=== PATIENT | female | born 1950 | race Hispanic/Latino ===

== ENCOUNTER 2017-12-13 08:07 | Outpatient (CLI) | payer MEDICARE ==
[2017-12-13] MEDS ORDERED: XYLOCAINE TOPICAL 4% TP ONE (08:19)
[2017-12-13] MEDS ORDERED: NACL 0.9% IR PRN (08:19)
== END 2017-12-13 08:08 | disposition home or self-care (01) ==
LOC: WOUND 08:07
PROVIDERS: ATTEND Nurse Practitioner
DX: T81.31XA Disruption of external operation (surgical) wound, not elsewhere classified, initial encounter (principal); I70.292 Other atherosclerosis of native arteries of extremities, left leg; I10 Essential (primary) hypertension; I25.10 Atherosclerotic heart disease of native coronary artery without angina pectoris; Z90.710 Acquired absence of both cervix and uterus; Z87.891 Personal history of nicotine dependence; Y83.8 Other surgical procedures as the cause of abnormal reaction of the patient, or of later complication, without mention of misadventure at the time of the procedure
CPT/HCPCS: 11042; 97605; G0463

== ENCOUNTER 2017-12-20 08:07 | Outpatient (CLI) | payer MEDICARE ==
[2017-12-20] MEDS ORDERED: XYLOCAINE TOPICAL 4% TP ONE ×2 (08:39→08:53)
== END 2017-12-20 08:08 | disposition home or self-care (01) ==
LOC: WOUND 08:07
PROVIDERS: ATTEND Nurse Practitioner
DX: T81.31XD Disruption of external operation (surgical) wound, not elsewhere classified, subsequent encounter (principal); I70.292 Other atherosclerosis of native arteries of extremities, left leg; I10 Essential (primary) hypertension; I25.10 Atherosclerotic heart disease of native coronary artery without angina pectoris; Z90.710 Acquired absence of both cervix and uterus; Z87.891 Personal history of nicotine dependence; Y83.8 Other surgical procedures as the cause of abnormal reaction of the patient, or of later complication, without mention of misadventure at the time of the procedure
CPT/HCPCS: 11055; 97605

== ENCOUNTER 2018-01-03 13:35 | Outpatient (CLI) | payer MEDICARE | END 2018-01-03 13:36 | disposition home or self-care (01) | LOC: WOUND 13:35 | PROVIDERS: ATTEND Nurse Practitioner | DX: T81.31XD Disruption of external operation (surgical) wound, not elsewhere classified, subsequent encounter (principal); I70.292 Other atherosclerosis of native arteries of extremities, left leg; I25.10 Atherosclerotic heart disease of native coronary artery without angina pectoris; I10 Essential (primary) hypertension; Z90.710 Acquired absence of both cervix and uterus; Z87.891 Personal history of nicotine dependence; Y83.8 Other surgical procedures as the cause of abnormal reaction of the patient, or of later complication, without mention of misadventure at the time of the procedure | CPT/HCPCS: 97597 ==

== ENCOUNTER 2018-01-10 13:24 | Outpatient (CLI) | payer MEDICARE ==
[2018-01-10] MEDS ORDERED: XYLOCAINE TOPICAL 2% 5ML TP ONE (14:02)
[2018-01-10] MEDS ORDERED: SILVER NITRATE TP ONE (14:03)
== END 2018-01-10 13:25 | disposition home or self-care (01) ==
LOC: WOUND 13:24
PROVIDERS: ATTEND Nurse Practitioner
DX: T81.31XD Disruption of external operation (surgical) wound, not elsewhere classified, subsequent encounter (principal); I70.292 Other atherosclerosis of native arteries of extremities, left leg; I25.10 Atherosclerotic heart disease of native coronary artery without angina pectoris; F41.8 Other specified anxiety disorders; Z90.710 Acquired absence of both cervix and uterus; Z87.891 Personal history of nicotine dependence; Y83.8 Other surgical procedures as the cause of abnormal reaction of the patient, or of later complication, without mention of misadventure at the time of the procedure
CPT/HCPCS: 17250

== ENCOUNTER 2018-02-11 07:44 | Day surgery (SDC) | payer MEDICARE, OTHER ==
[2018-02-11] MEDS ORDERED: NACL 0.9% 1000 ML 1,000 ML IV SCH (09:00)
[2018-02-11 12:08] VITALS: BP 142/70
--- NOTE | 2018-02-13 18:25 | Cat Scan Report ---
FINAL REPORT PROCEDURE: CT ANGIO ABD/FEMORAL ABD AORTA TECHNIQUE: Computerized axial tomographic angiography of the abdomen and pelvis and aortoiliac system with bilateral lower extremity runoff was performed after the IV injection of nonionic iodinated contrast including image processing. The image data was postprocessed using 2-dimensional multiplanar reformatted (MPR) and 3-dimensional (MIP and/or volume rendered) techniques. DLP 1602.77. HISTORY: Atherosclerosis of eagle arteries of extremities. COMPARISON: No prior studies are available for comparison. FINDINGS: Visualized lower thorax: Emphysema. Moderate airspace disease in the peripheral right lower lobe. Mild bibasilar ground-glass opacities. Cardiomegaly. Coronary artery disease. Liver: Normal size and attenuation. Spleen: Normal size and attenuation. Gallbladder and biliary system: Cholecystectomy. Common bile duct 8.7 cm. Pancreas: Normal. Adrenals: Normal. Kidneys: Small atrophic kidneys bilaterally, particularly the left kidney. Prominence of the right collecting system. Low-attenuation left renal lesion measuring 1.6 cm. Low lying right kidney. GI tract: Normal appendix not confidently seen. Cecum is moderately distended and in the mid abdomen. Moderate stool throughout the colon, with areas of narrowing and air-filled distended redundant sigmoid colon. Lymph nodes and mesentery: Normal. Bladder: Normal. Reproductive organs: Hysterectomy. Peritoneum: No free fluid. Musculoskeletal structures: Osteopenia. Mild multilevel disc space narrowing and osteophytes with Schmorl's nodes of the thoracic spine. Moderate facet arthropathy in the lower lumbar spine. Mild narrowing of the hip, knee, and ankle joints. 9.5 mm sclerotic density in the left symphysis. Other: None. Abdominal aorta: Moderate atherosclerosis. Irregular thrombus in the mid abdominal aorta. 3.4 cm distal abdominal aortic aneurysm with [id number] thrombus just proximal to the bifurcation. Celiac artery: Normal. Superior mesenteric artery: Normal. LEFT renal artery: Atherosclerosis at the origin of the left renal artery without significant stenosis. RIGHT renal artery: Renal artery is low lying, possibly off just proximal to the bifurcation, although could be just at the level of the proximal right common iliac artery takeoff. This is in close proximity to area of linear low attenuation in the abdominal aorta just proximal to the bifurcation. It would be difficult to exclude renal artery comes off just at the area of linear area of low-attenuation. Inferior mesenteric artery: Normal. Common iliac arteries: Moderate irregular thrombus at the origin of the bilateral common iliac arteries. There also extension of the linear area of low attenuation in the distal abdominal aorta into the bilateral proximal common iliac arteries, which possibly ends on the right just proximal to the bifurcation into internal and external iliac arteries. If the area of linear attenuation extends to the bifurcation, right internal and external iliac arteries probably come off of the true lumen, although not certain. Right iliac artery measures 1.1 cm, left iliac artery measures 1.4 cm. External iliac arteries: Urgt-[id number] stenosis in the mid left external iliac artery, with a linear area of low attenuation in the more mid/distal external iliac artery. 1.3 cm aneurysmal dilation of the proximal/mid left internal iliac artery. Although could be irregular thrombus, consider there may be extension of linear area of low attenuation in to the proximal right internal iliac artery. RIGHT lower extremity: Femoral arteries: Normal. Popliteal arteries: Normal. Trifurcation vessels: Attenuation of the peroneal artery. LEFT lower extremity: Femoral arteries: Normal. Popliteal arteries: Normal. Trifurcation vessels: Attenuation of the peroneal artery. IMPRESSION: Moderate atherosclerosis and irregular thrombus in the abdominal aorta with 3.4 cm distal abdominal aortic aneurysm. Areas of linear attenuation in the distal abdominal aorta just proximal to the bifurcation with extension into the proximal bilateral proximal iliac arteries, concerning fordissection flap. 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 The right renal artery takeoff is low lying, may, off just proximal to the bifurcation, cannot exclude comes off just at/distal to this area of linear low attenuation, raising the possibility comes off false lumen (although not certain). Similar focal area of linear low attenuation in the mid/distal left external iliac artery, also suggesting small dissection flap. Focal mild to moderate stenosis just proximal to this in the left external iliac artery. 1.3 centimeter aneurysmal dilation of the proximal/mid left internal iliac artery. There may be involvement of the bifurcation of the right common iliac artery in to the internal and external iliac arteries, although not certain if this is the case they probably come off the true lumen. Attenuation of the peroneal arteries bilaterally. Emphysema. Bibasilar opacities/airspace disease. Cardiomegaly with coronary artery disease. Dilation of the common bile duct, likely normal after cholecystectomy. Atrophic kidneys, particularly the left kidney. Prominence of the right collecting system, likely extrarenal pelvis but consider correlation clinically if there is concern for UPJ obstruction. Low-attenuation left renal lesion likely cysts, consider confirmation with renal ultrasound if there is continued clinical concern. Moderate stool, consider constipation. Cecum is distended in the mid abdomen. Areas of narrowing and air-filled distended sigmoid colon likely peristalsis. Normal appendix not confidently seen. Consider correlation with surgical history and further evaluation and followup if appendiceal pathology is of continued clinical concern. Sclerotic lesion in the left symphysis, likely bone island. Consider bone scan if there is concern for blastic lesion.
== END 2018-02-11 15:00 | disposition home or self-care (01) ==
LOC: CATHLABREC 07:44
PROVIDERS: ATTEND Surgery Vascular Surgery
DX: I70.213 Atherosclerosis of native arteries of extremities with intermittent claudication, bilateral legs (principal); I71.4 Abdominal aortic aneurysm, without rupture; N26.1 Atrophy of kidney (terminal); J43.9 Emphysema, unspecified; Z90.710 Acquired absence of both cervix and uterus
CPT/HCPCS: 36415; 75635; 82565; 84520; 96360; 96361; J7030; Q9967

== ENCOUNTER 2018-04-29 21:14 | Inpatient (IN) | payer MEDICARE, OTHER ==
[2018-04-29 22:10] LABS: Basophils # (Auto) 0.1 K/mm3 (0.0-0.1); Basophils % (Auto) 0.7 % (0.0-1.8); Eosinophils # (Auto) 0.4 K/mm3 (0.0-0.4); Eosinophils % (Auto) 3.7 % (0.0-4.3); Hematocrit 33.5 % (30.3-42.9); Hemoglobin 11.2 gm/dl (10.1-14.3); Lymphocytes # (Auto) 1.8 K/mm3 (1.2-5.4); Mean Corpuscular HGB Conc 33 % (30-34); Mean Corpuscular Hemoglobin 30 pg (28-32); Mean Corpuscular Volume 89 fl (79-97); Monocytes % (Auto) 10.7 % (0.0-7.3); Platelet Count 169 K/mm3 (140-440); Red Blood Count 3.76 M/mm3 (3.65-5.03); Red Cell Distribution Width 14.8 % (13.2-15.2)
[2018-04-29 22:22] LABS: BUN/Creatinine Ratio 17; Blood Urea Nitrogen 32 mg/dL (7-17); Calcium 9.1 mg/dL (8.4-10.2); Hemolysis Index 39
[2018-04-29] MEDS ORDERED: CATAPRES PO ONE (22:32)
[2018-04-29] MEDS ORDERED: NITRO-BID 2% TP ONE (22:34)
[2018-04-29] MEDS ORDERED: MORPHINE IV ONE (22:34)
[2018-04-29] MEDS ORDERED: ZOFRAN IV ONE (22:34)
--- NOTE | 2018-04-29 22:39 | Emergency Department Report ---
HPI - General Chief Complaint: Chest Pain Time Seen by Provider: 04/29/18 22:19 - HPI HPI: Room 23 The patient is a 67-year-old female presenting with a chief complaint of chest pain. The patient states this evening approximately 20:00 the patient complained of diffuse anterior chest pain described as sharp in nature. The patient states the pain has been waxing and waning and she currently gives it a score of 7/10. The patient admits to shortness of breath and nausea but denies vomiting or diaphoresis. The patient reportedly had a history of "heart attack " last year in [place] the family is uncertain if a stent was placed. Location: Chest Duration: Constant since approximately 20:00 Quality: Sharp Severity: 7/10 Modifying factors: [see above] Context: [see above] Mode of transportation: [not driving] ED Past Medical Hx - Past Medical History Previous Medical History?: Yes Hx Hypertension: Yes Hx Heart Attack/AMI: Yes (2016) Hx Renal Disease: Yes Hx Arthritis: Yes Hx COPD: Yes Additional medical history: Distal AAA 3.4 cm 02/11/2018 - Surgical History Past Surgical History?: Yes Hx Cholecystectomy: Yes Hx Appendectomy: Yes Additional Surgical History: Hysterectomy, l't leg , - Family History Family history: no significant - Social History Smoking Status: Former Smoker Substance Use Type: None - Medications Home Medications: Home Medications Medication Instructions Recorded Confirmed Last Taken Type ALPRAZolam [Xanax TAB] 0.5 mg PO DAILY PRN 02/11/18 02/11/18 02/10/18 History 0.5mg Aspirin [Aspir-Low] 81 mg PO DAILY 02/11/18 02/11/18 02/10/18 History 81mg Clopidogrel Bisulfate [Plavix] 75 mg PO DAILY 02/11/18 02/11/18 02/10/18 History 75mg Gabapentin 300 mg PO BID 02/11/18 02/11/18 02/10/18 History 300mg Metoprolol [Lopressor TAB] 25 mg PO DAILY 02/11/18 02/11/18 02/10/18 History 25mg Pantoprazole [Protonix TAB] 40 mg PO DAILY 02/11/18 02/11/18 02/10/18 History 40mg Pravastatin Sodium [Pravastatin] 20 mg PO QHS 02/11/18 02/11/18 02/10/18 History 20mg ED Review of Systems ROS: Stated complaint: CHEST PAIN Other details as noted in HPI Physical Exam - Physical Exam Vital Signs: Vital Signs 04/29/18 04/29/18 21:38 22:10 Temperature 98.6 F Pulse Rate 85 Respiratory 20 20 Rate Blood Pressure 171/77 Blood Pressure 171/77 [Right] O2 Sat by Pulse 100 100 Oximetry ED Course Vital Signs 04/29/18 04/29/18 21:38 22:10 Temperature 98.6 F Pulse Rate 85 Respiratory 20 20 Rate Blood Pressure 171/77 Blood Pressure 171/77 [Right] O2 Sat by Pulse 100 100 Oximetry ED Medical Decision Making - Lab Data Result diagrams: 04/29/18 21:51 04/29/18 21:51 Laboratory Tests 04/29/18 04/29/18 21:51 21:51 WBC 9.6 RBC 3.76 Hgb 11.2 Hct 33.5 MCV 89 MCH 30 MCHC 33 RDW 14.8 Plt Count 169 Lymph % (Auto) 19.0 [place] % (Auto) 10.7 H Eos % (Auto) 3.7 Baso % (Auto) 0.7 Lymph # 1.8 [place] # 1.0 H Eos # 0.4 Baso # 0.1 Seg Neutrophils % 65.9 Seg Neutrophils # 6.4 Sodium 139 Potassium 4.2 Chloride 106.8 Carbon Dioxide 20 L Anion Gap 16 BUN 32 H Creatinine 1.9 H Estimated GFR 26 BUN/Creatinine Ratio 17 Glucose 90 Calcium 9.1 Troponin T < 0.010 - EKG Data -: EKG Interpreted by Me EKG shows normal: sinus rhythm Rate: normal - EKG Data When compared to previous EKG there are: previous EKG unavailable Interpretation: nonspecific ST-T wave comfort (T-wave inversion in lead 3) - Radiology Data Radiology results: image reviewed (chest x-ray) interpreted by me: Chest x-ray-no focal of leuk trase, no pneumothorax. Right costophrenic angle slightly obscured - Differential Diagnosis ACS, pericarditis, GERD, pneumonia Critical care attestation.: If time is entered above; I have spent that time in minutes in the direct care of this critically ill patient, excluding procedure time. ED Disposition Clinical Impression: Chest pain Disposition: OP ADMIT IP TO THIS HOSP Is pt being admited?: Yes Does the pt Need Aspirin: No (renal insufficiency) Condition: Fair Instructions: Chest Pain (ED) Referrals: PRIMARY CARE, [Referring] - 3-5 Days Time of Disposition: 22:47 (hospitalist paged (Dr. Lacy Day))
[2018-04-29] MEDS ORDERED: PLAVIX PO ONE (22:46)
--- NOTE | 2018-04-29 22:59 | XRay Report ---
FINAL REPORT EXAM: XR CHEST 1V AP HISTORY: chest pain TECHNIQUE: Single, portable chest x-ray. PRIORS: None. FINDINGS: Cardiac and mediastinal silhouette within normal limits. Lungs are hyperinflated, without significant vascular congestion. No focal consolidation or apparent pneumothorax. Bony thorax grossly unremarkable. IMPRESSION: 1. No acute findings.
[2018-04-29] MEDS ORDERED: PERCOCET 5/325 ONE (23:16)
[2018-04-29] MEDS: PERCOCET 5/325 PO PRN (23:24)
--- NOTE | 2018-04-29 23:34 | History and Physical Report ---
History of Present Illness Date of examination: 04/29/18 History of present illness: 67-year-old and a history of hypertension, COPD, chronic kidney disease, aortic abdominal aneurysm, probably coronary artery disease comes emergency room with complaints of chest pain in the anterior chest. Daughter at bedside state that she had a valve replacement, and she thinks she had a heart attack, she is unclear if the patient has any stents or other intervention done. She describes the pain as sharp, constant, intensity 5/10, no radiation, she cannot identify exacerbating or relieving factors. Also admits to nausea, no shortness of breath, diaphoresis or palpitation. The patient also complains of abdominal pain, she will not elaborate on that, she sleepy Review of systems Constitutional: no weight loss, chills Ears, eyes, nose, mouth and throat: no nasal congestion, no nasal discharge, no sinus pressure, no vision change, no red eye. Neck: No neck pain or rigidity. Cardiovascular: no palpitations Respiratory: No shortness of breath, cough Gastrointestinal: no hematochezia Genitourinary : no frequency , no hematuria Musculoskeletal: no joint swelling or muscle ache Integumentary: no rash, no pruritis Neurological: no parathesias, no numbness, no focal weakness Endocrine: no cold or heat intolerance, no polyuria or polydipsia Hematologic/Lymphatic: no easy bruising, no easy bleeding, no gland swelling Allergic/Immunologic: no urticaria, no angioedema. PAST MEDICAL HISTORY: hypertension, COPD, chronic kidney disease, aortic abdominal aneurysm PAST SURGICAL HISTORY: Valve replacement SOCIAL HISTORY: Smoke, no alcohol, drugs FAMILY HISTORY: Hypertension Medications and Allergies Allergies Allergy/AdvReac Type Severity Reaction Status Date / Time vancomycin Allergy Hives Verified 12/13/17 08:19 Home Medications Medication Instructions Recorded Confirmed Last Taken Type ALPRAZolam [Xanax TAB] 0.5 mg PO DAILY PRN 02/11/18 02/11/18 02/10/18 History 0.5mg Aspirin [Aspir-Low] 81 mg PO DAILY 02/11/18 02/11/18 02/10/18 History 81mg Clopidogrel Bisulfate [Plavix] 75 mg PO DAILY 02/11/18 02/11/18 02/10/18 History 75mg Gabapentin 300 mg PO BID 02/11/18 02/11/18 02/10/18 History 300mg Metoprolol [Lopressor TAB] 25 mg PO DAILY 02/11/18 02/11/18 02/10/18 History 25mg Pantoprazole [Protonix TAB] 40 mg PO DAILY 02/11/18 02/11/18 02/10/18 History 40mg Pravastatin Sodium [Pravastatin] 20 mg PO QHS 02/11/18 02/11/18 02/10/18 History 20mg Exam - Physical Exam Narrative exam: Gen. appearance: Patient lying in bed, no apparent distress HEENT: Normocephalic, atraumatic, pupils equally round and reactive to light, extraocular movement intact, and no sclericterus,. No JVD or thyromegaly or nodule,neck supple, no carotid bruit ,mucous membranes moist, no exudate or erythema Heart: S1, S2, regular rate and rhythm Lungs: Clear to auscultation bilaterally, breathing comfortable Abdomen: Positive bowel sounds, tender in the mid abdomen, nondistended, no organomegaly Extremity: Trace edema, no cyanosis, clubbing Skin: No rash, nodules, warm, dry Neuro: + tremors, Oriented 3, cranial nerves II-12 intact, speech is fluent, motor and sensory intact - Constitutional Vitals: Temp Pulse Resp BP Pulse Ox 98.6 F 81 16 145/73 98 04/29/18 21:38 04/29/18 23:22 04/29/18 23:23 04/29/18 23:22 04/29/18 22:30 Results - Labs CBC & Chem 7: 04/29/18 21:51 04/29/18 21:51 Labs: Abnormal lab results 04/29/18 04/29/18 Range/Units 21:51 21:51 [place] % (Auto) 10.7 H (0.0-7.3) % [place] # 1.0 H (0.0-0.8) K/mm3 Carbon Dioxide 20 L (22-30) mmol/L BUN 32 H (7-17) mg/dL Creatinine 1.9 H (0.7-1.2) mg/dL - Imaging and Cardiology EKG: image reviewed Chest x-ray: image reviewed Assessment and Plan Assessment Abdominal pain Chest pain hypertension COPD chronic kidney disease aortic abdominal aneurysm Plan Admit to medicine Obtain CAT scan of the abdomen and pelvis check cardiac enzymes, consult cardiology Continue medications, Percocet for pain DVT prophylaxis
[2018-04-29] MEDS ORDERED: TYLENOL PO PRN (23:35)
[2018-04-29] MEDS ORDERED: SODIUM CHLORIDE FLUSH SYRINGE 10 ML IV PRN (23:35)
[2018-04-29] MEDS ORDERED: ZOFRAN IV PRN (23:35)
[2018-04-30 01:04] LABS: Creatine Kinase MB 3.3 ng/mL (0.0-4.0)
--- NOTE | 2018-04-30 01:40 | Cat Scan Report ---
FINAL REPORT EXAM: CT ABDOMEN PELVIS WO CON HISTORY: abd pain TECHNIQUE: Routine axial imaging was obtained of the abdomen and pelvis without oral or IV contrast. Sagittal and coronal reconstructions were reviewed. Comparison is made to the study of 02/11/2018. FINDINGS: The lung bases reveal mild chronic changes. There are no localized infiltrates or effusions. There is a small hiatal hernia. The liver and biliary tree appear normal. The gallbladder is not seen. The pancreas, spleen, and adrenal glands appear normal. The left kidney is very atrophic revealing benign cystic changes. The right kidney is normal size. There is no evidence of hydronephrosis. There is a stable fusiform abdominal aortic aneurysm measuring 3.8 cm in diameter. There is a stent in the left common iliac artery. The bowel loops are normal in caliber and course. There is no evidence of free fluid or adenopathy. There are scattered uncomplicated colonic diverticula. In the pelvis the bladder appears normal. The uterus has been removed. The appendix is not seen. There is a stable small left inguinal hernia containing fat. There is scarring in the left inguinal area. The skeletal structures reveal postsurgical changes in the lower lumbar spine. IMPRESSION: No acute process in the abdomen and pelvis. Atrophic left kidney with cystic changes. No evidence of hydronephrosis. Cholecystectomy. Stable 3.8 cm in diameter fusiform abdominal aortic aneurysm. Scattered uncomplicated colonic diverticula. Hysterectomy. Stable small left inguinal hernia. Remote postsurgical changes in the lower lumbar spine
[2018-04-30 08:38] LABS: Hematocrit 33.8 % (30.3-42.9); Hemoglobin 11.3 gm/dl (10.1-14.3); Mean Corpuscular HGB Conc 33 % (30-34); Mean Corpuscular Hemoglobin 30 pg (28-32); Mean Corpuscular Volume 90 fl (79-97); Platelet Count 166 K/mm3 (140-440); Red Blood Count 3.78 M/mm3 (3.65-5.03); Red Cell Distribution Width 15.1 % (13.2-15.2)
[2018-04-30 08:57] LABS: Calcium 9.2 mg/dL (8.4-10.2); Creatine Kinase MB 2.7 ng/mL (0.0-4.0)
[2018-04-30 10:38] LABS: Anisocytosis 1+; Band Neutrophils # (Manual) 0.1 K/mm3; Basophils % (Manual) 0 % (0.0-1.8); Platelet Estimate Cons; Total Cells Counted 100
--- NOTE | 2018-04-30 10:39 | Consultation ---
History of Present Illness Consult date: 04/30/18 Requesting physician: GERRY LACEY Consult reason: chest pain History of present illness: The pt is a 67 YO female with a past medical history significant for HTN, COPD, abdominal aortic aneurysm (being followed by Dr.Paul Raymundo), severe s/p TAVR in [place] reportedly in 08/2017 with left groin surgical site infection, s/p left groin exploration, left femoral and external iliac vessel exploration and left femoral artery and external iliac artery endarterectomy, thrombectomy, hemashield patch angioplasty of left femoral and iliac arteries and inguinal ligament reconstruction on 10/26/17 and subsequent wound revision on 11/22/17 and again wound vac placement on 11/26/17. She is followed in our office by Dr. Hamilton. She presented with complaints of chest pain since yesterday morning. She describes her chest pain as a nonexertional, nonradiating, midsternal, intermittent, sharp pain which is associated with SOB. She denies any palpitations, n/v, diaphoresis, dizziness or syncope. ECG shows no acute ischemic changes, troponin is negative for AMI x 2, CXR with NAF. Past History Past Medical History: COPD, hypertension, other (CKD; severe s/p TAVR) Past Surgical History: Other (severe s/p TAVR) Medications and Allergies Allergies Allergy/AdvReac Type Severity Reaction Status Date / Time vancomycin Allergy Hives Verified 12/13/17 08:19 Home Medications Medication Instructions Recorded Confirmed Last Taken Type ALPRAZolam [Xanax TAB] 0.5 mg PO DAILY PRN 02/11/18 04/30/18 02/10/18 History 0.5mg Aspirin [Aspir-Low] 81 mg PO DAILY 02/11/18 04/30/18 02/10/18 History 81mg Clopidogrel Bisulfate [Plavix] 75 mg PO DAILY 02/11/18 04/30/18 04/29/18 History Gabapentin [Neurontin] 300 mg PO Q8HR 02/11/18 04/30/18 04/29/18 History Metoprolol [Lopressor TAB] 25 mg PO DAILY 02/11/18 04/30/18 04/29/18 History Pantoprazole [Protonix TAB] 40 mg PO DAILY 02/11/18 04/30/18 04/29/18 History Pravastatin Sodium [Pravastatin] 20 mg PO QHS 02/11/18 04/30/18 04/28/18 History Active Meds: Active Medications Acetaminophen (Tylenol) 650 mg PO Q4H PRN PRN Reason: Pain MILD(1-3)/Fever >100.5/ZHANG Enoxaparin Sodium (Lovenox) 30 mg SUB-Q QDAY [facility] Ondansetron HCl (Zofran) 4 mg IV Q4H PRN PRN Reason: Nausea And Vomiting Oxycodone/Acetaminophen (Percocet 5/325) 1 tab PO Q6H PRN PRN Reason: Pain, Moderate (4-6) Last Admin: 04/29/18 23:24 Dose: 1 tab Sodium Chloride (Sodium Chloride Flush Syringe 10 Ml) 10 ml IV BID NITESH Sodium Chloride (Sodium Chloride Flush Syringe 10 Ml) 10 ml IV PRN PRN PRN Reason: LINE FLUSH Review of Systems Constitutional: no weight loss, no weight gain, no fever, no chills, no sweats Ears, nose, mouth and throat: no ear pain, no nose pain, no sinus pressure, no sinus pain Cardiovascular: chest pain, shortness of breath, high blood pressure, no orthopnea, no palpitations, no rapid/irregular heart beat, no edema, no syncope , no lightheadedness, no leg edema Respiratory: shortness of breath, no cough, no congestion, no wheezing, no pain on inspiration Gastrointestinal: no abdominal pain, no nausea, no vomiting, no diarrhea, no constipation, no change in bowel habits Genitourinary Female: no pelvic pain, no flank pain, no dysuria, no urinary frequency, no urgency Musculoskeletal: no neck stiffness, no neck pain, no shooting arm pain, no arm numbness/tingling, no low back pain, no shooting leg pain, no leg numbness/ tingling, no redness of joints Integumentary: other (old left groin surgical site c/d/i), no rash, no pruritis , no redness, no sores Neurological: no head injury, no paralysis, no weakness, no parathesias, no numbness, no tingling, no seizures, no syncope Psychiatric: no anxiety Endocrine: no cold intolerance, no heat intolerance Hematologic/Lymphatic: no easy bruising, no easy bleeding, no lymphadenopathy Allergic/Immunologic: no urticaria, no wheezing, no persistent infections Physical Examination Vital Signs Pulse Resp 87 17 04/29/18 21:28 04/29/18 21:28 General appearance: no acute distress HEENT: Positive: PERRL, Normocephaly, Mucus Membranes Moist Neck: Positive: neck supple, trachea midline Cardiac: Positive: Reg Rate and Rhythm, S1/S2 Lungs: Positive: clear to auscultation Neuro: Positive: Grossly Intact Abdomen: Positive: Soft. Negative: Tender Skin: Positive: Clear. Negative: Rash, Wound Musculoskeletal: No Fluid Collection, No Pain, Normal Range of Motion Extremities: Absent: edema Results 04/30/18 07:48 04/30/18 07:48 Cardiac Enzymes 04/29/18 04/30/18 Range/Units 23:59 07:48 CK-MB (CK-2) 3.3 2.7 (0.0-4.0) ng/mL CBC 04/29/18 04/30/18 Range/Units 21:51 07:48 WBC 9.6 6.1 (4.5-11.0) K/mm3 RBC 3.76 3.78 (3.65-5.03) M/mm3 Hgb 11.2 11.3 (10.1-14.3) gm/dl Hct 33.5 33.8 (30.3-42.9) % Plt Count 169 166 (140-440) K/mm3 Lymph # 1.8 (1.2-5.4) K/mm3 [place] # 1.0 H (0.0-0.8) K/mm3 Eos # 0.4 (0.0-0.4) K/mm3 Baso # 0.1 (0.0-0.1) K/mm3 Comprehensive Metabolic Panel 04/29/18 04/30/18 Range/Units 21:51 07:48 Sodium 139 142 (137-145) mmol/L Potassium 4.2 4.8 (3.6-5.0) mmol/L Chloride 106.8 108.8 H (98-107) mmol/L Carbon Dioxide 20 L 20 L (22-30) mmol/L BUN 32 H 30 H (7-17) mg/dL Creatinine 1.9 H 2.0 H (0.7-1.2) mg/dL Glucose 90 81 (65-100) mg/dL Calcium 9.1 9.2 (8.4-10.2) mg/dL - Imaging and Cardiology Echo: pending EKG: report reviewed, image reviewed EKG interpretations - Telemetry EKG Rhythm: Sinus Rhythm - EKG Sinus rhythms and dysrhythmias: sinus rhythm AV and intraventricular conduction: intraventricular conducti Assessment and Plan Assessment: Chest pain, atypical - recurrent; ECG with NAF, Abelardo negative for AMI H/o severe s/p TAVR in [place] reportedly in 08/2017 with left groin surgical site infection, s/p left groin exploration, left femoral and external iliac vessel exploration and left femoral artery and external iliac artery endarterectomy , thrombectomy, hemashield patch angioplasty of left femoral and iliac arteries and inguinal ligament reconstruction on 10/26/17 and subsequent wound revision on 11/22/17 and again wound vac placement on 11/26/17. HTN COPD H/o abdominal aortic aneurysm - abdomen CT this admission shows stable 3.8cm AAA Plan: Resume home cardiac regimen. Obtain echo. Plan for lexiscan MPI stress test in AM. NPO after MN. Assessment and plan reviewed with pt and pt's family at bedside. The patient has been seen in conjunction with Dr. Blackwell who agrees with the assessment and plan of care.
[2018-04-30] MEDS: LOVENOX SUB-Q SCH (10:46)
[2018-04-30] MEDS: SODIUM CHLORIDE FLUSH SYRINGE 10 ML IV SCH ×2 (10:46→21:25)
--- NOTE | 2018-04-30 17:29 | Progress Note ---
Assessment and Plan Assessment and Plan 1)Chest pain, atypical - recurrent; ECG with NAF, Abelardo negative for AMI H/o severe s/p TAVR in [place] reportedly in 08/2017 with left groin surgical site infection, s/p left groin exploration, left femoral and external iliac vessel exploration and left femoral artery and external iliac artery endarterectomy , thrombectomy, hemashield patch angioplasty of left femoral and iliac arteries and inguinal ligament reconstruction on 10/26/17 and subsequent wound revision on 11/22/17 and again wound vac placement on 11/26/17. Obtain echo. Plan for lexiscan MPI stress test in AM. NPO after MN. 2)HTN---Cont antihypertensives 3)COPD H/o abdominal aortic aneurysm - abdomen CT this admission shows stable 3.8cm AAA Plan: Resume home cardiac regimen. Assessment and plan reviewed with pt and pt's family at bedside. Subjective Date of service: 04/30/18 Principal diagnosis: Chest pain Interval history: Sx better Objective - Constitutional Vitals: Vital Signs - 12hr 04/30/18 04/30/18 04/30/18 07:22 11:40 11:50 Temperature 97.5 F L 97.8 F Pulse Rate 71 73 60 Respiratory 16 16 Rate Blood Pressure 125/55 147/76 O2 Sat by Pulse 100 99 Oximetry 04/30/18 04/30/18 11:53 15:37 Temperature 97.8 F Pulse Rate 60 90 Respiratory 16 Rate Blood Pressure 153/75 O2 Sat by Pulse 100 Oximetry General appearance: Present: no acute distress, well-nourished - EENT Eyes: PERRL, EOM intact ENT: hearing intact, clear oral mucosa Ears: bilateral: normal - Neck Neck: supple, normal ROM - Respiratory Respiratory effort: normal Respiratory: bilateral: CTA - Breasts Breasts: deferred, normal - Cardiovascular Heart rate: 78 Rhythm: regular Heart Sounds: Present: S1 & S2. Absent: gallop, rub Extremities: no ischemia, pulses intact, No edema, normal color, Full ROM - Gastrointestinal General gastrointestinal: Present: soft, non-tender, non-distended, normal bowel sounds - Genitourinary Female genitourinary: normal - Integumentary Integumentary: clear, warm, dry - Musculoskeletal Musculoskeletal: 1, strength equal bilaterally - Neurologic Neurologic: moves all extremities - Psychiatric Psychiatric: memory intact, appropriate mood/affect, intact judgment & insight - Labs CBC & Chem 7: 04/30/18 07:48 04/30/18 07:48 Labs: Abnormal lab results 04/29/18 04/29/18 04/30/18 Range/Units 21:51 21:51 07:48 Clinch % (Auto) 10.7 H (0.0-7.3) % Clinch # 1.0 H (0.0-0.8) K/mm3 Monocytes % (Manual) 12.0 H (0.0-7.3) % Eosinophils % (Manual) 5.0 H (0.0-4.3) % Lymphocytes # (Manual) 0.9 L (1.2-5.4) K/mm3 Chloride (98-107) mmol/L Carbon Dioxide 20 L (22-30) mmol/L BUN 32 H (7-17) mg/dL Creatinine 1.9 H (0.7-1.2) mg/dL 04/30/18 Range/Units 07:48 Clinch % (Auto) (0.0-7.3) % Clinch # (0.0-0.8) K/mm3 Monocytes % (Manual) (0.0-7.3) % Eosinophils % (Manual) (0.0-4.3) % Lymphocytes # (Manual) (1.2-5.4) K/mm3 Chloride 108.8 H (98-107) mmol/L Carbon Dioxide 20 L (22-30) mmol/L BUN 30 H (7-17) mg/dL Creatinine 2.0 H (0.7-1.2) mg/dL
[2018-04-30] MEDS ORDERED: NACL 0.9% 1000 ML 1,000 ML IV SCH (18:00)
[2018-04-30] MEDS: PERCOCET 5/325 PO PRN (21:17)
[2018-04-30] MEDS: LOPRESSOR PO SCH (21:24)
[2018-04-30] MEDS ORDERED: PRAVACHOL PO SCH (22:00)
[2018-05-01] MEDS ORDERED: LEXISCAN IV ONE ×2 (08:16→08:24)
[2018-05-01] MEDS ORDERED: PLAVIX PO SCH (10:00)
[2018-05-01] MEDS ORDERED: HALFPRIN EC PO SCH (10:00)
--- NOTE | 2018-05-01 10:12 | Progress Note ---
Assessment and Plan chest pain possible gi sob htn AAA chol s/p TAVR s/p iliac repair rec: pt has normal myocardial perfusion and normal lv function, on echo and functioning aortic valve and cont home meds and add ppi and followed up with dr melgar Subjective Date of service: 05/01/18 Principal diagnosis: Chest pain Interval history: pt has no chest pain today Objective Vital Signs Temp Pulse Resp Resp BP BP Pulse Ox 05/01/18 07:27 97.9 F 71 147/64 100 05/01/18 04:17 98.9 F 69 18 139/56 99 05/01/18 03:33 71 139/56 100 05/01/18 00:09 98.9 F 72 20 149/78 99 04/30/18 23:53 98 H 04/30/18 23:33 79 149/78 99 04/30/18 22:00 20 20 04/30/18 21:24 82 139/55 04/30/18 21:17 20 04/30/18 21:16 98.2 F 83 20 139/55 99 04/30/18 20:00 98.4 F 76 18 121/36 100 04/30/18 19:21 82 121/33 100 04/30/18 19:20 79 121/26 100 04/30/18 15:37 97.8 F 90 16 153/75 100 04/30/18 11:53 60 04/30/18 11:50 60 04/30/18 11:40 97.8 F 73 16 147/76 99 - Physical Examination HEENT: Positive: PERRL, Normocephaly, Mucus Membranes Moist Neck: Positive: neck supple, trachea midline Cardiac: Positive: Reg Rate and Rhythm, Audible Murmur Lungs: Positive: clear to auscultation Neuro: Positive: Grossly Intact Abdomen: Positive: Soft. Negative: Tender Skin: Positive: Clear. Negative: Rash, Wound Musculoskeletal: No Fluid Collection, No Pain, Normal Range of Motion Extremities: Absent: edema - Imaging and Cardiology EKG: report reviewed, image reviewed Pharmacologic stress test: report reviewed (normal myocardial perfusion normal lv function) Echo: report reviewed (normal lv function normal aortic bioprostetic valve functioning no ai or as and mild mr ) - Telemetry EKG Rhythm: Sinus Rhythm - EKG Sinus rhythms and dysrhythmias: sinus rhythm AV and intraventricular conduction: intraventricular conducti
[2018-05-01] MEDS: SODIUM CHLORIDE FLUSH SYRINGE 10 ML IV SCH (11:00)
[2018-05-01] MEDS: LOVENOX SUB-Q SCH (11:00)
[2018-05-01] MEDS: LOPRESSOR PO SCH (11:00)
--- NOTE | 2018-05-01 15:51 | Discharge Summary ---
Providers - Providers Date of Admission: 04/29/18 23:35 Date of discharge: 05/01/18 Attending physician: CITLALLI RIDDLE 04/29/18 23:35 Consult to Physician [CONS] Routine Comment: Consulting Provider: BRENT NUNO Physician Instructions: Reason For Exam: cp 04/30/18 11:28 Physical Therapy Evaluation and Treat [CONS] Stat Comment: Reason For Exam: General Weakness Primary care physician: ANDERS GARCIA Hospitalization Condition: Fair Procedures: ECHO and Lexiscan normal Hospital course: Assessment and Plan chest pain possible Gerd COPD htn AAA chol s/p TAVR s/p iliac repair rec: pt has normal myocardial perfusion and normal lv function, on echo and functioning aortic valve and cont home meds and ppi added Follow up with dr melgar Disposition: DC-01 TO HOME OR SELFCARE Core Measure Documentation - Palliative Care Palliative Care/ Comfort Measures: Not Applicable - Core Measures Any of the following diagnoses?: none Exam - Constitutional Vitals: Temp Pulse Resp BP Pulse Ox 97.5 F L 76 16 155/65 100 05/01/18 11:59 05/01/18 11:59 05/01/18 11:59 05/01/18 11:59 05/01/18 11:59 General appearance: Present: no acute distress, well-nourished - EENT Eyes: Present: PERRL ENT: hearing intact, clear oral mucosa - Neck Neck: Present: supple, normal ROM - Respiratory Respiratory effort: normal Respiratory: bilateral: CTA - Cardiovascular Heart rate: 70 Rhythm: regular Heart Sounds: Present: S1 & S2. Absent: rub, click - Extremities Extremities: no ischemia, pulses intact, pulses symmetrical, No edema Peripheral Pulses: within normal limits - Abdominal General gastrointestinal: Present: soft, non-tender, non-distended, normal bowel sounds Female genitourinary: Present: normal - Rectal Rectal Exam: deferred - Integumentary Integumentary: Present: clear, warm, dry - Musculoskeletal Musculoskeletal: gait normal, strength equal bilaterally - Psychiatric Psychiatric: appropriate mood/affect, intact judgment & insight - Neurologic Neurologic: CNII-XII intact, moves all extremities - Allied Health Allied health notes reviewed: nursing, case management Plan Activity: no restrictions Diet: low cholesterol, low salt Follow up with: PRIMARY CARE, [Referring] - 3-5 Days
[2018-05-01 16:54] VITALS: BP 151/80
--- NOTE | 2018-05-01 21:17 | Treadmill Report ---
NUCLEAR PERFUSION STUDY READING PHYSICIAN: Dr. Rangel. REASON FOR STUDY: Chest pain. IMAGING PROTOCOL: Single isotope. The patient received 10 mCi of Technetium 99m Tetrofosmin for resting image and 28 mCi of Technetium 99m Tetrofosmin for stress imaging. The imaging for the whole procedure was completed 30-90 minutes following the initial injection of Technetium 99m tetrofosmin. The SPECT imaging in the 180 degree arc was performed in the right anterior oblique projection. Computerized reconstruction of the images was performed for analysis. IMAGING RESULTS: Normal cavity size from stress to rest. Normal distribution of radionuclide in the anterior, inferior, septal, and apical regions. Gated SPECT, EF 53%. No wall motion abnormality. The patient infused Lexiscan with no EKG changes. SUMMARY: 1. Negative Lexiscan EKG. 2. Normal rest and stress myocardial perfusion scan. No significant stress ischemia. No wall motion abnormality. Gated SPECT, 52%. JOB# [id number] PARI/DEBBI
== END 2018-05-01 18:45 | disposition home health service (06) | DRG 392 ==
LOC: ED 21:14 → 4A 23:35
PROVIDERS: ADMIT Internal Medicine; ATTEND Internal Medicine
DX: K21.9 Gastro-esophageal reflux disease without esophagitis (principal); N17.9 Acute kidney failure, unspecified; J44.9 Chronic obstructive pulmonary disease, unspecified; I12.9 Hypertensive chronic kidney disease with stage 1 through stage 4 chronic kidney disease, or unspecified chronic kidney disease; N18.9 Chronic kidney disease, unspecified; I71.4 Abdominal aortic aneurysm, without rupture; M19.90 Unspecified osteoarthritis, unspecified site; Z90.49 Acquired absence of other specified parts of digestive tract; Z90.710 Acquired absence of both cervix and uterus; I25.2 Old myocardial infarction; Z87.891 Personal history of nicotine dependence; Z82.49 Family history of ischemic heart disease and other diseases of the circulatory system; Z88.1 Allergy status to other antibiotic agents
CPT/HCPCS: 36415; 71045; 74176; 78452; 80048; 82550; 82553; 84484; 85007; 85025; 86403; 87116; 93005; 93010; 93017; 93306; 96374; 99285; A9270-GY; A9502; G8978-GP; G8979-GP; J1650; J2270; J2405; J2785; J7030

== ENCOUNTER 2019-04-21 20:40 | Inpatient (IN) | payer MEDICARE, OTHER ==
[2019-04-21 21:54] LABS: Hematocrit 34.3 % (30.3-42.9); Hemoglobin 11.8 gm/dl (10.1-14.3); Mean Corpuscular HGB Conc 34 % (30-34); Mean Corpuscular Volume 93 fl (79-97); Platelet Count 187 K/mm3 (140-440); Red Cell Distribution Width 13.9 % (13.2-15.2)
[2019-04-21] MEDS ORDERED: MORPHINE IV ONE (21:57)
[2019-04-21] MEDS ORDERED: ZOFRAN IV ONE (21:57)
[2019-04-21 22:07] LABS: INR 0.87 (0.87-1.13)
[2019-04-21 22:08] LABS: Partial Thromboplastin Time 25.2 Sec. (24.2-36.6)
[2019-04-21 22:09] LABS: BUN/Creatinine Ratio 13; Blood Urea Nitrogen 28 mg/dL (7-17); Calcium 8.8 mg/dL (8.4-10.2); Hemolysis Index 48
--- NOTE | 2019-04-21 22:18 | Emergency Department Report ---
ED Chest Pain HPI - General Chief Complaint: Chest Pain Stated Complaint: CHEST PAIN Time Seen by Provider: 04/21/19 20:57 Source: patient, EMS, old records reviewed (April 2018 stress test negative. Echo EF of 50-55%) Mode of arrival: Wheelchair Limitations: No Limitations - History of Present Illness Initial Comments: 68-year-old female with past medical history of arthritis, COPD, CAD, hypertension, renal insufficiency, CAD with stent placement, and bovine aortic heart valve presents to the hospital complains of sternal chest pain 2 days. Pain is intermittent and worse with palpation, breathing, and movement. She also describes it as a tightness. Pain is rated 8/10 and intensity. She complains of just mild shortness of breath without nausea, vomiting, diaphoresis, calf tenderness, or leg edema. Managed Care Provider: Dr. Hamilton Severity scale (0 -10): 3 - Related Data Home Medications Medication Instructions Recorded Confirmed Last Taken ALPRAZolam [Xanax TAB] 0.5 mg PO DAILY PRN 02/11/18 04/21/19 02/10/18 0.5mg Clopidogrel Bisulfate [Plavix] 75 mg PO DAILY 02/11/18 04/21/19 04/29/18 Gabapentin [Neurontin] 300 mg PO TID 02/11/18 04/21/19 04/29/18 Metoprolol [Lopressor TAB] 25 mg PO BID 02/11/18 04/21/19 04/29/18 Pantoprazole [Protonix TAB] 40 mg PO DAILY 02/11/18 04/21/19 04/29/18 Pravastatin Sodium [Pravastatin] 20 mg PO QHS 02/11/18 04/21/19 04/28/18 Cholecalciferol (Vitamin D3) 1 tab PO DAILY 04/21/19 04/21/19 Unknown [Vitamin D3 2,000 UNIT CAP] Ferrous Gluconate [Ferrous 1 tab PO BID 04/21/19 04/21/19 Unknown Gluconate 324 MG] amLODIPine [Norvasc] 5 mg PO DAILY 04/21/19 04/21/19 Unknown Allergies Allergy/AdvReac Type Severity Reaction Status Date / Time vancomycin Allergy Hives Verified 04/21/19 21:21 Heart Score - HEART Score History: Slightly suspicious EKG: Non-specific Age: > 65 Risk factors: > 3 risk factors or hx of atherosclerotic disease Troponin: < normal limit HEART Score: 5 ED Review of Systems ROS: Stated complaint: CHEST PAIN Other details as noted in HPI ED Past Medical Hx - Past Medical History Previous Medical History?: Yes Hx Hypertension: Yes Hx Heart Attack/AMI: Yes (2016) Hx Renal Disease: Yes Hx Arthritis: Yes Hx COPD: Yes Additional medical history: Distal AAA 3.4 cm 02/11/2018 - Surgical History Hx Coronary Stent: Yes Hx Cholecystectomy: Yes Hx Appendectomy: Yes Additional Surgical History: Hysterectomy, l't leg , back surgery, bovine transcatheter aortic heart valve replacement, ovarian cyst removal - Social History Smoking Status: Former Smoker Substance Use Type: None - Medications Home Medications: Home Medications Medication Instructions Recorded Confirmed Last Taken Type ALPRAZolam [Xanax TAB] 0.5 mg PO DAILY PRN 02/11/18 04/21/19 02/10/18 History 0.5mg Clopidogrel Bisulfate [Plavix] 75 mg PO DAILY 02/11/18 04/21/19 04/29/18 History Gabapentin [Neurontin] 300 mg PO TID 02/11/18 04/21/19 04/29/18 History Metoprolol [Lopressor TAB] 25 mg PO BID 02/11/18 04/21/19 04/29/18 History Pantoprazole [Protonix TAB] 40 mg PO DAILY 02/11/18 04/21/19 04/29/18 History Pravastatin Sodium [Pravastatin] 20 mg PO QHS 02/11/18 04/21/19 04/28/18 History Cholecalciferol (Vitamin D3) 1 tab PO DAILY 04/21/19 04/21/19 Unknown History [Vitamin D3 2,000 UNIT CAP] Ferrous Gluconate [Ferrous 1 tab PO BID 04/21/19 04/21/19 Unknown History Gluconate 324 MG] amLODIPine [Norvasc] 5 mg PO DAILY 04/21/19 04/21/19 Unknown History ED Physical Exam - General Limitations: No Limitations ED Course Vital Signs 04/21/19 04/21/19 04/21/19 20:50 21:30 22:25 Temperature 98.1 F 98.0 F Pulse Rate 83 77 Respiratory 20 16 16 Rate Blood Pressure Blood Pressure 147/66 147/70 [Right] O2 Sat by Pulse 98 99 Oximetry 06/03/19 06/03/19 22:55 23:00 Temperature Pulse Rate 69 Respiratory 18 16 Rate Blood Pressure 134/56 Blood Pressure [Right] O2 Sat by Pulse 97 Oximetry YULIANA score - Yuliana Score Age > 65: (1) Yes Aspirin use within the Past 7 Days: (1) Yes 3 or more CAD Risk Factors: (1) Yes 2 or more Angina events in past 24 hrs: (0) No Known CAD with more than 50% Stenosis: (1) Yes Elevated Cardiac Markers: (0) No ST Deviation Greater than 0.5mm: (0) No YULIANA Score: 4 ED Medical Decision Making - Lab Data Result diagrams: 04/21/19 21:33 04/21/19 21:33 Lab Results 04/21/19 04/21/19 04/21/19 Range/Units 21:33 21:33 21:33 WBC 7.9 (4.5-11.0) K/mm3 RBC 3.70 (3.65-5.03) M/mm3 Hgb 11.8 (10.1-14.3) gm/dl Hct 34.3 (30.3-42.9) % MCV 93 (79-97) fl MCH 32 (28-32) pg MCHC 34 (30-34) % RDW 13.9 (13.2-15.2) % Plt Count 187 (140-440) K/mm3 Add Manual Diff Complete Total Counted 100 Seg Neuts % (Manual) 71.0 H (40.0-70.0) % Band Neutrophils % 4.0 % Lymphocytes % (Manual) 16.0 (13.4-35.0) % Reactive Lymphs % (Man) 0 % Monocytes % (Manual) 6.0 (0.0-7.3) % Eosinophils % (Manual) 3.0 (0.0-4.3) % Basophils % (Manual) 0 (0.0-1.8) % Metamyelocytes % 0 % Myelocytes % 0 % Promyelocytes % 0 % Blast Cells % 0 % Nucleated RBC % Not Reportable Seg Neutrophils # Man 5.6 (1.8-7.7) K/mm3 Band Neutrophils # 0.3 K/mm3 Lymphocytes # (Manual) 1.3 (1.2-5.4) K/mm3 Abs React Lymphs (Man) 0.0 K/mm3 Monocytes # (Manual) 0.5 (0.0-0.8) K/mm3 Eosinophils # (Manual) 0.2 (0.0-0.4) K/mm3 Basophils # (Manual) 0.0 (0.0-0.1) K/mm3 Metamyelocytes # 0.0 K/mm3 Myelocytes # 0.0 K/mm3 Promyelocytes # 0.0 K/mm3 Blast Cells # 0.0 K/mm3 WBC Morphology Not Reportable Hypersegmented Neuts Not Reportable Hyposegmented Neuts Not Reportable Hypogranular Neuts Not Reportable Smudge Cells Not Reportable Toxic Granulation Not Reportable Toxic Vacuolation Not Reportable Dohle Bodies Not Reportable Pelger-Huet Anomaly Not Reportable Padmaja Rods Not Reportable Platelet Estimate Consistent w auto Clumped Platelets Not Reportable Plt Clumps, EDTA Not Reportable Large Platelets Not Reportable Giant Platelets Not Reportable Platelet Satelliting Not Reportable Plt Morphology Comment Not Reportable RBC Morphology Not Reportable Dimorphic RBCs Not Reportable Polychromasia Not Reportable Hypochromasia Not Reportable Poikilocytosis Few Anisocytosis 1+ Microcytosis Not Reportable Macrocytosis Not Reportable Spherocytes Not Reportable Pappenheimer Bodies Not Reportable Sickle Cells Not Reportable Target Cells Not Reportable Tear Drop Cells Not Reportable Ovalocytes Few Helmet Cells Not Reportable Castro-Westervelt Bodies Not Reportable W[place] Rings Not Reportable Gary Cells Not Reportable Bite Cells Not Reportable Crenated Cell Not Reportable Elliptocytes Not Reportable Acanthocytes (Spur) Not Reportable Rouleaux Not Reportable Hemoglobin C Crystals Not Reportable Schistocytes Not Reportable Malaria parasites Not Reportable Luis Bodies Not Reportable Hem Pathologist Commnt No PT 12.3 (12.2-14.9) Sec. INR 0.87 (0.87-1.13) APTT 25.2 (24.2-36.6) Sec. D-Dimer 639.10 H (0-234) ng/mlDDU Sodium 139 (137-145) mmol/L Potassium 4.5 (3.6-5.0) mmol/L Chloride 107.1 H (98-107) mmol/L Carbon Dioxide 19 L (22-30) mmol/L Anion Gap 17 mmol/L BUN 28 H (7-17) mg/dL Creatinine 2.2 H (0.7-1.2) mg/dL Estimated GFR 22 ml/min BUN/Creatinine Ratio 13 % Glucose 154 H (65-100) mg/dL Calcium 8.8 (8.4-10.2) mg/dL Troponin T < 0.010 (0.00-0.029) ng/mL - EKG Data -: EKG Interpreted by Me EKG shows normal: sinus rhythm, ST-T waves (no stemi) Rate: normal (76) - EKG Data When compared to previous EKG there are: no significant change - Radiology Data Radiology results: report reviewed PROCEDURE: XR CHEST ROUTINE 2V TECHNIQUE: PA and lateral chest radiographs were obtained. HISTORY: Chest Pain COMPARISONS: Chest x-ray dated April 29, 2018. FINDINGS: There is prominence of the interstitial markings in both lungs similar in appearance to the previous study. There is no evidence of focal infiltrate, pneumothorax or pleural fluid collecti on. The cardiac silhouette is enlarged with evidence of prosthetic aortic valve. The thoracic aorta and bony structures are unremarkable. IMPRESSION: 1. Enlarged cardiac silhouette with prosthetic aortic valve. 2. Prominence of the interstitial markings in both lungs not significantly changed in the interval. PROCEDURE: NM LUNG SCAN PERF/VENT TECHNIQUE: 5.2 mCi Tc-99m MAA was injected IV for pulmonary perfusion imaging in multiple projections. 22 mCi xenon-133 gas was inhaled for pulmonary ventilation imaging in multiple projections. Injection site: RIGHT antecubital fossa. HISTORY: cp, elevated ddimer COMPARISONS: None . FINDINGS: Perfusion: No defects . Ventilation: No defects . IMPRESSION: Normal Examination . - Medical Decision Making Clinically patient has reproducible left-sided chest wall tenderness however, given cardiac history she'll be admitted to hospital for further treatment and observation. EKG unchanged from previous and ED troponins are negative. V/Q negative for pulmonary embolism . Morphine and Zofran provided in the ED - Differential Diagnosis chest wall strain, MO, PE, unstable angina Critical Care Time: No Critical care attestation.: If time is entered above; I have spent that time in minutes in the direct care of this critically ill patient, excluding procedure time. ED Disposition Clinical Impression: Chest pain, Hx of aortic valve replacement, COPD (chronic obstructive pulmonary disease), CRI (chronic renal insufficiency) Disposition: OP ADMIT IP TO THIS HOSP Is pt being admited?: Yes Does the pt Need Aspirin: Yes Condition: Stable Time of Disposition: 01:05 (Dr Day/hosp)
[2019-04-21 22:42] LABS: Band Neutrophils # (Manual) 0.3 K/mm3; Basophils % (Manual) 0 % (0.0-1.8); Total Cells Counted 100
[2019-04-21 22:43] LABS: Anisocytosis 1+; Ovalocytes Few; Platelet Estimate Consistent w Auto; Poikilocytosis Few
--- NOTE | 2019-04-21 23:12 | XRay Report ---
PROCEDURE: XR CHEST ROUTINE 2V TECHNIQUE: PA and lateral chest radiographs were obtained. HISTORY: Chest Pain COMPARISONS: Chest x-ray dated April 29, 2018. FINDINGS: There is prominence of the interstitial markings in both lungs similar in appearance to the previous study. There is no evidence of focal infiltrate, pneumothorax or pleural fluid collection. The cardiac silhouette is enlarged with evidence of prosthetic aortic valve. The thoracic aorta and bony structures are unremarkable. IMPRESSION: 1. Enlarged cardiac silhouette with prosthetic aortic valve. 2. Prominence of the interstitial markings in both lungs not significantly changed in the interval. This document is electronically signed by Candi Alaniz MD., April 22 2019 12:09:45 AM ET
--- NOTE | 2019-04-22 00:18 | Nuclear Medicine Report ---
PROCEDURE: NM LUNG SCAN PERF/VENT TECHNIQUE: 5.2 mCi Tc-99m MAA was injected IV for pulmonary perfusion imaging in multiple projection s. 22 mCi xenon-133 gas was inhaled for pulmonary ventilation imaging in multiple projections. Inject ion site: RIGHT antecubital fossa. HISTORY: cp, elevated ddimer COMPARISONS: None . FINDINGS: Perfusion: No defects . Ventilation: No defects . IMPRESSION: Normal Examination . This document is electronically signed by Jing Green DO., April 22 2019 01:16:04 AM ET
[2019-04-22] MEDS ORDERED: ASPIRIN PO ONE (01:08)
[2019-04-22] MEDS ORDERED: BABY ASPIRIN PO ONE (01:19)
[2019-04-22] MEDS ORDERED: BABY ASPIRIN ONE (01:19)
[2019-04-22] MEDS ORDERED: SODIUM CHLORIDE FLUSH SYRINGE 10 ML IV PRN (02:04)
[2019-04-22] MEDS ORDERED: ZOFRAN IV PRN (02:04)
[2019-04-22] MEDS ORDERED: TYLENOL PO PRN (02:04)
--- NOTE | 2019-04-22 02:06 | History and Physical Report ---
History of Present Illness Date of examination: 04/22/19 History of present illness: 68-year-old woman with history of hypertension, COPD, chronic kidney disease, aortic abdominal aneurysm, comes to the emergency room with complaints of chest pain in the left chest that started 2 days ago. She describes the pain as s harp, constant, intensity 5/10, no radiation, she cannot identify exacerbating or relieving factors. Also admits to nausea, no shortness of breath, diaphoresis or palpitation. She had a stress test 1 year that was negative Review of systems Constitutional: no weight loss, chills Ears, eyes, nose, mouth and throat: no nasal congestion, no nasal discharge, no sinus pressure, no vision change, no red eye. Neck: No neck pain or rigidity. Cardiovascular: no palpitations Respiratory: No shortness of breath, cough Gastrointestinal: no hematochezia Genitourinary : no frequency , no hematuria Musculoskeletal: no joint swelling or muscle ache Integumentary: no rash, no pruritis Neurological: no parathesias, no numbness, no focal weakness Endocrine: no cold or heat intolerance, no polyuria or polydipsia Hematologic/Lymphatic: no easy bruising, no easy bleeding, no gland swelling Allergic/Immunologic: no urticaria, no angioedema. PAST MEDICAL HISTORY: hypertension, COPD, chronic kidney disease, aortic abdominal aneurysm PAST SURGICAL HISTORY: Valve replacement, hysterectomy, cholecystectomy, back surgery SOCIAL HISTORY: Smoke, no alcohol, drugs FAMILY HISTORY: Hypertension Medications and Allergies Allergies Allergy/AdvReac Type Severity Reaction Status Date / Time vancomycin Allergy Hives Verified 04/21/19 21:21 Home Medications Medication Instructions Recorded Confirmed Last Taken Type ALPRAZolam [Xanax TAB] 0.5 mg PO DAILY PRN 02/11/18 04/21/19 02/10/18 History 0.5mg Clopidogrel Bisulfate [Plavix] 75 mg PO DAILY 02/11/18 04/21/19 04/29/18 History Gabapentin [Neurontin] 300 mg PO TID 02/11/18 04/21/19 04/29/18 History Metoprolol [Lopressor TAB] 25 mg PO BID 02/11/18 04/21/19 04/29/18 History Pantoprazole [Protonix TAB] 40 mg PO DAILY 02/11/18 04/21/19 04/29/18 History Pravastatin Sodium [Pravastatin] 20 mg PO QHS 02/11/18 04/21/19 04/28/18 History Cholecalciferol (Vitamin D3) 1 tab PO DAILY 04/21/19 04/21/19 Unknown History [Vitamin D3 2,000 UNIT CAP] Ferrous Gluconate [Ferrous 1 tab PO BID 04/21/19 04/21/19 Unknown History Gluconate 324 MG] amLODIPine [Norvasc] 5 mg PO DAILY 04/21/19 04/21/19 Unknown History ISOSORBIDE MONOnitrate [Imdur ER] 30 mg PO QDAY #30 tablet 04/24/19 Unknown Rx Exam - Physical Exam Narrative exam: Gen. appearance: Patient lying in bed, no apparent distress HEENT: Normocephalic, atraumatic, pupils equally round and reactive to light, extraocular movement intact, and no sclericterus,. No JVD or thyromegaly or nodule,neck supple, no carotid bruit ,mucous membranes moist, no exudate or erythema Heart: S1, S2, regular rate and rhythm Lungs: Clear to auscultation bilaterally, breathing comfortable Abdomen: Positive bowel sounds, tender in the mid abdomen, nondistended, no organomegaly Extremity: Trace edema, no cyanosis, clubbing Skin: No rash, nodules, warm, dry Neuro: + tremors, Oriented 3, cranial nerves II-12 intact, speech is fluent, motor and sensory intact - Constitutional Vitals: Temp Pulse Resp BP Pulse Ox 98.0 F 69 16 134/56 97 04/21/19 21:30 04/21/19 23:00 04/21/19 23:00 04/21/19 23:00 04/21/19 23:00 Results - Labs CBC & Chem 7: 04/24/19 05:20 04/24/19 05:20 Labs: Abnormal lab results 04/21/19 04/21/19 04/21/19 Range/Units 21:33 21:33 21:33 Seg Neuts % (Manual) 71.0 H (40.0-70.0) % D-Dimer 639.10 H (0-234) ng/mlDDU Chloride 107.1 H (98-107) mmol/L Carbon Dioxide 19 L (22-30) mmol/L BUN 28 H (7-17) mg/dL Creatinine 2.2 H (0.7-1.2) mg/dL Glucose 154 H (65-100) mg/dL - Imaging and Cardiology EKG: image reviewed Chest x-ray: report reviewed Assessment and Plan V/q normal Assessment Chest pain hypertension COPD Hyperlididemia chronic kidney disease aortic abdominal aneurysm Plan Admit to medicine check cardiac enzymes, consult cardiology Continue medications, Percocet for pain DVT prophylaxis
[2019-04-22] MEDS ORDERED: XANAX PO PRN (02:41)
[2019-04-22 04:17] LABS: Hematocrit 35.3 % (30.3-42.9); Hemoglobin 11.8 gm/dl (10.1-14.3); Mean Corpuscular HGB Conc 34 % (30-34); Mean Corpuscular Volume 94 fl (79-97); Platelet Count 176 K/mm3 (140-440); Red Blood Count 3.74 M/mm3 (3.65-5.03)
[2019-04-22 04:25] LABS: Creatine Kinase MB 6.1 ng/mL (0.0-4.0)
[2019-04-22 07:17] LABS: Anisocytosis 1+; Band Neutrophils # (Manual) 0.2 K/mm3; Basophils % (Manual) 0 % (0.0-1.8); Ovalocytes Few; Total Cells Counted 100
[2019-04-22 07:18] LABS: Platelet Estimate Appe
[2019-04-22] MEDS: PERCOCET 5/325 PO PRN ×2 (10:06→19:55)
[2019-04-22] MEDS: PROTONIX PO SCH (10:06)
[2019-04-22] MEDS: LOVENOX SUB-Q SCH (10:06)
[2019-04-22] MEDS: PLAVIX PO SCH (10:07)
[2019-04-22] MEDS: NEURONTIN PO SCH ×3 (10:07→21:06)
[2019-04-22] MEDS: LOPRESSOR PO SCH ×2 (10:07→21:09)
[2019-04-22] MEDS: NORVASC PO SCH (10:08)
[2019-04-22] MEDS: SODIUM CHLORIDE FLUSH SYRINGE 10 ML IV SCH ×2 (10:08→21:10)
[2019-04-22 10:37] LABS: Creatine Kinase MB 5.3 ng/mL (0.0-4.0)
--- NOTE | 2019-04-22 10:56 | Consultation ---
History of Present Illness Consult date: 04/22/19 Requesting physician: GERRY LACEY Consult reason: chest pain History of present illness: The patient is followed by Dr. Hamilton in our office. She presented with a 2-day history of substernal chest tightness associated with shortness of breath. Past History Past Medical History: COPD, hypertension, hyperlipidemia, other (AAA) Past Surgical History: cholecystectomy, Other (back surgery, TAVR for severe in 2017) Social history: smoking. denies: alcohol abuse Family history: CAD Medications and Allergies Allergies Allergy/AdvReac Type Severity Reaction Status Date / Time vancomycin Allergy Hives Verified 04/21/19 21:21 Home Medications Medication Instructions Recorded Confirmed Last Taken Type ALPRAZolam [Xanax TAB] 0.5 mg PO DAILY PRN 02/11/18 04/21/19 02/10/18 History 0.5mg Clopidogrel Bisulfate [Plavix] 75 mg PO DAILY 02/11/18 04/21/19 04/29/18 History Gabapentin [Neurontin] 300 mg PO TID 02/11/18 04/21/19 04/29/18 History Metoprolol [Lopressor TAB] 25 mg PO BID 02/11/18 04/21/19 04/29/18 History Pantoprazole [Protonix TAB] 40 mg PO DAILY 02/11/18 04/21/19 04/29/18 History Pravastatin Sodium [Pravastatin] 20 mg PO QHS 02/11/18 04/21/19 04/28/18 History Cholecalciferol (Vitamin D3) 1 tab PO DAILY 04/21/19 04/21/19 Unknown History [Vitamin D3 2,000 UNIT CAP] Ferrous Gluconate [Ferrous 1 tab PO BID 04/21/19 04/21/19 Unknown History Gluconate 324 MG] amLODIPine [Norvasc] 5 mg PO DAILY 04/21/19 04/21/19 Unknown History Active Meds: Active Medications Acetaminophen (Tylenol) 650 mg PO Q4H PRN PRN Reason: Pain MILD(1-3)/Fever >100.5/ZHANG Alprazolam (Xanax) 0.5 mg PO DAILY PRN PRN Reason: Anxiety Amlodipine Besylate (Norvasc) 5 mg PO DAILY NITESH Last Admin: 04/22/19 10:08 Dose: Not Given Documented by: Cholecalciferol (Vitamin D3) 2,000 unit PO DAILY [facility] Clopidogrel Bisulfate (Plavix) 75 mg PO DAILY [facility] Last Admin: 04/22/19 10:07 Dose: 75 mg Documented by: Enoxaparin Sodium (Lovenox) 30 mg SUB-Q QDAY [facility] Last Admin: 04/22/19 10:06 Dose: 30 mg Documented by: Ferrous Gluconate (Fergon) 324 mg PO BID [facility] Gabapentin (Neurontin) 300 mg PO TID [facility] Last Admin: 04/22/19 10:07 Dose: 300 mg Documented by: Metoprolol Tartrate (Lopressor) 25 mg PO BID [facility] Last Admin: 04/22/19 10:07 Dose: Not Given Documented by: Ondansetron HCl (Zofran) 4 mg IV Q8H PRN PRN Reason: Nausea And Vomiting Oxycodone/Acetaminophen (Percocet 5/325) 1 tab PO Q6H PRN PRN Reason: Pain, Moderate (4-6) Last Admin: 04/22/19 10:06 Dose: 1 tab Documented by: Pantoprazole Sodium (Protonix) 40 mg PO DAILY [facility] Last Admin: 04/22/19 10:06 Dose: 40 mg Documented by: Pravastatin Sodium (Pravachol) 20 mg PO QHS [facility] Sodium Chloride (Sodium Chloride Flush Syringe 10 Ml) 10 ml IV BID [facility] Last Admin: 04/22/19 10:08 Dose: 10 ml Documented by: Sodium Chloride (Sodium Chloride Flush Syringe 10 Ml) 10 ml IV PRN PRN PRN Reason: LINE FLUSH Review of Systems Constitutional: no fever, no chills Ears, nose, mouth and throat: no ear pain, no ear discharge, no sore throat Cardiovascular: chest pain, no palpitations, no lightheadedness, no shortness of breath Respiratory: no cough, no hemoptysis Gastrointestinal: no abdominal pain, no nausea, no vomiting, no diarrhea, no con stipation Genitourinary Female: no dysuria, no urinary frequency Rectal: no pain, no bleeding Integumentary: no rash, no pruritis Neurological: no weakness, no parathesias, no numbness, no tingling, no headaches Endocrine: no cold intolerance, no heat intolerance Hematologic/Lymphatic: no easy bruising, no easy bleeding Allergic/Immunologic: no urticaria, no wheezing Physical Examination Vital Signs Last Vital Signs Temp 97.5 F L 04/22/19 07:49 Pulse 62 04/22/19 10:08 Resp 16 04/22/19 07:49 BP 94/51 04/22/19 10:08 Pulse Ox 95 04/22/19 09:09 General appearance: no acute distress HEENT: Positive: EOMI, Normocephaly Neck: Positive: neck supple, trachea midline Cardiac: Positive: Reg Rate and Rhythm, S1/S2 Lungs: Positive: clear to auscultation Neuro: Positive: Grossly Intact Abdomen: Positive: Soft, Active Bowel Sounds. Negative: Tender Skin: Positive: Clear. Negative: Rash Musculoskeletal: Normal Range of Motion Extremities: Present: normal. Absent: edema Results 04/22/19 03:38 04/22/19 03:38 Cardiac Enzymes 04/22/19 04/22/19 Range/Units 03:38 09:39 CK-MB (CK-2) 6.1 H 5.3 H (0.0-4.0) ng/mL Coagulation 04/21/19 Range/Units 21:33 PT 12.3 (12.2-14.9) Sec. INR 0.87 (0.87-1.13) APTT 25.2 (24.2-36.6) Sec. CBC 04/21/19 04/22/19 Range/Units 21:33 03:38 WBC 7.9 6.2 (4.5-11.0) K/mm3 RBC 3.70 3.74 (3.65-5.03) M/mm3 Hgb 11.8 11.8 (10.1-14.3) gm/dl Hct 34.3 35.3 (30.3-42.9) % Plt Count 187 176 (140-440) K/mm3 Comprehensive Metabolic Panel 04/21/19 04/22/19 Range/Units 21:33 03:38 Sodium 139 139 (137-145) mmol/L Potassium 4.5 4.9 (3.6-5.0) mmol/L Chloride 107.1 H 106.7 (98-107) mmol/L Carbon Dioxide 19 L 20 L (22-30) mmol/L BUN 28 H 29 H (7-17) mg/dL Creatinine 2.2 H 2.3 H (0.7-1.2) mg/dL Glucose 154 H 137 H (65-100) mg/dL Calcium 8.8 9.0 (8.4-10.2) mg/dL - Imaging and Cardiology EKG: image reviewed EKG interpretations - Telemetry EKG Rhythm: Sinus Rhythm Chamber hypertrophy or enlargement: left ventricular hypertro Repolarization changes or abnormalities: ST or T wave suggestive of ischemia Assessment and Plan Schedule Lexiscan stress MPI in am. Obtain echo. - Patient Problems (1) Chest pain Current Visit: Yes Status: Acute (2) S/P TAVR (transcatheter aortic valve replacement) Current Visit: Yes Status: Chronic (3) AAA (abdominal aortic aneurysm) Current Visit: Yes Status: Chronic (4) Hypertension Current Visit: Yes Status: Chronic Qualifiers: Hypertension type: essential hypertension Qualified Code(s): I10 - Essential (primary) hypertension (5) CKD (chronic kidney disease) Current Visit: Yes Status: Chronic Qualifiers: Chronic kidney disease stage: stage 4 (severe) Qualified Code(s): N18.4 - Chronic kidney disease, stage 4 (severe) (6) COPD (chronic obstructive pulmonary disease) Current Visit: Yes Status: Chronic
[2019-04-22] MEDS: FERGON PO SCH ×2 (12:07→21:06)
[2019-04-22] MEDS: VITAMIN D3 PO SCH (12:08)
--- NOTE | 2019-04-22 14:43 | Progress Note ---
Assessment and Plan Assessment and plan: 68-year-old and a history of hypertension, COPD, chronic kidney disease, aortic abdominal aneurysm, comes to the emergency room with complaints of chest pain in the left chest that started 2 days ago. She describes the pain as sharp, constant, intensity 5/10, no radiation, she cannot identify exacerbating or relieving factors. Also admits to nausea, no shortness of breath, diaphoresis or palpitation. She had a stress test 1 year that was negative. Chest pain - Cardiac enzymes were negative - Stress test was done this morning, shows minimal ischemia - Cardiology said if the patient is asymptomatic she may be discharged home, if not she may have cardiac cath in the morning - Patient is on aspirin, Plavix, statin and nitrates Acute on chronic renal failure - Creatinine increased to 3 this morning, was 2 yesterday - Nephrology consulted COPD - Continue duo nebs as needed AAA - Stable, was checked 3 months ago and was 3.5 cm - We'll follow with vascular surgery as an outpatient DVT prophylaxis - On Lovenox Disposition - Continue inpatient care History Interval history: Patient was seen and evaluated at the bedside, patient denied chest pain or s hortness of breath. Hospitalist Physical - Physical exam Narrative exam: Not in cardiopulmonary distress. The patient is obese. Vital signs as documented. Head exam is unremarkable. No scleral icterus . Neck is without jugular venous distension, thyromegaly, or carotid bruits. Lungs are clear to auscultation. Cardiac exam reveals regular rate and Rhythm. Abdominal exam reveals normal bowel sounds. Extremities are nonedematous and both femoral and pedal pulses are normal. 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 No focal weakness. - Constitutional Vitals: Temp Pulse Resp BP Pulse Ox 97.5 F L 62 16 94/51 95 04/22/19 07:49 04/22/19 10:08 04/22/19 07:49 04/22/19 10:08 04/22/19 09:09 General appearance: Present: no acute distress Results - Labs CBC & Chem 7: 04/22/19 03:38 04/23/19 05:23 Labs: Laboratory Last Values WBC 6.2 K/mm3 (4.5-11.0) 04/22/19 03:38 RBC 3.74 M/mm3 (3.65-5.03) 04/22/19 03:38 Hgb 11.8 gm/dl (10.1-14.3) 04/22/19 03:38 Hct 35.3 % (30.3-42.9) 04/22/19 03:38 MCV 94 fl (79-97) 04/22/19 03:38 MCH 32 pg (28-32) 04/22/19 03:38 MCHC 34 % (30-34) 04/22/19 03:38 RDW 14.0 % (13.2-15.2) 04/22/19 03:38 Plt Count 176 K/mm3 (140-440) 04/22/19 03:38 Add Manual Diff Complete 04/22/19 03:38 Total Counted 100 04/22/19 03:38 Seg Neuts % (Manual) 73.0 % (40.0-70.0) H 04/22/19 03:38 4.0 % 04/22/19 03:38 19.0 % (13.4-35.0) 04/22/19 03:38 Reactive Lymphs % (Man) 0 % 04/22/19 03:38 1.0 % (0.0-7.3) 04/22/19 03:38 3.0 % (0.0-4.3) 04/22/19 03:38 0 % (0.0-1.8) 04/22/19 03:38 0 % 04/22/19 03:38 0 % 04/22/19 03:38 0 % 04/22/19 03:38 0 % 04/22/19 03:38 Nucleated RBC % Not Reportable 04/22/19 03:38 Seg Neutrophils # Man 4.5 K/mm3 (1.8-7.7) 04/22/19 03:38 Band Neutrophils # 0.2 K/mm3 04/22/19 03:38 1.2 K/mm3 (1.2-5.4) 04/22/19 03:38 Abs React Lymphs (Man) 0.0 K/mm3 04/22/19 03:38 0.1 K/mm3 (0.0-0.8) 04/22/19 03:38 0.2 K/mm3 (0.0-0.4) 04/22/19 03:38 0.0 K/mm3 (0.0-0.1) 04/22/19 03:38 0.0 K/mm3 04/22/19 03:38 0.0 K/mm3 04/22/19 03:38 0.0 K/mm3 04/22/19 03:38 Blast Cells # 0.0 K/mm3 04/22/19 03:38 WBC Morphology Not Reportable 04/22/19 03:38 Hypersegmented Neuts Not Reportable 04/22/19 03:38 Hyposegmented Neuts Not Reportable 04/22/19 03:38 Hypogranular Neuts Not Reportable 04/22/19 03:38 Not Reportable 04/22/19 03:38 Not Reportable 04/22/19 03:38 Not Reportable 04/22/19 03:38 Not Reportable 04/22/19 03:38 Not Reportable 04/22/19 03:38 Not Reportable 04/22/19 03:38 Appe 04/22/19 03:38 Not Reportable 04/22/19 03:38 Plt Clumps, EDTA Not Reportable 04/22/19 03:38 Not Reportable 04/22/19 03:38 Not Reportable 04/22/19 03:38 Not Reportable 04/22/19 03:38 Plt Morphology Comment Not Reportable 04/22/19 03:38 RBC Morphology Not Reportable 04/22/19 03:38 Dimorphic RBCs Not Reportable 04/22/19 03:38 Not Reportable 04/22/19 03:38 Not Reportable 04/22/19 03:38 Not Reportable 04/22/19 03:38 1+ 04/22/19 03:38 Not Reportable 04/22/19 03:38 Not Reportable 04/22/19 03:38 Not Reportable 04/22/19 03:38 Not Reportable 04/22/19 03:38 Not Reportable 04/22/19 03:38 Not Reportable 04/22/19 03:38 Not Reportable 04/22/19 03:38 Few 04/22/19 03:38 Not Reportable 04/22/19 03:38 Not Reportable 04/22/19 03:38 Not Reportable 04/22/19 03:38 Not Reportable 04/22/19 03:38 Not Reportable 04/22/19 03:38 Not Reportable 04/22/19 03:38 Not Reportable 04/22/19 03:38 Acanthocytes (Spur) Not Reportable 04/22/19 03:38 Rouleaux Not Reportable 04/22/19 03:38 Not Reportable 04/22/19 03:38 Not Reportable 04/22/19 03:38 Not Reportable 04/22/19 03:38 Not Reportable 04/22/19 03:38 Hem Pathologist Commnt No 04/22/19 03:38 PT 12.3 Sec. (12.2-14.9) 04/21/19 21:33 INR 0.87 (0.87-1.13) 04/21/19 21:33 APTT 25.2 Sec. (24.2-36.6) 04/21/19 21:33 639.10 ng/mlDDU (0-234) H 04/21/19 21:33 Sodium 139 mmol/L (137-145) 04/22/19 03:38 Potassium 4.9 mmol/L (3.6-5.0) 04/22/19 03:38 Chloride 106.7 mmol/L (98-107) 04/22/19 03:38 Carbon Dioxide 20 mmol/L (22-30) L 04/22/19 03:38 17 mmol/L 04/22/19 03:38 BUN 29 mg/dL (7-17) H 04/22/19 03:38 2.3 mg/dL (0.7-1.2) H 04/22/19 03:38 Estimated GFR 21 ml/min 04/22/19 03:38 13 % 04/22/19 03:38 Glucose 137 mg/dL (65-100) H 04/22/19 03:38 Calcium 9.0 mg/dL (8.4-10.2) 04/22/19 03:38 338 units/L (30-135) H 04/22/19 09:39 CK-MB (CK-2) 5.3 ng/mL (0.0-4.0) H 04/22/19 09:39 CK-MB (CK-2) Rel Index 1.5 (0-4) 04/22/19 09:39 < 0.010 ng/mL (0.00-0.029) 04/22/19 09:39 Active Medications - Current Medications Current Medications: Generic Name Dose Route Start Last Admin Trade Name Jeanna PRN Reason Stop Dose Admin Acetaminophen 650 mg 04/22/19 02:04 Tylenol PO Q4H PRN Pain MILD(1-3)/Fever >100.5/ZHANG Alprazolam 0.5 mg 04/22/19 02:41 Xanax PO DAILY PRN Anxiety Amlodipine Besylate 5 mg 04/22/19 10:00 04/22/19 10:08 Norvasc PO Not Given DAILY [facility] Cholecalciferol 2,000 unit 04/22/19 10:00 04/22/19 12:08 Vitamin D3 PO 2,000 unit DAILY NITESH Administration Clopidogrel Bisulfate 75 mg 04/22/19 10:00 04/22/19 10:07 Plavix PO 75 mg DAILY NITESH Administration Enoxaparin Sodium 30 mg 04/22/19 10:00 04/22/19 10:06 Lovenox SUB-Q 30 mg QDAY NITESH Administration Ferrous Gluconate 324 mg 04/22/19 10:00 04/22/19 12:07 Fergon PO 324 mg BID [facility] Administration Gabapentin 300 mg 04/22/19 08:00 04/22/19 13:48 Neurontin PO 300 mg TID NITESH Administration Metoprolol Tartrate 25 mg 04/22/19 10:00 04/22/19 10:07 Lopressor PO Not Given BID [facility] Ondansetron HCl 4 mg 04/22/19 02:04 Zofran IV Q8H PRN Nausea And Vomiting Oxycodone/Acetaminophen 1 tab 04/22/19 02:04 04/22/19 10:06 Percocet 5/325 PO 1 tab Q6H PRN Administration Pain, Moderate (4-6) Pantoprazole Sodium 40 mg 04/22/19 10:00 04/22/19 10:06 Protonix PO 40 mg DAILY NITESH Administration Pravastatin Sodium 20 mg 04/22/19 22:00 Pravachol PO QHS [facility] Sodium Chloride 10 ml 04/22/19 10:00 04/22/19 10:08 Sodium Chloride Flush Syringe 10 Ml IV 10 ml BID NITESH Administration Sodium Chloride 10 ml 04/22/19 02:04 Sodium Chloride Flush Syringe 10 Ml IV PRN PRN LINE FLUSH
[2019-04-22] MEDS: PRAVACHOL PO SCH (21:06)
[2019-04-23 07:42] LABS: Calcium 8.7 mg/dL (8.4-10.2)
[2019-04-23] MEDS ORDERED: KIONEX PO NR (08:25)
[2019-04-23] MEDS ORDERED: LEXISCAN IV ONE (08:43)
--- NOTE | 2019-04-23 10:10 | Progress Note ---
Assessment and Plan Proceed with Lexiscan stress MPI today. Await echo. The patient has been seen in conjunction with Dr. Koo who agrees with the assessment and plan of care. - Patient Problems (1) Chest pain Current Visit: Yes Status: Acute (2) S/P TAVR (transcatheter aortic valve replacement) Current Visit: Yes Status: Chronic (3) AAA (abdominal aortic aneurysm) Current Visit: Yes Status: Chronic (4) Hypertension Current Visit: Yes Status: Chronic Qualifiers: Hypertension type: essential hypertension Qualified Code(s): I10 - Essential (primary) hypertension (5) CKD (chronic kidney disease) Current Visit: Yes Status: Chronic Qualifiers: Chronic kidney disease stage: stage 4 (severe) Qualified Code(s): N18.4 - Chronic kidney disease, stage 4 (severe) (6) COPD (chronic obstructive pulmonary disease) Current Visit: Yes Status: Chronic Subjective Date of service: 04/23/19 Principal diagnosis: cp Interval history: pt for stress test. no current cardiac complaints. Objective Last Vital Signs Temp 98.3 F 04/23/19 07:38 Pulse 109 H 04/23/19 07:38 Resp 18 04/23/19 07:38 BP 132/66 04/23/19 09:05 Pulse Ox 99 04/23/19 07:38 - Physical Examination General: No Apparent Distress HEENT: Positive: EOMI, Normocephaly Neck: Positive: neck supple, trachea midline Cardiac: Positive: Reg Rate and Rhythm, S1/S2 Lungs: Positive: Decreased Breath Sounds Neuro: Positive: Grossly Intact Abdomen: Positive: Soft, Active Bowel Sounds. Negative: Tender Skin: Positive: Clear. Negative: Rash Musculoskeletal: Normal Range of Motion Extremities: Present: normal. Absent: edema - Labs and Meds Cardiac Enzymes 04/22/19 Range/Units 09:39 CK-MB (CK-2) 5.3 H (0.0-4.0) ng/mL Comprehensive Metabolic Panel 04/23/19 Range/Units 05:23 Sodium 137 (137-145) mmol/L Potassium 5.5 H (3.6-5.0) mmol/L Chloride 104.6 (98-107) mmol/L Carbon Dioxide 18 L (22-30) mmol/L BUN 32 H (7-17) mg/dL Creatinine 3.0 H (0.7-1.2) mg/dL Glucose 116 H (65-100) mg/dL Calcium 8.7 (8.4-10.2) mg/dL - Imaging and Cardiology EKG: image reviewed Chamber hypertrophy or enlargement: left ventricular hypertro Repolarization changes or abnormalities: ST or T wave suggestive of ischemia
[2019-04-23] MEDS: NORVASC PO SCH (11:04)
[2019-04-23] MEDS: FERGON PO SCH ×2 (11:04→22:31)
[2019-04-23] MEDS: VITAMIN D3 PO SCH (11:04)
[2019-04-23] MEDS: LOPRESSOR PO SCH ×2 (11:04→22:31)
[2019-04-23] MEDS: PROTONIX PO SCH (11:04)
[2019-04-23] MEDS: PLAVIX PO SCH (11:04)
[2019-04-23] MEDS: SODIUM CHLORIDE FLUSH SYRINGE 10 ML IV SCH ×2 (11:05→22:32)
[2019-04-23] MEDS: LOVENOX SUB-Q SCH (11:05)
[2019-04-23] MEDS: NEURONTIN PO SCH ×2 (12:04→16:30)
--- NOTE | 2019-04-23 12:11 | Treadmill Report ---
LEXISCAN STRESS TEST REPORT REASON FOR STUDY: Chest pain. STRESS TEST PROTOCOL: The patient received 0.4 mg of Lexiscan intravenously over 10 seconds. Tc-99m Tetrofosmin was subsequently injected. Baseline EKG, normal sinus rhythm with left ventricular hypertrophy. Lexiscan EKG, no ischemic changes. No chest pain. No arrhythmias. IMPRESSION: Electrocardiographically negative stress test. Nuclear imaging report to follow. [facility]# [id number] TAZ/NTS
--- NOTE | 2019-04-23 13:04 | Event Note ---
Date: 04/23/19 S/p stress test this AM which showed mild ischemia. Pt is currently chest pain free. She is noted to have renal insufficiency. Will initiate oral nitrates and ambulate pt around unit. If she remains asymptomatic overnight, no plans for additional evaluation/intervention in setting of renal insufficiency. However, if her symptoms persist despite optimal medical therapy, we may need to proceed with coronary angiography for definitive diagnosis. Will tentatively schedule C for tomorrow and make final decision regarding plan of care after evaluation in the morning. NPO after MN. D/w primary RN. Syd HUSSEIN, RANJITH / DR. RATLIFF
[2019-04-23] MEDS: IMDUR PO SCH (13:20)
[2019-04-23] MEDS ORDERED: NACL 0.9% 500 ML 500 ML IV SCH (14:00)
--- NOTE | 2019-04-23 18:06 | Progress Note ---
Assessment and Plan Assessment and plan: 68-year-old and a history of hypertension, COPD, chronic kidney disease, aortic abdominal aneurysm, comes to the emergency room with complaints of chest pain in the left chest that started 2 days ago. She describes the pain as sharp, constant, intensity 5/10, no radiation, she cannot identify exacerbating or relieving factors. Also admits to nausea, no shortness of breath, diaphoresis or palpitation. She had a stress test 1 year that was negative. Chest pain - Cardiac enzymes were negative - Stress test will be done this morning - Cardiology consult appreciated Acute on chronic renal failure -We'll monitor renal function - Nephrology consulted COPD - Continue duo nebs as needed AAA - Stable, was checked 3 months ago and was 3.5 cm - We'll follow with vascular surgery as an outpatient DVT prophylaxis - On Lovenox Disposition - Continue inpatient care History Interval history: Patient was seen and evaluated at the bedside, patient denied chest pain or shortness of breath. Hospitalist Physical - Physical exam Narrative exam: Not in cardiopulmonary distress. The patient is obese. Vital signs as documented. Head exam is unremarkable. No scleral icterus . Neck is without jugular venous distension, thyromegaly, or carotid bruits. Lungs are clear to auscultation. Cardiac exam reveals regular rate and Rhythm. Abdominal exam reveals normal bowel sounds. Extremities are nonedematous and both femoral and pedal pulses are normal. 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 No focal weakness. - Constitutional Vitals: Temp Pulse Resp BP Pulse Ox 98.3 F 84 18 98/57 96 04/23/19 16:09 04/23/19 16:09 04/23/19 16:09 04/23/19 16:09 04/23/19 16:09 General appearance: Present: no acute distress Results - Labs CBC & Chem 7: 04/22/19 03:38 04/23/19 05:23 Labs: Laboratory Last Values WBC 6.2 K/mm3 (4.5-11.0) 04/22/19 03:38 RBC 3.74 M/mm3 (3.65-5.03) 04/22/19 03:38 Hgb 11.8 gm/dl (10.1-14.3) 04/22/19 03:38 Hct 35.3 % (30.3-42.9) 04/22/19 03:38 MCV 94 fl (79-97) 04/22/19 03:38 MCH 32 pg (28-32) 04/22/19 03:38 MCHC 34 % (30-34) 04/22/19 03:38 RDW 14.0 % (13.2-15.2) 04/22/19 03:38 Plt Count 176 K/mm3 (140-440) 04/22/19 03:38 Add Manual Diff Complete 04/22/19 03:38 Total Counted 100 04/22/19 03:38 Seg Neuts % (Manual) 73.0 % (40.0-70.0) H 04/22/19 03:38 4.0 % 04/22/19 03:38 19.0 % (13.4-35.0) 04/22/19 03:38 Reactive Lymphs % (Man) 0 % 04/22/19 03:38 1.0 % (0.0-7.3) 04/22/19 03:38 3.0 % (0.0-4.3) 04/22/19 03:38 0 % (0.0-1.8) 04/22/19 03:38 0 % 04/22/19 03:38 0 % 04/22/19 03:38 0 % 04/22/19 03:38 0 % 04/22/19 03:38 Nucleated RBC % Not Reportable 04/22/19 03:38 Seg Neutrophils # Man 4.5 K/mm3 (1.8-7.7) 04/22/19 03:38 Band Neutrophils # 0.2 K/mm3 04/22/19 03:38 1.2 K/mm3 (1.2-5.4) 04/22/19 03:38 Abs React Lymphs (Man) 0.0 K/mm3 04/22/19 03:38 0.1 K/mm3 (0.0-0.8) 04/22/19 03:38 0.2 K/mm3 (0.0-0.4) 04/22/19 03:38 0.0 K/mm3 (0.0-0.1) 04/22/19 03:38 0.0 K/mm3 04/22/19 03:38 0.0 K/mm3 04/22/19 03:38 0.0 K/mm3 04/22/19 03:38 Blast Cells # 0.0 K/mm3 04/22/19 03:38 WBC Morphology Not Reportable 04/22/19 03:38 Hypersegmented Neuts Not Reportable 04/22/19 03:38 Hyposegmented Neuts Not Reportable 04/22/19 03:38 Hypogranular Neuts Not Reportable 04/22/19 03:38 Not Reportable 04/22/19 03:38 Not Reportable 04/22/19 03:38 Not Reportable 04/22/19 03:38 Not Reportable 04/22/19 03:38 Not Reportable 04/22/19 03:38 Not Reportable 04/22/19 03:38 Appe 04/22/19 03:38 Not Reportable 04/22/19 03:38 Plt Clumps, EDTA Not Reportable 04/22/19 03:38 Not Reportable 04/22/19 03:38 Not Reportable 04/22/19 03:38 Not Reportable 04/22/19 03:38 Plt Morphology Comment Not Reportable 04/22/19 03:38 RBC Morphology Not Reportable 04/22/19 03:38 Dimorphic RBCs Not Reportable 04/22/19 03:38 Not Reportable 04/22/19 03:38 Not Reportable 04/22/19 03:38 Not Reportable 04/22/19 03:38 1+ 04/22/19 03:38 Not Reportable 04/22/19 03:38 Not Reportable 04/22/19 03:38 Not Reportable 04/22/19 03:38 Not Reportable 04/22/19 03:38 Not Reportable 04/22/19 03:38 Not Reportable 04/22/19 03:38 Not Reportable 04/22/19 03:38 Few 04/22/19 03:38 Not Reportable 04/22/19 03:38 Not Reportable 04/22/19 03:38 Not Reportable 04/22/19 03:38 Not Reportable 04/22/19 03:38 Not Reportable 04/22/19 03:38 Not Reportable 04/22/19 03:38 Not Reportable 04/22/19 03:38 Acanthocytes (Spur) Not Reportable 04/22/19 03:38 Rouleaux Not Reportable 04/22/19 03:38 Not Reportable 04/22/19 03:38 Not Reportable 04/22/19 03:38 Not Reportable 04/22/19 03:38 Not Reportable 04/22/19 03:38 Hem Pathologist Commnt No 04/22/19 03:38 PT 12.3 Sec. (12.2-14.9) 04/21/19 21:33 INR 0.87 (0.87-1.13) 04/21/19 21:33 APTT 25.2 Sec. (24.2-36.6) 04/21/19 21:33 639.10 ng/mlDDU (0-234) H 04/21/19 21:33 Sodium 137 mmol/L (137-145) 04/23/19 05:23 Potassium 5.5 mmol/L (3.6-5.0) H 04/23/19 05:23 Chloride 104.6 mmol/L (98-107) 04/23/19 05:23 Carbon Dioxide 18 mmol/L (22-30) L 04/23/19 05:23 20 mmol/L 04/23/19 05:23 BUN 32 mg/dL (7-17) H 04/23/19 05:23 3.0 mg/dL (0.7-1.2) H 04/23/19 05:23 Estimated GFR 16 ml/min 04/23/19 05:23 11 % 04/23/19 05:23 Glucose 116 mg/dL (65-100) H 04/23/19 05:23 Calcium 8.7 mg/dL (8.4-10.2) 04/23/19 05:23 338 units/L (30-135) H 04/22/19 09:39 CK-MB (CK-2) 5.3 ng/mL (0.0-4.0) H 04/22/19 09:39 CK-MB (CK-2) Rel Index 1.5 (0-4) 04/22/19 09:39 < 0.010 ng/mL (0.00-0.029) 04/22/19 09:39 Active Medications - Current Medications Current Medications: Generic Name Dose Route Start Last Admin Trade Name Freq PRN Reason Stop Dose Admin Acetaminophen 650 mg 04/22/19 02:04 Tylenol PO Q4H PRN Pain MILD(1-3)/Fever >100.5/ZHANG Alprazolam 0.5 mg 04/22/19 02:41 Xanax PO DAILY PRN Anxiety Amlodipine Besylate 5 mg 04/22/19 10:00 04/23/19 11:04 Norvasc PO 5 mg DAILY NITESH Administration Aspirin 81 mg 04/24/19 10:00 Baby Aspirin PO QDAY [facility] Cholecalciferol 2,000 unit 04/22/19 10:00 04/23/19 11:04 Vitamin D3 PO 2,000 unit DAILY NITESH Administration Clopidogrel Bisulfate 75 mg 04/22/19 10:00 04/23/19 11:04 Plavix PO 75 mg DAILY [facility] Administration Enoxaparin Sodium 30 mg 04/22/19 10:00 04/23/19 11:05 Lovenox SUB-Q 30 mg QDAY [facility] Administration Ferrous Gluconate 324 mg 04/22/19 10:00 04/23/19 11:04 Fergon PO 324 mg BID NITESH Administration Gabapentin 300 mg 04/22/19 08:00 04/23/19 16:30 Neurontin PO 300 mg TID [facility] Administration Sodium Chloride 500 mls @ 50 mls/hr 04/23/19 14:00 Nacl 0.9% 500 Ml IV 04/23/19 23:59 DIRECT NITESH Isosorbide Mononitrate 30 mg 04/23/19 13:00 04/23/19 13:20 Imdur PO 30 mg QDAY [facility] Administration Metoprolol Tartrate 25 mg 04/22/19 10:00 04/23/19 11:04 Lopressor PO 25 mg BID [facility] Administration Ondansetron HCl 4 mg 04/22/19 02:04 Zofran IV Q8H PRN Nausea And Vomiting Oxycodone/Acetaminophen 1 tab 04/22/19 02:04 04/22/19 19:55 Percocet 5/325 PO 1 tab Q6H PRN Administration Pain, Moderate (4-6) Pantoprazole Sodium 40 mg 04/22/19 10:00 04/23/19 11:04 Protonix PO 40 mg DAILY NITESH Administration Pravastatin Sodium 20 mg 04/22/19 22:00 04/22/19 21:06 Pravachol PO 20 mg QHS NITESH Administration Sodium Chloride 10 ml 04/22/19 10:00 04/23/19 11:05 Sodium Chloride Flush Syringe 10 Ml IV 10 ml BID NITESH Administration Sodium Chloride 10 ml 04/22/19 02:04 Sodium Chloride Flush Syringe 10 Ml IV PRN PRN LINE FLUSH
[2019-04-23] MEDS: PRAVACHOL PO SCH (22:31)
[2019-04-23] MEDS ORDERED: KIONEX PO ONE (22:40)
--- NOTE | 2019-04-23 22:41 | Consultation ---
History of Present Illness - Reason for Consult Consult date: 04/23/19 acute renal failure, chronic renal failure, hyperkalemia - History of Present Illness Patient is a 68 YO female with history significant for Hypertension, COPD, Chronic kidney disease and AAA who presented to [facility] ED with complaints of L sided chest pain for the past 2 days. She described the pain as sharp, constant, intensity 5/10, no radiation and associated with nausea and shortness of breath. Patient denies, vomiting, diarrhea, abd pain, diaphoresis, palpitation, dizziness, syncope, weakness, dysuria, hematuria or jaundice. Creatinine is 3 with K 5.5. Nephrology was consulted for further evaluation. Past History Past Medical History: COPD, hypertension, hyperlipidemia, other (AAA) Past Surgical History: cholecystectomy, Other (back surgery, TAVR for severe in 2017) Social history: smoking. denies: alcohol abuse Family history: CAD Medications and Allergies Allergies Allergy/AdvReac Type Severity Reaction Status Date / Time vancomycin Allergy Hives Verified 04/21/19 21:21 Home Medications Medication Instructions Recorded Confirmed Last Taken Type ALPRAZolam [Xanax TAB] 0.5 mg PO DAILY PRN 02/11/18 04/21/19 02/10/18 History 0.5mg Clopidogrel Bisulfate [Plavix] 75 mg PO DAILY 02/11/18 04/21/19 04/29/18 History Gabapentin [Neurontin] 300 mg PO TID 02/11/18 04/21/19 04/29/18 History Metoprolol [Lopressor TAB] 25 mg PO BID 02/11/18 04/21/19 04/29/18 History Pantoprazole [Protonix TAB] 40 mg PO DAILY 02/11/18 04/21/19 04/29/18 History Pravastatin Sodium [Pravastatin] 20 mg PO QHS 02/11/18 04/21/19 04/28/18 History Cholecalciferol (Vitamin D3) 1 tab PO DAILY 04/21/19 04/21/19 Unknown History [Vitamin D3 2,000 UNIT CAP] Ferrous Gluconate [Ferrous 1 tab PO BID 04/21/19 04/21/19 Unknown History Gluconate 324 MG] amLODIPine [Norvasc] 5 mg PO DAILY 04/21/19 04/21/19 Unknown History ISOSORBIDE MONOnitrate [Imdur ER] 30 mg PO QDAY #30 tablet 04/24/19 Unknown Rx Active Meds: Active Medications Acetaminophen (Tylenol) 650 mg PO Q4H PRN PRN Reason: Pain MILD(1-3)/Fever >100.5/ZHANG Alprazolam (Xanax) 0.5 mg PO DAILY PRN PRN Reason: Anxiety Amlodipine Besylate (Norvasc) 5 mg PO DAILY [facility] Last Admin: 04/23/19 11:04 Dose: 5 mg Documented by: Aspirin (Baby Aspirin) 81 mg PO QDAY [facility] Cholecalciferol (Vitamin D3) 2,000 unit PO DAILY [facility] Last Admin: 04/23/19 11:04 Dose: 2,000 unit Documented by: Clopidogrel Bisulfate (Plavix) 75 mg PO DAILY [facility] Last Admin: 04/23/19 11:04 Dose: 75 mg Documented by: Enoxaparin Sodium (Lovenox) 30 mg SUB-Q QDAY [facility] Last Admin: 04/23/19 11:05 Dose: 30 mg Documented by: Ferrous Gluconate (Fergon) 324 mg PO BID [facility] Last Admin: 04/23/19 22:31 Dose: 324 mg Documented by: Sodium Chloride (Nacl 0.9% 500 Ml) 500 mls @ 50 mls/hr IV DIRECT [facility] Stop: 04/23/19 23:59 Isosorbide Mononitrate (Imdur) 30 mg PO QDAY [facility] Last Admin: 04/23/19 13:20 Dose: 30 mg Documented by: Metoprolol Tartrate (Lopressor) 25 mg PO BID [facility] Last Admin: 04/23/19 22:31 Dose: 25 mg Documented by: Ondansetron HCl (Zofran) 4 mg IV Q8H PRN PRN Reason: Nausea And Vomiting Oxycodone/Acetaminophen (Percocet 5/325) 1 tab PO Q6H PRN PRN Reason: Pain, Moderate (4-6) Last Admin: 04/22/19 19:55 Dose: 1 tab Documented by: Pantoprazole Sodium (Protonix) 40 mg PO DAILY [facility] Last Admin: 04/23/19 11:04 Dose: 40 mg Documented by: Pravastatin Sodium (Pravachol) 20 mg PO QHS [facility] Last Admin: 04/23/19 22:31 Dose: 20 mg Documented by: Sodium Chloride (Sodium Chloride Flush Syringe 10 Ml) 10 ml IV BID [facility] Last Admin: 04/23/19 22:32 Dose: 10 ml Documented by: Sodium Chloride (Sodium Chloride Flush Syringe 10 Ml) 10 ml IV PRN PRN PRN Reason: LINE FLUSH Review of Systems Constitutional: no weight loss, no weight gain, no fever, no chills, no anorexia, no fatigue, no weakness, no poor appetite Breasts: deferred Cardiovascular: chest pain, shortness of breath, dyspnea on exertion, high blood pressure, no orthopnea, no palpitations, no edema, no syncope, no lightheadedness, no leg edema Respiratory: shortness of breath, dyspnea on exertion, no cough, no hemoptysis, no home oxygen Gastrointestinal: nausea, no abdominal pain, no vomiting, no diarrhea, no melena Rectal: no bleeding Musculoskeletal: no muscle weakness Integumentary: no rash, no redness, no sores, no wounds, no jaundice Neurological: no paralysis, no weakness, no convulsions, no aphasia, no change in speech, no change in mentation, no confusion Exam - Vital Signs Vital signs: Vital Signs Temp Pulse Resp BP Pulse Ox 98.1 F 83 20 147/66 98 04/21/19 20:50 04/21/19 20:50 04/21/19 20:50 04/21/19 20:50 04/21/19 20:50 - General Appearance General appearance: well-developed, well-nourished, appears stated age, other (not in distress) EENT: ATNC, PERRL, mucous membranes moist, hearing intact, vision intact Neck: Present: neck supple, trachea midline Respiratory: Clear to Ascultation Heart: regular, S1S2, no murmurs Gastrointestinal: Present: normoactive bowel sounds. Absent: tenderness, distended Integumentary: no rash, warm and dry Neurologic: no focal deficit, no asterixis, alert and oriented x3 Musculoskeletal: Present: other (no edema) Psychiatric: cooperative Results - Lab Results 04/24/19 05:20 04/24/19 05:20 Most recent lab results Calcium 8.7 mg/dL (8.4-10.2) 04/23/19 05:23 - Image Kidney/bladder ultrasound: pending Assessment and Plan 1. Acute kidney injury: Vasomotor RAMU superimposed on CKD stage 4. Urine studies and Renal US ordered. Monitor renal function. Renal prognosis is guarded. Avoid nephrotoxic agents. Meds dosage based on GFR. 2. FEN: Hyperkalemia, kayexalate ordered. Metabolic acidosis, monitor. Monitor lytes. 3. Chest pain: Followed by Cards. 4. Shortness of breath: Negative V/Q scan.
[2019-04-23] MEDS ORDERED: D5NS 1,000 ML IV SCH (23:00)
--- NOTE | 2019-04-24 06:02 | Treadmill Report ---
THALLIUM REPORT REASON FOR STUDY: Chest pain. IMAGING PROTOCOL: The patient received 10 mCi of Tc-99m tetrofosmin for rest imaging, and 28 mCi of Tc-99m tetrofosmin for stress imaging. Imaging for all procedures was completed 30-90 minutes following the initial injection of Technetium 99m Tetrofosmin. SPECT imaging in the 180 degree arc was performed in the right anterior oblique projection. Computerized reconstruction of the images was performed for analysis. NUCLEAR IMAGING RESULTS: Technically limited study due to soft tissue attenuation artifact. Normal left ventricular cavity size with no change from stress to rest. Distribution of radionuclide within the left ventricle revealed a small to medium size area of photo-induction involving the inferior wall. The degree of photo-induction is mild. Rest imaging showed almost complete improvement in this defect. In addition, there is a small area of photo-induction involving the lateral wall. The degree of photo-induction is moderate. Rest imaging showed complete improvement in this defect. Gated SPECT imaging revealed normal global LV systolic function with no significant wall motion abnormalities. The calculated left ventricular ejection fraction is 52%. IMPRESSION: Technically limited study. Small to medium size reversible inferior defect. Small reversible lateral defect. Normal global LV systolic function with no significant wall motion abnormalities. EF 52%. These findings suggest mild reversible ischemia in the right coronary and left circumflex coronary artery territories. No evidence of prior infarction. [facility]# [id number] TAZ/NTS
[2019-04-24 06:05] LABS: Basophils % (Auto) 0.6 % (0.0-1.8); Eosinophils # (Auto) 0.2 K/mm3 (0.0-0.4); Eosinophils % (Auto) 3.3 % (0.0-4.3); Hematocrit 34.7 % (30.3-42.9); Hemoglobin 11.6 gm/dl (10.1-14.3); Lymphocytes % (Auto) 15.1 % (13.4-35.0); Mean Corpuscular HGB Conc 33 % (30-34); Mean Corpuscular Volume 93 fl (79-97); Monocytes # (Auto) 0.6 K/mm3 (0.0-0.8); Monocytes % (Auto) 9.2 % (0.0-7.3); Platelet Count 171 K/mm3 (140-440); Red Blood Count 3.71 M/mm3 (3.65-5.03); Red Cell Distribution Width 13.7 % (13.2-15.2)
[2019-04-24 06:15] LABS: INR 0.94 (0.87-1.13)
[2019-04-24 06:27] LABS: Albumin 3.7 g/dL (3.9-5); Calcium 9.2 mg/dL (8.4-10.2)
[2019-04-24 09:05] VITALS: BP 150/83
[2019-04-24] MEDS: PLAVIX PO SCH (09:44)
[2019-04-24] MEDS: NORVASC PO SCH (09:44)
[2019-04-24] MEDS: SODIUM CHLORIDE FLUSH SYRINGE 10 ML IV SCH (09:44)
[2019-04-24] MEDS: VITAMIN D3 PO SCH (09:44)
[2019-04-24] MEDS: LOVENOX SUB-Q SCH (09:44)
[2019-04-24] MEDS: LOPRESSOR PO SCH (09:44)
[2019-04-24] MEDS: IMDUR PO SCH (09:44)
[2019-04-24] MEDS: PROTONIX PO SCH (09:44)
[2019-04-24] MEDS: FERGON PO SCH (09:46)
--- NOTE | 2019-04-24 09:47 | Progress Note ---
Assessment and Plan 1. Acute kidney injury: Vasomotor RAMU superimposed on CKD stage 4. Urine studies pending. Renal US showed atrophic R kidney. Creatinine level is better today. Monitor renal function. Renal prognosis is guarded. Avoid nephrotoxic agents. Meds dosage based on GFR. 2. FEN: Hyperkalemia, improved. Metabolic acidosis, improved. Monitor lytes. 3. Chest pain: Followed by Cards. 4. Shortness of breath: Negative V/Q scan. F/u with me in 1-2 weeks. Subjective Date of service: 04/24/19 Principal diagnosis: cp Interval history: Patient is doing better. Objective - Vital Signs Vital signs: Vital Signs - 12hr 04/23/19 04/23/19 04/24/19 22:31 23:44 04:00 Temperature 97.6 F Pulse Rate 91 H 77 83 Respiratory 18 Rate Blood Pressure 125/72 115/66 O2 Sat by Pulse 89 Oximetry 04/24/19 04/24/19 04:20 09:03 Temperature 98.8 F 97.7 F Pulse Rate 94 H 90 Respiratory 20 18 Rate Blood Pressure 149/71 150/83 O2 Sat by Pulse 85 98 Oximetry - General Appearance General appearance: well-developed, well-nourished, appears stated age, other (not in distress) EENT: ATNC, PERRL, mucous membranes moist, hearing intact, vision intact Neck: supple Respiratory: Present: Clear to Ascultation Cardiology: regular, S1S2, no murmurs Gastrointestinal: normoactive bowel sounds, no tenderness, no distended Integumentary: no rash, warm and dry Neurologic: no focal deficit, no asterixis, alert and oriented x3 Musculoskeletal: other (no edema) Psychiatric: cooperative - Lab 04/24/19 05:20 04/24/19 05:20 Most recent lab results Calcium 9.2 mg/dL (8.4-10.2) 04/24/19 05:20 Phosphorus 2.80 mg/dL (2.5-4.5) 04/24/19 05:20 Magnesium 1.90 mg/dL (1.7-2.3) 04/24/19 05:20 Medications & Allergies - Medications Allergies/Adverse Reactions: Allergies vancomycin Allergy (Verified 04/21/19 21:21) Hives Home Medications: Home Medications Medication Instructions Recorded Confirmed Last Taken Type ALPRAZolam [Xanax TAB] 0.5 mg PO DAILY PRN 02/11/18 04/21/19 02/10/18 History 0.5mg Clopidogrel Bisulfate [Plavix] 75 mg PO DAILY 02/11/18 04/21/19 04/29/18 History Gabapentin [Neurontin] 300 mg PO TID 02/11/18 04/21/19 04/29/18 History Metoprolol [Lopressor TAB] 25 mg PO BID 02/11/18 04/21/19 04/29/18 History Pantoprazole [Protonix TAB] 40 mg PO DAILY 02/11/18 04/21/19 04/29/18 History Pravastatin Sodium [Pravastatin] 20 mg PO QHS 02/11/18 04/21/19 04/28/18 History Cholecalciferol (Vitamin D3) 1 tab PO DAILY 04/21/19 04/21/19 Unknown History [Vitamin D3 2,000 UNIT CAP] Ferrous Gluconate [Ferrous 1 tab PO BID 04/21/19 04/21/19 Unknown History Gluconate 324 MG] amLODIPine [Norvasc] 5 mg PO DAILY 04/21/19 04/21/19 Unknown History ISOSORBIDE MONOnitrate [Imdur ER] 30 mg PO QDAY #30 tablet 04/24/19 Unknown Rx Active Medications: Generic Name Dose Route Start Last Admin Trade Name Freq PRN Reason Stop Dose Admin Acetaminophen 650 mg 04/22/19 02:04 Tylenol PO Q4H PRN Pain MILD(1-3)/Fever >100.5/ZHANG Alprazolam 0.5 mg 04/22/19 02:41 Xanax PO DAILY PRN Anxiety Amlodipine Besylate 5 mg 04/22/19 10:00 04/24/19 09:44 Norvasc PO 5 mg DAILY NITESH Administration Aspirin 81 mg 04/24/19 10:00 04/24/19 09:44 Baby Aspirin PO 81 mg QDAY NITESH Administration Cholecalciferol 2,000 unit 04/22/19 10:00 04/24/19 09:44 Vitamin D3 PO 2,000 unit DAILY NITESH Administration Clopidogrel Bisulfate 75 mg 04/22/19 10:00 04/24/19 09:44 Plavix PO 75 mg DAILY NITESH Administration Enoxaparin Sodium 30 mg 04/22/19 10:00 04/24/19 09:44 Lovenox SUB-Q 30 mg QDAY NITESH Administration Ferrous Gluconate 324 mg 04/22/19 10:00 04/23/19 22:31 Fergon PO 324 mg BID NITESH Administration Dextrose/Sodium Chloride 1,000 mls @ 75 mls/hr 04/23/19 23:00 04/23/19 23:58 D5ns IV 75 mls/hr DIRECT NITESH Administration Isosorbide Mononitrate 30 mg 04/23/19 13:00 04/24/19 09:44 Imdur PO 30 mg QDAY NITESH Administration Metoprolol Tartrate 25 mg 04/22/19 10:00 04/24/19 09:44 Lopressor PO 25 mg BID NITESH Administration Ondansetron HCl 4 mg 04/22/19 02:04 Zofran IV Q8H PRN Nausea And Vomiting Oxycodone/Acetaminophen 1 tab 04/22/19 02:04 04/22/19 19:55 Percocet 5/325 PO 1 tab Q6H PRN Administration Pain, Moderate (4-6) Pantoprazole Sodium 40 mg 04/22/19 10:00 04/24/19 09:44 Protonix PO 40 mg DAILY NITESH Administration Pravastatin Sodium 20 mg 04/22/19 22:00 04/23/19 22:31 Pravachol PO 20 mg QHS NITESH Administration Sodium Chloride 10 ml 04/22/19 10:00 04/24/19 09:44 Sodium Chloride Flush Syringe 10 Ml IV 10 ml BID NITESH Administration Sodium Chloride 10 ml 04/22/19 02:04 Sodium Chloride Flush Syringe 10 Ml IV PRN PRN LINE FLUSH
[2019-04-24] MEDS ORDERED: BABY ASPIRIN PO SCH (10:00)
--- NOTE | 2019-04-24 10:42 | Progress Note ---
Assessment and Plan Pt reports resolution of chest pain. Currently stable cardiac status. No plans for additional cardiac w/u at this time. Pt may discharge home from cardiology standpoint. Recommend follow up in our office with Dr. Hamilton within 1-2 weeks of hospital discharge ([phone] The patient has been seen in conjunction with Dr. Koo who agrees with the assessment and plan of care. - Patient Problems (1) Chest pain Current Visit: Yes Status: Resolved (2) S/P TAVR (transcatheter aortic valve replacement) Current Visit: Yes Status: Chronic (3) AAA (abdominal aortic aneurysm) Current Visit: Yes Status: Chronic (4) Hypertension Current Visit: Yes Status: Chronic Qualifiers: Hypertension type: essential hypertension Qualified Code(s): I10 - Essential (primary) hypertension (5) CKD (chronic kidney disease) Current Visit: Yes Status: Chronic Qualifiers: Chronic kidney disease stage: stage 4 (severe) Qualified Code(s): N18.4 - Chronic kidney disease, stage 4 (severe) (6) COPD (chronic obstructive pulmonary disease) Current Visit: Yes Status: Chronic (7) Abnormal stress test Current Visit: Yes Status: Chronic Subjective Date of service: 04/24/19 Principal diagnosis: cp Interval history: pt resting comfortably in bed, no current cardiac complaints. no chest pain overnight. states she feels ready to discharge home. Objective Last Vital Signs Temp 97.7 F 04/24/19 09:03 Pulse 90 04/24/19 09:03 Resp 18 04/24/19 09:03 BP 150/83 04/24/19 09:03 Pulse Ox 98 04/24/19 09:03 - Physical Examination General: No Apparent Distress HEENT: Positive: EOMI, Normocephaly Neck: Positive: neck supple, trachea midline Cardiac: Positive: Reg Rate and Rhythm, S1/S2 Lungs: Positive: Decreased Breath Sounds Neuro: Positive: Grossly Intact Abdomen: Positive: Soft, Active Bowel Sounds. Negative: Tender Skin: Positive: Clear. Negative: Rash Musculoskeletal: Normal Range of Motion Extremities: Present: normal. Absent: edema - Labs and Meds Cardiac Enzymes 04/24/19 Range/Units 05:20 AST 14 (5-40) units/L Coagulation 04/24/19 Range/Units 05:20 PT 13.1 (12.2-14.9) Sec. INR 0.94 (0.87-1.13) CBC 04/24/19 Range/Units 05:20 WBC 6.7 (4.5-11.0) K/mm3 RBC 3.71 (3.65-5.03) M/mm3 Hgb 11.6 (10.1-14.3) gm/dl Hct 34.7 (30.3-42.9) % Plt Count 171 (140-440) K/mm3 Lymph # 1.0 L (1.2-5.4) K/mm3 [place] # 0.6 (0.0-0.8) K/mm3 Eos # 0.2 (0.0-0.4) K/mm3 Baso # 0.0 (0.0-0.1) K/mm3 Comprehensive Metabolic Panel 04/24/19 Range/Units 05:20 Sodium 143 (137-145) mmol/L Potassium 4.5 (3.6-5.0) mmol/L Chloride 109.2 H (98-107) mmol/L Carbon Dioxide 22 (22-30) mmol/L BUN 31 H (7-17) mg/dL Creatinine 2.5 H (0.7-1.2) mg/dL Glucose 143 H (65-100) mg/dL Calcium 9.2 (8.4-10.2) mg/dL AST 14 (5-40) units/L ALT 29 (7-56) units/L Alkaline Phosphatase 100 (35-129) units/L Total Protein 6.2 L (6.3-8.2) g/dL Albumin 3.7 L (3.9-5) g/dL - Imaging and Cardiology EKG: image reviewed Chamber hypertrophy or enlargement: left ventricular hypertro Repolarization changes or abnormalities: ST or T wave suggestive of ischemia
--- NOTE | 2019-04-24 11:50 | Discharge Summary ---
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 She describes the pain as sharp, constant, intensity 5/10, no radiation, she cannot identify exacerbating or relieving factors. Also admits to nausea, no shortness of breath, diaphoresis or palpitation. She had a stress test 1 year that was negative. Chest pain - Cardiac enzymes were negative - Stress test was done this morning, shows minimal reversible ischemia - Cardiology said patient can be discharged with medical management and will follow with cardiology in the office. - Patient discharged on aspirin, Plavix, statin and nitrates Acute on chronic renal failure - Nephrology consulted and recommend O/P F/U. 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 COPD; stable Continue duo-nebs as needed AAA-Stable, was checked 3 months ago and was 3.5 cm We'll follow with vascular surgery as an outpatient Patient's chest pain subsided, hemodynamically stable and discharged home. Management plan was discussed with the patient and her caregiver. Disposition: [id number] TO HOME OR SELFCARE Time spent for discharge: 32 minutes - Discharge Diagnoses (1) Chest pain Status: Acute (2) Hx of aortic valve replacement Status: Acute (3) AAA (abdominal aortic aneurysm) Status: Chronic (4) CKD (chronic kidney disease) Status: Chronic Qualifiers: Chronic kidney disease stage: stage 4 (severe) Qualified Code(s): N18.4 - Chronic kidney disease, stage 4 (severe) (5) COPD (chronic obstructive pulmonary disease) Status: Chronic (6) Hypertension Status: Chronic Qualifiers: Hypertension type: essential hypertension Qualified Code(s): I10 - Essential (primary) hypertension Core Measure Documentation - Palliative Care Palliative Care/ Comfort Measures: Not Applicable - Core Measures Any of the following diagnoses?: none Exam - Physical Exam Narrative exam: Not in cardiopulmonary distress. The patient is obese. Vital signs as documented. Head exam is unremarkable. No scleral icterus . Neck is without jugular venous distension, thyromegaly, or carotid bruits. Lungs are clear to auscultation. Cardiac exam reveals regular rate and Rhythm. Abdominal exam reveals normal bowel sounds. Extremities are nonedematous and both femoral and pedal pulses are normal. 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 No focal weakness. 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
--- NOTE | 2019-04-24 20:28 | Ultrasound Report ---
PROCEDURE: US RENAL BILAT TECHNIQUE: Real-time sonography in multiple planes of the kidneys, ureters and urinary bladder was p erformed with image documentation. HISTORY: Acute renal failure. COMPARISONS: None . FINDINGS: RIGHT kidney: Parenchymal echotexture is increased. There are no calculi or hydronephrosis.. Length: 7.8 x 5.7 x 4.4) cm. LEFT kidney: Parenchymal echotexture is increased and the kidney is atrophic.. There are no calculi o r hydronephrosis. A simple cyst measuring 1.1 cm is noted. Length: 7.0 x 4.1 x 2.5 cm. Bladder: Minimally filled with normal outlines. IMPRESSION: Findings are consistent with chronic medical renal disease with atrophic left kidney. This document is electronically signed by Lincoln Tovar MD., April 24 2019 08:26:30 PM ET
== END 2019-04-24 13:38 | disposition home or self-care (01) | DRG 313 ==
LOC: ED 20:40 → 4A 04-22 02:04 → OBSVTOIN 04-23 10:32
PROVIDERS: ADMIT Internal Medicine; ATTEND Internal Medicine
DX: R07.9 Chest pain, unspecified (principal); N18.4 Chronic kidney disease, stage 4 (severe); N17.9 Acute kidney failure, unspecified; E87.2 Acidosis; M19.90 Unspecified osteoarthritis, unspecified site; I25.10 Atherosclerotic heart disease of native coronary artery without angina pectoris; I71.4 Abdominal aortic aneurysm, without rupture; E87.5 Hyperkalemia; I12.9 Hypertensive chronic kidney disease with stage 1 through stage 4 chronic kidney disease, or unspecified chronic kidney disease; J44.9 Chronic obstructive pulmonary disease, unspecified; F17.210 Nicotine dependence, cigarettes, uncomplicated; Z71.6 Tobacco abuse counseling; Z95.5 Presence of coronary angioplasty implant and graft; Z95.3 Presence of xenogenic heart valve; Z88.1 Allergy status to other antibiotic agents; Z79.899 Other long term (current) drug therapy; I25.2 Old myocardial infarction; Z79.01 Long term (current) use of anticoagulants; Z82.49 Family history of ischemic heart disease and other diseases of the circulatory system
CPT/HCPCS: 36415; 71046; 76770; 78452; 78582; 80048; 80053; 82550; 82553; 82962; 83735; 83970; 84100; 84484; 85007; 85025; 85379; 85610; 85730; 93005; 93010; 93017; 93306; 94760; 96374; 96375; 99285; 99406; G0378; A9270-GY; A9502; A9540; A9558; J1650; J2270; J2405; J2785; J7042

== ENCOUNTER 2019-09-13 12:25 | Observation (INO) | payer MEDICARE, OTHER ==
[2019-09-13] MEDS ORDERED: NITROGLYCERIN 2% OINT 1 GM TP ONE (13:20)
[2019-09-13] MEDS ORDERED: HEPARIN 10,000 UNITS/10 ML VIAL IV ONE (13:21)
[2019-09-13 13:28] LABS: Hematocrit 36.2 % (30.3-42.9); Mean Corpuscular HGB Conc 33 % (30-34); Mean Corpuscular Volume 94 fl (79-97); Platelet Count 219 K/mm3 (140-440); Red Blood Count 3.84 M/mm3 (3.65-5.03); Red Cell Distribution Width 14.5 % (13.2-15.2)
[2019-09-13 13:38] LABS: INR 0.98 (0.87-1.13)
[2019-09-13 13:39] LABS: Partial Thromboplastin Time 24.4 Sec. (24.2-36.6)
[2019-09-13 13:40] LABS: BUN/Creatinine Ratio 11; Blood Urea Nitrogen 30 mg/dL (7-17); Calcium 9.3 mg/dL (8.4-10.2); Hemolysis Index 17
--- NOTE | 2019-09-13 13:46 | XRay Report ---
CHEST 1 VIEW INDICATION: Chest Pain. COMPARISON: 04/21/2019 FINDINGS: Support devices: None. Heart: Mild cardiomegaly with TAVR change. Lungs/Pleura: No acute air space or interstitial disease. Additional findings: None. IMPRESSION: 1. No acute findings. Signer Name: Edgar Doherty MD Signed: 09/13/2019 1:41 PM Workstation Name: [id number]
[2019-09-13 14:01] LABS: Creatine Kinase MB 2.6 ng/mL (0.0-4.0)
[2019-09-13 14:02] LABS: Alanine Aminotransferase 12 units/L (7-56); Albumin 4.5 g/dL (3.9-5)
--- NOTE | 2019-09-13 14:09 | Emergency Department Report ---
ED Chest Pain HPI - General Chief Complaint: Chest Pain Stated Complaint: CHEST PAIN Time Seen by Provider: 09/13/19 12:50 Source: EMS Mode of arrival: Stretcher Limitations: No Limitations - History of Present Illness Initial Comments: 69-year-old female patient with history of COPD, CAD, AAA, hypertension, and NV presents with complaints of substernal chest pain 2 hours. Patient admitted to hospitalist 04/2019 for chest pain. She had a stress test that showed mild reversible ischemia in the right and left CCAs. She currently follows with Dr. Peña, cardiology. Patient states her pain is a 5 out of 10 in severity and is sharp in nature. She states the pain did not improve with aspirin or the 3 nitroglycerin she was given by EMS in route to the ED. Patient denies any shortness of breath, leg swelling/pain, or history of DVT/PE. MD Complaint: chest pain Onset: during rest Pain Location: substernal Pain Radiation: none Severity scale (0 -10): 7 Quality: sharp Consistency: constant Improves With: nothing re: denies: nausea, vomting, diaphoresis, dyspnea Other Symptoms: denies: cough, fever, syncope - Related Data On Oral Contraceptives: No Home Medications Medication Instructions Recorded Confirmed Last Taken ALPRAZolam [Xanax TAB] 0.5 mg PO DAILY PRN 02/11/18 09/13/19 09/12/19 Clopidogrel Bisulfate [Plavix] 75 mg PO DAILY 02/11/18 09/13/19 09/12/19 Gabapentin 300 mg PO TID 02/11/18 09/13/19 09/12/19 Metoprolol [Lopressor TAB] 25 mg PO BID 02/11/18 09/13/19 09/12/19 Pantoprazole [Protonix TAB] 40 mg PO DAILY 02/11/18 09/13/19 09/12/19 Pravastatin Sodium [Pravastatin] 20 mg PO QHS 02/11/18 09/13/19 09/12/19 Cholecalciferol (Vitamin D3) 1 tab PO DAILY 04/21/19 09/13/19 09/12/19 [Vitamin D3 2,000 UNIT CAP] Ferrous Gluconate [Ferrous 1 tab PO BID 04/21/19 09/13/19 09/12/19 Gluconate 324 MG] amLODIPine 5 mg PO DAILY 04/21/19 09/13/19 09/12/19 Previous Rx's Medication Instructions Recorded Last Taken Type ISOSORBIDE MONOnitrate [Imdur ER] 30 mg PO QDAY #30 tablet 04/24/19 09/12/19 Rx Allergies Allergy/AdvReac Type Severity Reaction Status Date / Time vancomycin Allergy Hives Verified 04/21/19 21:21 Heart Score - HEART Score History: Moderately suspicious EKG: Non-specific Age: > 65 Risk factors: > 3 risk factors or hx of atherosclerotic disease Troponin: < normal limit HEART Score: 6 - Critical Actions Critical Actions: 4-6 pts:12-16.6% risk of adverse cardiac event. Should be admitted ED Review of Systems ROS: Stated complaint: CHEST PAIN Other details as noted in HPI Constitutional: denies: chills, fever Respiratory: denies: cough, shortness of breath, wheezing Cardiovascular: as per HPI Gastrointestinal: denies: abdominal pain, nausea, vomiting Genitourinary: denies: dysuria Skin: denies: rash, lesions Neurological: denies: weakness Psychiatric: denies: auditory hallucinations, visual hallucinations Hematological/Lymphatic: denies: easy bleeding, easy bruising ED Past Medical Hx - Past Medical History Previous Medical History?: Yes Hx Hypertension: Yes Hx Heart Attack/AMI: Yes (2016) Hx Renal Disease: Yes (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/19) Hx Arthritis: Yes Hx COPD: Yes Additional medical history: Distal AAA 3.4 cm 02/11/2018 - Surgical History Past Surgical History?: Yes Hx Coronary Stent: Yes Hx Cholecystectomy: Yes Hx Appendectomy: Yes Additional Surgical History: Hysterectomy, l't leg , back surgery, bovine transcatheter aortic heart valve replacement, ovarian cyst removal - Social History Smoking Status: Unknown if ever smoked Substance Use Type: None - Medications Home Medications: Home Medications Medication Instructions Recorded Confirmed Last Taken Type ALPRAZolam [Xanax TAB] 0.5 mg PO DAILY PRN 02/11/18 09/13/19 09/12/19 History Clopidogrel Bisulfate [Plavix] 75 mg PO DAILY 02/11/18 09/13/19 09/12/19 History Gabapentin 300 mg PO TID 02/11/18 09/13/19 09/12/19 History Metoprolol [Lopressor TAB] 25 mg PO BID 02/11/18 09/13/19 09/12/19 History Pantoprazole [Protonix TAB] 40 mg PO DAILY 02/11/18 09/13/19 09/12/19 History Pravastatin Sodium [Pravastatin] 20 mg PO QHS 02/11/18 09/13/19 09/12/19 History Cholecalciferol (Vitamin D3) 1 tab PO DAILY 04/21/19 09/13/19 09/12/19 History [Vitamin D3 2,000 UNIT CAP] Ferrous Gluconate [Ferrous 1 tab PO BID 04/21/19 09/13/19 09/12/19 History Gluconate 324 MG] amLODIPine 5 mg PO DAILY 04/21/19 09/13/19 09/12/19 History ISOSORBIDE MONOnitrate [Imdur ER] 30 mg PO QDAY #30 tablet 04/24/19 09/13/19 09/12/19 Rx ED Physical Exam - General Limitations: No Limitations General appearance: alert, in no apparent distress - Head Head exam: Present: atraumatic, normocephalic - Eye Eye exam: Present: normal appearance - Neck Neck exam: Present: normal inspection, full ROM - Respiratory Respiratory exam: Present: normal lung sounds bilaterally. Absent: respiratory distress - Cardiovascular Cardiovascular Exam: Present: regular rate, tachycardia - GI/Abdominal GI/Abdominal exam: Present: soft, normal bowel sounds. Absent: distended, tenderness, guarding, rebound, rigid - Extremities Exam Extremities exam: Absent: pedal edema, joint swelling, calf tenderness - Neurological Exam Neurological exam: Present: alert, oriented X3 - Psychiatric Psychiatric exam: Present: normal affect, normal mood - Skin Skin exam: Present: warm, dry, intact, normal color. Absent: rash ED Course Vital Signs 09/13/19 09/13/19 09/13/19 13:11 14:00 14:19 Temperature Pulse Rate 102 H 85 100 H Respiratory 20 Rate Blood Pressure 158/82 167/82 Blood Pressure 153/82 157/80 [Right] O2 Sat by Pulse 100 Oximetry 09/13/19 09/13/19 14:26 15:00 Temperature 98.9 F Pulse Rate 84 Respiratory 14 20 Rate Blood Pressure Blood Pressure 159/70 [Right] O2 Sat by Pulse 100 99 Oximetry YULIANA score - Yuliana Score Age > 65: (1) Yes Aspirin use within the Past 7 Days: (1) Yes 3 or more CAD Risk Factors: (1) Yes 2 or more Angina events in past 24 hrs: (0) No Known CAD with more than 50% Stenosis: (1) Yes Elevated Cardiac Markers: (0) No ST Deviation Greater than 0.5mm: (0) No YULIANA Score: 4 ED Medical Decision Making - Lab Data Result diagrams: 09/13/19 12:58 09/13/19 12:58 Lab Results 09/13/19 09/13/19 09/13/19 Range/Units 12:58 12:58 12:58 WBC 8.5 (4.5-11.0) K/mm3 RBC 3.84 (3.65-5.03) M/mm3 Hgb 12.0 (10.1-14.3) gm/dl Hct 36.2 (30.3-42.9) % MCV 94 (79-97) fl MCH 31 (28-32) pg MCHC 33 (30-34) % RDW 14.5 (13.2-15.2) % Plt Count 219 (140-440) K/mm3 PT (12.2-14.9) Sec. INR (0.87-1.13) APTT (24.2-36.6) Sec. Sodium 147 H (137-145) mmol/L Potassium 4.6 (3.6-5.0) mmol/L Chloride 112.4 H (98-107) mmol/L Carbon Dioxide 18 L (22-30) mmol/L Anion Gap 21 mmol/L BUN 30 H (7-17) mg/dL Creatinine 2.7 H (0.7-1.2) mg/dL Estimated GFR 18 ml/min BUN/Creatinine Ratio 11 % Glucose 137 H (65-100) mg/dL Calcium 9.3 (8.4-10.2) mg/dL Total Bilirubin 0.40 (0.1-1.2) mg/dL Direct Bilirubin < 0.2 (0-0.2) mg/dL Indirect Bilirubin 0.2 mg/dL AST 17 (5-40) units/L ALT 12 (7-56) units/L Alkaline Phosphatase 94 (35-129) units/L Total Creatine Kinase (30-135) units/L CK-MB (CK-2) (0.0-4.0) ng/mL CK-MB (CK-2) Rel Index (0-4) Troponin T < 0.010 (0.00-0.029) ng/mL NT-Pro-B Natriuret Pep (0-900) pg/mL Total Protein 7.0 (6.3-8.2) g/dL Albumin 4.5 (3.9-5) g/dL Albumin/Globulin Ratio 1.8 % 09/13/19 09/13/19 Range/Units 12:58 13:20 WBC (4.5-11.0) K/mm3 RBC (3.65-5.03) M/mm3 Hgb (10.1-14.3) gm/dl Hct (30.3-42.9) % MCV (79-97) fl MCH (28-32) pg MCHC (30-34) % RDW (13.2-15.2) % Plt Count (140-440) K/mm3 PT 12.9 (12.2-14.9) Sec. INR 0.98 (0.87-1.13) APTT 24.4 (24.2-36.6) Sec. Sodium (137-145) mmol/L Potassium (3.6-5.0) mmol/L Chloride (98-107) mmol/L Carbon Dioxide (22-30) mmol/L Anion Gap mmol/L BUN (7-17) mg/dL Creatinine (0.7-1.2) mg/dL Estimated GFR ml/min BUN/Creatinine Ratio % Glucose (65-100) mg/dL Calcium (8.4-10.2) mg/dL Total Bilirubin (0.1-1.2) mg/dL Direct Bilirubin (0-0.2) mg/dL Indirect Bilirubin mg/dL AST (5-40) units/L ALT (7-56) units/L Alkaline Phosphatase (35-129) units/L Total Creatine Kinase 152 H (30-135) units/L CK-MB (CK-2) 2.6 (0.0-4.0) ng/mL CK-MB (CK-2) Rel Index 1.7 (0-4) Troponin T (0.00-0.029) ng/mL NT-Pro-B Natriuret Pep 3720 H (0-900) pg/mL Total Protein (6.3-8.2) g/dL Albumin (3.9-5) g/dL Albumin/Globulin Ratio % - Radiology Data Radiology results: report reviewed CHEST 1 VIEW INDICATION: Chest Pain. COMPARISON: 04/21/2019 FINDINGS: Support devices: None. Heart: Mild cardiomegaly with TAVR change. Lungs/Pleura: No acute air space or interstitial disease. Additional findings: None. IMPRESSION: 1. No acute findings. - Medical Decision Making 69-year-old male patient with history of NV here for chest pain. Follows with Dr. Peña, cardiology. Had a stress test when admitted here in ED April of this year that showed mild reversible ischemia in the right and left CCAs. No improvement in patient's chest pain with 3 nitroglycerin and aspirin given via EMS. Patient's chest pain did improve after Nitropaste. Vitals stable. CK D noted on chemistry. Chest x-ray results are pending. Discussed patient with Dr. Cisneros who agrees with admission to [facility] medicine. Critical care attestation.: If time is entered above; I have spent that time in minutes in the direct care of this critically ill patient, excluding procedure time. ED Disposition Clinical Impression: Unstable angina Disposition: OP ADMIT IP TO THIS HOSP Is pt being admited?: Yes Condition: Stable
[2019-09-13] MEDS: HEPARIN/ 0.45% NACL DRIP 25,000 UNIT/500 ML BAG IV SCH (14:19)
[2019-09-13 14:32] LABS: Bilirubin,Direct < 0.2 mg/dL (0-0.2)
[2019-09-13 15:45] LABS: Eosinophils % (Manual) 0 % (0.0-4.3); Large Platelets Rare; Platelet Estimate Consistent w Auto; RBC Morphology Normal; Total Cells Counted 100
[2019-09-13] MEDS ORDERED: ALPRAZolam 0.5 MG TAB PO PRN (20:27)
[2019-09-13] MEDS ORDERED: CHOLECALCIFEROL PO SCH (20:30)
--- NOTE | 2019-09-13 20:36 | History and Physical Report ---
History of Present Illness Date of examination: 09/13/19 Date of admission: 09/13/19 14:41 Chief complaint: Chest pain since 2 hours History of present illness: 69-year-old female patient with history of COPD, CAD, AAA, hypertension, CA and CKD presents with complaints of substernal chest pain 2 hours. Chest pain is retrosternal and nonradiating. No diaphoresis or shortness of breath. No palpitations. Patient had workup in April 2019. Stress test revealed mild reversible ischemia. Cardiac cath was not done. It was decided to treat medically and to follow with [facility]--Dr. Hamilton. Patient has chronic kidney disease and AV fistula was placed recently on the left upper extremity. Patient was started on IV heparin by the ER physician for unstable angina. Discharge summary from 04/24/2019 68-year-old and a history of hypertension, COPD, chronic kidney disease, aortic abdominal aneurysm, comes to the emergency room with complaints of chest pain in the left chest that started 2 days ago. She describes the pain as sharp, constant, intensity 5/10, no radiation, she cannot identify exacerbating or relieving factors. Also admits to nausea, no shortness of breath, diaphoresis or palpitation. She had a stress test 1 year that was negative. Chest pain - Cardiac enzymes were negative - Stress test was done this morning, shows minimal reversible ischemia - Cardiology said patient can be discharged with medical management and will follow with cardiology in the office. - Patient discharged on aspirin, Plavix, statin and nitrates Acute on chronic renal failure - Nephrology consulted and recommend O/P F/U. 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 COPD; stable Continue duo-nebs as needed AAA-Stable, was checked 3 months ago and was 3.5 cm We'll follow with vascular surgery as an outpatient Patient's chest pain subsided, hemodynamically stable and discharged home. Management plan was discussed with the patient and her caregiver. Disposition: TO HOME OR SELFCARE Time spent for discharge: 32 minutes Past Medical History Previous Medical History?: Yes Hypertension: Yes Heart Attack/AMI: Yes (2016) Renal Disease: Yes (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/19) Arthritis: Yes Additional medical history: Distal AAA 3.4 cm 02/11/2018 Surgical History Past Surgical History?: Yes Coronary Stent: Yes Cholecystectomy: Yes Appendectomy: Yes Additional Surgical History: Hysterectomy, l't leg , back surgery, bovine transcatheter aortic heart valve replacement, ovarian cyst removal Social History Smoking Status: Unknown if ever smoked Substance Use Type: None Family history Htn Medications Home Medications: Home Medications Medication Instructions Recorded Confirmed Last Taken Type ALPRAZolam [Xanax TAB] 0.5 mg PO DAILY PRN 02/11/18 09/13/19 09/12/19 History Clopidogrel Bisulfate [Plavix] 75 mg PO DAILY 02/11/18 09/13/19 09/12/19 History Gabapentin 300 mg PO TID 02/11/18 09/13/19 09/12/19 History Metoprolol [Lopressor TAB] 25 mg PO BID 02/11/18 09/13/19 09/12/19 History Pantoprazole [Protonix TAB] 40 mg PO DAILY 02/11/18 09/13/19 09/12/19 History Pravastatin Sodium [Pravastatin] 20 mg PO QHS 02/11/18 09/13/19 09/12/19 History Cholecalciferol (Vitamin D3) 1 tab PO DAILY 04/21/19 09/13/19 09/12/19 History [Vitamin D3 2,000 UNIT CAP] Ferrous Gluconate [Ferrous 1 tab PO BID 04/21/19 09/13/19 09/12/19 History Gluconate 324 MG] amLODIPine 5 mg PO DAILY 04/21/19 09/13/19 09/12/19 History ISOSORBIDE MONOnitrate [Imdur ER] 30 mg PO QDAY #30 tablet 04/24/19 09/13/19 09/12/19 Rx Review of Systems ROS: Stated complaint: CHEST PAIN Other details as noted in HPI Constitutional: denies: chills, fever Respiratory: denies: cough, shortness of breath, wheezing Cardiovascular: as per HPI Gastrointestinal: denies: abdominal pain, nausea, vomiting Genitourinary: denies: dysuria Skin: denies: rash, lesions Neurological: denies: weakness Psychiatric: denies: auditory hallucinations, visual hallucinations Hematological/Lymphatic: denies: easy bleeding, easy bruising Medications and Allergies Allergies Allergy/AdvReac Type Severity Reaction Status Date / Time vancomycin Allergy Hives Verified 04/21/19 21:21 Home Medications Medication Instructions Recorded Confirmed Last Taken Type RX: ALPRAZolam [Xanax TAB] 0.5 mg PO DAILY PRN 02/11/18 09/13/19 09/12/19 History RX: Clopidogrel Bisulfate [Plavix] 75 mg PO DAILY 02/11/18 09/13/19 09/12/19 History RX: Gabapentin 300 mg PO TID 02/11/18 09/13/19 09/12/19 History RX: Metoprolol [Lopressor TAB] 25 mg PO BID 02/11/18 09/13/19 09/12/19 History RX: Pantoprazole [Protonix TAB] 40 mg PO DAILY 02/11/18 09/13/19 09/12/19 History RX: Pravastatin Sodium 20 mg PO QHS 02/11/18 09/13/19 09/12/19 History [Pravastatin] RX: Cholecalciferol (Vitamin D3) 1 tab PO DAILY 04/21/19 09/13/19 09/12/19 History [Vitamin D3 2,000 UNIT CAP] RX: Ferrous Gluconate [Ferrous 1 tab PO BID 04/21/19 09/13/19 09/12/19 History Gluconate 324 MG] RX: amLODIPine 5 mg PO DAILY 04/21/19 09/13/19 09/12/19 History RX: ISOSORBIDE MONOnitrate [Imdur 30 mg PO QDAY #30 tablet 04/24/19 09/13/19 09/12/19 Rx ER] Active Meds: Active Medications Alprazolam (Xanax) 0.5 mg PO DAILY PRN PRN Reason: Anxiety Amlodipine Besylate (Amlodipine) 5 mg PO DAILY NITESH Clopidogrel Bisulfate (Plavix) 75 mg PO DAILY NITESH Ferrous Gluconate (Fergon) mg PO BID NITESH Gabapentin (Gabapentin) 300 mg PO TID PENDING SALE TO [facility] Heparin Sodium/Sodium Chloride (Heparin/ 0.45% Nacl-25,000 Unit/500 Ml) 25,000 unit in 500 mls @ 20 mls/hr IV TITRATE NITEHS; Protocol Last Admin: 09/13/19 14:19 Dose: 1,000 units/hr, 20 mls/hr Documented by: Isosorbide Mononitrate (Imdur) 30 mg PO QDAY PENDING SALE TO [facility] Metoprolol Tartrate (Metoprolol) 25 mg PO BID PENDING SALE TO [facility] Miscellaneous Medication (Cholecalciferol (Vitamin D3) [Vitamin D3 2,000 Unit Cap]) 1 tab PO DAILY PENDING SALE TO [facility] Miscellaneous Medication (Pravastatin Sodium [Pravastatin]) 20 mg PO QHS NITESH Pantoprazole Sodium (Protonix) 40 mg PO DAILY PENDING SALE TO [facility] Exam - Constitutional Vitals: Temp Pulse Resp BP Pulse Ox 98.8 F 83 22 152/71 97 09/13/19 19:56 09/13/19 19:56 09/13/19 19:56 09/13/19 19:56 09/13/19 19:56 General appearance: Present: no acute distress, well-nourished - EENT Eyes: Present: PERRL ENT: hearing intact, clear oral mucosa - Neck Neck: Present: supple, normal ROM - Respiratory Respiratory effort: normal Respiratory: bilateral: CTA - Cardiovascular Heart rate: 100 Rhythm: regular Heart Sounds: Present: S1 & S2. Absent: rub, click - Extremities Extremities: no ischemia, pulses intact, pulses symmetrical, No edema Peripheral Pulses: within normal limits - Abdominal General gastrointestinal: Present: soft, non-tender, non-distended, normal bowel sounds Female genitourinary: Present: normal - Rectal Rectal Exam: deferred - Integumentary Integumentary: Present: clear, warm, dry - Musculoskeletal Musculoskeletal: gait normal, strength equal bilaterally - Psychiatric Psychiatric: appropriate mood/affect, intact judgment & insight - Neurologic Neurologic: CNII-XII intact, moves all extremities - Allied Health Allied health notes reviewed: nursing, case management Results - Labs CBC & Chem 7: 09/13/19 12:58 09/13/19 12:58 Labs: Laboratory Last Values WBC 8.5 K/mm3 (4.5-11.0) 09/13/19 12:58 RBC 3.84 M/mm3 (3.65-5.03) 09/13/19 12:58 Hgb 12.0 gm/dl (10.1-14.3) 09/13/19 12:58 Hct 36.2 % (30.3-42.9) 09/13/19 12:58 MCV 94 fl (79-97) 09/13/19 12:58 MCH 31 pg (28-32) 09/13/19 12:58 MCHC 33 % (30-34) 09/13/19 12:58 RDW 14.5 % (13.2-15.2) 09/13/19 12:58 Plt Count 219 K/mm3 (140-440) 09/13/19 12:58 Add Manual Diff Complete 09/13/19 12:58 Total Counted 100 09/13/19 12:58 Seg Neuts % (Manual) 78.0 % (40.0-70.0) H 09/13/19 12:58 Band Neutrophils % 0 % 09/13/19 12:58 Lymphocytes % (Manual) 16.0 % (13.4-35.0) 09/13/19 12:58 Reactive Lymphs % (Man) 0 % 09/13/19 12:58 Monocytes % (Manual) 4.0 % (0.0-7.3) 09/13/19 12:58 Eosinophils % (Manual) 0 % (0.0-4.3) 09/13/19 12:58 Basophils % (Manual) 1.0 % (0.0-1.8) 09/13/19 12:58 Metamyelocytes % 1.0 % 09/13/19 12:58 Myelocytes % 0 % 09/13/19 12:58 Promyelocytes % 0 % 09/13/19 12:58 Blast Cells % 0 % 09/13/19 12:58 Nucleated RBC % Not Reportable 09/13/19 12:58 Seg Neutrophils # Man 6.6 K/mm3 (1.8-7.7) 09/13/19 12:58 Band Neutrophils # 0.0 K/mm3 09/13/19 12:58 Lymphocytes # (Manual) 1.4 K/mm3 (1.2-5.4) 09/13/19 12:58 Abs React Lymphs (Man) 0.0 K/mm3 09/13/19 12:58 Monocytes # (Manual) 0.3 K/mm3 (0.0-0.8) 09/13/19 12:58 Eosinophils # (Manual) 0.0 K/mm3 (0.0-0.4) 09/13/19 12:58 Basophils # (Manual) 0.1 K/mm3 (0.0-0.1) 09/13/19 12:58 Metamyelocytes # 0.1 K/mm3 09/13/19 12:58 Myelocytes # 0.0 K/mm3 09/13/19 12:58 Promyelocytes # 0.0 K/mm3 09/13/19 12:58 Blast Cells # 0.0 K/mm3 09/13/19 12:58 WBC Morphology Not Reportable 09/13/19 12:58 Hypersegmented Neuts Not Reportable 09/13/19 12:58 Hyposegmented Neuts Not Reportable 09/13/19 12:58 Hypogranular Neuts Not Reportable 09/13/19 12:58 Smudge Cells Not Reportable 09/13/19 12:58 Toxic Granulation Not Reportable 09/13/19 12:58 Toxic Vacuolation Not Reportable 09/13/19 12:58 Dohle Bodies Not Reportable 09/13/19 12:58 Pelger-Huet Anomaly Not Reportable 09/13/19 12:58 Padmaja Rods Not Reportable 09/13/19 12:58 Platelet Estimate Consistent w auto 09/13/19 12:58 Clumped Platelets Not Reportable 09/13/19 12:58 Plt Clumps, EDTA Not Reportable 09/13/19 12:58 Large Platelets Rare 09/13/19 12:58 Giant Platelets Not Reportable 09/13/19 12:58 Platelet Satelliting Not Reportable 09/13/19 12:58 Plt Morphology Comment Not Reportable 09/13/19 12:58 RBC Morphology Normal 09/13/19 12:58 Dimorphic RBCs Not Reportable 09/13/19 12:58 Polychromasia Not Reportable 09/13/19 12:58 Hypochromasia Not Reportable 09/13/19 12:58 Poikilocytosis Not Reportable 09/13/19 12:58 Anisocytosis Not Reportable 09/13/19 12:58 Microcytosis Not Reportable 09/13/19 12:58 Macrocytosis Not Reportable 09/13/19 12:58 Spherocytes Not Reportable 09/13/19 12:58 Pappenheimer Bodies Not Reportable 09/13/19 12:58 Sickle Cells Not Reportable 09/13/19 12:58 Target Cells Not Reportable 09/13/19 12:58 Tear Drop Cells Not Reportable 09/13/19 12:58 Ovalocytes Not Reportable 09/13/19 12:58 Helmet Cells Not Reportable 09/13/19 12:58 [place] Bodies Not Reportable 09/13/19 12:58 [place] Rings Not Reportable 09/13/19 12:58 [place] Cells Not Reportable 09/13/19 12:58 Bite Cells Not Reportable 09/13/19 12:58 Crenated Cell Not Reportable 09/13/19 12:58 Elliptocytes Not Reportable 09/13/19 12:58 Acanthocytes (Spur) Not Reportable 09/13/19 12:58 Rouleaux Not Reportable 09/13/19 12:58 Hemoglobin C Crystals Not Reportable 09/13/19 12:58 Schistocytes Not Reportable 09/13/19 12:58 Malaria parasites Not Reportable 09/13/19 12:58 Luis Bodies Not Reportable 09/13/19 12:58 Hem Pathologist Commnt No 09/13/19 12:58 PT 12.9 Sec. (12.2-14.9) 09/13/19 13:20 INR 0.98 (0.87-1.13) 09/13/19 13:20 APTT 24.4 Sec. (24.2-36.6) 09/13/19 13:20 Sodium 147 mmol/L (137-145) H 09/13/19 12:58 Potassium 4.6 mmol/L (3.6-5.0) 09/13/19 12:58 Chloride 112.4 mmol/L (98-107) H 09/13/19 12:58 Carbon Dioxide 18 mmol/L (22-30) L 09/13/19 12:58 Anion Gap 21 mmol/L 09/13/19 12:58 BUN 30 mg/dL (7-17) H 09/13/19 12:58 Creatinine 2.7 mg/dL (0.7-1.2) H 09/13/19 12:58 Estimated GFR 18 ml/min 09/13/19 12:58 BUN/Creatinine Ratio 11 % 09/13/19 12:58 Glucose 137 mg/dL (65-100) H 09/13/19 12:58 Calcium 9.3 mg/dL (8.4-10.2) 09/13/19 12:58 Total Bilirubin 0.40 mg/dL (0.1-1.2) 09/13/19 12:58 Direct Bilirubin < 0.2 mg/dL (0-0.2) 09/13/19 12:58 Indirect Bilirubin 0.2 mg/dL 09/13/19 12:58 AST 17 units/L (5-40) 09/13/19 12:58 ALT 12 units/L (7-56) 09/13/19 12:58 Alkaline Phosphatase 94 units/L (35-129) 09/13/19 12:58 Total Creatine Kinase 152 units/L (30-135) H 09/13/19 12:58 CK-MB (CK-2) 2.6 ng/mL (0.0-4.0) 09/13/19 12:58 CK-MB (CK-2) Rel Index 1.7 (0-4) 09/13/19 12:58 Troponin T < 0.010 ng/mL (0.00-0.029) 09/13/19 12:58 NT-Pro-B Natriuret Pep 3720 pg/mL (0-900) H 09/13/19 12:58 Total Protein 7.0 g/dL (6.3-8.2) 09/13/19 12:58 Albumin 4.5 g/dL (3.9-5) 09/13/19 12:58 Albumin/Globulin Ratio 1.8 % 09/13/19 12:58 Short CBC 09/13/19 Range/Units 12:58 WBC 8.5 (4.5-11.0) K/mm3 Hgb 12.0 (10.1-14.3) gm/dl Hct 36.2 (30.3-42.9) % Plt Count 219 (140-440) K/mm3 BMP 09/13/19 12:58 Sodium 147 H Potassium 4.6 Chloride 112.4 H Carbon Dioxide 18 L BUN 30 H Creatinine 2.7 H Glucose 137 H Calcium 9.3 Cardiac Enzymes 09/13/19 09/13/19 Range/Units 12:58 12:58 Total Creatine Kinase 152 H (30-135) units/L CK-MB (CK-2) 2.6 (0.0-4.0) ng/mL Troponin T < 0.010 (0.00-0.029) ng/mL Liver Function 09/13/19 Range/Units 12:58 Total Bilirubin 0.40 (0.1-1.2) mg/dL Direct Bilirubin < 0.2 (0-0.2) mg/dL AST 17 (5-40) units/L ALT 12 (7-56) units/L Alkaline Phosphatase 94 (35-129) units/L Albumin 4.5 (3.9-5) g/dL - Imaging and Cardiology EKG: report reviewed (sinus tachycardia, left anterior fascicular block, heart rate of 100, left ventricular hypertrophy) Chest x-ray: report reviewed (no acute findings) Assessment and Plan Advance Directives: Yes (full code) VTE prophylaxis?: Chemical Plan of care discussed with patient/family: Yes - Patient Problems (1) Unstable angina Current Visit: Yes Status: Acute Plan to address problem: On IV heparin Cardiology consult (2) CKD (chronic kidney disease) Current Visit: No Status: Chronic Qualifiers: Chronic kidney disease stage: stage 4 (severe) Qualified Code(s): N18.4 - Chronic kidney disease, stage 4 (severe) Plan to address problem: Nephrology consult requested Patient has AV fistula Creatinine is around 2.6 (3) COPD (chronic obstructive pulmonary disease) Current Visit: No Status: Chronic Plan to address problem: Nebulizer treatments (4) Hypertension Current Visit: No Status: Chronic Qualifiers: Hypertension type: essential hypertension Qualified Code(s): I10 - Essential (primary) hypertension Plan to address problem: Continue antihypertensives especially metoprolol and amlodipine (5) Coronary artery disease Current Visit: Yes Status: Chronic Qualifiers: Coronary Disease-Associated Artery/Lesion type: [place] artery [place] vs. transplanted heart: [place] heart Plan to address problem: Continue Plavix and isosorbide mononitrate (6) Vitamin D deficiency Current Visit: Yes Status: Chronic Plan to address problem: On vitamin D (7) Peripheral neuropathy Current Visit: Yes Status: Chronic Qualifiers: Peripheral neuropathy type: polyneuropathy, unspecified Qualified Code(s): G62.9 - Polyneuropathy, unspecified Plan to address problem: Continue Gabapentin (8) DVT prophylaxis Current Visit: Yes Status: Acute Plan to address problem: Patient on IV heparin and GI prophylaxis
[2019-09-13] MEDS: PRAVASTATIN 20 MG TAB PO SCH (21:20)
[2019-09-13] MEDS: METOPROLOL TARTRATE 25 MG TAB PO SCH (21:21)
[2019-09-13] MEDS: amLODIPine 5 MG TAB PO SCH (21:32)
[2019-09-13] MEDS: PANTOPRAZOLE 40 MG TAB PO SCH (21:32)
[2019-09-13] MEDS ORDERED: HYDROmorphone 1 MG/1 ML INJ IV PRN (21:32)
[2019-09-13] MEDS ORDERED: ACETAMINOPHEN 325 MG TAB PO PRN (21:32)
[2019-09-13] MEDS ORDERED: MORPHINE 2 MG/1 ML INJ IV PRN (21:32)
[2019-09-13] MEDS ORDERED: ONDANSETRON 4 MG/2 ML INJ IV PRN (21:32)
[2019-09-13] MEDS ORDERED: METOCLOPRAMIDE 10 MG/2 ML INJ IV PRN ×2 (21:32→21:47)
[2019-09-13] MEDS: CHOLECALCIFEROL (VIT D3) 1000 UNIT TAB PO SCH (21:33)
[2019-09-13] MEDS: CLOPIDOGREL 75 MG TAB PO SCH (21:34)
[2019-09-13] MEDS ORDERED: FAMOTIDINE 20 MG TAB PO SCH (22:00)
[2019-09-13] MEDS ORDERED: NON-FORMULARY EACH (Pravastatin Sodium [Pravastatin] 20 MG) PO SCH (22:00)
[2019-09-13] MEDS: FERROUS GLUCONATE 324 MG TAB PO SCH (22:10)
[2019-09-14 05:05] LABS: Hematocrit 32.9 % (30.3-42.9); Hemoglobin 10.9 gm/dl (10.1-14.3); Mean Corpuscular HGB Conc 33 % (30-34); Mean Corpuscular Volume 95 fl (79-97); Platelet Count 208 K/mm3 (140-440); Red Blood Count 3.46 M/mm3 (3.65-5.03); Red Cell Distribution Width 14.2 % (13.2-15.2)
[2019-09-14 05:22] LABS: Calcium 9.2 mg/dL (8.4-10.2)
[2019-09-14 07:42] LABS: Basophils % (Manual) 0 % (0.0-1.8); Total Cells Counted 100
[2019-09-14 07:43] LABS: Ovalocytes Few
[2019-09-14 07:44] LABS: Large Platelets Few; Platelet Estimate Consistent w Auto
--- NOTE | 2019-09-14 07:55 | Progress Note ---
Assessment and Plan Assessment and plan: Patient is a 69-year-old woman with a history of procine AVR, COPD not on home o2, CAD, AAA, hypertension, MT and CKD who presents to [facility] ED with chest pains. Patient had workup in April 2019. Stress test revealed mild reversible ischemia. Cardiac cath was not done. It was decided to treat m edically and to follow with [facility]--Dr. Hamilton. Patient has chronic kidney disease and AV fistula was placed recently on the left upper extremity. Patient was started on IV heparin by the ER physician for unstable angina. Chest pains, atypical and reproducible with touch: await Cardiology (1) Unstable angina Current Visit: Yes Status: Acute Plan to address problem: On IV heparin Cardiology consult (2) CKD (chronic kidney disease) Current Visit: No Status: Chronic Qualifiers: Chronic kidney disease stage: stage 4 (severe) Qualified Code(s): N18.4 - Chronic kidney disease, stage 4 (severe) Plan to address problem: Nephrology consult requested Patient has AV fistula Creatinine is around 2.6 (3) COPD (chronic obstructive pulmonary disease) Current Visit: No Status: Chronic Plan to address problem: Nebulizer treatments (4) Hypertension Current Visit: No Status: Chronic Qualifiers: Hypertension type: essential hypertension Qualified Code(s): I10 - Essential (primary) hypertension Plan to address problem: Continue antihypertensives especially metoprolol and amlodipine (5) Coronary artery disease Current Visit: Yes Status: Chronic Qualifiers: Coronary Disease-Associated Artery/Lesion type: [place] artery [place] vs. transplanted heart: [place] heart Plan to address problem: Continue Plavix and isosorbide mononitrate (6) Vitamin D deficiency Current Visit: Yes Status: Chronic Plan to address problem: On vitamin D (7) Peripheral neuropathy Current Visit: Yes Status: Chronic Qualifiers: Peripheral neuropathy type: polyneuropathy, unspecified Qualified Code(s): G62.9 - Polyneuropathy, unspecified Plan to address problem: Continue Gabapentin (8) DVT prophylaxis Current Visit: Yes Status: Acute Plan to address problem: Patient on IV heparin and GI prophylaxis History Interval history: Patient was seen and examined. Follow-up on current diagnosis. Overnight uneventful. Patient denies any chest pain, shortness breath, nausea/vomiting or severe headaches. Imaging, nursing note, chart, labs and old chart reviewed. Discussed with patient. Hospitalist Physical - Physical exam Narrative exam: Gen: WDWN, NAD, Awake, Alert, Orientated HEENT: NCAT, EOMI, PERRL, OP Clear Neck: supple, no adenopathy, no thyromegaly, no JVD CVS/Heart: RRR, normal S1S2, pulses present bilaterally Chest/Lungs: CTA B, Symmetrical chest expansion, good air entry bilaterally, reproducible chest wall tenderness where pain is located GI/Abdomen: soft, NTND, good bowel sounds, no guarding or rebound /Bladder: no suprapubic tenderness, no CVA or paraspinal tenderness Extermity/Skin: no c/c/e, no obvious rash MSK: FROM x 4 Neuro: CN 2-12 grossly intact, no new focal deficits Psych: calm - Constitutional Vitals: Temp Pulse Resp BP Pulse Ox 98.6 F 83 18 145/79 97 09/14/19 06:17 09/14/19 06:17 09/14/19 06:17 09/14/19 06:17 09/14/19 06:17 General appearance: Present: no acute distress, well-nourished Results - Labs CBC & Chem 7: 09/14/19 04:14 09/14/19 04:14 Labs: Laboratory Last Values WBC 7.7 K/mm3 (4.5-11.0) 09/14/19 04:14 RBC 3.46 M/mm3 (3.65-5.03) L 09/14/19 04:14 Hgb 10.9 gm/dl (10.1-14.3) 09/14/19 04:14 Hct 32.9 % (30.3-42.9) 09/14/19 04:14 MCV 95 fl (79-97) 09/14/19 04:14 MCH 32 pg (28-32) 09/14/19 04:14 MCHC 33 % (30-34) 09/14/19 04:14 RDW 14.2 % (13.2-15.2) 09/14/19 04:14 Plt Count 208 K/mm3 (140-440) 09/14/19 04:14 Add Manual Diff Complete 09/14/19 04:14 Total Counted 100 09/14/19 04:14 Seg Neuts % (Manual) 59.0 % (40.0-70.0) 09/14/19 04:14 Band Neutrophils % 0 % 09/14/19 04:14 Lymphocytes % (Manual) 32.0 % (13.4-35.0) 09/14/19 04:14 Reactive Lymphs % (Man) 0 % 09/14/19 04:14 Monocytes % (Manual) 6.0 % (0.0-7.3) 09/14/19 04:14 Eosinophils % (Manual) 2.0 % (0.0-4.3) 09/14/19 04:14 Basophils % (Manual) 0 % (0.0-1.8) 09/14/19 04:14 Metamyelocytes % 1.0 % 09/14/19 04:14 Myelocytes % 0 % 09/14/19 04:14 Promyelocytes % 0 % 09/14/19 04:14 Blast Cells % 0 % 09/14/19 04:14 Nucleated RBC % Not Reportable 09/14/19 04:14 Seg Neutrophils # Man 4.5 K/mm3 (1.8-7.7) 09/14/19 04:14 Band Neutrophils # 0.0 K/mm3 09/14/19 04:14 Lymphocytes # (Manual) 2.5 K/mm3 (1.2-5.4) 09/14/19 04:14 Abs React Lymphs (Man) 0.0 K/mm3 09/14/19 04:14 Monocytes # (Manual) 0.5 K/mm3 (0.0-0.8) 09/14/19 04:14 Eosinophils # (Manual) 0.2 K/mm3 (0.0-0.4) 09/14/19 04:14 Basophils # (Manual) 0.0 K/mm3 (0.0-0.1) 09/14/19 04:14 Metamyelocytes # 0.1 K/mm3 09/14/19 04:14 Myelocytes # 0.0 K/mm3 09/14/19 04:14 Promyelocytes # 0.0 K/mm3 09/14/19 04:14 Blast Cells # 0.0 K/mm3 09/14/19 04:14 WBC Morphology Not Reportable 09/14/19 04:14 Hypersegmented Neuts Not Reportable 09/14/19 04:14 Hyposegmented Neuts Not Reportable 09/14/19 04:14 Hypogranular Neuts Not Reportable 09/14/19 04:14 Smudge Cells Not Reportable 09/14/19 04:14 Toxic Granulation Not Reportable 09/14/19 04:14 Toxic Vacuolation Not Reportable 09/14/19 04:14 Dohle Bodies Not Reportable 09/14/19 04:14 Pelger-Huet Anomaly Not Reportable 09/14/19 04:14 Padmaja Rods Not Reportable 09/14/19 04:14 Platelet Estimate Consistent w auto 09/14/19 04:14 Clumped Platelets Not Reportable 09/14/19 04:14 Plt Clumps, EDTA Not Reportable 09/14/19 04:14 Large Platelets Few 09/14/19 04:14 Giant Platelets Not Reportable 09/14/19 04:14 Platelet Satelliting Not Reportable 09/14/19 04:14 Plt Morphology Comment Not Reportable 09/14/19 04:14 RBC Morphology Not Reportable 09/14/19 04:14 Dimorphic RBCs Not Reportable 09/14/19 04:14 Polychromasia Not Reportable 09/14/19 04:14 Hypochromasia Not Reportable 09/14/19 04:14 Poikilocytosis Not Reportable 09/14/19 04:14 Anisocytosis Not Reportable 09/14/19 04:14 Microcytosis Few 09/14/19 04:14 Macrocytosis Not Reportable 09/14/19 04:14 Spherocytes Not Reportable 09/14/19 04:14 Pappenheimer Bodies Not Reportable 09/14/19 04:14 Sickle Cells Not Reportable 09/14/19 04:14 Target Cells Not Reportable 09/14/19 04:14 Tear Drop Cells Not Reportable 09/14/19 04:14 Ovalocytes Few 09/14/19 04:14 Helmet Cells Not Reportable 09/14/19 04:14 [place] Bodies Not Reportable 09/14/19 04:14 [place] Rings Not Reportable 09/14/19 04:14 Ceasar Cells Not Reportable 09/14/19 04:14 Bite Cells Not Reportable 09/14/19 04:14 Crenated Cell Not Reportable 09/14/19 04:14 Elliptocytes Not Reportable 09/14/19 04:14 Acanthocytes (Spur) Not Reportable 09/14/19 04:14 Rouleaux Not Reportable 09/14/19 04:14 Hemoglobin C Crystals Not Reportable 09/14/19 04:14 Schistocytes Not Reportable 09/14/19 04:14 Malaria parasites Not Reportable 09/14/19 04:14 Luis Bodies Not Reportable 09/14/19 04:14 Hem Pathologist Commnt No 09/14/19 04:14 PT 12.9 Sec. (12.2-14.9) 09/13/19 13:20 INR 0.98 (0.87-1.13) 09/13/19 13:20 APTT 24.4 Sec. (24.2-36.6) 09/13/19 13:20 Heparin Anti-Xa Level 0.18 U.I./ml (0.3-0.7) L 09/14/19 04:14 Sodium 143 mmol/L (137-145) 09/14/19 04:14 Potassium 4.9 mmol/L (3.6-5.0) 09/14/19 04:14 Chloride 113.4 mmol/L (98-107) H 09/14/19 04:14 Carbon Dioxide 20 mmol/L (22-30) L 09/14/19 04:14 Anion Gap 15 mmol/L 09/14/19 04:14 BUN 27 mg/dL (7-17) H 09/14/19 04:14 Creatinine 2.4 mg/dL (0.7-1.2) H 09/14/19 04:14 Estimated GFR 20 ml/min 09/14/19 04:14 BUN/Creatinine Ratio 11 % 09/14/19 04:14 Glucose 124 mg/dL (65-100) H 09/14/19 04:14 POC Glucose 107 (70-105) H 09/14/19 07:24 Hemoglobin A1c 6.5 % (4-6) H 09/14/19 00:02 Calcium 9.2 mg/dL (8.4-10.2) 09/14/19 04:14 Total Bilirubin 0.50 mg/dL (0.1-1.2) 09/14/19 04:14 Direct Bilirubin < 0.2 mg/dL (0-0.2) 09/13/19 12:58 Indirect Bilirubin 0.2 mg/dL 09/13/19 12:58 AST 17 units/L (5-40) 09/14/19 04:14 ALT 13 units/L (7-56) 09/14/19 04:14 Alkaline Phosphatase 81 units/L (35-129) 09/14/19 04:14 Total Creatine Kinase 152 units/L (30-135) H 09/13/19 12:58 CK-MB (CK-2) 2.6 ng/mL (0.0-4.0) 09/13/19 12:58 CK-MB (CK-2) Rel Index 1.7 (0-4) 09/13/19 12:58 Troponin T < 0.010 ng/mL (0.00-0.029) 09/13/19 20:40 NT-Pro-B Natriuret Pep 3720 pg/mL (0-900) H 09/13/19 12:58 Total Protein 6.8 g/dL (6.3-8.2) 09/14/19 04:14 Albumin 4.0 g/dL (3.9-5) 09/14/19 04:14 Albumin/Globulin Ratio 1.4 % 09/14/19 04:14 Active Medications - Current Medications Current Medications: Generic Name Dose Route Start Last Admin Trade Name Freq PRN Reason Stop Dose Admin Acetaminophen 650 mg 09/13/19 21:32 Tylenol PO Q4H PRN Pain MILD(1-3)/Fever >100.5/ZHANG Alprazolam 0.5 mg 09/13/19 20:27 Xanax PO DAILY PRN Anxiety Amlodipine Besylate 5 mg 09/13/19 21:00 09/13/19 21:32 Amlodipine PO 5 mg DAILY NITESH Administration Cholecalciferol 2,000 unit 09/13/19 21:00 09/13/19 21:33 Vitamin D3 PO 2,000 unit DAILY NITESH Administration Clopidogrel Bisulfate 75 mg 09/13/19 21:00 09/13/19 21:34 Plavix PO 75 mg DAILY NITESH Administration Ferrous Gluconate 324 mg 09/13/19 22:00 09/13/19 22:10 Fergon PO 324 mg BID NITESH Administration Gabapentin 300 mg 09/14/19 08:00 Gabapentin PO TID NITESH Hydromorphone HCl 0.5 mg 09/13/19 21:32 Dilaudid IV Q3H PRN Pain , Severe (7-10) Heparin Sodium/Sodium Chloride 25,000 unit in 500 mls @ 20 mls/hr 09/13/19 14:00 09/14/19 04:15 Heparin/ 0.45% Nacl-25,000 Unit/500 Ml IV 900 units/hr TITRATE NITESH 18 mls/hr Titration Protocol 1,000 UNITS/HR Isosorbide Mononitrate 30 mg 09/13/19 21:00 09/13/19 21:17 Imdur PO 30 mg QDAY NITESH Administration Metoclopramide HCl 5 mg 09/13/19 21:47 Reglan IV Q6H PRN Nausea And Vomiting Metoprolol Tartrate 25 mg 09/13/19 22:00 09/13/19 21:21 Metoprolol PO 25 mg BID NITESH Administration Morphine Sulfate 2 mg 09/13/19 21:32 Morphine IV Q4H PRN Pain, Moderate (4-6) Ondansetron HCl 4 mg 09/13/19 21:32 Zofran IV Q8H PRN Nausea And Vomiting Pantoprazole Sodium 40 mg 09/13/19 21:00 09/13/19 21:32 Protonix PO 40 mg DAILY NITESH Administration Pravastatin Sodium 20 mg 09/13/19 22:00 09/13/19 21:20 Pravachol PO 20 mg QHS NITESH Administration Sodium Chloride 10 ml 09/13/19 22:00 09/13/19 22:00 Sodium Chloride Flush Syringe 10 Ml IV 10 ml BID NITESH Administration Sodium Chloride 10 ml 09/13/19 21:32 Sodium Chloride Flush Syringe 10 Ml IV PRN PRN LINE FLUSH
[2019-09-14] MEDS ORDERED: GABAPENTIN 300 MG CAP PO SCH (08:00)
[2019-09-14] MEDS: FERROUS GLUCONATE 324 MG TAB PO SCH ×2 (09:35→21:51)
[2019-09-14] MEDS: METOPROLOL TARTRATE 25 MG TAB PO SCH ×2 (09:35→21:52)
[2019-09-14] MEDS: PANTOPRAZOLE 40 MG TAB PO SCH (09:36)
[2019-09-14] MEDS: CLOPIDOGREL 75 MG TAB PO SCH (09:36)
[2019-09-14] MEDS: CHOLECALCIFEROL (VIT D3) 1000 UNIT TAB PO SCH (09:36)
[2019-09-14] MEDS: amLODIPine 5 MG TAB PO SCH (09:36)
--- NOTE | 2019-09-14 10:11 | Consultation ---
History of Present Illness - Reason for Consult Consult date: 09/14/19 acute renal failure, chronic renal failure - History of Present Illness The patient is a 69 YO female with history significant for Hypertension, DM type 2, COPD, CKD stage 4, CAD, AAA and peripheral neuropathy who presented to [facility] ED yesterday with complaints of L sided chest pain of 2 hours duration. Patient is a poor historian. She describes the pain has heavy feeling over the chest, constant and not radiating. Patient had chest pain workup in April 2019 at this facility. Stress test revealed mild reversible ischemia. Cardiac cath was not done and was decided to treat medically. Patient has AV fistula placed recently on the left upper extremity. Patient was admitted for unstable angina. Creatinine is 2.7 with bicarb 18. Patient follows with . Nephrology was consulted for further evaluation. Past History Past Medical History: CAD, COPD, hypertension, renal failure, other (AAA) Medications and Allergies Allergies Allergy/AdvReac Type Severity Reaction Status Date / Time vancomycin Allergy Hives Verified 04/21/19 21:21 Home Medications Medication Instructions Recorded Confirmed Last Taken Type ALPRAZolam [Xanax TAB] 0.5 mg PO DAILY PRN 02/11/18 09/13/19 09/12/19 History Clopidogrel Bisulfate [Plavix] 75 mg PO DAILY 02/11/18 09/13/19 09/12/19 History Gabapentin 300 mg PO TID 02/11/18 09/13/19 09/12/19 History Metoprolol [Lopressor TAB] 25 mg PO BID 02/11/18 09/13/19 09/12/19 History Pantoprazole [Protonix TAB] 40 mg PO DAILY 02/11/18 09/13/19 09/12/19 History Pravastatin Sodium [Pravastatin] 20 mg PO QHS 02/11/18 09/13/19 09/12/19 History Cholecalciferol (Vitamin D3) 1 tab PO DAILY 04/21/19 09/13/19 09/12/19 History [Vitamin D3 2,000 UNIT CAP] Ferrous Gluconate [Ferrous 1 tab PO BID 04/21/19 09/13/19 09/12/19 History Gluconate 324 MG] amLODIPine 5 mg PO DAILY 04/21/19 09/13/19 09/12/19 History ISOSORBIDE MONOnitrate [Imdur ER] 30 mg PO QDAY #30 tablet 04/24/19 09/13/19 09/12/19 Rx Active Meds: Active Medications Acetaminophen (Tylenol) 650 mg PO Q4H PRN PRN Reason: Pain MILD(1-3)/Fever >100.5/ZHANG Alprazolam (Xanax) 0.5 mg PO DAILY PRN PRN Reason: Anxiety Amlodipine Besylate (Amlodipine) 5 mg PO DAILY [facility] Last Admin: 09/14/19 09:36 Dose: 5 mg Documented by: Cholecalciferol (Vitamin D3) 2,000 unit PO DAILY [facility] Last Admin: 09/14/19 09:36 Dose: 2,000 unit Documented by: Clopidogrel Bisulfate (Plavix) 75 mg PO DAILY [facility] Last Admin: 09/14/19 09:36 Dose: 75 mg Documented by: Ferrous Gluconate (Fergon) 324 mg PO BID [facility] Last Admin: 09/14/19 09:35 Dose: 324 mg Documented by: Gabapentin (Gabapentin) 300 mg PO TID [facility] Last Admin: 09/14/19 09:35 Dose: 300 mg Documented by: Hydromorphone HCl (Dilaudid) 0.5 mg IV Q3H PRN PRN Reason: Pain , Severe (7-10) Heparin Sodium/Sodium Chloride (Heparin/ 0.45% Nacl-25,000 Unit/500 Ml) 25,000 unit in 500 mls @ 20 mls/hr IV TITRATE [facility]; Protocol Last Titration: 09/14/19 04:15 Dose: 900 units/hr, 18 mls/hr Documented by: Isosorbide Mononitrate (Imdur) 30 mg PO QDAY [facility] Last Admin: 09/14/19 09:36 Dose: 30 mg Documented by: Metoclopramide HCl (Reglan) 5 mg IV Q6H PRN PRN Reason: Nausea And Vomiting Metoprolol Tartrate (Metoprolol) 25 mg PO BID [facility] Last Admin: 09/14/19 09:35 Dose: 25 mg Documented by: Morphine Sulfate (Morphine) 2 mg IV Q4H PRN PRN Reason: Pain, Moderate (4-6) Ondansetron HCl (Zofran) 4 mg IV Q8H PRN PRN Reason: Nausea And Vomiting Pantoprazole Sodium (Protonix) 40 mg PO DAILY [facility] Last Admin: 09/14/19 09:36 Dose: 40 mg Documented by: Pravastatin Sodium (Pravachol) 20 mg PO QHS [facility] Last Admin: 09/13/19 21:20 Dose: 20 mg Documented by: Sodium Chloride (Sodium Chloride Flush Syringe 10 Ml) 10 ml IV BID [facility] Last Admin: 09/14/19 09:36 Dose: 10 ml Documented by: Sodium Chloride (Sodium Chloride Flush Syringe 10 Ml) 10 ml IV PRN PRN PRN Reason: LINE FLUSH Review of Systems Constitutional: no weight loss, no weight gain, no fever, no chills, no anorexia, no weakness, no poor appetite Breasts: deferred Cardiovascular: chest pain, dyspnea on exertion, high blood pressure, no orthopnea, no edema, no syncope, no lightheadedness, no shortness of breath, no leg edema Respiratory: no cough, no hemoptysis, no shortness of breath, no dyspnea on exertion Gastrointestinal: no abdominal pain, no nausea, no vomiting, no diarrhea, no melena Genitourinary Female: no dysuria, no hematuria Rectal: no bleeding Musculoskeletal: no morning stiffness, no muscle weakness Integumentary: no wounds Neurological: no convulsions, no change in speech, no change in mentation Exam - Vital Signs Vital signs: Vital Signs Pulse Resp BP Pulse Ox 102 H 20 153/82 100 09/13/19 13:11 09/13/19 13:11 09/13/19 13:11 09/13/19 13:11 - General Appearance General appearance: well-developed, well-nourished, appears stated age, other (not in distress) EENT: ATNC, PERRL, mucous membranes moist, hearing intact, vision intact Neck: Present: neck supple, trachea midline Respiratory: Clear to Ascultation Heart: regular, S1S2, no murmurs Gastrointestinal: Present: normoactive bowel sounds. Absent: tenderness, distended Integumentary: no rash, warm and dry Neurologic: no focal deficit, no asterixis, alert and oriented x3 Musculoskeletal: Present: other (no edema) Psychiatric: cooperative Results - Lab Results 09/14/19 04:14 09/14/19 04:14 Most recent lab results Calcium 9.2 mg/dL (8.4-10.2) 09/14/19 04:14 Assessment and Plan 1. CKD stage 4: Patient with h/o CKD stage 4. L atrophic kidney. Renal function is around her baseline. Monitor renal function. Renal prognosis is guarded. Avoid nephrotoxic agents. Meds dosage based on GFR. 2. FEN: Hypernatremia, improving. Metabolic acidosis, monitor. Monitor lytes. 3. Chest pain: H/o CAD. Followed by Cards. 4. Hypertension. 5. DM type 2.
--- NOTE | 2019-09-14 10:26 | Consultation ---
History of Present Illness Consult date: 09/14/19 Consult reason: chest pain History of present illness: Patient is followed by Dr. Hamilton. This is a 69-year-old female with a past medical history of CAD/CT, AAA, hypertension, COPD, and stage IV chronic kidney disease who presents to [facility] [place] emergency department complaining of chest pain that she describes as a sharp pain this associated with discomfort in the left side of her face. In emergency department the patient has had negative cardiac enzymes 2. 12-lead EKG revealed sinus tachycardia with no acute ST segment changes. An echocardiogram from April revealed mild left ventricular hypertrophy, EF 45-50%. The patient also had a pharmacological stress test in April 2019 which revealed a small to medium size reversible inferior defect with a small reversible lateral defect. The sinuses were consistent with inferior lateral ischemia, EF of 52%. Past History Past Medical History: CAD, COPD, hypertension, renal failure, other (AAA, left upper extremity fistula) Social history: denies: smoking, alcohol abuse, IV drug use Family history: diabetes Medications and Allergies Allergies Allergy/AdvReac Type Severity Reaction Status Date / Time vancomycin Allergy Hives Verified 04/21/19 21:21 Home Medications Medication Instructions Recorded Confirmed Last Taken Type ALPRAZolam [Xanax TAB] 0.5 mg PO DAILY PRN 02/11/18 09/13/19 09/12/19 History Clopidogrel Bisulfate [Plavix] 75 mg PO DAILY 02/11/18 09/13/19 09/12/19 History Gabapentin 300 mg PO TID 02/11/18 09/13/19 09/12/19 History Metoprolol [Lopressor TAB] 25 mg PO BID 02/11/18 09/13/19 09/12/19 History Pantoprazole [Protonix TAB] 40 mg PO DAILY 02/11/18 09/13/19 09/12/19 History Pravastatin Sodium [Pravastatin] 20 mg PO QHS 02/11/18 09/13/19 09/12/19 History Cholecalciferol (Vitamin D3) 1 tab PO DAILY 04/21/19 09/13/19 09/12/19 History [Vitamin D3 2,000 UNIT CAP] Ferrous Gluconate [Ferrous 1 tab PO BID 04/21/19 09/13/19 09/12/19 History Gluconate 324 MG] amLODIPine 5 mg PO DAILY 04/21/19 09/13/19 09/12/19 History ISOSORBIDE MONOnitrate [Imdur ER] 30 mg PO QDAY #30 tablet 04/24/19 09/13/19 09/12/19 Rx Active Meds: Active Medications Acetaminophen (Tylenol) 650 mg PO Q4H PRN PRN Reason: Pain MILD(1-3)/Fever >100.5/ZHANG Alprazolam (Xanax) 0.5 mg PO DAILY PRN PRN Reason: Anxiety Amlodipine Besylate (Amlodipine) 5 mg PO DAILY REPLACED BY [facility] Last Admin: 09/14/19 09:36 Dose: 5 mg Documented by: Cholecalciferol (Vitamin D3) 2,000 unit PO DAILY REPLACED BY [facility] Last Admin: 09/14/19 09:36 Dose: 2,000 unit Documented by: Clopidogrel Bisulfate (Plavix) 75 mg PO DAILY REPLACED BY [facility] Last Admin: 09/14/19 09:36 Dose: 75 mg Documented by: Ferrous Gluconate (Fergon) 324 mg PO BID REPLACED BY [facility] Last Admin: 09/14/19 09:35 Dose: 324 mg Documented by: Gabapentin (Gabapentin) 300 mg PO TID REPLACED BY [facility] Last Admin: 09/14/19 09:35 Dose: 300 mg Documented by: Hydromorphone HCl (Dilaudid) 0.5 mg IV Q3H PRN PRN Reason: Pain , Severe (7-10) Heparin Sodium/Sodium Chloride (Heparin/ 0.45% Nacl-25,000 Unit/500 Ml) 25,000 unit in 500 mls @ 20 mls/hr IV TITRATE REPLACED BY [facility]; Protocol Last Titration: 09/14/19 04:15 Dose: 900 units/hr, 18 mls/hr Documented by: Isosorbide Mononitrate (Imdur) 30 mg PO QDAY REPLACED BY [facility] Last Admin: 09/14/19 09:36 Dose: 30 mg Documented by: Metoclopramide HCl (Reglan) 5 mg IV Q6H PRN PRN Reason: Nausea And Vomiting Metoprolol Tartrate (Metoprolol) 25 mg PO BID REPLACED BY [facility] Last Admin: 09/14/19 09:35 Dose: 25 mg Documented by: Morphine Sulfate (Morphine) 2 mg IV Q4H PRN PRN Reason: Pain, Moderate (4-6) Ondansetron HCl (Zofran) 4 mg IV Q8H PRN PRN Reason: Nausea And Vomiting Pantoprazole Sodium (Protonix) 40 mg PO DAILY REPLACED BY [facility] Last Admin: 09/14/19 09:36 Dose: 40 mg Documented by: Pravastatin Sodium (Pravachol) 20 mg PO QHS REPLACED BY [facility] Last Admin: 09/13/19 21:20 Dose: 20 mg Documented by: Sodium Chloride (Sodium Chloride Flush Syringe 10 Ml) 10 ml IV BID REPLACED BY [facility] Last Admin: 09/14/19 09:36 Dose: 10 ml Documented by: Sodium Chloride (Sodium Chloride Flush Syringe 10 Ml) 10 ml IV PRN PRN PRN Reason: LINE FLUSH Review of Systems Constitutional: no weight loss, no weight gain, no fever Breasts: deferred Cardiovascular: chest pain, shortness of breath, no edema, no syncope, no lightheadedness Respiratory: no cough, no hemoptysis Gastrointestinal: no abdominal pain, no nausea, no vomiting Genitourinary Female: no pelvic pain, no flank pain Rectal: no incontinence, no bleeding Musculoskeletal: shooting arm pain, no neck stiffness Integumentary: no rash, no pruritis Neurological: no head injury, no transient paralysis Physical Examination Vital Signs Pulse Resp BP Pulse Ox 102 H 20 153/82 100 09/13/19 13:11 09/13/19 13:11 09/13/19 13:11 09/13/19 13:11 General appearance: no acute distress HEENT: Positive: PERRL Neck: Positive: neck supple, trachea midline Cardiac: Positive: Reg Rate and Rhythm Lungs: Positive: clear to auscultation, Decreased Breath Sounds Neuro: Positive: Grossly Intact Abdomen: Positive: Soft, Active Bowel Sounds Extremities: Present: warm. Absent: edema Results 09/14/19 04:14 09/14/19 04:14 Cardiac Enzymes 09/13/19 09/13/19 09/13/19 Range/Units 12:58 12:58 12:58 WBC 8.5 (4.5-11.0) K/mm3 RBC 3.84 (3.65-5.03) M/mm3 Hgb 12.0 (10.1-14.3) gm/dl Hct 36.2 (30.3-42.9) % MCV 94 (79-97) fl MCH 31 (28-32) pg MCHC 33 (30-34) % RDW 14.5 (13.2-15.2) % Plt Count 219 (140-440) K/mm3 Add Manual Diff Complete Total Counted 100 Seg Neuts % (Manual) 78.0 H (40.0-70.0) % Band Neutrophils % 0 % Lymphocytes % (Manual) 16.0 (13.4-35.0) % Reactive Lymphs % (Man) 0 % Monocytes % (Manual) 4.0 (0.0-7.3) % Eosinophils % (Manual) 0 (0.0-4.3) % Basophils % (Manual) 1.0 (0.0-1.8) % Metamyelocytes % 1.0 % Myelocytes % 0 % Promyelocytes % 0 % Blast Cells % 0 % Nucleated RBC % Not Reportable Seg Neutrophils # Man 6.6 (1.8-7.7) K/mm3 Band Neutrophils # 0.0 K/mm3 Lymphocytes # (Manual) 1.4 (1.2-5.4) K/mm3 Abs React Lymphs (Man) 0.0 K/mm3 Monocytes # (Manual) 0.3 (0.0-0.8) K/mm3 Eosinophils # (Manual) 0.0 (0.0-0.4) K/mm3 Basophils # (Manual) 0.1 (0.0-0.1) K/mm3 Metamyelocytes # 0.1 K/mm3 Myelocytes # 0.0 K/mm3 Promyelocytes # 0.0 K/mm3 Blast Cells # 0.0 K/mm3 WBC Morphology Not Reportable Hypersegmented Neuts Not Reportable Hyposegmented Neuts Not Reportable Hypogranular Neuts Not Reportable Smudge Cells Not Reportable Toxic Granulation Not Reportable Toxic Vacuolation Not Reportable Dohle Bodies Not Reportable Pelger-Huet Anomaly Not Reportable Padmaja Rods Not Reportable Platelet Estimate Consistent w auto Clumped Platelets Not Reportable Plt Clumps, EDTA Not Reportable Large Platelets Rare Giant Platelets Not Reportable Platelet Satelliting Not Reportable Plt Morphology Comment Not Reportable RBC Morphology Normal Dimorphic RBCs Not Reportable Polychromasia Not Reportable Hypochromasia Not Reportable Poikilocytosis Not Reportable Anisocytosis Not Reportable Microcytosis Not Reportable Macrocytosis Not Reportable Spherocytes Not Reportable Pappenheimer Bodies Not Reportable Sickle Cells Not Reportable Target Cells Not Reportable Tear Drop Cells Not Reportable Ovalocytes Not Reportable Helmet Cells Not Reportable [place] Bodies Not Reportable [place] Rings Not Reportable [place] Cells Not Reportable Bite Cells Not Reportable Crenated Cell Not Reportable Elliptocytes Not Reportable Acanthocytes (Spur) Not Reportable Rouleaux Not Reportable Hemoglobin C Crystals Not Reportable Schistocytes Not Reportable Malaria parasites Not Reportable Luis Bodies Not Reportable Hem Pathologist Commnt No PT (12.2-14.9) Sec. INR (0.87-1.13) APTT (24.2-36.6) Sec. Heparin Anti-Xa Level (0.3-0.7) U.I./ml Sodium 147 H (137-145) mmol/L Potassium 4.6 (3.6-5.0) mmol/L Chloride 112.4 H (98-107) mmol/L Carbon Dioxide 18 L (22-30) mmol/L Anion Gap 21 mmol/L BUN 30 H (7-17) mg/dL Creatinine 2.7 H (0.7-1.2) mg/dL Estimated GFR 18 ml/min BUN/Creatinine Ratio 11 % Glucose 137 H (65-100) mg/dL POC Glucose (70-105) Hemoglobin A1c (4-6) % Calcium 9.3 (8.4-10.2) mg/dL Total Bilirubin 0.40 (0.1-1.2) mg/dL Direct Bilirubin < 0.2 (0-0.2) mg/dL Indirect Bilirubin 0.2 mg/dL AST 17 (5-40) units/L ALT 12 (7-56) units/L Alkaline Phosphatase 94 (35-129) units/L Total Creatine Kinase (30-135) units/L CK-MB (CK-2) (0.0-4.0) ng/mL CK-MB (CK-2) Rel Index (0-4) Troponin T < 0.010 (0.00-0.029) ng/mL NT-Pro-B Natriuret Pep (0-900) pg/mL Total Protein 7.0 (6.3-8.2) g/dL Albumin 4.5 (3.9-5) g/dL Albumin/Globulin Ratio 1.8 % 09/13/19 09/13/19 09/13/19 Range/Units 12:58 13:20 20:40 WBC (4.5-11.0) K/mm3 RBC (3.65-5.03) M/mm3 Hgb (10.1-14.3) gm/dl Hct (30.3-42.9) % MCV (79-97) fl MCH (28-32) pg MCHC (30-34) % RDW (13.2-15.2) % Plt Count (140-440) K/mm3 Add Manual Diff Total Counted Seg Neuts % (Manual) (40.0-70.0) % Band Neutrophils % % Lymphocytes % (Manual) (13.4-35.0) % Reactive Lymphs % (Man) % Monocytes % (Manual) (0.0-7.3) % Eosinophils % (Manual) (0.0-4.3) % Basophils % (Manual) (0.0-1.8) % Metamyelocytes % % Myelocytes % % Promyelocytes % % Blast Cells % % Nucleated RBC % Seg Neutrophils # Man (1.8-7.7) K/mm3 Band Neutrophils # K/mm3 Lymphocytes # (Manual) (1.2-5.4) K/mm3 Abs React Lymphs (Man) K/mm3 Monocytes # (Manual) (0.0-0.8) K/mm3 Eosinophils # (Manual) (0.0-0.4) K/mm3 Basophils # (Manual) (0.0-0.1) K/mm3 Metamyelocytes # K/mm3 Myelocytes # K/mm3 Promyelocytes # K/mm3 Blast Cells # K/mm3 WBC Morphology Hypersegmented Neuts Hyposegmented Neuts Hypogranular Neuts Smudge Cells Toxic Granulation Toxic Vacuolation Dohle Bodies Pelger-Huet Anomaly Padmaja Rods Platelet Estimate Clumped Platelets Plt Clumps, EDTA Large Platelets Giant Platelets Platelet Satelliting Plt Morphology Comment RBC Morphology Dimorphic RBCs Polychromasia Hypochromasia Poikilocytosis Anisocytosis Microcytosis Macrocytosis Spherocytes Pappenheimer Bodies Sickle Cells Target Cells Tear Drop Cells Ovalocytes Helmet Cells [place] Bodies [place] Rings Piercy Cells Bite Cells Crenated Cell Elliptocytes Acanthocytes (Spur) Rouleaux Hemoglobin C Crystals Schistocytes Malaria parasites Luis Bodies Hem Pathologist Commnt PT 12.9 (12.2-14.9) Sec. INR 0.98 (0.87-1.13) APTT 24.4 (24.2-36.6) Sec. Heparin Anti-Xa Level (0.3-0.7) U.I./ml Sodium (137-145) mmol/L Potassium (3.6-5.0) mmol/L Chloride (98-107) mmol/L Carbon Dioxide (22-30) mmol/L Anion Gap mmol/L BUN (7-17) mg/dL Creatinine (0.7-1.2) mg/dL Estimated GFR ml/min BUN/Creatinine Ratio % Glucose (65-100) mg/dL POC Glucose (70-105) Hemoglobin A1c (4-6) % Calcium (8.4-10.2) mg/dL Total Bilirubin (0.1-1.2) mg/dL Direct Bilirubin (0-0.2) mg/dL Indirect Bilirubin mg/dL AST (5-40) units/L ALT (7-56) units/L Alkaline Phosphatase (35-129) units/L Total Creatine Kinase 152 H (30-135) units/L CK-MB (CK-2) 2.6 (0.0-4.0) ng/mL CK-MB (CK-2) Rel Index 1.7 (0-4) Troponin T < 0.010 (0.00-0.029) ng/mL NT-Pro-B Natriuret Pep 3720 H (0-900) pg/mL Total Protein (6.3-8.2) g/dL Albumin (3.9-5) g/dL Albumin/Globulin Ratio % 09/13/19 09/14/19 09/14/19 Range/Units 20:40 00:02 04:14 WBC 7.7 (4.5-11.0) K/mm3 RBC 3.46 L (3.65-5.03) M/mm3 Hgb 10.9 (10.1-14.3) gm/dl Hct 32.9 (30.3-42.9) % MCV 95 (79-97) fl MCH 32 (28-32) pg MCHC 33 (30-34) % RDW 14.2 (13.2-15.2) % Plt Count 208 (140-440) K/mm3 Add Manual Diff Complete Total Counted 100 Seg Neuts % (Manual) 59.0 (40.0-70.0) % Band Neutrophils % 0 % Lymphocytes % (Manual) 32.0 (13.4-35.0) % Reactive Lymphs % (Man) 0 % Monocytes % (Manual) 6.0 (0.0-7.3) % Eosinophils % (Manual) 2.0 (0.0-4.3) % Basophils % (Manual) 0 (0.0-1.8) % Metamyelocytes % 1.0 % Myelocytes % 0 % Promyelocytes % 0 % Blast Cells % 0 % Nucleated RBC % Not Reportable Seg Neutrophils # Man 4.5 (1.8-7.7) K/mm3 Band Neutrophils # 0.0 K/mm3 Lymphocytes # (Manual) 2.5 (1.2-5.4) K/mm3 Abs React Lymphs (Man) 0.0 K/mm3 Monocytes # (Manual) 0.5 (0.0-0.8) K/mm3 Eosinophils # (Manual) 0.2 (0.0-0.4) K/mm3 Basophils # (Manual) 0.0 (0.0-0.1) K/mm3 Metamyelocytes # 0.1 K/mm3 Myelocytes # 0.0 K/mm3 Promyelocytes # 0.0 K/mm3 Blast Cells # 0.0 K/mm3 WBC Morphology Not Reportable Hypersegmented Neuts Not Reportable Hyposegmented Neuts Not Reportable Hypogranular Neuts Not Reportable Smudge Cells Not Reportable Toxic Granulation Not Reportable Toxic Vacuolation Not Reportable Dohle Bodies Not Reportable Pelger-Huet Anomaly Not Reportable Padmaja Rods Not Reportable Platelet Estimate Consistent w auto Clumped Platelets Not Reportable Plt Clumps, EDTA Not Reportable Large Platelets Few Giant Platelets Not Reportable Platelet Satelliting Not Reportable Plt Morphology Comment Not Reportable RBC Morphology Not Reportable Dimorphic RBCs Not Reportable Polychromasia Not Reportable Hypochromasia Not Reportable Poikilocytosis Not Reportable Anisocytosis Not Reportable Microcytosis Few Macrocytosis Not Reportable Spherocytes Not Reportable Pappenheimer Bodies Not Reportable Sickle Cells Not Reportable Target Cells Not Reportable Tear Drop Cells Not Reportable Ovalocytes Few Helmet Cells Not Reportable [place] Bodies Not Reportable [place] Rings Not Reportable [place] Cells Not Reportable Bite Cells Not Reportable Crenated Cell Not Reportable Elliptocytes Not Reportable Acanthocytes (Spur) Not Reportable Rouleaux Not Reportable Hemoglobin C Crystals Not Reportable Schistocytes Not Reportable Malaria parasites Not Reportable Luis Bodies Not Reportable Hem Pathologist Commnt No PT (12.2-14.9) Sec. INR (0.87-1.13) APTT (24.2-36.6) Sec. Heparin Anti-Xa Level 0.47 (0.3-0.7) U.I./ml Sodium (137-145) mmol/L Potassium (3.6-5.0) mmol/L Chloride (98-107) mmol/L Carbon Dioxide (22-30) mmol/L Anion Gap mmol/L BUN (7-17) mg/dL Creatinine (0.7-1.2) mg/dL Estimated GFR ml/min BUN/Creatinine Ratio % Glucose (65-100) mg/dL POC Glucose (70-105) Hemoglobin A1c 6.5 H (4-6) % Calcium (8.4-10.2) mg/dL Total Bilirubin (0.1-1.2) mg/dL Direct Bilirubin (0-0.2) mg/dL Indirect Bilirubin mg/dL AST (5-40) units/L ALT (7-56) units/L Alkaline Phosphatase (35-129) units/L Total Creatine Kinase (30-135) units/L CK-MB (CK-2) (0.0-4.0) ng/mL CK-MB (CK-2) Rel Index (0-4) Troponin T (0.00-0.029) ng/mL NT-Pro-B Natriuret Pep (0-900) pg/mL Total Protein (6.3-8.2) g/dL Albumin (3.9-5) g/dL Albumin/Globulin Ratio % 09/14/19 09/14/19 09/14/19 Range/Units 04:14 04:14 07:24 WBC (4.5-11.0) K/mm3 RBC (3.65-5.03) M/mm3 Hgb (10.1-14.3) gm/dl Hct (30.3-42.9) % MCV (79-97) fl MCH (28-32) pg MCHC (30-34) % RDW (13.2-15.2) % Plt Count (140-440) K/mm3 Add Manual Diff Total Counted Seg Neuts % (Manual) (40.0-70.0) % Band Neutrophils % % Lymphocytes % (Manual) (13.4-35.0) % Reactive Lymphs % (Man) % Monocytes % (Manual) (0.0-7.3) % Eosinophils % (Manual) (0.0-4.3) % Basophils % (Manual) (0.0-1.8) % Metamyelocytes % % Myelocytes % % Promyelocytes % % Blast Cells % % Nucleated RBC % Seg Neutrophils # Man (1.8-7.7) K/mm3 Band Neutrophils # K/mm3 Lymphocytes # (Manual) (1.2-5.4) K/mm3 Abs React Lymphs (Man) K/mm3 Monocytes # (Manual) (0.0-0.8) K/mm3 Eosinophils # (Manual) (0.0-0.4) K/mm3 Basophils # (Manual) (0.0-0.1) K/mm3 Metamyelocytes # K/mm3 Myelocytes # K/mm3 Promyelocytes # K/mm3 Blast Cells # K/mm3 WBC Morphology Hypersegmented Neuts Hyposegmented Neuts Hypogranular Neuts Smudge Cells Toxic Granulation Toxic Vacuolation Dohle Bodies Pelger-Huet Anomaly Padmaja Rods Platelet Estimate Clumped Platelets Plt Clumps, EDTA Large Platelets Giant Platelets Platelet Satelliting Plt Morphology Comment RBC Morphology Dimorphic RBCs Polychromasia Hypochromasia Poikilocytosis Anisocytosis Microcytosis Macrocytosis Spherocytes Pappenheimer Bodies Sickle Cells Target Cells Tear Drop Cells Ovalocytes Helmet Cells [place] Bodies [place] Rings Ceasar Cells Bite Cells Crenated Cell Elliptocytes Acanthocytes (Spur) Rouleaux Hemoglobin C Crystals Schistocytes Malaria parasites Luis Bodies Hem Pathologist Commnt PT (12.2-14.9) Sec. INR (0.87-1.13) APTT (24.2-36.6) Sec. Heparin Anti-Xa Level 0.18 L (0.3-0.7) U.I./ml Sodium 143 (137-145) mmol/L Potassium 4.9 (3.6-5.0) mmol/L Chloride 113.4 H (98-107) mmol/L Carbon Dioxide 20 L (22-30) mmol/L Anion Gap 15 mmol/L BUN 27 H (7-17) mg/dL Creatinine 2.4 H (0.7-1.2) mg/dL Estimated GFR 20 ml/min BUN/Creatinine Ratio 11 % Glucose 124 H (65-100) mg/dL POC Glucose 107 H (70-105) Hemoglobin A1c (4-6) % Calcium 9.2 (8.4-10.2) mg/dL Total Bilirubin 0.50 (0.1-1.2) mg/dL Direct Bilirubin (0-0.2) mg/dL Indirect Bilirubin mg/dL AST 17 (5-40) units/L ALT 13 (7-56) units/L Alkaline Phosphatase 81 (35-129) units/L Total Creatine Kinase (30-135) units/L CK-MB (CK-2) (0.0-4.0) ng/mL CK-MB (CK-2) Rel Index (0-4) Troponin T (0.00-0.029) ng/mL NT-Pro-B Natriuret Pep (0-900) pg/mL Total Protein 6.8 (6.3-8.2) g/dL Albumin 4.0 (3.9-5) g/dL Albumin/Globulin Ratio 1.4 % Coagulation 09/13/19 Range/Units 13:20 PT 12.9 (12.2-14.9) Sec. INR 0.98 (0.87-1.13) APTT 24.4 (24.2-36.6) Sec. CBC 09/13/19 09/14/19 Range/Units 12:58 04:14 WBC 8.5 7.7 (4.5-11.0) K/mm3 RBC 3.84 3.46 L (3.65-5.03) M/mm3 Hgb 12.0 10.9 (10.1-14.3) gm/dl Hct 36.2 32.9 (30.3-42.9) % Plt Count 219 208 (140-440) K/mm3 Comprehensive Metabolic Panel 09/13/19 09/13/19 09/14/19 Range/Units 12:58 12:58 04:14 Sodium 147 H 143 (137-145) mmol/L Potassium 4.6 4.9 (3.6-5.0) mmol/L Chloride 112.4 H 113.4 H (98-107) mmol/L Carbon Dioxide 18 L 20 L (22-30) mmol/L BUN 30 H 27 H (7-17) mg/dL Creatinine 2.7 H 2.4 H (0.7-1.2) mg/dL Glucose 137 H 124 H (65-100) mg/dL Calcium 9.3 9.2 (8.4-10.2) mg/dL Direct Bilirubin < 0.2 (0-0.2) mg/dL Indirect Bilirubin 0.2 mg/dL AST 17 17 (5-40) units/L ALT 12 13 (7-56) units/L Alkaline Phosphatase 94 81 (35-129) units/L Total Protein 7.0 6.8 (6.3-8.2) g/dL Albumin 4.5 4.0 (3.9-5) g/dL - Imaging and Cardiology Echo: report reviewed (ECHO05/07: EF 45-50%, MILD LVH) EKG interpretations - Telemetry EKG Rhythm: Sinus Rhythm Assessment and Plan Chest pain CAD/CT AAA Hypertension Chronic kidney disease COPD Current chest pain Discussed with nephrology Dr. Enriquez the possibility of diagnostic only left heart catheterization given stage IV CKD We'll need to discuss further with patient's family Recommend maximizing medical management Continue Plavix/Imdur/metoprolol/pravastatin Aggressive BP control Monitor closely
[2019-09-14] MEDS: HEPARIN/ 0.45% NACL DRIP 25,000 UNIT/500 ML BAG IV SCH (15:09)
[2019-09-14] MEDS: GABAPENTIN 300 MG CAP PO SCH (21:51)
[2019-09-14] MEDS: PRAVASTATIN 20 MG TAB PO SCH (21:51)
[2019-09-15 04:50] LABS: Hematocrit 34.5 % (30.3-42.9); Hemoglobin 11.7 gm/dl (10.1-14.3)
[2019-09-15 05:03] LABS: Calcium 9.2 mg/dL (8.4-10.2)
--- NOTE | 2019-09-15 08:02 | Progress Note ---
Assessment and Plan Assessment and plan: Patient is a 69-year-old woman with a history of procine AVR, COPD not on home o2, CAD, AAA, hypertension, [place] and CKD who presents to [facility] ED with chest pains. Patient had workup in April 2019. Stress test revealed mild reversible ischemia. Cardiac cath was not done. It was decided to treat m edically and to follow with [facility]--Dr. Hamilton. Patient has chronic kidney disease and AV fistula was placed recently on the left upper extremity. Patient was started on IV heparin by the ER physician for unstable angina. Chest pains, atypical and reproducible with touch: await Cardiology decision for [facility] vs stress test, still on IV heparin, will stop CKD 4, appears steady: Renal is following COPD (chronic obstructive pulmonary disease): treat with nebs Hypertension: Continue antihypertensives especially metoprolol and amlodipine Coronary artery disease: Continue Plavix and isosorbide mononitrate Vitamin D deficiency: On vitamin D Peripheral neuropathy: Continue Gabapentin DVT prophylaxis: add sq heparin tomorrow and GI prophylaxis full code Disposition: continue inpatient care, await Communication Specialist decision History Interval history: Patient was seen and examined. Follow-up on current diagnosis. Overnight uneventful. Patient denies any chest pain, shortness breath, nausea/vomiting or severe headaches. Imaging, nursing note, chart, labs and old chart reviewed. Discussed with patient. Hospitalist Physical - Physical exam Narrative exam: Gen: WDWN, NAD, Awake, Alert, Orientated HEENT: NCAT, EOMI, PERRL, OP Clear Neck: supple, no adenopathy, no thyromegaly, no JVD CVS/Heart: RRR, normal S1S2, pulses present bilaterally Chest/Lungs: CTA B, Symmetrical chest expansion, good air entry bilaterally, reproducible chest wall tenderness where pain is located GI/Abdomen: soft, NTND, good bowel sounds, no guarding or rebound /Bladder: no suprapubic tenderness, no CVA or paraspinal tenderness Extermity/Skin: no c/c/e, no obvious rash MSK: FROM x 4 Neuro: CN 2-12 grossly intact, no new focal deficits Psych: calm - Constitutional Vitals: Temp Pulse Resp BP Pulse Ox 98.9 F 82 18 146/80 98 09/15/19 07:44 09/15/19 07:44 09/15/19 07:44 09/15/19 07:44 09/15/19 07:44 General appearance: Present: no acute distress Results - Labs CBC & Chem 7: 09/15/19 04:34 09/15/19 04:34 Labs: Laboratory Last Values WBC 7.7 K/mm3 (4.5-11.0) 09/14/19 04:14 RBC 3.46 M/mm3 (3.65-5.03) L 09/14/19 04:14 Hgb 11.7 gm/dl (10.1-14.3) 09/15/19 04:34 Hct 34.5 % (30.3-42.9) 09/15/19 04:34 MCV 95 fl (79-97) 09/14/19 04:14 MCH 32 pg (28-32) 09/14/19 04:14 MCHC 33 % (30-34) 09/14/19 04:14 RDW 14.2 % (13.2-15.2) 09/14/19 04:14 Plt Count 206 K/mm3 (140-440) 09/15/19 04:34 Add Manual Diff Complete 09/14/19 04:14 Total Counted 100 09/14/19 04:14 Seg Neuts % (Manual) 59.0 % (40.0-70.0) 09/14/19 04:14 Band Neutrophils % 0 % 09/14/19 04:14 Lymphocytes % (Manual) 32.0 % (13.4-35.0) 09/14/19 04:14 Reactive Lymphs % (Man) 0 % 09/14/19 04:14 Monocytes % (Manual) 6.0 % (0.0-7.3) 09/14/19 04:14 Eosinophils % (Manual) 2.0 % (0.0-4.3) 09/14/19 04:14 Basophils % (Manual) 0 % (0.0-1.8) 09/14/19 04:14 Metamyelocytes % 1.0 % 09/14/19 04:14 Myelocytes % 0 % 09/14/19 04:14 Promyelocytes % 0 % 09/14/19 04:14 Blast Cells % 0 % 09/14/19 04:14 Nucleated RBC % Not Reportable 09/14/19 04:14 Seg Neutrophils # Man 4.5 K/mm3 (1.8-7.7) 09/14/19 04:14 Band Neutrophils # 0.0 K/mm3 09/14/19 04:14 Lymphocytes # (Manual) 2.5 K/mm3 (1.2-5.4) 09/14/19 04:14 Abs React Lymphs (Man) 0.0 K/mm3 09/14/19 04:14 Monocytes # (Manual) 0.5 K/mm3 (0.0-0.8) 09/14/19 04:14 Eosinophils # (Manual) 0.2 K/mm3 (0.0-0.4) 09/14/19 04:14 Basophils # (Manual) 0.0 K/mm3 (0.0-0.1) 09/14/19 04:14 Metamyelocytes # 0.1 K/mm3 09/14/19 04:14 Myelocytes # 0.0 K/mm3 09/14/19 04:14 Promyelocytes # 0.0 K/mm3 09/14/19 04:14 Blast Cells # 0.0 K/mm3 09/14/19 04:14 WBC Morphology Not Reportable 09/14/19 04:14 Hypersegmented Neuts Not Reportable 09/14/19 04:14 Hyposegmented Neuts Not Reportable 09/14/19 04:14 Hypogranular Neuts Not Reportable 09/14/19 04:14 Smudge Cells Not Reportable 09/14/19 04:14 Toxic Granulation Not Reportable 09/14/19 04:14 Toxic Vacuolation Not Reportable 09/14/19 04:14 Dohle Bodies Not Reportable 09/14/19 04:14 Pelger-Huet Anomaly Not Reportable 09/14/19 04:14 Padmaja Rods Not Reportable 09/14/19 04:14 Platelet Estimate Consistent w auto 09/14/19 04:14 Clumped Platelets Not Reportable 09/14/19 04:14 Plt Clumps, EDTA Not Reportable 09/14/19 04:14 Large Platelets Few 09/14/19 04:14 Giant Platelets Not Reportable 09/14/19 04:14 Platelet Satelliting Not Reportable 09/14/19 04:14 Plt Morphology Comment Not Reportable 09/14/19 04:14 RBC Morphology Not Reportable 09/14/19 04:14 Dimorphic RBCs Not Reportable 09/14/19 04:14 Polychromasia Not Reportable 09/14/19 04:14 Hypochromasia Not Reportable 09/14/19 04:14 Poikilocytosis Not Reportable 09/14/19 04:14 Anisocytosis Not Reportable 09/14/19 04:14 Microcytosis Few 09/14/19 04:14 Macrocytosis Not Reportable 09/14/19 04:14 Spherocytes Not Reportable 09/14/19 04:14 Pappenheimer Bodies Not Reportable 09/14/19 04:14 Sickle Cells Not Reportable 09/14/19 04:14 Target Cells Not Reportable 09/14/19 04:14 Tear Drop Cells Not Reportable 09/14/19 04:14 Ovalocytes Few 09/14/19 04:14 Helmet Cells Not Reportable 09/14/19 04:14 [place] Bodies Not Reportable 09/14/19 04:14 [place] Rings Not Reportable 09/14/19 04:14 Ceasar Cells Not Reportable 09/14/19 04:14 Bite Cells Not Reportable 09/14/19 04:14 Crenated Cell Not Reportable 09/14/19 04:14 Elliptocytes Not Reportable 09/14/19 04:14 Acanthocytes (Spur) Not Reportable 09/14/19 04:14 Rouleaux Not Reportable 09/14/19 04:14 Hemoglobin C Crystals Not Reportable 09/14/19 04:14 Schistocytes Not Reportable 09/14/19 04:14 Malaria parasites Not Reportable 09/14/19 04:14 Luis Bodies Not Reportable 09/14/19 04:14 Hem Pathologist Commnt No 09/14/19 04:14 PT 12.9 Sec. (12.2-14.9) 09/13/19 13:20 INR 0.98 (0.87-1.13) 09/13/19 13:20 APTT 24.4 Sec. (24.2-36.6) 09/13/19 13:20 Heparin Anti-Xa Level 0.60 U.I./ml (0.3-0.7) 09/15/19 04:34 Sodium 143 mmol/L (137-145) 09/15/19 04:34 Potassium 4.9 mmol/L (3.6-5.0) 09/15/19 04:34 Chloride 111.4 mmol/L (98-107) H 09/15/19 04:34 Carbon Dioxide 20 mmol/L (22-30) L 09/15/19 04:34 Anion Gap 17 mmol/L 09/15/19 04:34 BUN 27 mg/dL (7-17) H 09/15/19 04:34 Creatinine 2.5 mg/dL (0.7-1.2) H 09/15/19 04:34 Estimated GFR 19 ml/min 09/15/19 04:34 BUN/Creatinine Ratio 11 % 09/15/19 04:34 Glucose 115 mg/dL (65-100) H 09/15/19 04:34 POC Glucose 107 (70-105) H 09/14/19 07:24 Hemoglobin A1c 6.5 % (4-6) H 09/14/19 00:02 Calcium 9.2 mg/dL (8.4-10.2) 09/15/19 04:34 Phosphorus 2.80 mg/dL (2.5-4.5) 09/15/19 04:34 Magnesium 2.20 mg/dL (1.7-2.3) 09/15/19 04:34 Total Bilirubin 0.50 mg/dL (0.1-1.2) 09/14/19 04:14 Direct Bilirubin < 0.2 mg/dL (0-0.2) 09/13/19 12:58 Indirect Bilirubin 0.2 mg/dL 09/13/19 12:58 AST 17 units/L (5-40) 09/14/19 04:14 ALT 13 units/L (7-56) 09/14/19 04:14 Alkaline Phosphatase 81 units/L (35-129) 09/14/19 04:14 Total Creatine Kinase 152 units/L (30-135) H 09/13/19 12:58 CK-MB (CK-2) 2.6 ng/mL (0.0-4.0) 09/13/19 12:58 CK-MB (CK-2) Rel Index 1.7 (0-4) 09/13/19 12:58 Troponin T < 0.010 ng/mL (0.00-0.029) 09/13/19 20:40 NT-Pro-B Natriuret Pep 3720 pg/mL (0-900) H 09/13/19 12:58 Total Protein 6.8 g/dL (6.3-8.2) 09/14/19 04:14 Albumin 4.0 g/dL (3.9-5) 09/14/19 04:14 Albumin/Globulin Ratio 1.4 % 09/14/19 04:14 Active Medications - Current Medications Current Medications: Generic Name Dose Route Start Last Admin Trade Name Freq PRN Reason Stop Dose Admin Acetaminophen 650 mg 09/13/19 21:32 Tylenol PO Q4H PRN Pain MILD(1-3)/Fever >100.5/ZHANG Alprazolam 0.5 mg 09/13/19 20:27 Xanax PO DAILY PRN Anxiety Amlodipine Besylate 5 mg 09/13/19 21:00 09/14/19 09:36 Amlodipine PO 5 mg DAILY NITESH Administration Cholecalciferol 2,000 unit 09/13/19 21:00 09/14/19 09:36 Vitamin D3 PO 2,000 unit DAILY NITESH Administration Clopidogrel Bisulfate 75 mg 09/13/19 21:00 09/14/19 09:36 Plavix PO 75 mg DAILY NITESH Administration Ferrous Gluconate 324 mg 09/13/19 22:00 09/14/19 21:51 Fergon PO 324 mg BID NITESH Administration Gabapentin 300 mg 09/14/19 22:00 09/14/19 21:51 Gabapentin PO 300 mg BID NITESH Administration Hydromorphone HCl 0.5 mg 09/13/19 21:32 Dilaudid IV Q3H PRN Pain , Severe (7-10) Heparin Sodium/Sodium Chloride 25,000 unit in 500 mls @ 20 mls/hr 09/13/19 14:00 09/15/19 05:32 Heparin/ 0.45% Nacl-25,000 Unit/500 Ml IV 800 units/hr TITRATE NITESH 16 mls/hr Titration Protocol 1,000 UNITS/HR Isosorbide Mononitrate 30 mg 09/13/19 21:00 09/14/19 09:36 Imdur PO 30 mg QDAY NITESH Administration Metoclopramide HCl 5 mg 09/13/19 21:47 Reglan IV Q6H PRN Nausea And Vomiting Metoprolol Tartrate 25 mg 09/13/19 22:00 09/14/19 21:52 Metoprolol PO 25 mg BID NITESH Administration Morphine Sulfate 2 mg 09/13/19 21:32 Morphine IV Q4H PRN Pain, Moderate (4-6) Ondansetron HCl 4 mg 09/13/19 21:32 Zofran IV Q8H PRN Nausea And Vomiting Pantoprazole Sodium 40 mg 09/13/19 21:00 09/14/19 09:36 Protonix PO 40 mg DAILY NITESH Administration Pravastatin Sodium 20 mg 09/13/19 22:00 09/14/19 21:51 Pravachol PO 20 mg QHS NITESH Administration Sodium Chloride 10 ml 09/13/19 22:00 09/14/19 21:52 Sodium Chloride Flush Syringe 10 Ml IV 10 ml BID NITESH Administration Sodium Chloride 10 ml 09/13/19 21:32 Sodium Chloride Flush Syringe 10 Ml IV PRN PRN LINE FLUSH
--- NOTE | 2019-09-15 09:21 | Progress Note ---
Assessment and Plan 1. CKD stage 4: Patient with h/o CKD stage 4. L atrophic kidney. Renal function is around her baseline. Monitor renal function. Renal prognosis is guarded. Avoid nephrotoxic agents. Meds dosage based on GFR. 2. FEN: Hypernatremia, improved. Metabolic acidosis, monitor. Monitor lytes. 3. Chest pain: H/o CAD. Medical management per Cards. 4. Hypertension. 5. DM type 2. Examination: General appearance: well-developed, well-nourished, appears stated age, not in distress HEENT: ATNC, MARK, mucous membranes moist, hearing intact, vision intact Neck: neck supple, trachea midline Respiratory: Clear to Ascultation Heart: regular, S1S2, no murmurs Gastrointestinal: normoactive bowel sounds, not tender Integumentary: no rash, warm and dry Neurologic: no focal deficit, no asterixis Ext: no edema Hemodialysis access: L arm AVF Psychiatric: cooperative Subjective Date of service: 09/15/19 Interval history: Patient was seen and examined at the bedside. Doing better. Objective - Vital Signs Vital signs: Vital Signs - 12hr 09/14/19 09/14/19 09/15/19 21:52 22:05 00:02 Temperature 98.0 F Pulse Rate 84 67 Pulse Rate [ 84 Apical] Respiratory 18 18 Rate Blood Pressure 131/64 155/75 O2 Sat by Pulse 97 97 Oximetry 09/15/19 09/15/19 09/15/19 04:10 07:44 08:36 Temperature 98.0 F 98.9 F Pulse Rate 69 82 Pulse Rate [ Apical] Respiratory 18 18 Rate Blood Pressure 148/69 146/80 O2 Sat by Pulse 98 98 98 Oximetry - Lab 09/15/19 04:34 09/15/19 04:34 Most recent lab results Calcium 9.2 mg/dL (8.4-10.2) 09/15/19 04:34 Phosphorus 2.80 mg/dL (2.5-4.5) 09/15/19 04:34 Magnesium 2.20 mg/dL (1.7-2.3) 09/15/19 04:34 Medications & Allergies - Medications Allergies/Adverse Reactions: Allergies vancomycin Allergy (Verified 04/21/19 21:21) Hives Home Medications: Home Medications Medication Instructions Recorded Confirmed Last Taken Type ALPRAZolam [Xanax TAB] 0.5 mg PO DAILY PRN 02/11/18 09/13/19 09/12/19 History Clopidogrel Bisulfate [Plavix] 75 mg PO DAILY 02/11/18 09/13/19 09/12/19 History Gabapentin 300 mg PO TID 02/11/18 09/13/19 09/12/19 History Metoprolol [Lopressor TAB] 25 mg PO BID 02/11/18 09/13/19 09/12/19 History Pantoprazole [Protonix TAB] 40 mg PO DAILY 02/11/18 09/13/19 09/12/19 History Pravastatin Sodium [Pravastatin] 20 mg PO QHS 02/11/18 09/13/19 09/12/19 History Cholecalciferol (Vitamin D3) 1 tab PO DAILY 04/21/19 09/13/19 09/12/19 History [Vitamin D3 2,000 UNIT CAP] Ferrous Gluconate [Ferrous 1 tab PO BID 04/21/19 09/13/19 09/12/19 History Gluconate 324 MG] amLODIPine 5 mg PO DAILY 04/21/19 09/13/19 09/12/19 History ISOSORBIDE MONOnitrate [Imdur ER] 30 mg PO QDAY #30 tablet 04/24/19 09/13/19 09/12/19 Rx Active Medications: Generic Name Dose Route Start Last Admin Trade Name Freq PRN Reason Stop Dose Admin Acetaminophen 650 mg 09/13/19 21:32 Tylenol PO Q4H PRN Pain MILD(1-3)/Fever >100.5/ZHANG Alprazolam 0.5 mg 09/13/19 20:27 Xanax PO DAILY PRN Anxiety Amlodipine Besylate 5 mg 09/13/19 21:00 09/14/19 09:36 Amlodipine PO 5 mg DAILY NITESH Administration Cholecalciferol 2,000 unit 09/13/19 21:00 09/14/19 09:36 Vitamin D3 PO 2,000 unit DAILY NITESH Administration Clopidogrel Bisulfate 75 mg 09/13/19 21:00 09/14/19 09:36 Plavix PO 75 mg DAILY NITESH Administration Ferrous Gluconate 324 mg 09/13/19 22:00 09/14/19 21:51 Fergon PO 324 mg BID NITESH Administration Gabapentin 300 mg 09/14/19 22:00 09/14/19 21:51 Gabapentin PO 300 mg BID NITESH Administration Hydromorphone HCl 0.5 mg 09/13/19 21:32 Dilaudid IV Q3H PRN Pain , Severe (7-10) Isosorbide Mononitrate 30 mg 09/13/19 21:00 09/14/19 09:36 Imdur PO 30 mg QDAY NITESH Administration Metoclopramide HCl 5 mg 09/13/19 21:47 Reglan IV Q6H PRN Nausea And Vomiting Metoprolol Tartrate 25 mg 09/13/19 22:00 09/14/19 21:52 Metoprolol PO 25 mg BID NITESH Administration Morphine Sulfate 2 mg 09/13/19 21:32 Morphine IV Q4H PRN Pain, Moderate (4-6) Ondansetron HCl 4 mg 09/13/19 21:32 Zofran IV Q8H PRN Nausea And Vomiting Pantoprazole Sodium 40 mg 09/13/19 21:00 09/14/19 09:36 Protonix PO 40 mg DAILY NITESH Administration Pravastatin Sodium 20 mg 09/13/19 22:00 09/14/19 21:51 Pravachol PO 20 mg QHS NITESH Administration Sodium Chloride 10 ml 09/13/19 22:00 09/14/19 21:52 Sodium Chloride Flush Syringe 10 Ml IV 10 ml BID NITESH Administration Sodium Chloride 10 ml 09/13/19 21:32 Sodium Chloride Flush Syringe 10 Ml IV PRN PRN LINE FLUSH
[2019-09-15] MEDS: GABAPENTIN 300 MG CAP PO SCH (11:25)
[2019-09-15] MEDS: FERROUS GLUCONATE 324 MG TAB PO SCH (11:25)
[2019-09-15] MEDS: CHOLECALCIFEROL (VIT D3) 1000 UNIT TAB PO SCH (11:25)
[2019-09-15] MEDS: CLOPIDOGREL 75 MG TAB PO SCH (11:25)
[2019-09-15] MEDS: PANTOPRAZOLE 40 MG TAB PO SCH (11:26)
[2019-09-15] MEDS: amLODIPine 5 MG TAB PO SCH (11:26)
[2019-09-15] MEDS: METOPROLOL TARTRATE 25 MG TAB PO SCH (11:26)
[2019-09-15] MEDS ORDERED: amLODIPine 5 MG TAB PO SCH (12:22)
--- NOTE | 2019-09-15 12:23 | Progress Note ---
Assessment and Plan Chest pain CAD/SD - reportedly, no prior intervention AAA - followed by Dr. Bosch S/p TAVR using bioprosthesis in [place] in 10/2017 Hypertension Chronic kidney disease - s/p fistula creation last week by Dr. Perez COPD Pt reports resolution of chest pain. AMI ruled out. No plans for LHC at this time in setting of renal insufficiency and per pt preference. If chest pain recurs despite optimal medical therapy, can arrange LHC as OP. D/c heparin gtt. Optimize BPs - increase norvasc. Currently stable cardiac status. Pt may discharge from cardiology standpoint. Recommend pt follow up in our office with Dr. Hamilton within 1-2 weeks of discharge ([phone]). The patient has been seen in conjunction with Dr. Torres who agrees with the assessment and plan of care. Subjective Date of service: 09/15/19 Principal diagnosis: cp Interval history: pt resting in bed, no current complaints, she reports resolution of chest pain. in SR on tele. Objective Last Vital Signs Temp 98.9 F 09/15/19 07:44 Pulse 86 09/15/19 11:26 Resp 18 09/15/19 07:44 BP 166/79 09/15/19 11:26 Pulse Ox 100 09/15/19 11:23 - Physical Examination General: No Apparent Distress HEENT: Positive: PERRL Neck: Positive: neck supple, trachea midline Cardiac: Positive: Reg Rate and Rhythm, S1/S2 Lungs: Positive: Decreased Breath Sounds Neuro: Positive: Grossly Intact Abdomen: Positive: Soft, Active Bowel Sounds Extremities: Present: warm. Absent: edema - Labs and Meds CBC 09/15/19 Range/Units 04:34 Hgb 11.7 (10.1-14.3) gm/dl Hct 34.5 (30.3-42.9) % Plt Count 206 (140-440) K/mm3 Comprehensive Metabolic Panel 09/15/19 Range/Units 04:34 Sodium 143 (137-145) mmol/L Potassium 4.9 (3.6-5.0) mmol/L Chloride 111.4 H (98-107) mmol/L Carbon Dioxide 20 L (22-30) mmol/L BUN 27 H (7-17) mg/dL Creatinine 2.5 H (0.7-1.2) mg/dL Glucose 115 H (65-100) mg/dL Calcium 9.2 (8.4-10.2) mg/dL - Imaging and Cardiology EKG: report reviewed (sinus tachycardia, left anterior fascicular block, heart rate of 100, left ventricular hypertrophy) Echo: report reviewed (ECHO05/07: EF 45-50%, MILD LVH)
--- NOTE | 2019-09-15 13:36 | Discharge Summary ---
Providers - Providers Date of Admission: 09/13/19 14:41 Date of discharge: 09/15/19 Attending physician: PATRICK GROSSMAN 09/13/19 21:29 Consult to Physician [CONS] Routine Comment: Consulting Provider: BRENT NUNO Physician Instructions: Reason For Exam: unstable angina 09/13/19 21:32 Consult to Physician [CONS] Routine Comment: Consulting Provider: BUBBA AREVALO Physician Instructions: Reason For Exam: CKD Primary care physician: GARY KWAN Hospitalization Condition: Stable Hospital course: Patient is a 69-year-old woman with a history of procine AVR, COPD not on home o2, CAD, AAA, hypertension, [place] and CKD who presents to [facility] ED with chest pains. Patient had workup in April 2019. Stress test revealed mild reversible ischemia. Cardiac cath was not done. It was decided to treat medically and to follow with [facility]--Dr. Hamilton. Patient has chronic kidney disease and AV fistula was placed recently on the left upper extremity. Patient was started on IV heparin by the ER physician for unstable angina. Discharge Diagnoses: Chest pains, atypical, costochrondritis most likely, cleared for discharge by Cardiology CKD 4, appears steady, s/p fistula creation last week by Dr. Kwan: Renal is following COPD (chronic obstructive pulmonary disease): treat with nebs Hypertension: Continue antihypertensives especially metoprolol and amlodipine Coronary artery disease: Continue Plavix and isosorbide mononitrate Vitamin D deficiency: On vitamin D Peripheral neuropathy: Continue Gabapentin CAD/AL - reportedly, no prior intervention AAA - followed by Dr. Bosch S/p TAVR using bioprosthesis in [place] in 10/2017 COPD Disposition: DC-01 TO HOME OR SELFCARE Time spent for discharge: 35 minutes Core Measure Documentation - Palliative Care Palliative Care/ Comfort Measures: Not Applicable - Core Measures Any of the following diagnoses?: none - VTE Discharge Requirements Deep Vein Thrombosis/Pulmonary Embolism Present on Admission: No Has pt received <5 days of overlap therapy or INR<2.0: No Anticoagulant overlap therapy prescribed at discharge: No Contraindication No Overlap Therapy order at DC: Not Indicated Exam - Physical Exam Narrative exam: Gen: WDWN, NAD, Awake, Alert, Orientated HEENT: NCAT, EOMI, PERRL, OP Clear Neck: supple, no adenopathy, no thyromegaly, no JVD CVS/Heart: RRR, normal S1S2, pulses present bilaterally Chest/Lungs: CTA B, Symmetrical chest expansion, good air entry bilaterally, reproducible chest wall tenderness where pain is located GI/Abdomen: soft, NTND, good bowel sounds, no guarding or rebound /Bladder: no suprapubic tenderness, no CVA or paraspinal tenderness Extermity/Skin: no c/c/e, no obvious rash MSK: FROM x 4 Neuro: CN 2-12 grossly intact, no new focal deficits Psych: calm - Constitutional Vitals: Temp Pulse Resp BP Pulse Ox 98.9 F 86 18 166/79 100 09/15/19 07:44 09/15/19 11:26 09/15/19 07:44 09/15/19 11:26 09/15/19 11:23 Plan Activity: other (no strenous activity without clearance from Cardiology) Diet: low salt Special Instructions: smoking cessation Follow up with: PRIMARY CARE, [Referring] - 3-5 Days
[2019-09-15 17:21] VITALS: BP 151/94
[2019-09-16] MEDS ORDERED: ASPIRIN 81 MG TAB CHEW PO SCH (10:00)
== END 2019-09-15 19:15 | disposition home or self-care (01) ==
LOC: ED 12:25 → 2B-ACE 14:41 → 4A 23:40
PROVIDERS: ADMIT Internal Medicine; ATTEND Internal Medicine
DX: I20.0 Unstable angina (principal); I12.9 Hypertensive chronic kidney disease with stage 1 through stage 4 chronic kidney disease, or unspecified chronic kidney disease; N18.4 Chronic kidney disease, stage 4 (severe); J44.9 Chronic obstructive pulmonary disease, unspecified; E55.9 Vitamin D deficiency, unspecified; G62.9 Polyneuropathy, unspecified; M19.90 Unspecified osteoarthritis, unspecified site; Z95.1 Presence of aortocoronary bypass graft; Z90.49 Acquired absence of other specified parts of digestive tract; Z90.710 Acquired absence of both cervix and uterus; Z87.891 Personal history of nicotine dependence; Z79.899 Other long term (current) drug therapy
CPT/HCPCS: 36415; 71045; 80048; 80053; 80076; 82550; 82553; 82962; 83036; 83735; 83880; 84100; 84484; 85007; 85014; 85018; 85025; 85049; 85520; 85610; 85730; 93005; 93010; 94760; 96374; 99284; 99406; A9270; G0378; J1644; 96365; 96366; 96376

== ENCOUNTER 2021-05-03 09:42 | Inpatient (IN) | payer MEDICARE, OTHER ==
--- NOTE | 2021-05-03 10:06 | Emergency Department Report ---
ED General Adult HPI - General Chief complaint: Multiple Trauma Stated complaint: FALL/AMS PUI?: No Time Seen by Provider: 05/03/21 10:02 Source: patient, family, EMS (Verbal report received from emergency medical services. EMS documentation not available at time of chart dictation ), RN notes reviewed, old records reviewed Mode of arrival: Stretcher Limitations: Altered Mental Status, Physical Limitation - History of Present Illness Initial comments: The patient was evaluated in the emergency department for symptoms described in the history of present illness. He/she was evaluated in the context of the global COVID-19 pandemic, which necessitated consideration that the patient might be at risk for infection with the virus that causes COVID-19. Institutional protocols and algorithms that pertain to the evaluation of patients at risk for COVID-19 are in a state of rapid change based on information released by regulatory bodies including the CDC and federal and state organizations. These policies and algorithms were followed during the patient's care in the emergency department. Please note that these policies, procedures and recommendations changed on a rapid basis. The patient is a 70-year-old female. She is not known to myself previously. She is brought to the hospital by emergency medical services for complaint of altered mental status. EMS reports normal vital signs and Accu-Chek in the field. The patient is accompanied by her caregiver, who gives the history of present illness. Caregiver reports that patient was last known explicitly well last night. The patient had an unwitnessed fall this morning, at approximately 8:30 AM, caregiver felt that patient was not acting normally, and thus contacted emergency medical services. On primary survey: Airway is patent and intact. C-collar placed using C-spine immobilization. Breath sounds: Faint crackles bilaterally. Circulation: 2+ pulses in the upper and lower extremities. Disability: Breathing spontaneously, moving 4 extremities spontaneously, GCS:8 points S[place] Coma Score E(2) V(2) M(4) Monika Coma Scale Exposure: No blunt or penetrating injuries. Secondary survey: Unremarkable, good rectal tone. No spinal step-offs. Code trauma called overhead. Supplemental oxygen administered. Appropriate laboratory studies ordered. Her caregiver indicates that she is up-to-date with her COVID-19 vaccinations. Her past medical history includes CAD, VA, AAA, status post TAVR, COPD, chronic kidney disease, not currently on hemodialysis. Nephrology: Dr. Joseph Cardiology: Dr. Hamilton Patient herself is altered, withdraws to painful stimuli, makes incomprehensible sounds, is protecting her airway, and cannot describe the qualitative nature of her symptoms, exacerbating factors, relieving factors, or aggravating factors. -: This morning Quality: other Consistency: other Improves with: other Worsens with: other Associated Symptoms: other - Related Data Home Medications Medication Instructions Recorded Confirmed Last Taken ALPRAZolam [Xanax TAB] 0.5 mg PO DAILY PRN 02/11/18 09/13/19 09/12/19 Clopidogrel Bisulfate [Plavix] 75 mg PO DAILY 02/11/18 09/13/19 09/12/19 Gabapentin 300 mg PO TID 02/11/18 09/13/19 09/12/19 Metoprolol [Lopressor TAB] 25 mg PO BID 02/11/18 09/13/19 09/12/19 Pantoprazole [Protonix TAB] 40 mg PO DAILY 02/11/18 09/13/19 09/12/19 Pravastatin Sodium [Pravastatin] 20 mg PO QHS 02/11/18 09/13/19 09/12/19 Cholecalciferol (Vitamin D3) 1 tab PO DAILY 04/21/19 09/13/19 09/12/19 [Vitamin D3 2,000 UNIT CAP] Ferrous Gluconate [Ferrous 1 tab PO BID 04/21/19 09/13/19 09/12/19 Gluconate 324 MG] amLODIPine 5 mg PO DAILY 04/21/19 09/13/19 09/12/19 Previous Rx's Medication Instructions Recorded Last Taken Type ISOSORBIDE MONOnitrate [Imdur ER] 30 mg PO QDAY #30 tablet 04/24/19 09/12/19 Rx Allergies Allergy/AdvReac Type Severity Reaction Status Date / Time vancomycin Allergy Hives Verified 04/21/19 21:21 ED Review of Systems ROS: Stated complaint: FALL/AMS Other details as noted in HPI Comment: Unobtainable due to pts medical conditions (Patient altered) ED Past Medical Hx - Past Medical History Hx Hypertension: Yes Hx Heart Attack/AMI: Yes (2016) Hx Renal Disease: Yes (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/19) Hx Arthritis: Yes Hx COPD: Yes Additional medical history: Distal AAA 3.4 cm 02/11/2018 - Surgical History Hx Coronary Stent: Yes Hx Cholecystectomy: Yes Hx Appendectomy: Yes Additional Surgical History: Hysterectomy, l't leg , back surgery, bovine transcatheter aortic heart valve replacement, ovarian cyst removal - Social History Smoking Status: Former Smoker - Medications Home Medications: Home Medications Medication Instructions Recorded Confirmed Last Taken Type ALPRAZolam [Xanax TAB] 0.5 mg PO DAILY PRN 02/11/18 09/13/19 09/12/19 History Clopidogrel Bisulfate [Plavix] 75 mg PO DAILY 02/11/18 09/13/19 09/12/19 History Gabapentin 300 mg PO TID 02/11/18 09/13/19 09/12/19 History Metoprolol [Lopressor TAB] 25 mg PO BID 02/11/18 09/13/19 09/12/19 History Pantoprazole [Protonix TAB] 40 mg PO DAILY 02/11/18 09/13/19 09/12/19 History Pravastatin Sodium [Pravastatin] 20 mg PO QHS 02/11/18 09/13/19 09/12/19 History Cholecalciferol (Vitamin D3) 1 tab PO DAILY 04/21/19 09/13/19 09/12/19 History [Vitamin D3 2,000 UNIT CAP] Ferrous Gluconate [Ferrous 1 tab PO BID 04/21/19 09/13/19 09/12/19 History Gluconate 324 MG] amLODIPine 5 mg PO DAILY 04/21/19 09/13/19 09/12/19 History ISOSORBIDE MONOnitrate [Imdur ER] 30 mg PO QDAY #30 tablet 04/24/19 09/13/19 09/12/19 Rx ED Physical Exam - General Limitations: Altered Mental Status General appearance: lethargic - Head Head exam: Present: atraumatic, normocephalic - Eye Eye exam: Present: normal appearance, PERRL - ENT ENT exam: Present: normal exam, normal orophraynx, mucous membranes moist, normal external ear exam - Neck Neck exam: Present: normal inspection. Absent: tenderness, meningismus - Respiratory Respiratory exam: Present: rales. Absent: respiratory distress - Cardiovascular Cardiovascular Exam: Present: regular rate, normal rhythm, normal heart sounds. Absent: bradycardia, tachycardia, irregular rhythm, systolic murmur, diastolic murmur, rubs, gallop - GI/Abdominal GI/Abdominal exam: Present: soft. Absent: distended, tenderness, guarding, rebound, rigid, pulsatile mass - Rectal Rectal exam: Present: normal inspection, normal rectal tone. Absent: heme (-) stool - Extremities Exam Extremities exam: Present: normal inspection (Left upper extremity fistula without redness, pus, streaking, and appropriate thrill), full ROM, other (2+ pulses noted in the bilateral upper and lower extremities. There is no palpable cord. negative Homans sign. Muscular compartments are soft. The pelvis is stable.) - Back Exam Back exam: Present: normal inspection. Absent: tenderness, CVA tenderness (R), CVA tenderness (L), paraspinal tenderness, vertebral tenderness - Neurological Exam Neurological exam: Present: altered, other (Patient is awake. The patient will move 4 extremities spontaneously. Withdraws to painful stimuli) - Skin Skin exam: Present: warm, dry, intact, normal color. Absent: rash ED Course Vital Signs 05/03/21 05/03/21 05/03/21 10:22 10:27 11:52 Temperature 98.6 F Pulse Rate 88 79 Respiratory 18 18 Rate Blood Pressure 144/80 O2 Sat by Pulse 94 94 100 Oximetry 05/03/21 05/03/21 12:00 12:16 Temperature Pulse Rate 79 77 Respiratory 22 24 Rate Blood Pressure 157/78 157/78 O2 Sat by Pulse 99 99 Oximetry - Reevaluation(s) Reevaluation #1: 05/03/21 10:47 Differential diagnosis, including but not limited to: Closed head injury, spinal injury, toxic encephalopathy, metabolic encephalopathy, end-stage renal disease, concussion, pulmonary contusion Assessment and plan: 70-year-old female, with multiple medical comorbidities, presenting with altered mental status after reported fall. The patient is protecting her airway moving 4 extremities. Maintain cervical spine precautions, administer supplemental oxygen, obtain appropriate laboratory studies, urinalysis, EKG. Obtain noncontrast CT scan of the brain, CT and L-spine, chest and abdomen pelvis. Reassess after initial data points. Have discussed this plan of care with the patient's caregiver. She is amenable to this plan of care 05/03/21 10:49 05/03/21 11:52 CT scan brain, chest abdomen pelvis negative for acute traumatic findings. Patient breathing spontaneously. Chronic findings noted. Subacute strokes noted. Family endorses decline in cognitive status. Family updated on plan of care, and results of diagnostic imaging, and laboratory evaluation. 05/03/21 12:31 Patient is found to have a C6 compression fracture. No other significant traumatic injuries noted. Contacted our neurosurgeon on-call, Dr. Chappell. Advises admission to the ICU with continued placement of cervical collar. Advises acquisition of MRI. Advis es that steroids not necessary. We will defer to inpatient team to acquire MRI. Hospital physician, Dr. Yudith Cisneros to admit to [facility] Arterial blood gases requested. Awaiting callback from critical care to arrange admission to the intensive care unit. Family updated. Urinalysis pending, will defer to inpatient team to follow this up. 05/03/21 12:32 - Consultations Consultation #1: 05/03/21 12:[address] Mccartney who will follow ED Medical Decision Making - Lab Data Result diagrams: 05/03/21 10:20 05/03/21 10:20 Vital Signs 05/03/21 05/03/21 10:22 10:27 Temperature 98.6 F Pulse Rate 88 Respiratory 18 Rate Blood Pressure 144/80 O2 Sat by Pulse 94 94 Oximetry Lab Results 05/03/21 05/03/21 05/03/21 Range/Units 10:20 10:20 10:20 WBC 8.2 (4.5-11.0) K/mm3 RBC 4.16 (3.65-5.03) M/mm3 Hgb 12.2 (10.1-14.3) gm/dl Hct 37.8 (30.3-42.9) % MCV 91 (79-97) fl MCH 29 (28-32) pg MCHC 32 (30-34) % RDW 16.5 H (13.2-15.2) % Plt Count 256 (140-440) K/mm3 Add Manual Diff Complete Total Counted 100 Seg Neuts % (Manual) 78.0 H (40.0-70.0) % Lymphocytes % (Manual) 17.0 (13.4-35.0) % Monocytes % (Manual) 2.0 (0.0-7.3) % Basophils % (Manual) 1.0 (0.0-1.8) % Metamyelocytes % 2.0 % Nucleated RBC % Not Reportable Seg Neutrophils # Man 6.4 (1.8-7.7) K/mm3 Band Neutrophils # 0.0 K/mm3 Lymphocytes # (Manual) 1.4 (1.2-5.4) K/mm3 Abs React Lymphs (Man) 0.0 K/mm3 Monocytes # (Manual) 0.2 (0.0-0.8) K/mm3 Eosinophils # (Manual) 0.0 (0.0-0.4) K/mm3 Basophils # (Manual) 0.1 (0.0-0.1) K/mm3 Metamyelocytes # 0.2 K/mm3 Myelocytes # 0.0 K/mm3 Promyelocytes # 0.0 K/mm3 Blast Cells # 0.0 K/mm3 WBC Morphology Not Reportable Hypersegmented Neuts Not Reportable Hyposegmented Neuts Not Reportable Hypogranular Neuts Not Reportable Smudge Cells Not Reportable Toxic Granulation Not Reportable Toxic Vacuolation Not Reportable Dohle Bodies Not Reportable Pelger-Huet Anomaly Not Reportable Padmaja Rods Not Reportable Platelet Estimate Consistent w auto Clumped Platelets Not Reportable Plt Clumps, EDTA Not Reportable Large Platelets Not Reportable Giant Platelets Not Reportable Platelet Satelliting Not Reportable Plt Morphology Comment Not Reportable RBC Morphology Normal Dimorphic RBCs Not Reportable Polychromasia Not Reportable Hypochromasia Not Reportable Poikilocytosis Not Reportable Anisocytosis Not Reportable Microcytosis Not Reportable Macrocytosis Not Reportable Spherocytes Not Reportable Pappenheimer Bodies Not Reportable Sickle Cells Not Reportable Target Cells Not Reportable Tear Drop Cells Not Reportable Ovalocytes Not Reportable Helmet Cells Not Reportable [place] Bodies Not Reportable [place] Rings Not Reportable [place] Cells Not Reportable Bite Cells Not Reportable Crenated Cell Not Reportable Elliptocytes Not Reportable Acanthocytes (Spur) Not Reportable Rouleaux Not Reportable Hemoglobin C Crystals Not Reportable Schistocytes Not Reportable Malaria parasites Not Reportable Luis Bodies Not Reportable Hem Pathologist Commnt No PT 12.0 L (12.2-14.9) Sec. INR 0.83 L (0.87-1.13) APTT 24.2 (24.2-36.6) Sec. Sodium 140 (137-145) mmol/L Potassium 5.0 (3.6-5.0) mmol/L Chloride 103.7 (98-107) mmol/L Carbon Dioxide 25 (22-30) mmol/L Anion Gap 16 mmol/L BUN 37 H (7-17) mg/dL Creatinine 2.9 H (0.6-1.2) mg/dL Estimated GFR 16 ml/min BUN/Creatinine Ratio 13 % Glucose 137 H (65-100) mg/dL Calcium 10.1 (8.4-10.2) mg/dL Magnesium (1.7-2.3) mg/dL Total Bilirubin 0.40 (0.1-1.2) mg/dL AST 15 (5-40) units/L ALT 14 (7-56) units/L Alkaline Phosphatase 94 (35-129) units/L Total Creatine Kinase 208 H (30-135) units/L Troponin T < 0.010 (0.00-0.029) ng/mL NT-Pro-B Natriuret Pep (0-900) pg/mL Total Protein 7.2 (6.3-8.2) g/dL Albumin 4.2 (3.9-5) g/dL Albumin/Globulin Ratio 1.4 % TSH (0.270-4.200) mlU/mL Salicylates (2.8-20.0) mg/dL Acetaminophen (10.0-30.0) ug/mL Blood Type Antibody Screen 05/03/21 05/03/21 05/03/21 Range/Units 10:20 10:20 10:20 WBC (4.5-11.0) K/mm3 RBC (3.65-5.03) M/mm3 Hgb (10.1-14.3) gm/dl Hct (30.3-42.9) % MCV (79-97) fl MCH (28-32) pg MCHC (30-34) % RDW (13.2-15.2) % Plt Count (140-440) K/mm3 Add Manual Diff Total Counted Seg Neuts % (Manual) (40.0-70.0) % Lymphocytes % (Manual) (13.4-35.0) % Monocytes % (Manual) (0.0-7.3) % Basophils % (Manual) (0.0-1.8) % Metamyelocytes % % Nucleated RBC % Seg Neutrophils # Man (1.8-7.7) K/mm3 Band Neutrophils # K/mm3 Lymphocytes # (Manual) (1.2-5.4) K/mm3 Abs React Lymphs (Man) K/mm3 Monocytes # (Manual) (0.0-0.8) K/mm3 Eosinophils # (Manual) (0.0-0.4) K/mm3 Basophils # (Manual) (0.0-0.1) K/mm3 Metamyelocytes # K/mm3 Myelocytes # K/mm3 Promyelocytes # K/mm3 Blast Cells # K/mm3 WBC Morphology Hypersegmented Neuts Hyposegmented Neuts Hypogranular Neuts Smudge Cells Toxic Granulation Toxic Vacuolation Dohle Bodies Pelger-Huet Anomaly Padmaja Rods Platelet Estimate Clumped Platelets Plt Clumps, EDTA Large Platelets Giant Platelets Platelet Satelliting Plt Morphology Comment RBC Morphology Dimorphic RBCs Polychromasia Hypochromasia Poikilocytosis Anisocytosis Microcytosis Macrocytosis Spherocytes Pappenheimer Bodies Sickle Cells Target Cells Tear Drop Cells Ovalocytes Helmet Cells [place] Bodies [place] Rings Ceasar Cells Bite Cells Crenated Cell Elliptocytes Acanthocytes (Spur) Rouleaux Hemoglobin C Crystals Schistocytes Malaria parasites Luis Bodies Hem Pathologist Commnt PT (12.2-14.9) Sec. INR (0.87-1.13) APTT (24.2-36.6) Sec. Sodium (137-145) mmol/L Potassium (3.6-5.0) mmol/L Chloride (98-107) mmol/L Carbon Dioxide (22-30) mmol/L Anion Gap mmol/L BUN (7-17) mg/dL Creatinine (0.6-1.2) mg/dL Estimated GFR ml/min BUN/Creatinine Ratio % Glucose (65-100) mg/dL Calcium (8.4-10.2) mg/dL Magnesium 2.30 (1.7-2.3) mg/dL Total Bilirubin (0.1-1.2) mg/dL AST (5-40) units/L ALT (7-56) units/L Alkaline Phosphatase (35-129) units/L Total Creatine Kinase (30-135) units/L Troponin T (0.00-0.029) ng/mL NT-Pro-B Natriuret Pep (0-900) pg/mL Total Protein (6.3-8.2) g/dL Albumin (3.9-5) g/dL Albumin/Globulin Ratio % TSH 3.220 (0.270-4.200) mlU/mL Salicylates (2.8-20.0) mg/dL Acetaminophen (10.0-30.0) ug/mL Blood Type A POSITIVE Antibody Screen Negative 05/03/21 05/03/21 05/03/21 Range/Units 10:20 10:20 10:33 WBC (4.5-11.0) K/mm3 RBC (3.65-5.03) M/mm3 Hgb (10.1-14.3) gm/dl Hct (30.3-42.9) % MCV (79-97) fl MCH (28-32) pg MCHC (30-34) % RDW (13.2-15.2) % Plt Count (140-440) K/mm3 Add Manual Diff Total Counted Seg Neuts % (Manual) (40.0-70.0) % Lymphocytes % (Manual) (13.4-35.0) % Monocytes % (Manual) (0.0-7.3) % Basophils % (Manual) (0.0-1.8) % Metamyelocytes % % Nucleated RBC % Seg Neutrophils # Man (1.8-7.7) K/mm3 Band Neutrophils # K/mm3 Lymphocytes # (Manual) (1.2-5.4) K/mm3 Abs React Lymphs (Man) K/mm3 Monocytes # (Manual) (0.0-0.8) K/mm3 Eosinophils # (Manual) (0.0-0.4) K/mm3 Basophils # (Manual) (0.0-0.1) K/mm3 Metamyelocytes # K/mm3 Myelocytes # K/mm3 Promyelocytes # K/mm3 Blast Cells # K/mm3 WBC Morphology Hypersegmented Neuts Hyposegmented Neuts Hypogranular Neuts Smudge Cells Toxic Granulation Toxic Vacuolation Dohle Bodies Pelger-Huet Anomaly Padmaja Rods Platelet Estimate Clumped Platelets Plt Clumps, EDTA Large Platelets Giant Platelets Platelet Satelliting Plt Morphology Comment RBC Morphology Dimorphic RBCs Polychromasia Hypochromasia Poikilocytosis Anisocytosis Microcytosis Macrocytosis Spherocytes Pappenheimer Bodies Sickle Cells Target Cells Tear Drop Cells Ovalocytes Helmet Cells Castro-[place] Bodies [place] Rings Ceasar Cells Bite Cells Crenated Cell Elliptocytes Acanthocytes (Spur) Rouleaux Hemoglobin C Crystals Schistocytes Malaria parasites Luis Bodies Hem Pathologist Commnt PT (12.2-14.9) Sec. INR (0.87-1.13) APTT (24.2-36.6) Sec. Sodium (137-145) mmol/L Potassium (3.6-5.0) mmol/L Chloride (98-107) mmol/L Carbon Dioxide (22-30) mmol/L Anion Gap mmol/L BUN (7-17) mg/dL Creatinine (0.6-1.2) mg/dL Estimated GFR ml/min BUN/Creatinine Ratio % Glucose (65-100) mg/dL Calcium (8.4-10.2) mg/dL Magnesium (1.7-2.3) mg/dL Total Bilirubin (0.1-1.2) mg/dL AST (5-40) units/L ALT (7-56) units/L Alkaline Phosphatase (35-129) units/L Total Creatine Kinase (30-135) units/L Troponin T (0.00-0.029) ng/mL NT-Pro-B Natriuret Pep 1472 H (0-900) pg/mL Total Protein (6.3-8.2) g/dL Albumin (3.9-5) g/dL Albumin/Globulin Ratio % TSH (0.270-4.200) mlU/mL Salicylates < 0.3 L (2.8-20.0) mg/dL Acetaminophen 5.0 L (10.0-30.0) ug/mL Blood Type Antibody Screen - EKG Data -: EKG Interpreted by Ut EKG shows normal: sinus rhythm Rate: normal - EKG Data Interpretation: unchanged when compared t 05/03/21 11:51 EKG interpreted at 11: 49 This is a sinus rhythm, with a left axis, and a left anterior fascicular block. There is normal P wave axis. There is poor R wave progression. The QTC is prolonged. There is left ventricular hypertrophy. This is an abnormal EKG. This is unchanged from prior EKG from August 2019. - Radiology Data Radiology results: report reviewed, image reviewed PELVIS 1 VIEW(S) INDICATION / CLINICAL INFORMATION: Trauma COMPARISON: None available. FINDINGS: BONES / JOINT(S): No acute fracture or subluxation. SOFT TISSUES: No significant abnormality. ADDITIONAL FINDINGS: None. IMPRESSION: No acute osseous findings of the pelvis. Signer Name: Leonardo Batista MD Signed: 05/03/2021 9:24 AM Workstation Name: [id number] chest 1V ap INDICATION / CLINICAL INFORMATION: Trauma / pain. COMPARISON: 09/13/2019 FINDINGS: SUPPORT DEVICES: None. HEART /PULMONARY VASCULATURE: Postoperative changes of TAVR. Heart size is upper normal. No pulmonary vasculature congestion. LUNGS / PLEURA: Lungs are clear. No pneumothorax. ADDITIONAL FINDINGS: No significant additional findings. IMPRESSION: No acute process. Signer Name: Leonardo Batista MD Signed: 05/03/2021 9:25 AM Workstation Name: [id number] CT abdomen pelvis wo con, CT chest wo con INDICATION / CLINICAL INFORMATION: fall ams, blunt injury. TECHNIQUE: All CT scans at this location are performed using CT dose reduction for ALARA by means of automated exposure control. COMPARISON: None available. FINDINGS: Diffuse interstitial disease is present in the lungs. There is no evidence of a pneumothorax. No significant parenchymal abnormality is seen. No enlarged mediastinal or hilar lymph nodes are identified. No significant skeletal abnormality is identified. The great vessels are grossly normal in appearance other than atherosclerotic change and a prosthetic aortic valve present In the abdomen, no free fluid is seen. An infrarenal abdominal aortic aneurysm is seen measuring 4.5 cm in greatest diameter. The aneurysm extends to the aortic bifurcation. The liver, spleen, right kidney, pancreas and adrenal glands are normal. The left kidney is very small. No enlarged mesenteric or retroperitoneal lymph nodes are seen. In the pelvis, no free fluid is seen. No enlarged lymph nodes are identified. The bladder is normal. Other than degenerative change in the spine, no significant skeletal abnormality is seen. IMPRESSION: 1. Diffuse interstitial disease in the lungs 2. Diffuse atherosclerotic change with a 4.5 cm infrarenal abdominal aortic aneurysm extending to the aortic bifurcation 3. Very small left kidney 4. No acute abnormality in the chest, abdomen or pelvis Signer Name: Breezy Villarreal MD FACR Signed: 05/03/2021 10:26 AM Workstation Name: [id number] CT HEAD WITHOUT CONTRAST INDICATION / CLINICAL INFORMATION: Trauma. TECHNIQUE: All CT scans at this location are performed using CT dose reduction for ALARA by means of automated exposure control. COMPARISON: None available. FINDINGS: HEMORRHAGE: No evidence of intracranial hemorrhage or extra-axial fluid collection. EXTRA-AXIAL SPACES: Cortical sulci and sylvian fissures are enlarged reflecting a degree of parenchymal volume loss which is within normal limits for the patient's age of 70 years. Basilar cisterns have an unremarkable appearance. VENTRICULAR SYSTEM: The third and lateral ventricles are enlarged reflecting presence of mild, age related parenchymal volume loss. CEREBRAL PARENCHYMA: Periventricular and deep white matter lucency is observed. This is probably secondary to microvascular ischemic change. There is no indication of recent infarction. A large area of encephalomalacia is observed in the left parietal lobe secondary to remote posterior division MCA infarction. MIDLINE SHIFT OR HERNIATION: There is no mass effect. CEREBELLUM / BRAINSTEM: Brainstem has an unremarkable appearance. Age related cerebellar atrophy is noted. MIDLINE ST RUCTURES:Pituitary gland has an unremarkable appearance. No abnormalities are seen in the pineal region. INTRACRANIAL VESSELS:Calcified atherosclerotic plaque is present along the course of the cavernous segments of both internal carotid arteries. ORBITS: It is post bilateral cataract surgery. Visualized portions of the orbits have an otherwise unremarkable appearance. SOFT TISSUES of HEAD: No significant abnormality. CALVARIUM: Evaluation of bone windows reveals no abnormalities. PARANASAL SINUSES / MASTOID AIR CELLS: Paranasal sinuses are free from inflammatory mucosal disease. Mastoid air cells are normally pneumatized. IMPRESSION: 1. Moderate parenchymal volume loss and microvascular ischemic change. 2. Remote left parietal lobe infarction. 3. No acute intracranial abnormality. Signer Name: Spencer Ray MD Signed: 05/03/2021 10:25 AM Workstation Name: [id number] CT CERVICAL SPINE WITHOUT CONTRAST INDICATION / CLINICAL INFORMATION: Trauma. TECHNIQUE: Axial CT images were obtained through the cervical spine. Sagittal and coronal reformatted images were produced. All CT scans at this location are performed using CT dose reduction for ALARA by means of automated exposure con trol. COMPARISON: None available. FINDINGS: LIMITATIONS: Patient motion artifact degrades image quality. This is most problematic in the region of the C2 vertebral body. ALIGNMENT: Exaggerated thoracic kyphosis results in anterior to CT of the head and neck and resultant increase cervical lordosis. Mild grade 1 spondylolisthesis is noted at the C4-5 level. No additional abnormalities of alignment are identified. No indication of traumatic subluxation. VERTEBRAE: On CT thoracic spine there appears to be a compression fracture at the C6 level. This was not present on this CT cervical spine performed immediately prior to CT thoracic spine. If clinically warranted further evaluation with MRI thoracic spine could be considered to assess for the possibility of recent fracture at the C6 level.No additional indication of fracture or bone destruction. DISC SPACES: Advanced disc desiccation C5-6. DEGENERATIVE CHANGES: Advanced disc desiccation C5-6 where anterior and posterior osteophyte formation are observed. Widespread facet and uncovertebral arthropathy is observed. Moderate central canal stenosis is evident at the C5-6 level where the AP diameter of the spinal canal is reduced to about 7 mm secondary to posterior osteophyte formation. No additional indication of central canal stenosis is observed. Multifocal neuroforaminal narrowing is noted. CRANIOCERVICAL JUNCTION:No significant abnormality. SPINAL CANAL: Moderate central canal stenosis C5-6. Central spinal canal appears to be adequately maintained throughout the remainder of the cervical region. PARASPINAL SOFT TISSUES: No significant abnormality. LUNG APICES: No significant abnormality of visualized lungs. IMPRESSION: 1. On CT thoracic spine there appears to be a compression fracture at the C6 level. This was not present on CT cervical spine performed immediately prior to CT thoracic spine. If clinically warranted further evaluation with MRI thoracic spine could be considered to assess for the possibility of recent fracture at the C6 level. Please refer to CT thoracic spine report for description of this finding and discrepancy. No additional indication of fracture or traumatic subluxation. 2. Moderate central canal stenosis C5-6. 3. Multifocal neuroforaminal stenosis. Signer Name: Spencer Ray MD Signed: 05/03/2021 11:11 AM Workstation Name: [id number] CT THORACIC SPINE WITHOUT CONTRAST INDICATION / CLINICAL INFORMATION: Trauma. TECHNIQUE: Axial CT images were obtained through the thoracic spine. Sagittal and coronal reformatted images were produced. All CT scans at this location are performed using CT dose reduction for ALARA by means of automated exposure control. COMPARISON: CT cervical spine also dated 05/03/2021 FINDINGS: VERTEBRAE: On CT thoracic spine there appears to be a fracture at the C6 level. Vertebral body height is about 8 mm. There is about 60% loss of ve rtebral body height at C6 with respect to C7. This finding was not present on CT cervical spine done immediately prior to CT thoracic spine without vertebral body height at C6 was 12 mm which represents 90% of vertebral body height at T7. Consider MRI cervical spine to assess whether there is a recent fracture at the C6 level. Central S there is no indication of thoracic fracture. ALIGNMENT: Exa ggeration of the thoracic kyphosis is noted. Kyphotic angle is about 59 degrees which is increased for the patient's age and gender. No additional abnormalities of alignment are identified. DISC SPACES: Widespread loss of disc height is noted. FACET and COSTOVERTEBRAL JOINTS: No abnormalities in the thoracic region. CERVICOTHORACIC JUNCTION:No significant abnormality. SPINAL CANAL: Spinal canal is adequate in size throughout. PARASPINAL SOFT TISSUES: Status post aortic valve endovascular procedure. ADDITIONAL FINDINGS: None. LUNGS: Bilateral fibrotic changes versus interstitial edema is noted. IMPRESSION: 1. On CT thoracic spine there appears to be a compression fracture at the C6 level. This was not present on CT cervical spine performed immediately prior to CT thoracic spine. If clinically warranted further evaluation with MRI thoracic spine could be considered to assess for the possibility of recent fracture at the C6 level. 2. No fractures are identified in the thoracic region. 3. No indication of central canal stenosis or significant thoracic neuroforaminal narrowing. Signer Name: Spencer Ray MD Signed: 05/03/2021 11:04 AM Workstation Name: [id number] CT LUMBAR SPINE WITHOUT CONTRAST INDICATION / CLINICAL INFORMATION: Trauma. TECHNIQUE: Axial CT images were obtained through the lumbar spine. Sagittal and coronal reformatted images were produced. All CT scans at this location are performed using CT dose reduction for ALARA by means of automated exposure cont rol. COMPARISON: None available. FINDINGS: POSTOPERATIVE CHANGES: Patient appears to be status post posterior lateral fusion at L4-5 and L5-S1 levels where severe solid posterior lateral bone mass is demonstrated. There may be fusion across the L4-5 and L5-S1 intervertebral discs as well. TRAUMA:There is no indication of fracture or traumatic subluxation. ALIGNMENT: Mild grade 1 spondylolisthesis is present at the L3-4 level. No additional abnormality of alignment in the lumbar region. VERTEBRAE: No indication of fracture or bone destruction. DISC SPACES: Loss of disc height is noted at L4-5 and L5-S1 levels as noted above. DEGENERATIVE CHANGES: At L3-4 there is evidence of a left sided foraminal and far lateral disc protrusion with resultant foraminal stenosis. Advanced facet arthropathy is present at the L3-4 level. Moderate facet arthropathy is present at the L2-3 and L1-2 levels. Moderate central canal stenosis is evident at the L2-3 and L3-4 levels. SPINAL CANAL: Moderate central canal stenosis L2-3 and L3-4. SACRUM:No significant abnormality of the visualized sacrum.. SI joints are unremarkable for bilateral SI joint vacuum phenomena. PARASPINAL SOFT TISSUES: 3.5 cm diameter infrarenal abdominal aortic aneurysm is identified. IMPRESSION: 1. Postoperative changes status post posterior lateral fusion L4-5 and L5-S1 with evidence of solid bone union. 2. Widespread lumbar spondylosis with moderate central canal stenosis at L2-3 and L3-4 levels. 3. Left-sided foraminal and far lateral disc protrusion L3-4 with compromise of the left L3 nerve root neuroforamina. 4. 3.5 cm diameter infrarenal abdominal aortic aneurysm. Signer Name: Spencer Ray MD Signed: 05/03/2021 11:09 AM Workstation Name: [email or web address] Critical Care Time: Yes Critical care time in (mins) excluding proc time.: 45 Critical care attestation.: If time is entered above; I have spent that time in minutes in the direct care of this critically ill patient, excluding procedure time. ED Disposition Clinical Impression: COPD (chronic obstructive pulmonary disease), CRI (chronic renal insufficiency), S/P TAVR (transcatheter aortic valve replacement), AAA (abdominal aortic aneurysm), Fall, Acute encephalopathy, Cervical compression fracture Disposition: OP ADMIT IP TO THIS HOSP Is pt being admited?: Yes Does the pt Need Aspirin: No Condition: Serious Instructions: Chronic Obstructive Pulmonary Disease (ED) Referrals: [facility] [Other] - 3-5 Days
--- NOTE | 2021-05-03 10:29 | XRay Report ---
PELVIS 1 VIEW(S) INDICATION / CLINICAL INFORMATION: Trauma COMPARISON: None available. FINDINGS: BONES / JOINT(S): No acute fracture or subluxation. SOFT TISSUES: No significant abnormality. ADDITIONAL FINDINGS: None. IMPRESSION: No acute osseous findings of the pelvis. Signer Name: Leonardo Batista MD Signed: 05/03/2021 10:24 AM Workstation Name: [email or web address]
--- NOTE | 2021-05-03 10:30 | XRay Report ---
XR chest 1V ap INDICATION / CLINICAL INFORMATION: Trauma / pain. COMPARISON: 09/13/2019 FINDINGS: SUPPORT DEVICES: None. HEART /PULMONARY VASCULATURE: Postoperative changes of TAVR. Heart size is upper normal. No pulmonary vasculature congestion. LUNGS / PLEURA: Lungs are clear. No pneumothorax. ADDITIONAL FINDINGS: No significant additional findings. IMPRESSION: No acute process. Signer Name: Leonardo Batista MD Signed: 05/03/2021 10:25 AM Workstation Name: [email or web address]
[2021-05-03 10:44] LABS: Hematocrit 37.8 % (30.3-42.9); Hemoglobin 12.2 gm/dl (10.1-14.3); Mean Corpuscular HGB Conc 32 % (30-34); Mean Corpuscular Volume 91 fl (79-97); Platelet Count 256 K/mm3 (140-440); Red Blood Count 4.16 M/mm3 (3.65-5.03); Red Cell Distribution Width 16.5 % (13.2-15.2)
[2021-05-03 11:02] LABS: Alanine Aminotransferase 14 units/L (7-56); Albumin 4.2 g/dL (3.9-5); BUN/Creatinine Ratio 13; Blood Urea Nitrogen 37 mg/dL (7-17); Calcium 10.1 mg/dL (8.4-10.2); Hemolysis Index 4
[2021-05-03 11:04] LABS: INR 0.83 (0.87-1.13)
[2021-05-03 11:05] LABS: Partial Thromboplastin Time 24.2 Sec. (24.2-36.6)
--- NOTE | 2021-05-03 11:29 | Cat Scan Report ---
CT HEAD WITHOUT CONTRAST INDICATION / CLINICAL INFORMATION: Trauma. TECHNIQUE: All CT scans at this location are performed using CT dose reduction for ALARA by means of automated e xposure control. COMPARISON: None available. FINDINGS: HEMORRHAGE: No evidence of intracranial hemorrhage or extra-axial fluid collection. EXTRA-AXIAL SPACES: Cortical sulci and sylvian fissures are enlarged reflecting a degree of parenchym al volume loss which is within normal limits for the patient's age of 70 years. Basilar cisterns have an unremarkable appearance. VENTRICULAR SYSTEM: The third and lateral ventricles are enlarged reflecting presence of mild, age re lated parenchymal volume loss. CEREBRAL PARENCHYMA: Periventricular and deep white matter lucency is observed. This is probably seco ndary to microvascular ischemic change. There is no indication of recent infarction. A large area of encephalomalacia is observed in the left parietal lobe secondary to remote posterior division MCA inf arction. MIDLINE SHIFT OR HERNIATION: There is no mass effect. CEREBELLUM / BRAINSTEM: Brainstem has an unremarkable appearance. Age related cerebellar atrophy is n oted. MIDLINE STRUCTURES:Pituitary gland has an unremarkable appearance. No abnormalities are seen in the p ineal region. INTRACRANIAL VESSELS:Calcified atherosclerotic plaque is present along the course of the cavernous se gments of both internal carotid arteries. ORBITS: It is post bilateral cataract surgery. Visualized portions of the orbits have an otherwise un remarkable appearance. SOFT TISSUES of HEAD: No significant abnormality. CALVARIUM: Evaluation of bone windows reveals no abnormalities. PARANASAL SINUSES / MASTOID AIR CELLS: Paranasal sinuses are free from inflammatory mucosal disease. Mastoid air cells are normally pneumatized. IMPRESSION: 1. Moderate parenchymal volume loss and microvascular ischemic change. 2. Remote left parietal lobe infarction. 3. No acute intracranial abnormality. Signer Name: Spencer Ray MD Signed: 05/03/2021 11:25 AM Workstation Name: [email or web address]
--- NOTE | 2021-05-03 11:31 | Cat Scan Report ---
CT abdomen pelvis wo con, CT chest wo con INDICATION / CLINICAL INFORMATION: fall ams, blunt injury. TECHNIQUE: All CT scans at this location are performed using CT dose reduction for ALARA by means of automated e xposure control. COMPARISON: None available. FINDINGS: Diffuse interstitial disease is present in the lungs. There is no evidence of a pneumothorax. No sign ificant parenchymal abnormality is seen. No enlarged mediastinal or hilar lymph nodes are identified. No significant skeletal abnormality is identified. The great vessels are grossly normal in appearanc e other than atherosclerotic change and a prosthetic aortic valve present In the abdomen, no free fluid is seen. An infrarenal abdominal aortic aneurysm is seen measuring 4.5 cm in greatest diameter. The aneurysm extends to the aortic bifurcation. The liver, spleen, right kid valencia, pancreas and adrenal glands are normal. The left kidney is very small. No enlarged mesenteric or retroperitoneal lymph nodes are seen. In the pelvis, no free fluid is seen. No enlarged lymph nodes are identified. The bladder is normal. Other than degenerative change in the spine, no significant skeletal abnormality is seen. IMPRESSION: 1. Diffuse interstitial disease in the lungs 2. Diffuse atherosclerotic change with a 4.5 cm infrarenal abdominal aortic aneurysm extending to the aortic bifurcation 3. Very small left kidney 4. No acute abnormality in the chest, abdomen or pelvis Signer Name: Breezy Villarreal MD FACR Signed: 05/03/2021 11:26 AM Workstation Name: [employer]
[2021-05-03 11:44] LABS: RBC Morphology Normal; Total Cells Counted 100
[2021-05-03 11:45] LABS: Platelet Estimate Consistent w Auto
--- NOTE | 2021-05-03 12:08 | Cat Scan Report ---
CT THORACIC SPINE WITHOUT CONTRAST INDICATION / CLINICAL INFORMATION: Trauma. TECHNIQUE: Axial CT images were obtained through the thoracic spine. Sagittal and coronal reformatted images wer e produced. All CT scans at this location are performed using CT dose reduction for ALARA by means of automated exposure control. COMPARISON: CT cervical spine also dated 05/03/2021 FINDINGS: VERTEBRAE: On CT thoracic spine there appears to be a fracture at the C6 level. Vertebral body height is about 8 mm. There is about 60% loss of vertebral body height at C6 with respect to C7. This findi ng was not present on CT cervical spine done immediately prior to CT thoracic spine without vertebral body height at C6 was 12 mm which represents 90% of vertebral body height at T7. Consider MRI cervic al spine to assess whether there is a recent fracture at the C6 level. Central S there is no indicati on of thoracic fracture. ALIGNMENT: Exaggeration of the thoracic kyphosis is noted. Kyphotic angle is about 59 degrees which i s increased for the patient's age and gender. No additional abnormalities of alignment are identified . DISC SPACES: Widespread loss of disc height is noted. FACET and COSTOVERTEBRAL JOINTS: No abnormalities in the thoracic region. CERVICOTHORACIC JUNCTION:No significant abnormality. SPINAL CANAL: Spinal canal is adequate in size throughout. PARASPINAL SOFT TISSUES: Status post aortic valve endovascular procedure. ADDITIONAL FINDINGS: None. LUNGS: Bilateral fibrotic changes versus interstitial edema is noted. IMPRESSION: 1. On CT thoracic spine there appears to be a compression fracture at the C6 level. This was not pres ent on CT cervical spine performed immediately prior to CT thoracic spine. If clinically warranted fu rther evaluation with MRI thoracic spine could be considered to assess for the possibility of recent fracture at the C6 level. 2. No fractures are identified in the thoracic region. 3. No indication of central canal stenosis or significant thoracic neuroforaminal narrowing. Signer Name: Spencer Ray MD Signed: 05/03/2021 12:04 PM Workstation Name: [email or web address]
--- NOTE | 2021-05-03 12:14 | Cat Scan Report ---
CT LUMBAR SPINE WITHOUT CONTRAST INDICATION / CLINICAL INFORMATION: Trauma. TECHNIQUE: Axial CT images were obtained through the lumbar spine. Sagittal and coronal reformatted images were produced. All CT scans at this location are performed using CT dose reduction for ALARA by means of a utomated exposure control. COMPARISON: None available. FINDINGS: POSTOPERATIVE CHANGES: Patient appears to be status post posterior lateral fusion at L4-5 and L5-S1 l evels where severe solid posterior lateral bone mass is demonstrated. There may be fusion across the L4-5 and L5-S1 intervertebral discs as well. TRAUMA:There is no indication of fracture or traumatic subluxation. ALIGNMENT: Mild grade 1 spondylolisthesis is present at the L3-4 level. No additional abnormality of alignment in the lumbar region. VERTEBRAE: No indication of fracture or bone destruction. DISC SPACES: Loss of disc height is noted at L4-5 and L5-S1 levels as noted above. DEGENERATIVE CHANGES: At L3-4 there is evidence of a left sided foraminal and far lateral disc protru gale with resultant foraminal stenosis. Advanced facet arthropathy is present at the L3-4 level. Mode rate facet arthropathy is present at the L2-3 and L1-2 levels. Moderate central canal stenosis is aashish dent at the L2-3 and L3-4 levels. SPINAL CANAL: Moderate central canal stenosis L2-3 and L3-4. SACRUM:No significant abnormality of the visualized sacrum.. SI joints are unremarkable for bilateral SI joint vacuum phenomena. PARASPINAL SOFT TISSUES: 3.5 cm diameter infrarenal abdominal aortic aneurysm is identified. IMPRESSION: 1. Postoperative changes status post posterior lateral fusion L4-5 and L5-S1 with evidence of solid b one union. 2. Widespread lumbar spondylosis with moderate central canal stenosis at L2-3 and L3-4 levels. 3. Left-sided foraminal and far lateral disc protrusion L3-4 with compromise of the left L3 nerve reji t neuroforamina. 4. 3.5 cm diameter infrarenal abdominal aortic aneurysm. Signer Name: Spencer Ray MD Signed: 05/03/2021 12:09 PM Workstation Name: [id number]
--- NOTE | 2021-05-03 12:15 | Cat Scan Report ---
CT CERVICAL SPINE WITHOUT CONTRAST INDICATION / CLINICAL INFORMATION: Trauma. TECHNIQUE: Axial CT images were obtained through the cervical spine. Sagittal and coronal reformatted images wer e produced. All CT scans at this location are performed using CT dose reduction for ALARA by means of automated exposure control. COMPARISON: None available. FINDINGS: LIMITATIONS: Patient motion artifact degrades image quality. This is most problematic in the region o f the C2 vertebral body. ALIGNMENT: Exaggerated thoracic kyphosis results in anterior to CT of the head and neck and resultant increase cervical lordosis. Mild grade 1 spondylolisthesis is noted at the C4-5 level. No additional abnormalities of alignment are identified. No indication of traumatic subluxation. VERTEBRAE: On CT thoracic spine there appears to be a compression fracture at the C6 level. This was not present on this CT cervical spine performed immediately prior to CT thoracic spine. If clinically warranted further evaluation with MRI thoracic spine could be considered to assess for the possibili ty of recent fracture at the C6 level.No additional indication of fracture or bone destruction. DISC SPACES: Advanced disc desiccation C5-6. DEGENERATIVE CHANGES: Advanced disc desiccation C5-6 where anterior and posterior osteophyte formatio n are observed. Widespread facet and uncovertebral arthropathy is observed. Moderate central canal st enosis is evident at the C5-6 level where the AP diameter of the spinal canal is reduced to about 7 m m secondary to posterior osteophyte formation. No additional indication of central canal stenosis is observed. Multifocal neuroforaminal narrowing is noted. CRANIOCERVICAL JUNCTION:No significant abnormality. SPINAL CANAL: Moderate central canal stenosis C5-6. Central spinal canal appears to be adequately perla ntained throughout the remainder of the cervical region. PARASPINAL SOFT TISSUES: No significant abnormality. LUNG APICES: No significant abnormality of visualized lungs. IMPRESSION: 1. On CT thoracic spine there appears to be a compression fracture at the C6 level. This was not pres ent on CT cervical spine performed immediately prior to CT thoracic spine. If clinically warranted fu rther evaluation with MRI thoracic spine could be considered to assess for the possibility of recent fracture at the C6 level. Please refer to CT thoracic spine report for description of this finding an d discrepancy. No additional indication of fracture or traumatic subluxation. 2. Moderate central canal stenosis C5-6. 3. Multifocal neuroforaminal stenosis. Signer Name: Spencer Ray MD Signed: 05/03/2021 12:11 PM Workstation Name: [email or web address]
[2021-05-03 12:46] LABS: Bilirubin,Urine NEG (Negative); Blood,Urine NEG (Negative); Color,Urine Straw (Yellow); Urobilinogen,Urine < 2.0 mg/dL (<2.0); WBC,Urine < 1.0 /HPF (0.0-6.0)
[2021-05-03 13:43] LABS: ABG Base Excess -0.9 mmol/L (-2.0-3.0); ABG HCO3 23.8 mmol/L (20.0-26.0); ABG Methemoglobin 0.4 % (0.0-1.5); ABG Oxygen Saturation 97.5 % (95.0-99.0); ABG PCO2 39.7 mm Hg; ABG PH 7.396 pH Units (7.350-7.450); ABG PO2 98.4 mm Hg (80.0-90.0)
[2021-05-03] MEDS ORDERED: ACETAMINOPHEN 325 MG TAB PO ONE (13:47)
--- NOTE | 2021-05-03 22:06 | History and Physical Report ---
History of Present Illness Date of examination: 05/03/21 Date of admission: 05/03/21 12:30 Chief complaint: Neck pain 1 day History of present illness: 70-year-old female with history of coronary artery disease peripheral neuropathy generalized anxiety disorder and hypertension brought in by EMS for altered mental status. Last well-known time was with last night. Patient had a unwitnessed fall this morning at approximately 8:30 AM. C-collar was placed for C-spine immobilization. Patient is unresponsive. Code trauma was called. Patient had COVID-19 vaccinations. The patient is a 70-year-old female. She is not known to myself previously. She is brought to the hospital by emergency medical services for complaint of altered mental status. Patient had COVID-19 vaccine. In the later part of the ER admission patient was complaining of neck pain. C-spine imaging revealed C6 compression fracture. - Past Medical History --Hypertension: Yes --Heart Attack/AMI: Yes (2016) --Renal Disease: Yes (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/19) --Arthritis: Yes --COPD: Yes --Additional medical history: Distal AAA 3.4 cm 02/11/2018 - Surgical History --Coronary Stent: Yes --Cholecystectomy: Yes --Appendectomy: Yes --Additional Surgical History: Hysterectomy, l't leg , back surgery, bovine tra nscatheter aortic heart valve replacement, ovarian cyst removal - Social History --Smoking Status: Former Smoker - Medications Home Medications: Home Medications Medication Instructions Recorded Confirmed Last Taken Type ALPRAZolam [Xanax TAB] 0.5 mg PO DAILY PRN 02/11/18 09/13/19 09/12/19 History Clopidogrel Bisulfate [Plavix] 75 mg PO DAILY 02/11/18 09/13/19 09/12/19 History Gabapentin 300 mg PO TID 02/11/18 09/13/19 09/12/19 History Metoprolol [Lopressor TAB] 25 mg PO BID 02/11/18 09/13/19 09/12/19 History Pantoprazole [Protonix TAB] 40 mg PO DAILY 02/11/18 09/13/19 09/12/19 History Pravastatin Sodium [Pravastatin] 20 mg PO QHS 02/11/18 09/13/19 09/12/19 History Cholecalciferol (Vitamin D3) 1 tab PO DAILY 04/21/19 09/13/19 09/12/19 History [Vitamin D3 2,000 UNIT CAP] Ferrous Gluconate [Ferrous 1 tab PO BID 04/21/19 09/13/19 09/12/19 History Gluconate 324 MG] amLODIPine 5 mg PO DAILY 04/21/19 09/13/19 09/12/19 History ISOSORBIDE MONOnitrate [Imdur ER] 30 mg PO QDAY #30 tablet 04/24/19 09/13/19 09/12/19 Rx Review of Systems ROS: Stated complaint: FALL/AMS Other details as noted in HPI Comment: Unobtainable due to pts medical conditions (Patient altered) Medications and Allergies Allergies Allergy/AdvReac Type Severity Reaction Status Date / Time vancomycin Allergy Hives Verified 04/21/19 21:21 Home Medications Medication Instructions Recorded Confirmed Last Taken Type ALPRAZolam [Xanax TAB] 0.5 mg PO DAILY PRN 02/11/18 09/13/19 09/12/19 History Clopidogrel Bisulfate [Plavix] 75 mg PO DAILY 02/11/18 09/13/19 09/12/19 History Gabapentin 300 mg PO TID 02/11/18 09/13/19 09/12/19 History Metoprolol [Lopressor TAB] 25 mg PO BID 02/11/18 09/13/19 09/12/19 History Pantoprazole [Protonix TAB] 40 mg PO DAILY 02/11/18 09/13/19 09/12/19 History Pravastatin Sodium [Pravastatin] 20 mg PO QHS 02/11/18 09/13/19 09/12/19 History Cholecalciferol (Vitamin D3) 1 tab PO DAILY 04/21/19 09/13/19 09/12/19 History [Vitamin D3 2,000 UNIT CAP] Ferrous Gluconate [Ferrous 1 tab PO BID 04/21/19 09/13/19 09/12/19 History Gluconate 324 MG] amLODIPine 5 mg PO DAILY 04/21/19 09/13/19 09/12/19 History ISOSORBIDE MONOnitrate [Imdur ER] 30 mg PO QDAY #30 tablet 04/24/19 09/13/19 09/12/19 Rx Exam - Constitutional Vitals: Temp Pulse Resp BP Pulse Ox 98.8 F 79 21 134/56 96 05/03/21 20:00 05/03/21 15:58 05/03/21 15:58 05/03/21 15:58 05/03/21 20:20 General appearance: Present: mild distress, well-nourished - EENT Eyes: Present: PERRL ENT: hearing intact, clear oral mucosa, other - Neck Neck: Present: supple, normal ROM, other (Decreased range of motion of the C- spine.) - Respiratory Respiratory effort: normal Respiratory: bilateral: CTA - Cardiovascular Heart rate: 78 Rhythm: regular Heart Sounds: Present: S1 & S2. Absent: rub, click - Extremities Extremities: pulses symmetrical, No edema Peripheral Pulses: within normal limits - Abdominal General gastrointestinal: Present: soft, non-tender, non-distended, normal bowel sounds Female genitourinary: Present: normal - Integumentary Integumentary: Present: clear, warm, dry - Musculoskeletal Musculoskeletal: strength equal bilaterally, generalized weakness, other - Psychiatric Psychiatric: other (Lethargic., Protecting her airway. Moves all 4 extremities.) - Neurologic Neurologic: CNII-XII intact, moves all extremities HEART Score - HEART Score Troponin: Troponin T < 0.010 ng/mL (0.00-0.029) 05/03/21 10:20 Results - Labs CBC & Chem 7: 05/03/21 10:20 05/04/21 03:26 Labs: Laboratory Last Values WBC 8.2 K/mm3 (4.5-11.0) 05/03/21 10:20 RBC 4.16 M/mm3 (3.65-5.03) 05/03/21 10:20 Hgb 12.2 gm/dl (10.1-14.3) 05/03/21 10:20 Hct 37.8 % (30.3-42.9) 05/03/21 10:20 MCV 91 fl (79-97) 05/03/21 10:20 MCH 29 pg (28-32) 05/03/21 10:20 MCHC 32 % (30-34) 05/03/21 10:20 RDW 16.5 % (13.2-15.2) H 05/03/21 10:20 Plt Count 256 K/mm3 (140-440) 05/03/21 10:20 Add Manual Diff Complete 05/03/21 10:20 Total Counted 100 05/03/21 10:20 Seg Neuts % (Manual) 78.0 % (40.0-70.0) H 05/03/21 10:20 Lymphocytes % (Manual) 17.0 % (13.4-35.0) 05/03/21 10:20 Monocytes % (Manual) 2.0 % (0.0-7.3) 05/03/21 10:20 Basophils % (Manual) 1.0 % (0.0-1.8) 05/03/21 10:20 Metamyelocytes % 2.0 % 05/03/21 10:20 Nucleated RBC % Not Reportable 05/03/21 10:20 Seg Neutrophils # Man 6.4 K/mm3 (1.8-7.7) 05/03/21 10:20 Band Neutrophils # 0.0 K/mm3 05/03/21 10:20 Lymphocytes # (Manual) 1.4 K/mm3 (1.2-5.4) 05/03/21 10:20 Abs React Lymphs (Man) 0.0 K/mm3 05/03/21 10:20 Monocytes # (Manual) 0.2 K/mm3 (0.0-0.8) 05/03/21 10:20 Eosinophils # (Manual) 0.0 K/mm3 (0.0-0.4) 05/03/21 10:20 Basophils # (Manual) 0.1 K/mm3 (0.0-0.1) 05/03/21 10:20 Metamyelocytes # 0.2 K/mm3 05/03/21 10:20 Myelocytes # 0.0 K/mm3 05/03/21 10:20 Promyelocytes # 0.0 K/mm3 05/03/21 10:20 Blast Cells # 0.0 K/mm3 05/03/21 10:20 WBC Morphology Not Reportable 05/03/21 10:20 Hypersegmented Neuts Not Reportable 05/03/21 10:20 Hyposegmented Neuts Not Reportable 05/03/21 10:20 Hypogranular Neuts Not Reportable 05/03/21 10:20 Smudge Cells Not Reportable 05/03/21 10:20 Toxic Granulation Not Reportable 05/03/21 10:20 Toxic Vacuolation Not Reportable 05/03/21 10:20 Dohle Bodies Not Reportable 05/03/21 10:20 Pelger-Huet Anomaly Not Reportable 05/03/21 10:20 Padmaja Rods Not Reportable 05/03/21 10:20 Platelet Estimate Consistent w auto 05/03/21 10:20 Clumped Platelets Not Reportable 05/03/21 10:20 Plt Clumps, EDTA Not Reportable 05/03/21 10:20 Large Platelets Not Reportable 05/03/21 10:20 Giant Platelets Not Reportable 05/03/21 10:20 Platelet Satelliting Not Reportable 05/03/21 10:20 Plt Morphology Comment Not Reportable 05/03/21 10:20 RBC Morphology Normal 05/03/21 10:20 Dimorphic RBCs Not Reportable 05/03/21 10:20 Polychromasia Not Reportable 05/03/21 10:20 Hypochromasia Not Reportable 05/03/21 10:20 Poikilocytosis Not Reportable 05/03/21 10:20 Anisocytosis Not Reportable 05/03/21 10:20 Microcytosis Not Reportable 05/03/21 10:20 Macrocytosis Not Reportable 05/03/21 10:20 Spherocytes Not Reportable 05/03/21 10:20 Pappenheimer Bodies Not Reportable 05/03/21 10:20 Sickle Cells Not Reportable 05/03/21 10:20 Target Cells Not Reportable 05/03/21 10:20 Tear Drop Cells Not Reportable 05/03/21 10:20 Ovalocytes Not Reportable 05/03/21 10:20 Helmet Cells Not Reportable 05/03/21 10:20 [place] Bodies Not Reportable 05/03/21 10:20 [place] Rings Not Reportable 05/03/21 10:20 [place] Cells Not Reportable 05/03/21 10:20 Bite Cells Not Reportable 05/03/21 10:20 Crenated Cell Not Reportable 05/03/21 10:20 Elliptocytes Not Reportable 05/03/21 10:20 Acanthocytes (Spur) Not Reportable 05/03/21 10:20 Rouleaux Not Reportable 05/03/21 10:20 Hemoglobin C Crystals Not Reportable 05/03/21 10:20 Schistocytes Not Reportable 05/03/21 10:20 Malaria parasites Not Reportable 05/03/21 10:20 Luis Bodies Not Reportable 05/03/21 10:20 Hem Pathologist Commnt No 05/03/21 10:20 PT 12.0 Sec. (12.2-14.9) L 05/03/21 10:20 INR 0.83 (0.87-1.13) L 05/03/21 10:20 APTT 24.2 Sec. (24.2-36.6) 05/03/21 10:20 ABG pH 7.396 pH Units (7.350-7.450) 05/03/21 13:24 ABG pCO2 39.7 mm Hg 05/03/21 13:24 ABG pO2 98.4 mm Hg (80.0-90.0) H 05/03/21 13:24 ABG HCO3 23.8 mmol/L (20.0-26.0) 05/03/21 13:24 ABG O2 Saturation 97.5 % (95.0-99.0) 05/03/21 13:24 ABG O2 Content 16.3 (0.0-44) 05/03/21 13:24 ABG Base Excess -0.9 mmol/L (-2.0-3.0) 05/03/21 13:24 ABG Hemoglobin 12.0 gm/dl (12.0-16.0) 05/03/21 13:24 ABG Carboxyhemoglobin 1.3 % (0.0-5.0) 05/03/21 13:24 ABG Methemoglobin 0.4 % (0.0-1.5) 05/03/21 13:24 Oxyhemoglobin 95.8 % (95.0-99.0) 05/03/21 13:24 FiO2 32 % 05/03/21 13:24 Sodium 140 mmol/L (137-145) 05/03/21 10:20 Potassium 5.0 mmol/L (3.6-5.0) 05/03/21 10:20 Chloride 103.7 mmol/L (98-107) 05/03/21 10:20 Carbon Dioxide 25 mmol/L (22-30) 05/03/21 10:20 Anion Gap 16 mmol/L 05/03/21 10:20 BUN 37 mg/dL (7-17) H 05/03/21 10:20 Creatinine 2.9 mg/dL (0.6-1.2) H 05/03/21 10:20 Estimated GFR 16 ml/min 05/03/21 10:20 BUN/Creatinine Ratio 13 % 05/03/21 10:20 Glucose 137 mg/dL (65-100) H 05/03/21 10:20 Calcium 10.1 mg/dL (8.4-10.2) 05/03/21 10:20 Magnesium 2.30 mg/dL (1.7-2.3) 05/03/21 10:20 Total Bilirubin 0.40 mg/dL (0.1-1.2) 05/03/21 10:20 AST 15 units/L (5-40) 05/03/21 10:20 ALT 14 units/L (7-56) 05/03/21 10:20 Alkaline Phosphatase 94 units/L (35-129) 05/03/21 10:20 Total Creatine Kinase 208 units/L (30-135) H 05/03/21 10:20 Troponin T < 0.010 ng/mL (0.00-0.029) 05/03/21 10:20 NT-Pro-B Natriuret Pep 1472 pg/mL (0-900) H 05/03/21 10:33 Total Protein 7.2 g/dL (6.3-8.2) 05/03/21 10:20 Albumin 4.2 g/dL (3.9-5) 05/03/21 10:20 Albumin/Globulin Ratio 1.4 % 05/03/21 10:20 TSH 3.220 mlU/mL (0.270-4.200) 05/03/21 10:20 Urine Color Straw (Yellow) 05/03/21 12:27 Urine Turbidity Clear (Clear) 05/03/21 12: Urine pH 7.0 (5.0-7.0) 05/03/21 12:27 Ur Specific [place] 1.009 (1.003-1.030) 05/03/21 12: Urine Protein 30 mg/dl mg/dL (Negative) 05/03/21 12:27 Urine Glucose (UA) Neg mg/dL (Negative) 05/03/21 12:27 Urine Ketones Neg mg/dL (Negative) 05/03/21 12:27 Urine Blood Neg (Negative) 05/03/21 12:27 Urine Nitrite Neg (Negative) 05/03/21 12: Urine Bilirubin Neg (Negative) 05/03/21 12: Urine Urobilinogen < 2.0 mg/dL (<2.0) 05/03/21 12:27 Ur Leukocyte Esterase Neg (Negative) 05/03/21 12:27 Urine WBC (Auto) < 1.0 /HPF (0.0-6.0) 05/03/21 12: Urine RBC (Auto) 1.0 /HPF (0.0-6.0) 05/03/21 12:27 U Epithel Cells (Auto) < 1.0 /HPF (0-13.0) 05/03/21 12:27 Salicylates < 0.3 mg/dL (2.8-20.0) L 05/03/21 10:20 Acetaminophen 5.0 ug/mL (10.0-30.0) L 05/03/21 10:20 Plasma/Serum Alcohol < 0.01 % (0-0.07) 05/03/21 10:20 Blood Type A POSITIVE 05/03/21 10:20 Antibody Screen Negative 05/03/21 10:20 Short CBC 05/03/21 Range/Units 10:20 WBC 8.2 (4.5-11.0) K/mm3 Hgb 12.2 (10.1-14.3) gm/dl Hct 37.8 (30.3-42.9) % Plt Count 256 (140-440) K/mm3 BMP 05/03/21 05/04/21 10:20 03:26 Sodium 140 143 Potassium 5.0 4.8 Chloride 103.7 107.3 H Carbon Dioxide 25 24 BUN 37 H 34 H Creatinine 2.9 H 2.9 H Glucose 137 H 118 H Calcium 10.1 9.2 Cardiac Enzymes 05/03/21 Range/Units 10:20 Total Creatine Kinase 208 H (30-135) units/L Troponin T < 0.010 (0.00-0.029) ng/mL Liver Function 05/03/21 Range/Units 10:20 Total Bilirubin 0.40 (0.1-1.2) mg/dL AST 15 (5-40) units/L ALT 14 (7-56) units/L Alkaline Phosphatase 94 (35-129) units/L Albumin 4.2 (3.9-5) g/dL Urine 05/03/21 Range/Units 12:27 Urine Color Straw (Yellow) Urine pH 7.0 (5.0-7.0) Ur Specific [place] 1.009 (1.003-1.030) Urine Protein 30 mg/dl (Negative) mg/dL Urine Glucose (UA) Neg (Negative) mg/dL - Imaging and Cardiology Imaging and Cardiology: Cervical spine CT Compression fracture C6. This was not present on CT cervical spine performed immediately prior to CT thoracic spine. MRI thoracic spine suggested. Moderate central canal stenosis C5-C6. Multifocal neuro foraminal stenosis. Thoracic spine CT. Shows compression fracture C6 vertebra. Otherwise normal CT. CT abdomen no acute findings. Assessment and Plan Advance Directives: Yes (Full code) VTE prophylaxis?: Chemical Plan of care discussed with patient/family: Yes - Patient Problems (1) Acute encephalopathy Current Visit: Yes Status: Acute Plan to address problem: Possible concussion injury. Will admit to IMCU. Next C-spine collar. (2) Cervical compression fracture Current Visit: Yes Status: Acute Qualifiers: Cervical vertebra fracture level: C6 Plan to address problem: Cervical collar applied for immobilization. Neurosurgery consulted. (3) Hypertension Current Visit: Yes Status: Chronic Qualifiers: Hypertension type: essential hypertension Qualified Code(s): I10 - Essential (primary) hypertension Plan to address problem: Continue antihypertensives. (4) CKD (chronic kidney disease) Current Visit: Yes Status: Acute Qualifiers: Chronic kidney disease stage: stage 4 (severe) Qualified Code(s): N18.4 - Chronic kidney disease, stage 4 (severe) Plan to address problem: Patient has a fistula would not do dialysis candidate Patient being seen by Dr. Joseph (5) COPD (chronic obstructive pulmonary disease) Current Visit: Yes Status: Chronic Qualifiers: COPD type: chronic bronchitis Plan to address problem: DuoNebs as needed (6) DVT prophylaxis Current Visit: Yes Status: Acute Plan to address problem: On heparin and GI prophylaxis
[2021-05-04] MEDS ORDERED: ALPRAZolam 0.5 MG TAB PO PRN (01:27)
[2021-05-04] MEDS ORDERED: oxyCODONE /ACETAMINOPHEN 5-325MG TAB PO PRN (01:29)
[2021-05-04] MEDS ORDERED: METOCLOPRAMIDE 10 MG/2 ML INJ IV PRN (01:29)
[2021-05-04] MEDS ORDERED: HYDROmorphone 1 MG/1 ML INJ IV PRN (01:29)
[2021-05-04] MEDS: METOPROLOL TARTRATE 25 MG TAB PO SCH ×3 (03:31→17:47)
[2021-05-04] MEDS: SODIUM CHLORIDE 0.9% 1000 ML 1,000 ML IV SCH (03:32)
[2021-05-04 03:59] LABS: Calcium 9.2 mg/dL (8.4-10.2)
--- NOTE | 2021-05-04 07:43 | Consultation ---
History of Present Illness Consult date: 05/04/21 Reason for Consult: Altered mentation and neck pain History of present illness: Neck pain 1 day/ Confusion History of present illness: 70-year-old female with history of coronary artery disease peripheral neuropathy generalized anxiety disorder and hypertension brought in by EMS for altered mental status. Last well-known time was with last night. Patient had a unwitnessed fall this morning at approximately 8:30 AM. C-collar was placed for C-spine immobilization. Patient is unresponsive. Code trauma was called. Patient had COVID-19 vaccinations. The patient is a 70-year-old female. She is not known to myself previously. She is brought to the hospital by emergency medical services for complaint of altered mental status. Patient had COVID-19 vaccine. In the later part of the ER admission patient was complaining of neck pain. C-spine imaging revealed C6 compression fracture. Neurology consulted for evaluation of change mentation and fall pt. is very bad historian she doen not recall what happened or why she is in the hospital ,she admits having hx of CVA in the past and is with mild left side weakness - Past Medical History --Hypertension: Yes --Heart Attack/AMI: Yes (2016) --Renal Disease: Yes (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/19) --Arthritis: Yes --COPD: Yes --Additional medical history: Distal AAA 3.4 cm 02/11/2018 - Surgical History --Coronary Stent: Yes --Cholecystectomy: Yes --Appendectomy: Yes --Additional Surgical History: Hysterectomy, l't leg , back surgery, bovine transcatheter aortic heart valve replacement, ovarian cyst removal - Social History --Smoking Status: Former Smoker - Medications Home Medications: Home Medications Medication Instructions Recorded Confirmed Last Taken Type ALPRAZolam [Xanax TAB] 0.5 mg PO DAILY PRN 02/11/18 09/13/19 09/12/19 History Clopidogrel Bisulfate [Plavix] 75 mg PO DAILY 02/11/18 09/13/19 09/12/19 History Gabapentin 300 mg PO TID 02/11/18 09/13/19 09/12/19 History Metoprolol [Lopressor TAB] 25 mg PO BID 02/11/18 09/13/19 09/12/19 History Pantoprazole [Protonix TAB] 40 mg PO DAILY 03/09/13/19 09/12/19 History Pravastatin Sodium [Pravastatin] 20 mg PO QHS 02/11/18 09/13/19 09/12/19 History Cholecalciferol (Vitamin D3) 1 tab PO DAILY 04/21/19 09/13/19 09/12/19 History [Vitamin D3 2,000 UNIT CAP] Ferrous Gluconate [Ferrous 1 tab PO BID 04/21/19 09/13/19 09/12/19 History Gluconate 324 MG] amLODIPine 5 mg PO DAILY 04/21/19 09/13/19 09/12/19 History ISOSORBIDE MONOnitrate [Imdur ER] 30 mg PO QDAY #30 tablet 04/24/19 09/13/19 Rx Review of Systems ROS: Stated complaint: FALL/AMS Other details as noted in HPI Comment: Unobtainable due to pts medical conditions (Patient altered) Medications and Allergies Allergies Allergy/AdvReac Type Severity Reaction Status Date / Time vancomycin Allergy Hives Verified 04/21/19 21:21 Home Medications Medication Instructions Recorded Confirmed Last Taken Type ALPRAZolam [Xanax TAB] 0.5 mg PO DAILY PRN 02/11/18 09/13/19 09/12/19 History Clopidogrel Bisulfate [Plavix] 75 mg PO DAILY 02/11/18 09/13/19 09/12/19 History Gabapentin 300 mg PO TID 02/11/18 09/13/19 09/12/19 History Metoprolol [Lopressor TAB] 25 mg PO BID 02/11/18 09/13/19 09/12/19 History Pantoprazole [Protonix TAB] 40 mg PO DAILY 02/11/18 09/13/19 09/12/19 History Pravastatin Sodium [Pravastatin] 20 mg PO QHS 02/11/18 09/13/19 09/12/19 History Cholecalciferol (Vitamin D3) 1 tab PO DAILY 04/21/19 09/13/19 09/12/19 History [Vitamin D3 2,000 UNIT CAP] Ferrous Gluconate [Ferrous 1 tab PO BID 04/21/19 09/13/19 09/12/19 History Gluconate 324 MG] amLODIPine 5 mg PO DAILY 04/21/19 09/13/19 09/12/19 History ISOSORBIDE MONOnitrate [Imdur ER] 30 mg PO QDAY #30 tablet 04/24/19 09/13/19 09/12/19 Rx Medications and Allergies Allergies Allergy/AdvReac Type Severity Reaction Status Date / Time vancomycin Allergy Hives Verified 04/21/19 21:21 Home Medications Medication Instructions Recorded Confirmed Last Taken Type ALPRAZolam [Xanax TAB] 0.5 mg PO DAILY PRN 02/11/18 09/13/19 09/12/19 History Clopidogrel Bisulfate [Plavix] 75 mg PO DAILY 02/11/18 09/13/19 09/12/19 History Gabapentin 300 mg PO TID 02/11/18 09/13/19 09/12/19 History Metoprolol [Lopressor TAB] 25 mg PO BID 02/11/18 09/13/19 09/12/19 History Pantoprazole [Protonix TAB] 40 mg PO DAILY 02/11/18 09/13/19 09/12/19 History Pravastatin Sodium [Pravastatin] 20 mg PO QHS 02/11/18 09/13/19 09/12/19 History Cholecalciferol (Vitamin D3) 1 tab PO DAILY 04/21/19 09/13/19 09/12/19 History [Vitamin D3 2,000 UNIT CAP] Ferrous Gluconate [Ferrous 1 tab PO BID 04/21/19 09/13/19 09/12/19 History Gluconate 324 MG] amLODIPine 5 mg PO DAILY 04/21/19 09/13/19 09/12/19 History ISOSORBIDE MONOnitrate [Imdur ER] 30 mg PO QDAY #30 tablet 04/24/19 09/13/19 1 Rx Active Meds: Active Medications Acetaminophen (Acetaminophen 325 Mg Tab) 650 mg PO Q4H PRN PRN Reason: Pain MILD(1-3)/Fever >100.5/ZHANG Alprazolam (Alprazolam 0.5 Mg Tab) 0.5 mg PO DAILY PRN PRN Reason: Anxiety Amlodipine Besylate (Amlodipine 5 Mg Tab) 5 mg PO DAILY NITESH Cholecalciferol (Cholecalciferol (Vit D3) 1000 Unit (25 Mcg) Tab) 2,000 unit PO DAILY NITESH Gabapentin (Gabapentin 300 Mg Cap) 300 mg PO TID NITESH Hydromorphone HCl (Hydromorphone 1 Mg/1 Ml Inj) 1 mg IV Q3H PRN PRN Reason: Pain , Severe (7-10) Sodium Chloride (Nacl 0.9% 1000 Ml) 1,000 mls @ 75 mls/hr IV DIRECT [facility] Last Admin: 05/04/21 03:32 Dose: 75 mls/hr Documented by: Isosorbide Mononitrate (Isosorbide Mononitrate Er 30 Mg Tab) 30 mg PO QDAY [facility] Metoclopramide HCl (Metoclopramide 10 Mg/2 Ml Inj) 5 mg IV Q6H PRN PRN Reason: Nausea And Vomiting Metoprolol Tartrate (Metoprolol Tartrate 25 Mg Tab) 25 mg PO BID@0800,1700 [facility] Last Admin: 05/04/21 03:31 Dose: 25 mg Documented by: Ondansetron HCl (Ondansetron 4 Mg/2 Ml Inj) 4 mg IV Q8H PRN PRN Reason: Nausea And Vomiting Oxycodone/Acetaminophen (Oxycodone /Acetaminophen 5-325mg Tab) 1 tab PO Q6H PRN PRN Reason: Pain, Moderate (4-6) Pantoprazole Sodium (Pantoprazole 40 Mg Tab) 40 mg PO DAILY [facility] Pravastatin Sodium (Pravastatin 20 Mg Tab) 20 mg PO QHS [facility] Sodium Chloride (Sodium Chloride 0.9% 10 Ml Flush Syringe) 10 ml IV BID [facility] Sodium Chloride (Sodium Chloride 0.9% 10 Ml Flush Syringe) 10 ml IV PRN PRN PRN Reason: LINE FLUSH Physical Examination - Vital Signs Vital Signs: Vital Signs Temp Pulse Resp BP Pulse Ox 98.6 F 88 18 144/80 94 05/03/21 10:05/03/21 10:22 05/03/21 10:22 05/03/21 10:05/03/21 10:22 - Constitutional General appearance: uncomfortable, other (had C collar ,in bed ) - EENT EENT: Present: PERRL, mucous membranes moist - Respiratory Respiratory: Present: chest non-tender, lungs clear, rhonchi - Cardiovascular Cardiovascular: Present: regular rate, normal S1, normal S2 Extremities: Present: no peripheral edema bilatateraly, no clubbing, cyanosis - Gastrointestinal Gastrointestinal: Present: normoactive bowel sounds - Integumentary Integumentary: Present: normal - Neurologic Cranial nerve examination: intact Speech examination: intact, other (she is alert interactive calm , oriented to being in a hospital , disoriented to date ,day,month or year , knows her birthday and home address no aphasia) Sensorimotor examination: other (possibly slight left side weakness ,planter is down reflexes are suppressed Bilateral,no gait is tested) Results - Laboratory Findings CBC and BMP: 05/03/21 10:20 05/04/21 03:26 Abnormal Lab Findings: Abnormal Labs 05/03/21 05/03/21 05/03/21 10:20 10:20 10:20 RDW 16.5 H Seg Neuts % (Manual) 78.0 H PT 12.0 L INR 0.83 L ABG pO2 Chloride BUN 37 H Creatinine 2.9 H Glucose 137 H Hemoglobin A1c Total Creatine Kinase 208 H NT-Pro-B Natriuret Pep Salicylates Acetaminophen 05/03/21 05/03/21 05/03/21 10:20 10:20 10:33 RDW Seg Neuts % (Manual) PT INR ABG pO2 Chloride BUN Creatinine Glucose Hemoglobin A1c Total Creatine Kinase NT-Pro-B Natriuret Pep 1472 H Salicylates < 0.3 L Acetaminophen 5.0 L 05/03/21 05/04/21 05/04/21 13:24 03:26 03:26 RDW Seg Neuts % (Manual) PT INR ABG pO2 98.4 H Chloride 107.3 H BUN 34 H Creatinine 2.9 H Glucose 118 H Hemoglobin A1c 7.2 H Total Creatine Kinase NT-Pro-B Natriuret Pep Salicylates Acetaminophen Assessment and Plan Assessment and Plan # Acute encephalopathy -Possible concussion injury. -Will admit to [facility]. -C-spine collar. -Currently oriented to place and recall her birthday and address , disoriented to date , No since to suggest encephalopathy but underlying possible mild dementia ? no known base line---- -medication effect contribute to confusion and fall ? Neurontine,Xanax?? -Place neurontine on hold -xanax prn -Avoid Narcotics # Fall and resulted neck injury and post fall head injury -Etiology of fall is unclear -pt. is bad historian -check for orthoststic changes -R/O seizure -cardiac etiology and or CVA can not be excluded -MRI brain/Intracranial MRA -EEG -carotid doppler -Seiaure precaution -cardiac telemetry # Hx of CVA as per pt. with residual left side weakness -MRI brain/MRA -Echo -US carotid -asa 81 mg and lipitor 40 mg -A1c. -LDL # Possible underlying mild dementia -Base line memory is unknown -B12 and TSH -ESR ,KADI # Cervical compression fracture - Cervical vertebra fracture level: C6 -Plan to address problem: Cervical collar applied for immobilization. Neurosurgery consulted. # Hypertension -Continue antihypertensives. # CKD (chronic kidney disease) -Patient has a fistula would not do dialysis candidate -Patient being seen by Dr. Joseph # COPD (chronic obstructive pulmonary disease) -DuoNebs as needed (6) DVT prophylaxis -On heparin and GI prophylaxis PLAN - EEG -Echo -MRI /MRA brain -US carotid -check for orthostatic -telemetry -B12,Folate,A1c,TSH,ESR,KADI -Neuro surgery R/C neck injury and C6 fracture. will follow
--- NOTE | 2021-05-04 08:40 | Progress Note ---
Assessment and Plan Assessment and plan: Advance Directives: Yes (Full code) VTE prophylaxis?: Chemical Plan of care discussed with patient/family: Yes --Acute encephalopathy Current Visit: Yes Status: Acute Possible concussion injury. Patient is more alert and awake since admission Responding appropriately Will admit to [facility]. --History of fall; Current Visit: Yes Status: Acute. Fall precautions , PT OT when imaging studies are done And as needed --cervical compression fracture-C6 Current Visit: Yes Status: Acute Cervical collar applied for immobilization. Neurology and neurosurgery consulted. Neurology recommended T-spine MRI --Hypertension Current Visit: Yes Status: Chronic Continue antihypertensives. And as needed medications --CKD (chronic kidney disease) stage IV Current Visit: Yes Status: Acute Closely monitor renal function avoid nephrotoxins Nephrology consult, informed -- COPD (chronic obstructive pulmonary disease) Current Visit: Yes Status: Chronic Well compensated ,DuoNebs as needed Oxygen titrate O2 sats more than 90% --Obesity; BMI 32.8 Current Visit: Yes Status: Chronic . Patient advised diet modification exercise as tolerated and weight reduction when medically stable --Full code; --DVT prophylaxis Current Visit: Yes Status: Acute On heparin and GI prophylaxis We will closely monitor the patient and adjust the management as needed I also discussed with neurologist , who recommended MRI T-spine And feels that there is no need for MRI C-spine at this point as patient had CT C-spine. We will follow MRI T-spine and neurosurgery evaluation and recommendations Of care reviewed with patient and her nurse History Interval history: I have seen and examined the patient in [facility] this morning Patient's chart and medications reviewed Patient had fall at home and sustained C6 compression fracture Neurology evaluated the patient, neurosurgeon has discussed with ER physician Patient is currently in cervical collar Complains of some pain Alert and awake responding appropriately In mild distress Vital signs reviewed Hospitalist Physical - Constitutional Vitals: Temp Pulse Resp BP Pulse Ox 98.9 F 76 19 143/55 96 05/04/21 03:28 05/04/21 08:10 05/04/21 08:10 05/04/21 08:10 05/04/21 08:10 General appearance: Present: mild distress, well-nourished - EENT Eyes: Present: PERRL, EOM intact - Neck Neck: Present: supple, normal ROM, other (C-collar in place) - Respiratory Respiratory effort: normal Respiratory: bilateral: diminished, negative: rales, rhonchi, wheezing - Cardiovascular Rhythm: regular Heart Sounds: Present: S1 & S2 - Extremities Extremities: no ischemia, No edema - Abdominal General gastrointestinal: soft, non-tender, non-distended, normal bowel sounds - Integumentary Integumentary: Present: clear, warm - Psychiatric Psychiatric: appropriate mood/affect, cooperative - Neurologic Neurologic: moves all extremities HEART Score - HEART Score Troponin: Troponin T < 0.010 ng/mL (0.00-0.029) 05/03/21 10:20 Results - Labs CBC & Chem 7: 05/03/21 10:20 05/04/21 03:26 Labs: Laboratory Last Values WBC 8.2 K/mm3 (4.5-11.0) 05/03/21 10:20 RBC 4.16 M/mm3 (3.65-5.03) 05/03/21 10:20 Hgb 12.2 gm/dl (10.1-14.3) 05/03/21 10:20 Hct 37.8 % (30.3-42.9) 05/03/21 10:20 MCV 91 fl (79-97) 05/03/21 10:20 MCH 29 pg (28-32) 05/03/21 10:20 MCHC 32 % (30-34) 05/03/21 10:20 RDW 16.5 % (13.2-15.2) H 05/03/21 10:20 Plt Count 256 K/mm3 (140-440) 05/03/21 10:20 Add Manual Diff Complete 05/03/21 10:20 Total Counted 100 05/03/21 10:20 Seg Neuts % (Manual) 78.0 % (40.0-70.0) H 05/03/21 10:20 Lymphocytes % (Manual) 17.0 % (13.4-35.0) 05/03/21 10:20 Monocytes % (Manual) 2.0 % (0.0-7.3) 05/03/21 10:20 Basophils % (Manual) 1.0 % (0.0-1.8) 05/03/21 10:20 Metamyelocytes % 2.0 % 05/03/21 10:20 Nucleated RBC % Not Reportable 05/03/21 10:20 Seg Neutrophils # Man 6.4 K/mm3 (1.8-7.7) 05/03/21 10:20 Band Neutrophils # 0.0 K/mm3 05/03/21 10:20 Lymphocytes # (Manual) 1.4 K/mm3 (1.2-5.4) 05/03/21 10:20 Abs React Lymphs (Man) 0.0 K/mm3 05/03/21 10:20 Monocytes # (Manual) 0.2 K/mm3 (0.0-0.8) 05/03/21 10:20 Eosinophils # (Manual) 0.0 K/mm3 (0.0-0.4) 05/03/21 10:20 Basophils # (Manual) 0.1 K/mm3 (0.0-0.1) 05/03/21 10:20 Metamyelocytes # 0.2 K/mm3 05/03/21 10:20 Myelocytes # 0.0 K/mm3 05/03/21 10:20 Promyelocytes # 0.0 K/mm3 05/03/21 10:20 Blast Cells # 0.0 K/mm3 05/03/21 10:20 WBC Morphology Not Reportable 05/03/21 10:20 Hypersegmented Neuts Not Reportable 05/03/21 10:20 Hyposegmented Neuts Not Reportable 05/03/21 10:20 Hypogranular Neuts Not Reportable 05/03/21 10:20 Smudge Cells Not Reportable 05/03/21 10:20 Toxic Granulation Not Reportable 05/03/21 10:20 Toxic Vacuolation Not Reportable 05/03/21 10:20 Dohle Bodies Not Reportable 05/03/21 10:20 Pelger-Huet Anomaly Not Reportable 05/03/21 10:20 Padmaja Rods Not Reportable 05/03/21 10:20 Platelet Estimate Consistent w auto 05/03/21 10:20 Clumped Platelets Not Reportable 05/03/21 10:20 Plt Clumps, EDTA Not Reportable 05/03/21 10:20 Large Platelets Not Reportable 05/03/21 10:20 Giant Platelets Not Reportable 05/03/21 10:20 Platelet Satelliting Not Reportable 05/03/21 10:20 Plt Morphology Comment Not Reportable 05/03/21 10:20 RBC Morphology Normal 05/03/21 10:20 Dimorphic RBCs Not Reportable 05/03/21 10:20 Polychromasia Not Reportable 05/03/21 10:20 Hypochromasia Not Reportable 05/03/21 10:20 Poikilocytosis Not Reportable 05/03/21 10:20 Anisocytosis Not Reportable 05/03/21 10:20 Microcytosis Not Reportable 05/03/21 10:20 Macrocytosis Not Reportable 05/03/21 10:20 Spherocytes Not Reportable 05/03/21 10:20 Pappenheimer Bodies Not Reportable 05/03/21 10:20 Sickle Cells Not Reportable 05/03/21 10:20 Target Cells Not Reportable 05/03/21 10:20 Tear Drop Cells Not Reportable 05/03/21 10:20 Ovalocytes Not Reportable 05/03/21 10:20 Helmet Cells Not Reportable 05/03/21 10:20 [place] Bodies Not Reportable 05/03/21 10:20 [place] Rings Not Reportable 05/03/21 10:20 Ceasar Cells Not Reportable 05/03/21 10:20 Bite Cells Not Reportable 05/03/21 10:20 Crenated Cell Not Reportable 05/03/21 10:20 Elliptocytes Not Reportable 05/03/21 10:20 Acanthocytes (Spur) Not Reportable 05/03/21 10:20 Rouleaux Not Reportable 05/03/21 10:20 Hemoglobin C Crystals Not Reportable 05/03/21 10:20 Schistocytes Not Reportable 05/03/21 10:20 Malaria parasites Not Reportable 05/03/21 10:20 Luis Bodies Not Reportable 05/03/21 10:20 Hem Pathologist Commnt No 05/03/21 10:20 PT 12.0 Sec. (12.2-14.9) L 05/03/21 10:20 INR 0.83 (0.87-1.13) L 05/03/21 10:20 APTT 24.2 Sec. (24.2-36.6) 05/03/21 10:20 ABG pH 7.396 pH Units (7.350-7.450) 05/03/21 13:24 ABG pCO2 39.7 mm Hg 05/03/21 13:24 ABG pO2 98.4 mm Hg (80.0-90.0) H 05/03/21 13:24 ABG HCO3 23.8 mmol/L (20.0-26.0) 05/03/21 13:24 ABG O2 Saturation 97.5 % (95.0-99.0) 05/03/21 13:24 ABG O2 Content 16.3 (0.0-44) 05/03/21 13:24 ABG Base Excess -0.9 mmol/L (-2.0-3.0) 05/03/21 13:24 ABG Hemoglobin 12.0 gm/dl (12.0-16.0) 05/03/21 13:24 ABG Carboxyhemoglobin 1.3 % (0.0-5.0) 05/03/21 13:24 ABG Methemoglobin 0.4 % (0.0-1.5) 05/03/21 13:24 Oxyhemoglobin 95.8 % (95.0-99.0) 05/03/21 13:24 FiO2 32 % 05/03/21 13:24 Sodium 143 mmol/L (137-145) 05/04/21 03:26 Potassium 4.8 mmol/L (3.6-5.0) 05/04/21 03:26 Chloride 107.3 mmol/L (98-107) H 05/04/21 03:26 Carbon Dioxide 24 mmol/L (22-30) 05/04/21 03:26 Anion Gap 17 mmol/L 05/04/21 03:26 BUN 34 mg/dL (7-17) H 05/04/21 03:26 Creatinine 2.9 mg/dL (0.6-1.2) H 05/04/21 03:26 Estimated GFR 16 ml/min 05/04/21 03:26 BUN/Creatinine Ratio 12 % 05/04/21 03:26 Glucose 118 mg/dL (65-100) H 05/04/21 03:26 Hemoglobin A1c 7.2 % (4-6) H 05/04/21 03:26 Calcium 9.2 mg/dL (8.4-10.2) 05/04/21 03:26 Magnesium 2.30 mg/dL (1.7-2.3) 05/03/21 10:20 Total Bilirubin 0.40 mg/dL (0.1-1.2) 05/03/21 10:20 AST 15 units/L (5-40) 05/03/21 10:20 ALT 14 units/L (7-56) 05/03/21 10:20 Alkaline Phosphatase 94 units/L (35-129) 05/03/21 10:20 Total Creatine Kinase 208 units/L (30-135) H 05/03/21 10:20 Troponin T < 0.010 ng/mL (0.00-0.029) 05/03/21 10:20 NT-Pro-B Natriuret Pep 1472 pg/mL (0-900) H 05/03/21 10:33 Total Protein 7.2 g/dL (6.3-8.2) 05/03/21 10:20 Albumin 4.2 g/dL (3.9-5) 05/03/21 10:20 Albumin/Globulin Ratio 1.4 % 05/03/21 10:20 TSH 3.220 mlU/mL (0.270-4.200) 05/03/21 10:20 Urine Color Straw (Yellow) 05/03/21 12:27 Urine Turbidity Clear (Clear) 05/03/21 12:27 Urine pH 7.0 (5.0-7.0) 05/03/21 12:27 Ur Specific [place] 1.009 (1.003-1.030) 05/03/21 12:27 Urine Protein 30 mg/dl mg/dL (Negative) 05/03/21 12:27 Urine Glucose (UA) Neg mg/dL (Negative) 05/03/21 12:27 Urine Ketones Neg mg/dL (Negative) 05/03/21 12:27 Urine Blood Neg (Negative) 05/03/21 12:27 Urine Nitrite Neg (Negative) 05/03/21 12:27 Urine Bilirubin Neg (Negative) 05/03/21 12: Urine Urobilinogen < 2.0 mg/dL (<2.0) 05/03/21 12:27 Ur Leukocyte Esterase Neg (Negative) 05/03/21 12:27 Urine WBC (Auto) < 1.0 /HPF (0.0-6.0) 05/03/21 12:27 Urine RBC (Auto) 1.0 /HPF (0.0-6.0) 05/03/21 12:27 U Epithel Cells (Auto) < 1.0 /HPF (0-13.0) 05/03/21 12:27 Salicylates < 0.3 mg/dL (2.8-20.0) L 05/03/21 10:20 Acetaminophen 5.0 ug/mL (10.0-30.0) L 05/03/21 10:20 Plasma/Serum Alcohol < 0.01 % (0-0.07) 05/03/21 10:20 Blood Type A POSITIVE 05/03/21 10:20 Antibody Screen Negative 05/03/21 10:20 Sosa/IV: Voiding Method External Female Catheter Active Medications - Current Medications Current Medications: Generic Name Dose Route Start Last Admin Trade Name Freq PRN Reason Stop Dose Admin Acetaminophen 650 mg 05/04/21 01:29 Acetaminophen 325 Mg Tab PO Q4H PRN Pain MILD(1-3)/Fever >100.5/ZHANG Alprazolam 0.5 mg 05/04/21 01:27 Alprazolam 0.5 Mg Tab PO DAILY PRN Anxiety Amlodipine Besylate 5 mg 05/04/21 10:00 Amlodipine 5 Mg Tab PO DAILY [facility] Cholecalciferol 2,000 unit 05/04/21 10:00 Cholecalciferol (Vit D3) 1000 Unit (25 Mcg) Tab PO DAILY [facility] Gabapentin 300 mg 05/04/21 08:00 Gabapentin 300 Mg Cap PO TID [facility] Hydromorphone HCl 1 mg 05/04/21 01:29 Hydromorphone 1 Mg/1 Ml Inj IV Q3H PRN Pain , Severe (7-10) Sodium Chloride 1,000 mls @ 75 mls/hr 05/04/21 01:30 05/04/21 03:32 Nacl 0.9% 1000 Ml IV 75 mls/hr DIRECT [facility] Administration Isosorbide Mononitrate 30 mg 05/04/21 10:00 Isosorbide Mononitrate Er 30 Mg Tab PO QDAY [facility] Metoclopramide HCl 5 mg 05/04/21 01:29 Metoclopramide 10 Mg/2 Ml Inj IV Q6H PRN Nausea And Vomiting Metoprolol Tartrate 25 mg 05/04/21 02:00 05/04/21 03:31 Metoprolol Tartrate 25 Mg Tab PO 25 mg BID@0800,1700 NITESH Administration Ondansetron HCl 4 mg 05/04/21 01:29 Ondansetron 4 Mg/2 Ml Inj IV Q8H PRN Nausea And Vomiting Oxycodone/Acetaminophen 1 tab 05/04/21 01:29 Oxycodone /Acetaminophen 5-325mg Tab PO Q6H PRN Pain, Moderate (4-6) Pantoprazole Sodium 40 mg 05/04/21 10:00 Pantoprazole 40 Mg Tab PO DAILY [facility] Pravastatin Sodium 20 mg 05/04/21 22:00 Pravastatin 20 Mg Tab PO QHS NITESH Sodium Chloride 10 ml 05/04/21 10:00 Sodium Chloride 0.9% 10 Ml Flush Syringe IV BID NITESH Sodium Chloride 10 ml 05/04/21 01:29 Sodium Chloride 0.9% 10 Ml Flush Syringe IV PRN PRN LINE FLUSH
[2021-05-04] MEDS: GABAPENTIN 300 MG CAP PO SCH ×3 (08:57→22:55)
--- NOTE | 2021-05-04 10:19 | Consultation ---
History of Present Illness - Reason for Consult Consult date: 05/04/21 acute renal failure, chronic renal failure - History of Present Illness The patient is a 70 YO female with history significant for Hypertension, DM type 2, COPD, CKD stage 4, CAD, AAA and peripheral neuropathy who was brought to [facility] ED 05/03 by EMS for complaint of altered mental status. Last well-known time was night of 05/02. Patient had a unwitnessed fall yesterday morning at approximately 8:30 AM. C-collar was placed for C-spine immobilization. Unable to get any history from patient. Patient had COVID-19 vaccinations. Labs significant for Creatinine is 2.9 and BUN 34. Patient follows with . Nephrology was consulted for further evaluation of RAMU. Medications and Allergies Allergies Allergy/AdvReac Type Severity Reaction Status Date / Time vancomycin Allergy Hives Verified 04/21/19 21:21 Home Medications Medication Instructions Recorded Confirmed Last Taken Type ALPRAZolam [Xanax TAB] 0.5 mg PO DAILY PRN 02/11/18 09/13/19 09/12/19 History Clopidogrel Bisulfate [Plavix] 75 mg PO DAILY 02/11/18 09/13/19 09/12/19 History Gabapentin 300 mg PO TID 02/11/18 09/13/19 09/12/19 History Metoprolol [Lopressor TAB] 25 mg PO BID 02/11/18 09/13/19 09/12/19 History Pantoprazole [Protonix TAB] 40 mg PO DAILY 02/11/18 09/13/19 09/12/19 History Pravastatin Sodium [Pravastatin] 20 mg PO QHS 02/11/18 09/13/19 09/12/19 History Cholecalciferol (Vitamin D3) 1 tab PO DAILY 04/21/19 09/13/19 09/12/19 History [Vitamin D3 2,000 UNIT CAP] Ferrous Gluconate [Ferrous 1 tab PO BID 04/21/19 09/13/19 09/12/19 History Gluconate 324 MG] amLODIPine 5 mg PO DAILY 04/21/19 09/13/19 09/12/19 History ISOSORBIDE MONOnitrate [Imdur ER] 30 mg PO QDAY #30 tablet 04/24/19 09/13/19 09/12/19 Rx Active Meds: Active Medications Acetaminophen (Acetaminophen 325 Mg Tab) 650 mg PO Q4H PRN PRN Reason: Pain MILD(1-3)/Fever >100.5/ZHANG Alprazolam (Alprazolam 0.5 Mg Tab) 0.5 mg PO DAILY PRN PRN Reason: Anxiety Amlodipine Besylate (Amlodipine 5 Mg Tab) 5 mg PO DAILY [facility] Cholecalciferol (Cholecalciferol (Vit D3) 1000 Unit (25 Mcg) Tab) 2,000 unit PO DAILY [facility] Gabapentin (Gabapentin 300 Mg Cap) 300 mg PO TID [facility] Last Admin: 05/04/21 08:57 Dose: 300 mg Documented by: Hydromorphone HCl (Hydromorphone 1 Mg/1 Ml Inj) 1 mg IV Q3H PRN PRN Reason: Pain , Severe (7-10) Sodium Chloride (Nacl 0.9% 1000 Ml) 1,000 mls @ 75 mls/hr IV DIRECT [facility] Last Admin: 05/04/21 03:32 Dose: 75 mls/hr Documented by: Isosorbide Mononitrate (Isosorbide Mononitrate Er 30 Mg Tab) 30 mg PO QDAY [facility] Metoclopramide HCl (Metoclopramide 10 Mg/2 Ml Inj) 5 mg IV Q6H PRN PRN Reason: Nausea And Vomiting Metoprolol Tartrate (Metoprolol Tartrate 25 Mg Tab) 25 mg PO BID@0800,1700 [facility] Last Admin: 05/04/21 08:57 Dose: 25 mg Documented by: Ondansetron HCl (Ondansetron 4 Mg/2 Ml Inj) 4 mg IV Q8H PRN PRN Reason: Nausea And Vomiting Oxycodone/Acetaminophen (Oxycodone /Acetaminophen 5-325mg Tab) 1 tab PO Q6H PRN PRN Reason: Pain, Moderate (4-6) Pantoprazole Sodium (Pantoprazole 40 Mg Tab) 40 mg PO DAILY [facility] Pravastatin Sodium (Pravastatin 20 Mg Tab) 20 mg PO QHS [facility] Sodium Chloride (Sodium Chloride 0.9% 10 Ml Flush Syringe) 10 ml IV BID [facility] Sodium Chloride (Sodium Chloride 0.9% 10 Ml Flush Syringe) 10 ml IV PRN PRN PRN Reason: LINE FLUSH Review of Systems ROS unobtainable: due to mental status Exam - Vital Signs Vital signs: Vital Signs Temp Pulse Resp BP Pulse Ox 98.6 F 88 18 144/80 94 05/03/21 10:22 05/03/21 10:22 05/03/21 10:22 05/03/21 10:22 05/03/21 10:22 Results - Lab Results 05/03/21 10:20 05/04/21 03:26 Most recent lab results ABG pH 7.396 pH Units (7.350-7.450) 05/03/21 13:24 ABG pCO2 39.7 mm Hg 05/03/21 13:24 ABG pO2 98.4 mm Hg (80.0-90.0) H 05/03/21 13:24 ABG HCO3 23.8 mmol/L (20.0-26.0) 05/03/21 13:24 ABG O2 Saturation 97.5 % (95.0-99.0) 05/03/21 13:24 Calcium 9.2 mg/dL (8.4-10.2) 05/04/21 03:26 Magnesium 2.30 mg/dL (1.7-2.3) 05/03/21 10:20 Assessment and Plan 1. Acute kidney injury: Vasomotor RAMU (mild) superimposed on CKD stage 4. CT abdomen showed L atrophic kidney. On IV fluids. Monitor renal function. Renal prognosis is guarded. Avoid nephrotoxic agents. Meds dosage based on GFR. 2. FEN: Monitor lytes and volume status. 3. Acute encephalopathy: CT head negative. Followed by Neuro. 4. Cervical spine fracture: Neuro-surgery consulted. 5. Hypertension. 6. DM type 2. 7. COPD. Subjective: Patient was seen and examined at the bedside. Examination: General appearance: well-developed, well-nourished, appears stated age, not in distress HEENT: ATNC, MARK, hearing intact Neck: C-collar in place Respiratory: Clear to Auscultation Heart: regular, S1S2, no murmur Gastrointestinal: normoactive bowel sounds, not tender Integumentary: no rash, warm and dry Neurologic: confused, able to move extremities Ext: no edema Hemodialysis access: L arm AVF Psychiatric: cooperative
[2021-05-04] MEDS: PANTOPRAZOLE 40 MG TAB PO SCH (11:14)
[2021-05-04] MEDS: CHOLECALCIFEROL (VIT D3) 1000 UNIT (25 mcg) TAB PO SCH (11:14)
[2021-05-04] MEDS: amLODIPine 5 MG TAB PO SCH (11:14)
[2021-05-04] MEDS ORDERED: LORazepam 2 MG/ML VIAL IV NR (12:45)
--- NOTE | 2021-05-04 17:07 | Progress Note ---
Subjective Date of service: 05/04/21 Interval history: NSGY update: pt off the floor for afternoon rounds. She is reportedly undergoing MRI studies. She has concern for C6 compression fracture visualized on thoracic CT scan but not present on Cervical CT. Please obtain MRI cervical spine non- contrast to evaluate for fracture. Please maintain aspen collar pending MRI results. There is no plan for surgical intervention at this time. Please notify if questions. Objective - Vital Sign Vital Signs - 12hr 05/04/21 05/04/21 05/04/21 05:56 06:00 06:10 Temperature Pulse Rate 69 70 69 Respiratory 17 19 18 Rate Blood Pressure 128/54 O2 Sat by Pulse 97 98 97 Oximetry 05/04/21 05/04/21 05/04/21 06:20 06:30 06:40 Temperature Pulse Rate 67 67 70 Respiratory 15 17 16 Rate Blood Pressure 141/57 141/57 141/57 O2 Sat by Pulse 100 99 98 Oximetry 05/04/21 05/04/21 05/04/21 06:50 07:00 07:10 Temperature Pulse Rate 71 68 73 Respiratory 18 17 19 Rate Blood Pressure 141/57 145/53 145/53 O2 Sat by Pulse 100 96 95 Oximetry 05/04/21 05/04/21 05/04/21 07:20 07:30 07:40 Temperature Pulse Rate 72 72 72 Respiratory 17 19 19 Rate Blood Pressure 145/53 145/53 145/53 O2 Sat by Pulse 95 97 95 Oximetry 05/04/21 05/04/21 05/04/21 07:50 08:00 08:10 Temperature 98.2 F Pulse Rate 72 70 76 Respiratory 18 25 H 19 Rate Blood Pressure 145/53 143/55 143/55 O2 Sat by Pulse 96 96 96 Oximetry 05/04/21 05/04/21 05/04/21 08:20 08:30 08:40 Temperature Pulse Rate 75 76 75 Respiratory 18 18 21 Rate Blood Pressure 143/55 143/55 143/55 O2 Sat by Pulse 98 96 97 Oximetry 05/04/21 05/04/21 05/04/21 08:50 09:00 09:10 Temperature Pulse Rate 77 70 79 Respiratory 20 18 22 Rate Blood Pressure 143/55 132/61 132/61 O2 Sat by Pulse 97 95 94 Oximetry 05/04/21 05/04/21 05/04/21 09:20 09:30 09:40 Temperature Pulse Rate 77 76 80 Respiratory 21 17 14 Rate Blood Pressure 132/61 132/61 132/61 O2 Sat by Pulse 96 97 97 Oximetry 05/04/21 05/04/21 05/04/21 09:50 09:53 10:00 Temperature Pulse Rate 85 77 Respiratory 16 18 Rate Blood Pressure 132/61 160/58 O2 Sat by Pulse 97 98 95 Oximetry 05/04/21 05/04/21 05/04/21 10:10 10:20 10:30 Temperature Pulse Rate 78 83 76 Respiratory 18 30 H 20 Rate Blood Pressure 160/58 160/58 160/58 O2 Sat by Pulse 98 93 96 Oximetry 05/04/21 05/04/21 05/04/21 10:40 10:50 11:00 Temperature Pulse Rate 79 84 89 Respiratory 28 H 24 21 Rate Blood Pressure 160/58 160/58 168/95 O2 Sat by Pulse 97 97 95 Oximetry 05/04/21 05/04/21 05/04/21 11:10 11:20 11:30 Temperature Pulse Rate 85 82 82 Respiratory 17 19 16 Rate Blood Pressure 168/95 168/95 168/95 O2 Sat by Pulse 92 96 96 Oximetry 05/04/21 05/04/21 05/04/21 11:40 11:50 12:00 Temperature 98.0 F Pulse Rate 79 82 81 Respiratory 15 23 18 Rate Blood Pressure 168/95 168/95 136/50 O2 Sat by Pulse 96 94 94 Oximetry 05/04/21 05/04/21 05/04/21 12:10 12:20 12:30 Temperature Pulse Rate 79 79 77 Respiratory 25 H 23 20 Rate Blood Pressure 136/50 136/50 136/50 O2 Sat by Pulse 97 93 95 Oximetry 05/04/21 05/04/21 05/04/21 12:40 12:50 13:00 Temperature Pulse Rate 78 79 78 Respiratory 21 19 19 Rate Blood Pressure 136/50 136/50 102/45 O2 Sat by Pulse 95 94 95 Oximetry 05/04/21 05/04/21 05/04/21 13:10 13:20 13:30 Temperature Pulse Rate 80 79 79 Respiratory 25 H 19 12 Rate Blood Pressure 102/45 102/45 102/45 O2 Sat by Pulse 94 94 96 Oximetry 05/04/21 05/04/21 05/04/21 13:40 13:50 14:00 Temperature Pulse Rate 79 80 80 Respiratory 13 14 20 Rate Blood Pressure 102/45 102/45 109/62 O2 Sat by Pulse 98 95 94 Oximetry 05/04/21 14:10 Temperature Pulse Rate 80 Respiratory 15 Rate Blood Pressure 109/62 O2 Sat by Pulse 96 Oximetry - Laboratory Findings CBC and BMP: 05/03/21 10:20 05/04/21 03:26 Abnormal Lab Findings: Abnormal Labs 05/03/21 05/03/21 05/03/21 10:20 10:20 10:20 RDW 16.5 H Seg Neuts % (Manual) 78.0 H PT 12.0 L INR 0.83 L ABG pO2 Chloride BUN 37 H Creatinine 2.9 H Glucose 137 H Hemoglobin A1c Total Creatine Kinase 208 H NT-Pro-B Natriuret Pep Salicylates Acetaminophen 05/03/21 05/03/21 05/03/21 10:20 10:20 10:33 RDW Seg Neuts % (Manual) PT INR ABG pO2 Chloride BUN Creatinine Glucose Hemoglobin A1c Total Creatine Kinase NT-Pro-B Natriuret Pep 1472 H Salicylates < 0.3 L Acetaminophen 5.0 L 05/03/21 05/04/21 05/04/21 13:24 03:26 03:26 RDW Seg Neuts % (Manual) PT INR ABG pO2 98.4 H Chloride 107.3 H BUN 34 H Creatinine 2.9 H Glucose 118 H Hemoglobin A1c 7.2 H Total Creatine Kinase NT-Pro-B Natriuret Pep Salicylates Acetaminophen
--- NOTE | 2021-05-04 17:16 | Magnetic Resonance Report ---
MRI THORACIC SPINE WITHOUT CONTRAST INDICATION / CLINICAL INFORMATION: Compression fracture C6 [rec by neuro/[email or web address]]. TECHNIQUE: Multisequence, multiplanar images of the thoracic spine were obtained. COMPARISON: None available. FINDINGS: ALIGNMENT: There is mild kyphoscoliosis of the upper thoracic spine, convex toward the left at. Howev er, there is no significant spondylolisthesis. VERTEBRAE:There are multilevel degenerative endplate changes, most notable anteriorly from T5-6 to T8 -9. However, there is no significant edema or evidence of acute compression fracture involving thorac ic vertebral bodies. VISUALIZED SPINAL CORD: The motion and pulsation artifact degrade the image quality at. However, the thoracic spinal cord appears to demonstrate appropriate signal intensity. INTERVERTEBRAL DISCS: There is a left lateral disc bulge at T5-6 which effaces the left anterior suba rachnoid space without significant direct cord compression at. There are minimal disc bulges involvin g the adjacent thoracic segments without spinal stenosis. . There is mild facet joint hypertrophy at T9-10 with mild right neural foraminal narrowing. The cent ral disc bulge at T10-11 slightly flattens the ventral thecal sac. The facet joint hypertrophy at T11-12 result in mild to moderate right neural foraminal narrowing. Th ere is also mild from narrowing bilaterally at T12-1. PARASPINAL SOFT TISSUES: No significant abnormality. ADDITIONAL FINDINGS: No epidural collections are identified. IMPRESSION: 1. This mild kyphoscoliosis of the thoracic spine with multilevel degenerative the changes as detaile d above. 2. There is no evidence of acute compression fracture. Signer Name: Marty Watt MD Signed: 05/04/2021 5:12 PM Workstation Name: [id number]
[2021-05-04] MEDS: ONDANSETRON 4 MG/2 ML INJ IV PRN (17:47)
--- NOTE | 2021-05-04 19:00 | Event Note ---
Date: 05/04/21 I have reviewed neurosurgeon Dr. Chappell note, he requested to get MRI C-spine without contrast To further evaluate compression fracture C6. I ordered MRI C-spine without contrast
--- NOTE | 2021-05-04 19:11 | Event Note ---
Date: 05/04/21 I called patient's daughter Ms. Valentine at [phone] and discussed in detail patient's condition, tests and reports neurology and neurosurgeons evaluation and recommendations she has numerous questions answered all of them and encouraged her to call back if she has new concerns encouraged her to call back if she has new concerns
[2021-05-04] MEDS: PRAVASTATIN 20 MG TAB PO SCH (22:55)
[2021-05-04] MEDS: ACETAMINOPHEN 325 MG TAB PO PRN (22:55)
[2021-05-05 00:42] LABS: Creatinine,Urine 73.6 mg/dL (0.1-20.0)
[2021-05-05] MEDS: ONDANSETRON 4 MG/2 ML INJ IV PRN (05:28)
[2021-05-05] MEDS: ACETAMINOPHEN 325 MG TAB PO PRN (06:01)
[2021-05-05] MEDS: SODIUM CHLORIDE 0.9% 1000 ML 1,000 ML IV SCH ×2 (06:03→20:17)
[2021-05-05 06:22] LABS: Hematocrit 32.2 % (30.3-42.9); Mean Corpuscular HGB Conc 34 % (30-34); Mean Corpuscular Volume 91 fl (79-97); Platelet Count 223 K/mm3 (140-440); Red Blood Count 3.56 M/mm3 (3.65-5.03); Red Cell Distribution Width 16.5 % (13.2-15.2)
[2021-05-05 06:46] LABS: Calcium 9.1 mg/dL (8.4-10.2)
[2021-05-05] MEDS: METOPROLOL TARTRATE 25 MG TAB PO SCH ×2 (10:02→16:36)
[2021-05-05] MEDS: amLODIPine 5 MG TAB PO SCH (10:02)
--- NOTE | 2021-05-05 10:02 | Magnetic Resonance Report ---
MRI CERVICAL SPINE WITHOUT CONTRAST INDICATION / CLINICAL INFORMATION: C6 compression fracture/PER Dr. Doherty/W[facility] Repeated scans, patient motion, best possible exam.. TECHNIQUE: Multisequence, multiplanar images of the cervical spine were obtained. COMPARISON: CT cervical spine and CT thoracic spine 05/03/2021 FINDINGS: CRANIOCERVICAL JUNCTION:No significant abnormality. ALIGNMENT: There is straightening of the normal cervical lordosis. No subluxation is appreciated. VERTEBRAE:There is normal bone marrow signal throughout the cervical region. There is no evidence for C6 fracture. Abnormality seen on recent CT the thoracic spine appeared to represent motion artifact. VISUALIZED SPINAL CORD: There is subtle increased signal in the cervical spine at the level of C5-6 o n the STIR sequence which could represent mild myelomalacia or edema. No increased T2 signal is noted on the sagittal T2 images. [id number]-[id number] ANALYSIS: C2-3: No significant disc abnormality, spinal canal stenosis, or neural foraminal stenosis. C3-4: There is moderate bilateral uncovertebral spurring, right greater than left. Mild facet arthrop athy. Moderate right neural foraminal stenosis is suspected. C4-5: Mild bilateral uncovertebral spurring and mild facet arthropathy are identified. Mild bilateral neural foraminal narrowing. No central canal stenosis. C5-6: Moderate to severe circumferential spur disc complex is identified which effaces the ventral th ecal sac. There is moderate facet arthropathy. Severe central canal stenosis measures 6 mm in AP dime nsion. Severe bilateral neural foraminal stenosis is also present. C6-7: Mild bilateral uncovertebral spurring and facet arthropathy. Mild bilateral neural foraminal na rrowing. No central canal stenosis. C7-T1: No significant disc abnormality, spinal canal stenosis, or neural foraminal stenosis. PARASPINAL SOFT TISSUES: No significant abnormality. ADDITIONAL FINDINGS: None. IMPRESSION: No evidence for C6 fracture on MRI. Moderate to severe cervical spondylosis is present. C5-6 is the most affected level where there is se mark central canal stenosis and bilateral neural foraminal narrowing. Please see above. There is subtle increased signal in the cervical spinal cord at C5-6 level at the site of stenosis wh ich could represent minimal cord edema or myelomalacia. Signer Name: Jesus Boyle Jr, MD Signed: 05/05/2021 9:52 AM Workstation Name: [id number]
[2021-05-05] MEDS: PANTOPRAZOLE 40 MG TAB PO SCH (10:03)
[2021-05-05] MEDS: CHOLECALCIFEROL (VIT D3) 1000 UNIT (25 mcg) TAB PO SCH (10:03)
--- NOTE | 2021-05-05 10:10 | Progress Note ---
Assessment and Plan 1. Acute kidney injury: Vasomotor RAMU (mild) superimposed on CKD stage 4. CT abdomen showed L atrophic kidney. On IV fluids. Monitor renal function. Creatinine level is about the same. Renal prognosis is guarded. Avoid nephrotoxic agents. Meds dosage based on GFR. 2. FEN: Monitor lytes and volume status. 3. Acute encephalopathy: CT head negative. Followed by Neuro. 4. Cervical spine fracture: Followed by Neuro-surgery. 5. Hypertension. 6. DM type 2. 7. COPD. Subjective: Patient was seen and examined at the bedside. Examination: General appearance: well-developed, well-nourished, appears stated age, not in distress HEENT: ATNC, MARK, hearing intact Neck: C-collar in place Respiratory: Clear to Auscultation Heart: regular, S1S2, no murmur Gastrointestinal: normoactive bowel sounds, not tender Integumentary: no rash, warm and dry Neurologic: confused, able to move extremities Ext: no edema Hemodialysis access: L arm AVF Psychiatric: cooperative Subjective Date of service: 05/05/21 Objective - Vital Signs Vital signs: Vital Signs - 12hr 05/04/21 05/04/21 05/04/21 22:55 23:00 23:02 Temperature Pulse Rate 73 72 Pulse Rate [ From Monitor] Respiratory 13 12 11 L Rate Respiratory 14 Rate [Neck] Blood Pressure 124/56 124/56 O2 Sat by Pulse 97 97 Oximetry 05/04/21 05/04/21 05/05/21 23:29 23:55 00:00 Temperature 97.6 F Pulse Rate 75 Pulse Rate [ 75 From Monitor] Respiratory 12 12 Rate Respiratory Rate [Neck] Blood Pressure 124/56 O2 Sat by Pulse 93 Oximetry 05/05/21 05/05/21 05/05/21 00:25 01:00 01:46 Temperature Pulse Rate 75 68 69 Pulse Rate [ From Monitor] Respiratory 12 12 Rate Respiratory Rate [Neck] Blood Pressure 109/48 109/59 O2 Sat by Pulse 96 96 Oximetry 05/05/21 05/05/21 05/05/21 02:00 02:16 02:30 Temperature Pulse Rate 68 65 65 Pulse Rate [ From Monitor] Respiratory 12 13 13 Rate Respiratory Rate [Neck] Blood Pressure 97/43 97/43 97/43 O2 Sat by Pulse 94 97 97 Oximetry 06/05/05/21 05/05/21 02:46 03:00 04:00 Temperature 97.7 F Pulse Rate 66 70 65 Pulse Rate [ 65 From Monitor] Respiratory 12 13 11 L Rate Respiratory Rate [Neck] Blood Pressure 106/44 109/49 105/44 O2 Sat by Pulse 96 97 96 Oximetry 05/05/21 05/05/21 05/05/21 04:10 05:00 06:00 Temperature Pulse Rate 64 67 68 Pulse Rate [ From Monitor] Respiratory 13 17 Rate Respiratory Rate [Neck] Blood Pressure 111/49 111/44 O2 Sat by Pulse 96 Oximetry 05/05/21 05/05/21 05/05/21 06:01 07:00 09:08 Temperature 98.1 F Pulse Rate 71 Pulse Rate [ From Monitor] Respiratory 18 11 L Rate Respiratory Rate [Neck] Blood Pressure 98/49 111/44 O2 Sat by Pulse 100 97 Oximetry 05/05/21 05/05/21 05/05/21 09:10 10:02 10:03 Temperature Pulse Rate 75 75 Pulse Rate [ From Monitor] Respiratory Rate Respiratory Rate [Neck] Blood Pressure 122/41 122/41 O2 Sat by Pulse 97 Oximetry - Lab 05/05/21 06:02 05/05/21 06:02 Most recent lab results ABG pH 7.396 pH Units (7.350-7.450) 05/03/21 13:24 ABG pCO2 39.7 mm Hg 05/03/21 13:24 ABG pO2 98.4 mm Hg (80.0-90.0) H 05/03/21 13:24 ABG HCO3 23.8 mmol/L (20.0-26.0) 05/03/21 13:24 ABG O2 Saturation 97.5 % (95.0-99.0) 05/03/21 13:24 Calcium 9.1 mg/dL (8.4-10.2) 05/05/21 06:02 Magnesium 2.30 mg/dL (1.7-2.3) 05/03/21 10:20 Urine Creatinine 73.6 mg/dL (0.1-20.0) H 05/05/21 00:21 Urine Sodium 125 mmol/L 05/05/21 00:21 Medications & Allergies - Medications Allergies/Adverse Reactions: Allergies vancomycin Allergy (Verified 04/21/19 21:21) Hives Home Medications: Home Medications Medication Instructions Recorded Confirmed Last Taken Type ALPRAZolam [Xanax TAB] 1 mg PO DAILY PRN 02/11/18 05/05/21 09/12/19 History Clopidogrel Bisulfate [Plavix] 75 mg PO DAILY 02/11/18 05/05/21 09/12/19 History Gabapentin 300 mg PO TID 02/11/18 05/05/21 09/12/19 History Metoprolol [Lopressor TAB] 50 mg PO BID 02/11/18 05/05/21 09/12/19 History Pantoprazole [Protonix TAB] 40 mg PO DAILY 02/11/18 05/05/21 09/12/19 History Pravastatin Sodium [Pravastatin] 20 mg PO QHS 02/11/18 05/05/21 09/12/19 History Cholecalciferol (Vitamin D3) 1 tab PO DAILY 04/21/19 05/05/21 09/12/19 History [Vitamin D3 2,000 UNIT CAP] Ferrous Gluconate [Ferrous 1 tab PO BID 04/21/19 05/05/21 09/12/19 History Gluconate 324 MG] amLODIPine 10 mg PO DAILY 04/21/19 05/05/21 09/12/19 History ISOSORBIDE MONOnitrate [Imdur ER] 30 mg PO QDAY #30 tablet 04/24/19 05/05/21 09/12/19 Rx Albuterol Mdi (or & Nicu Only) 1 puff IH TID 05/05/21 05/05/21 Unknown History [ProAir HFA Inhaler] Furosemide [Lasix TAB] 1 tab PO DAILY 05/05/21 05/05/21 Unknown History Umeclidinium Brm/Vilanterol Tr 1 each IH DAILY 05/05/21 05/05/21 Unknown History [Anoro Ellipta 62.5-25 Mcg INH] Active Medications: Generic Name Dose Route Start Last Admin Trade Name Freq PRN Reason Stop Dose Admin Acetaminophen 650 mg 05/04/21 01:29 05/05/21 06:01 Acetaminophen 325 Mg Tab PO 650 mg Q4H PRN Administration Pain MILD(1-3)/Fever >100.5/ZHANG Alprazolam 0.5 mg 05/04/21 01:27 05/04/21 11:34 Alprazolam 0.5 Mg Tab PO 0.5 mg DAILY PRN Administration Anxiety Amlodipine Besylate 5 mg 05/04/21 10:00 05/05/21 10:02 Amlodipine 5 Mg Tab PO 5 mg DAILY NITESH Administration Cholecalciferol 2,000 unit 05/04/21 10:00 05/05/21 10:03 Cholecalciferol (Vit D3) 1000 Unit (25 Mcg) Tab PO 2,000 unit DAILY NITESH Administration Hydromorphone HCl 1 mg 05/04/21 01:29 05/04/21 17:47 Hydromorphone 1 Mg/1 Ml Inj IV 1 mg Q3H PRN Administration Pain , Severe (7-10) Sodium Chloride 1,000 mls @ 75 mls/hr 05/04/21 01:30 05/05/21 06:03 Nacl 0.9% 1000 Ml IV 75 mls/hr DIRECT NITESH Administration Isosorbide Mononitrate 30 mg 05/04/21 10:00 05/05/21 10:03 Isosorbide Mononitrate Er 30 Mg Tab PO 30 mg QDAY NITESH Administration Lorazepam 2 mg 05/04/21 12:45 Lorazepam 2 Mg/Ml Vial IV 05/05/21 23:59 [employer] SERVICES MA[employer] NR Metoclopramide HCl 5 mg 05/04/21 01:29 05/04/21 23:12 Metoclopramide 10 Mg/2 Ml Inj IV 5 mg Q6H PRN Administration Nausea And Vomiting Metoprolol Tartrate 25 mg 05/04/21 02:00 05/05/21 10:02 Metoprolol Tartrate 25 Mg Tab PO 25 mg BID@0800,1700 NITESH Administration Ondansetron HCl 4 mg 05/04/21 01:29 05/05/21 05:28 Ondansetron 4 Mg/2 Ml Inj IV 4 mg Q8H PRN Administration Nausea And Vomiting Oxycodone/Acetaminophen 1 tab 05/04/21 01:29 05/04/21 11:34 Oxycodone /Acetaminophen 5-325mg Tab PO 1 tab Q6H PRN Administration Pain, Moderate (4-6) Pantoprazole Sodium 40 mg 05/04/21 10:00 05/05/21 10:03 Pantoprazole 40 Mg Tab PO 40 mg DAILY NITESH Administration Pravastatin Sodium 20 mg 05/04/21 22:00 05/04/21 22:55 Pravastatin 20 Mg Tab PO 20 mg QHS NITESH Administration Sodium Chloride 10 ml 05/04/21 10:00 05/05/21 10:05 Sodium Chloride 0.9% 10 Ml Flush Syringe IV 10 ml BID NITESH Administration Sodium Chloride 10 ml 05/04/21 01:29 Sodium Chloride 0.9% 10 Ml Flush Syringe IV PRN PRN LINE FLUSH
--- NOTE | 2021-05-05 10:45 | Progress Note ---
Assessment and Plan Assessment and Plan # Acute encephalopathy -Possible post concussion injury??. -Will admit to IMCU. -C-spine collar. -Currently oriented to place and recall her birthday and address , disoriented to date , No since to suggest encephalopathy but underlying possible mild dementia ? no known base line---- -medication effect contribute to confusion and fall ? Neurontine,Xanax?? -Place neurontine on hold -xanax prn -Avoid Narcotics # Fall and resulted neck injury and post fall head injury -Etiology of fall is unclear -pt. 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 -ESR#36 ,KADI pending # Cervical compression fracture - Cervical vertebra fracture level: C6 Cervical collar applied for immobilization. -MRI cervical is remarkable for central stenosis C5-6 -No long track sign on exam -Mri dorsal spine showed degenerative disc disease - Brain MRI /MRA and carotid US pending -Neurosurgery consulted. # Hypertension -Continue antihypertensives. # CKD (chronic kidney disease) -Patient has a fistula would not do dialysis candidate -Patient being seen by Dr. Joseph # COPD (chronic obstructive pulmonary disease) -DuoNebs as needed (6) DVT prophylaxis -On heparin and GI prophylaxis PLAN - EEG -Echo -MRI /MRA brain -US carotid -check for orthostatic -telemetry -Neuro surgery R/C neck injury and C6 no fracture is noted on MRI ? will follow as needed Subjective Date of service: 05/05/21 Principal diagnosis: fall and injured neck Interval history: status same , had chance to talk yesterday to her step daughter who lives with her According to step daughter MOM fell with possible confusion after the fall [place] close to 10 minutes not sure about tongue bitting, pt. is with diaper not sure about incontinence --she is with occasional fall but never had post fall confusion except yesterday , no witnessed seizure or a Hx of seizure she is with mild memory difficulty as per step daughter and at time she talk to her in the room ,( her is ) denied auditory hallucination , she had family hx of schizophrenia ? but pt. never seen psychiatrist Objective - Vital Sign Vital Signs - 12hr 05/04/21 05/04/21 05/04/21 22:55 23:00 23:02 Temperature Pulse Rate 73 72 Pulse Rate [ From Monitor] Respiratory 13 12 11 L Rate Respiratory 14 Rate [Neck] Blood Pressure 124/56 124/56 O2 Sat by Pulse 97 97 Oximetry 05/04/21 05/04/21 05/05/21 23:29 23:55 00:00 Temperature 97.6 F Pulse Rate 75 Pulse Rate [ 75 From Monitor] Respiratory 12 12 Rate Respiratory Rate [Neck] Blood Pressure 124/56 O2 Sat by Pulse 93 Oximetry 05/05/21 05/05/21 05/05/21 00:25 01:00 01:46 Temperature Pulse Rate 75 68 69 Pulse Rate [ From Monitor] Respiratory 12 12 Rate Respiratory Rate [Neck] Blood Pressure 109/48 109/59 O2 Sat by Pulse 96 96 Oximetry 05/05/21 05/05/21 05/05/21 02:00 02:16 02:30 Temperature Pulse Rate 68 65 65 Pulse Rate [ From Monitor] Respiratory 12 13 13 Rate Respiratory Rate [Neck] Blood Pressure 97/43 97/43 97/43 O2 Sat by Pulse 94 97 97 Oximetry 05/05/21 05/05/21 05/05/21 02:46 03:00 04:00 Temperature 97.7 F Pulse Rate 66 70 65 Pulse Rate [ 65 From Monitor] Respiratory 12 13 11 L Rate Respiratory Rate [Neck] Blood Pressure 106/44 109/49 105/44 O2 Sat by Pulse 96 97 96 Oximetry 05/05/21 05/05/21 05/05/21 04:10 05:00 06:00 Temperature Pulse Rate 64 67 68 Pulse Rate [ From Monitor] Respiratory 13 17 Rate Respiratory Rate [Neck] Blood Pressure 111/49 111/44 O2 Sat by Pulse 96 Oximetry 05/05/21 05/05/21 05/05/21 06:01 07:00 09:08 Temperature 98.1 F Pulse Rate 71 Pulse Rate [ From Monitor] Respiratory 18 11 L Rate Respiratory Rate [Neck] Blood Pressure 98/49 111/44 O2 Sat by Pulse 100 97 Oximetry 05/05/21 05/05/21 05/05/21 09:10 10:02 10:03 Temperature Pulse Rate 75 75 Pulse Rate [ From Monitor] Respiratory Rate Respiratory Rate [Neck] Blood Pressure 122/41 122/41 O2 Sat by Pulse 97 Oximetry - General Apperance Constitutional: comfortable - EENT EENT: PERRL - Respiratory Respiratory: chest non-tender, lungs clear - Cardiovascular Cardiovascular: regular rate, normal S1, normal S2 Extremities: no peripheral edema bilat, no clubbing, cyanosis - Gastrointestinal Gastrointestinal: normoactive bowel sounds - Integumentary Integumentary: normal - Neurologic Cranial nerve examination: intact Speech examination: intact Detailed motor examination: grossly full strength in (no brisk reflexes ) - Laboratory Findings CBC and BMP: 05/05/21 06:02 05/05/21 06:02 Abnormal Lab Findings: Abnormal Labs 05/03/21 05/03/21 05/03/21 10:20 10:20 10:20 RBC RDW 16.5 H Seg Neuts % (Manual) 78.0 H PT 12.0 L INR 0.83 L ABG pO2 Chloride BUN 37 H Creatinine 2.9 H Glucose 137 H Hemoglobin A1c Total Creatine Kinase 208 H NT-Pro-B Natriuret Pep Urine Creatinine Salicylates Acetaminophen 05/03/21 05/03/21 05/03/21 10:20 10:20 10:33 RBC RDW Seg Neuts % (Manual) PT INR ABG pO2 Chloride BUN Creatinine Glucose Hemoglobin A1c Total Creatine Kinase NT-Pro-B Natriuret Pep 1472 H Urine Creatinine Salicylates < 0.3 L Acetaminophen 5.0 L 05/03/21 05/04/21 05/04/21 13:24 03:26 03:26 RBC RDW Seg Neuts % (Manual) PT INR ABG pO2 98.4 H Chloride 107.3 H BUN 34 H Creatinine 2.9 H Glucose 118 H Hemoglobin A1c 7.2 H Total Creatine Kinase NT-Pro-B Natriuret Pep Urine Creatinine Salicylates Acetaminophen 05/05/21 05/05/21 05/05/21 00:21 06:02 06:02 RBC 3.56 L RDW 16.5 H Seg Neuts % (Manual) PT INR ABG pO2 Chloride 109.1 H BUN 36 H Creatinine 2.8 H Glucose Hemoglobin A1c Total Creatine Kinase NT-Pro-B Natriuret Pep Urine Creatinine 73.6 H Salicylates Acetaminophen
--- NOTE | 2021-05-05 12:47 | Progress Note ---
Assessment and Plan Assessment and plan: Advance Directives: Yes (Full code) VTE prophylaxis?: Chemical Plan of care discussed with patient/family: Yes --Acute encephalopathy/POA Current Visit: Yes Status: Acute Patient is more alert and awake responding appropriately continue supportive care --History of fall; Current Visit: Yes Status: Acute. Fall precautions ,PT OT as needed when cleared by neurology/neurosurgery --No evidence of C6 cervical compression fracture On MRI C-spine today Current Visit: Yes Status: Acute Continue cervical collar Management per neurology and neurosurgery MRI cervical spine 05/05/2021; no evidence of C6 fracture on MRI moderate to severe cervical spondylosis present C5-C6 is the most affected level severe central canal stenosis and bilateral neural foraminal narrowing subtle increased signal seen in the cervical spinal cord at C5-C6 level may r epresent minimal cord edema or myelomalacia myelomalacia myelomalacia, Neurosurgeon and neurologist following . --Hypertension/well controlled Current Visit: Yes Status: Chronic Continue antihypertensives. And as needed medications --CKD (chronic kidney disease) stage IV Current Visit: Yes Status: Acute Closely monitor renal function avoid nephrotoxins Nephrology following -- COPD (chronic obstructive pulmonary disease) Current Visit: Yes Status: Chronic Well compensated ,DuoNebs as needed Oxygen titrate O2 sats more than 90% --Obesity; BMI 32.8 Current Visit: Yes Status: Chronic . Patient advised diet modification exercise as tolerated and weight reduction when medically stable --Full code; --DVT prophylaxis Current Visit: Yes Status: Acute On heparin and GI prophylaxis We will closely monitor the patient and adjust the management as needed Monitor closely and adjust the management as needed Follow neurology and neurosurgery evaluation and recommendations Plan of care reviewed with patient and her nurse I also discussed in detail with the daughter Ms. Floyd Rosa who is at the bedside History Interval history: I have seen and examined the patient at the bedside this morning Patient's chart and medications reviewed Patient feels slightly better, MRI cervical spine and MRI L-spine findings reviewed Neurology and neurosurgery following Vital signs noted patient's daughter at the bedside Hospitalist Physical - Constitutional Vitals: Temp Pulse Resp BP Pulse Ox 98.4 F 66 12 120/45 100 05/05/21 11:34 05/05/21 11:00 05/05/21 11:00 05/05/21 11:00 05/05/21 11:00 General appearance: Present: no acute distress, well-nourished, other (Cervical collar in place) - EENT Eyes: Present: PERRL, EOM intact - Neck Neck: Present: supple, normal ROM - Respiratory Respiratory effort: normal Respiratory: bilateral: diminished, negative: rales, rhonchi, wheezing - Extremities Extremities: no ischemia, pulses intact - Abdominal General gastrointestinal: soft, non-tender, non-distended, normal bowel sounds - Integumentary Integumentary: Present: clear, warm - Psychiatric Psychiatric: appropriate mood/affect, cooperative - Neurologic Neurologic: moves all extremities HEART Score - HEART Score Troponin: Troponin T < 0.010 ng/mL (0.00-0.029) 05/03/21 10:20 Results - Labs CBC & Chem 7: 05/05/21 06:02 05/05/21 06:02 Labs: Laboratory Last Values WBC 7.9 K/mm3 (4.5-11.0) 05/05/21 06:02 RBC 3.56 M/mm3 (3.65-5.03) L 05/05/21 06:02 Hgb 11.0 gm/dl (10.1-14.3) 05/05/21 06:02 Hct 32.2 % (30.3-42.9) 05/05/21 06:02 MCV 91 fl (79-97) 05/05/21 06:02 MCH 31 pg (28-32) 05/05/21 06:02 MCHC 34 % (30-34) 05/05/21 06:02 RDW 16.5 % (13.2-15.2) H 05/05/21 06:02 Plt Count 223 K/mm3 (140-440) 05/05/21 06:02 Add Manual Diff Complete 05/03/21 10:20 Total Counted 100 05/03/21 10:20 Seg Neuts % (Manual) 78.0 % (40.0-70.0) H 05/03/21 10:20 Lymphocytes % (Manual) 17.0 % (13.4-35.0) 05/03/21 10:20 Monocytes % (Manual) 2.0 % (0.0-7.3) 05/03/21 10:20 Basophils % (Manual) 1.0 % (0.0-1.8) 05/03/21 10:20 Metamyelocytes % 2.0 % 05/03/21 10:20 Nucleated RBC % Not Reportable 05/03/21 10:20 Seg Neutrophils # Man 6.4 K/mm3 (1.8-7.7) 05/03/21 10:20 Band Neutrophils # 0.0 K/mm3 05/03/21 10:20 Lymphocytes # (Manual) 1.4 K/mm3 (1.2-5.4) 05/03/21 10:20 Abs React Lymphs (Man) 0.0 K/mm3 05/03/21 10:20 Monocytes # (Manual) 0.2 K/mm3 (0.0-0.8) 05/03/21 10:20 Eosinophils # (Manual) 0.0 K/mm3 (0.0-0.4) 05/03/21 10:20 Basophils # (Manual) 0.1 K/mm3 (0.0-0.1) 05/03/21 10:20 Metamyelocytes # 0.2 K/mm3 05/03/21 10:20 Myelocytes # 0.0 K/mm3 05/03/21 10:20 Promyelocytes # 0.0 K/mm3 05/03/21 10:20 Blast Cells # 0.0 K/mm3 05/03/21 10:20 WBC Morphology Not Reportable 05/03/21 10:20 Hypersegmented Neuts Not Reportable 05/03/21 10:20 Hyposegmented Neuts Not Reportable 05/03/21 10:20 Hypogranular Neuts Not Reportable 05/03/21 10:20 Smudge Cells Not Reportable 05/03/21 10:20 Toxic Granulation Not Reportable 05/03/21 10:20 Toxic Vacuolation Not Reportable 05/03/21 10:20 Dohle Bodies Not Reportable 05/03/21 10:20 Pelger-Huet Anomaly Not Reportable 05/03/21 10:20 Padmaja Rods Not Reportable 05/03/21 10:20 Platelet Estimate Consistent w auto 05/03/21 10:20 Clumped Platelets Not Reportable 05/03/21 10:20 Plt Clumps, EDTA Not Reportable 05/03/21 10:20 Large Platelets Not Reportable 05/03/21 10:20 Giant Platelets Not Reportable 05/03/21 10:20 Platelet Satelliting Not Reportable 05/03/21 10:20 Plt Morphology Comment Not Reportable 05/03/21 10:20 RBC Morphology Normal 05/03/21 10:20 Dimorphic RBCs Not Reportable 05/03/21 10:20 Polychromasia Not Reportable 05/03/21 10:20 Hypochromasia Not Reportable 05/03/21 10:20 Poikilocytosis Not Reportable 05/03/21 10:20 Anisocytosis Not Reportable 05/03/21 10:20 Microcytosis Not Reportable 05/03/21 10:20 Macrocytosis Not Reportable 05/03/21 10:20 Spherocytes Not Reportable 05/03/21 10:20 Pappenheimer Bodies Not Reportable 05/03/21 10:20 Sickle Cells Not Reportable 05/03/21 10:20 Target Cells Not Reportable 05/03/21 10:20 Tear Drop Cells Not Reportable 05/03/21 10:20 Ovalocytes Not Reportable 05/03/21 10:20 Helmet Cells Not Reportable 05/03/21 10:20 [place] Bodies Not Reportable 05/03/21 10:20 [place] Rings Not Reportable 05/03/21 10:20 Ceasar Cells Not Reportable 05/03/21 10:20 Bite Cells Not Reportable 05/03/21 10:20 Crenated Cell Not Reportable 05/03/21 10:20 Elliptocytes Not Reportable 05/03/21 10:20 Acanthocytes (Spur) Not Reportable 05/03/21 10:20 Rouleaux Not Reportable 05/03/21 10:20 Hemoglobin C Crystals Not Reportable 05/03/21 10:20 Schistocytes Not Reportable 05/03/21 10:20 Malaria parasites Not Reportable 05/03/21 10:20 ESR 36 mm/Hr (0-20) 05/04/21 14:49 Luis Bodies Not Reportable 05/03/21 10:20 Hem Pathologist Commnt No 05/03/21 10:20 PT 12.0 Sec. (12.2-14.9) L 05/03/21 10:20 INR 0.83 (0.87-1.13) L 05/03/21 10:20 APTT 24.2 Sec. (24.2-36.6) 05/03/21 10:20 ABG pH 7.396 pH Units (7.350-7.450) 05/03/21 13:24 ABG pCO2 39.7 mm Hg 05/03/21 13:24 ABG pO2 98.4 mm Hg (80.0-90.0) H 05/03/21 13:24 ABG HCO3 23.8 mmol/L (20.0-26.0) 05/03/21 13:24 ABG O2 Saturation 97.5 % (95.0-99.0) 05/03/21 13:24 ABG O2 Content 16.3 (0.0-44) 05/03/21 13:24 ABG Base Excess -0.9 mmol/L (-2.0-3.0) 05/03/21 13:24 ABG Hemoglobin 12.0 gm/dl (12.0-16.0) 05/03/21 13:24 ABG Carboxyhemoglobin 1.3 % (0.0-5.0) 05/03/21 13:24 ABG Methemoglobin 0.4 % (0.0-1.5) 05/03/21 13:24 Oxyhemoglobin 95.8 % (95.0-99.0) 05/03/21 13:24 FiO2 32 % 05/03/21 13:24 Sodium 143 mmol/L (137-145) 05/05/21 06:02 Potassium 4.8 mmol/L (3.6-5.0) 05/05/21 06:02 Chloride 109.1 mmol/L (98-107) H 05/05/21 06:02 Carbon Dioxide 23 mmol/L (22-30) 05/05/21 06:02 Anion Gap 16 mmol/L 05/05/21 06:02 BUN 36 mg/dL (7-17) H 05/05/21 06:02 Creatinine 2.8 mg/dL (0.6-1.2) H 05/05/21 06:02 Estimated GFR 17 ml/min 05/05/21 06:02 BUN/Creatinine Ratio 13 % 05/05/21 06:02 Glucose 95 mg/dL (65-100) 05/05/21 06:02 Hemoglobin A1c 7.2 % (4-6) H 05/04/21 03:26 Calcium 9.1 mg/dL (8.4-10.2) 05/05/21 06:02 Magnesium 2.30 mg/dL (1.7-2.3) 05/03/21 10:20 Total Bilirubin 0.30 mg/dL (0.1-1.2) 05/05/21 06:02 AST 12 units/L (5-40) 05/05/21 06:02 ALT 13 units/L (7-56) 05/05/21 06:02 Alkaline Phosphatase 81 units/L (35-129) 05/05/21 06:02 Total Creatine Kinase 208 units/L (30-135) H 05/03/21 10:20 Troponin T < 0.010 ng/mL (0.00-0.029) 05/03/21 10:20 NT-Pro-B Natriuret Pep 1472 pg/mL (0-900) H 05/03/21 10:33 Total Protein 6.3 g/dL (6.3-8.2) 05/05/21 06:02 Albumin 4.0 g/dL (3.9-5) 05/05/21 06:02 Albumin/Globulin Ratio 1.7 % 05/05/21 06:02 Vitamin B12 469.5 pg/mL (211-911) 05/04/21 14:48 TSH 2.600 mlU/mL (0.270-4.200) 05/04/21 14:48 Urine Color Straw (Yellow) 05/03/21 12:27 Urine Turbidity Clear (Clear) 05/03/21 12:27 Urine pH 7.0 (5.0-7.0) 05/03/21 12:27 Ur Specific [place] 1.009 (1.003-1.030) 05/03/21 12:27 Urine Protein 30 mg/dl mg/dL (Negative) 05/03/21 12:27 Urine Glucose (UA) Neg mg/dL (Negative) 05/03/21 12:27 Urine Ketones Neg mg/dL (Negative) 05/03/21 12:27 Urine Blood Neg (Negative) 05/03/21 12:27 Urine Nitrite Neg (Negative) 05/03/21 12:27 Urine Bilirubin Neg (Negative) 05/03/21 12:27 Urine Urobilinogen < 2.0 mg/dL (<2.0) 05/03/21 12:27 Ur Leukocyte Esterase Neg (Negative) 05/03/21 12:27 Urine WBC (Auto) < 1.0 /HPF (0.0-6.0) 05/03/21 12:27 Urine RBC (Auto) 1.0 /HPF (0.0-6.0) 05/03/21 12:27 U Epithel Cells (Auto) < 1.0 /HPF (0-13.0) 05/03/21 12:27 Urine Creatinine 73.6 mg/dL (0.1-20.0) H 05/05/21 00:21 Urine Sodium 125 mmol/L 05/05/21 00:21 Salicylates < 0.3 mg/dL (2.8-20.0) L 05/03/21 10:20 Acetaminophen 5.0 ug/mL (10.0-30.0) L 05/03/21 10:20 Plasma/Serum Alcohol < 0.01 % (0-0.07) 05/03/21 10:20 Blood Type A POSITIVE 05/03/21 10:20 Antibody Screen Negative 05/03/21 10:20 Sosa/IV: Voiding Method External Female Catheter Active Medications - Current Medications Current Medications: Generic Name Dose Route Start Last Admin Trade Name Freq PRN Reason Stop Dose Admin Acetaminophen 650 mg 05/04/21 01:29 05/05/21 06:01 Acetaminophen 325 Mg Tab PO 650 mg Q4H PRN Administration Pain MILD(1-3)/Fever >100.5/ZHANG Alprazolam 0.5 mg 05/04/21 01:27 05/04/21 11:34 Alprazolam 0.5 Mg Tab PO 0.5 mg DAILY PRN Administration Anxiety Amlodipine Besylate 5 mg 05/04/21 10:00 05/05/21 10:02 Amlodipine 5 Mg Tab PO 5 mg DAILY NITESH Administration Cholecalciferol 2,000 unit 05/04/21 10:00 05/05/21 10:03 Cholecalciferol (Vit D3) 1000 Unit (25 Mcg) Tab PO 2,000 unit DAILY NITESH Administration Hydromorphone HCl 1 mg 05/04/21 01:29 05/04/21 17:47 Hydromorphone 1 Mg/1 Ml Inj IV 1 mg Q3H PRN Administration Pain , Severe (7-10) Sodium Chloride 1,000 mls @ 75 mls/hr 05/04/21 01:30 05/05/21 06:03 Nacl 0.9% 1000 Ml IV 75 mls/hr DIRECT NITESH Administration Isosorbide Mononitrate 30 mg 05/04/21 10:00 05/05/21 10:03 Isosorbide Mononitrate Er 30 Mg Tab PO 30 mg QDAY NITESH Administration Lorazepam 2 mg 05/04/21 12:45 Lorazepam 2 Mg/Ml Vial IV 05/05/21 23:59 AB INITIO [employer]ELOPER NR Metoclopramide HCl 5 mg 05/04/21 01:29 05/04/21 23:12 Metoclopramide 10 Mg/2 Ml Inj IV 5 mg Q6H PRN Administration Nausea And Vomiting Metoprolol Tartrate 25 mg 05/04/21 02:00 05/05/21 10:02 Metoprolol Tartrate 25 Mg Tab PO 25 mg BID@0800,1700 NITESH Administration Ondansetron HCl 4 mg 05/04/21 01:29 05/05/21 05:28 Ondansetron 4 Mg/2 Ml Inj IV 4 mg Q8H PRN Administration Nausea And Vomiting Oxycodone/Acetaminophen 1 tab 05/04/21 01:29 05/04/21 11:34 Oxycodone /Acetaminophen 5-325mg Tab PO 1 tab Q6H PRN Administration Pain, Moderate (4-6) Pantoprazole Sodium 40 mg 05/04/21 10:00 05/05/21 10:03 Pantoprazole 40 Mg Tab PO 40 mg DAILY NITESH Administration Pravastatin Sodium 20 mg 05/04/21 22:00 05/04/21 22:55 Pravastatin 20 Mg Tab PO 20 mg QHS NITESH Administration Sodium Chloride 10 ml 05/04/21 10:00 05/05/21 10:05 Sodium Chloride 0.9% 10 Ml Flush Syringe IV 10 ml BID NITESH Administration Sodium Chloride 10 ml 05/04/21 01:29 Sodium Chloride 0.9% 10 Ml Flush Syringe IV PRN PRN LINE FLUSH
[2021-05-05 15:39] LABS: Anisocytosis RARE; Band Neutrophils # (Manual) 0.2 K/mm3; Platelet Estimate Consistent w Auto; Total Cells Counted 100
--- NOTE | 2021-05-05 17:40 | Event Note ---
Date: 05/05/21 Ms. Floyd Rosa is at the bedside this afternoon .I discussed in detail patient's current condition , reports of imaging studies especially MRI C-spine and MRI T-spine , consultants recommendations and treatment plan .she had many questions I answered all of them .and encouraged her to speak with neurology /neurosurgery with the help of patient's nurse, if she has more questions or concerns regarding her MRI brain and other scans .
[2021-05-05] MEDS: PRAVASTATIN 20 MG TAB PO SCH (22:02)
[2021-05-06 04:58] LABS: Calcium 8.8 mg/dL (8.4-10.2)
[2021-05-06] MEDS: METOPROLOL TARTRATE 25 MG TAB PO SCH ×2 (08:27→16:03)
[2021-05-06] MEDS: SODIUM CHLORIDE 0.45% 1000 ML 1,000 ML IV SCH ×2 (08:33→22:56)
[2021-05-06] MEDS: CHOLECALCIFEROL (VIT D3) 1000 UNIT (25 mcg) TAB PO SCH (09:11)
[2021-05-06] MEDS: PANTOPRAZOLE 40 MG TAB PO SCH (09:12)
[2021-05-06] MEDS: amLODIPine 5 MG TAB PO SCH (09:12)
--- NOTE | 2021-05-06 10:39 | Progress Note ---
Assessment and Plan Assessment and plan: Advance Directives: Yes (Full code) VTE prophylaxis?: Chemical Plan of care discussed with patient/family: Yes --Acute encephalopathy/POA Current Visit: Yes Status: Acute Resolved patient is at her baseline Alert and awake responding appropriately oriented --History of fall; Current Visit: Yes Status: Acute. Fall precautions ,PT OT evaluation and recommendations. J --No evidence of [id number] fracture On MRI C-spine Current Visit: Yes Status: Acute Discussed with neurosurgeon Dr. Chappell Advised to discontinue cervical collar Management per neurology and neurosurgery MRI cervical spine 05/05/2021; no evidence of C6 fracture on MRI moderate to severe cervical spondylosis present C5-C6 is the most affected level severe central canal stenosis and bilateral neural foraminal narrowing subtle increased signal seen in the cervical spinal cord at C5-C6 level may represent minimal cord edema or myelomalacia myelomalacia myelomalacia, Neurosurgeon and neurologist following . --Hypertension/well controlled Current Visit: Yes Status: Chronic Continue antihypertensives. And as needed medications --CKD (chronic kidney disease) stage IV Current Visit: Yes Status: Acute Closely monitor renal function avoid nephrotoxins Nephrology following -- COPD (chronic obstructive pulmonary disease) Current Visit: Yes Status: Chronic Well compensated ,DuoNebs as needed Oxygen titrate O2 sats more than 90% --Obesity; BMI 32.8 Current Visit: Yes Status: Chronic . Patient advised diet modification exercise as tolerated and weight reduction when medically stable --Full code; --DVT prophylaxis Current Visit: Yes Status: Acute On heparin and GI prophylaxis DC cervical collar, ambulate as tolerated PT OT evaluation, transfer out of [facility] to medical floor Possible discharge home in 1 to 2 days if stable Neurology and neurosurgery cleared for discharge follow-up per schedule for further evaluation and management Plan of care reviewed with the patient, patient's nurse, and patient's daughter next of kin Ms. Floyd Rosa Transfer the patient to medical floor Increase ambulation, follow PT OT eval patient DC planning per case management We will closely monitor the patient and adjust the management as needed Monitor closely and adjust the management as needed Follow neurology and neurosurgery evaluation and recommendations Plan of care reviewed with patient and her nurse I also discussed in detail with the daughter Ms. Floyd Rosa who is at the bedside History Interval history: I have seen and examined the patient at the bedside this morning in IMCU Patient's chart and medications reviewed Patient feels better, denies headache dizziness or neck pain Vital signs noted Hospitalist Physical - Constitutional Vitals: Temp Pulse Resp BP Pulse Ox 98.6 F 74 18 143/63 97 05/06/21 07:00 05/06/21 10:00 05/06/21 10:00 05/06/21 10:00 05/06/21 10:00 General appearance: Present: no acute distress, well-nourished, other (Cervical collar in place) - EENT Eyes: Present: PERRL, EOM intact - Neck Neck: Present: supple, normal ROM - Respiratory Respiratory effort: normal Respiratory: bilateral: diminished, negative: rales, rhonchi, wheezing - Cardiovascular Rhythm: regular Heart Sounds: Present: S1 & S2 - Extremities Extremities: no ischemia, No edema - Abdominal General gastrointestinal: soft, non-tender, non-distended, normal bowel sounds - Integumentary Integumentary: Present: clear, warm - Psychiatric Psychiatric: appropriate mood/affect, cooperative - Neurologic Neurologic: moves all extremities HEART Score - HEART Score Troponin: Troponin T < 0.010 ng/mL (0.00-0.029) 05/03/21 10:20 Results - Labs CBC & Chem 7: 05/05/21 06:02 05/06/21 04:02 Labs: Laboratory Last Values WBC 7.9 K/mm3 (4.5-11.0) 05/05/21 06:02 RBC 3.56 M/mm3 (3.65-5.03) L 05/05/21 06:02 Hgb 11.0 gm/dl (10.1-14.3) 05/05/21 06:02 Hct 32.2 % (30.3-42.9) 05/05/21 06:02 MCV 91 fl (79-97) 05/05/21 06:02 MCH 31 pg (28-32) 05/05/21 06:02 MCHC 34 % (30-34) 05/05/21 06:02 RDW 16.5 % (13.2-15.2) H 05/05/21 06:02 Plt Count 223 K/mm3 (140-440) 05/05/21 06:02 Add Manual Diff Complete 05/05/21 06:02 Total Counted 100 05/05/21 06:02 Seg Neuts % (Manual) 83.0 % (40.0-70.0) H 05/05/21 06:02 Band Neutrophils % 2.0 % 05/05/21 06:02 Lymphocytes % (Manual) 10.0 % (13.4-35.0) L 05/05/21 06:02 Monocytes % (Manual) 4.0 % (0.0-7.3) 05/05/21 06:02 Basophils % (Manual) 1.0 % (0.0-1.8) 05/05/21 06:02 Metamyelocytes % 2.0 % 05/03/21 10:20 Nucleated RBC % Not Reportable 05/05/21 06:02 Seg Neutrophils # Man 6.6 K/mm3 (1.8-7.7) 05/05/21 06:02 Band Neutrophils # 0.2 K/mm3 05/05/21 06:02 Lymphocytes # (Manual) 0.8 K/mm3 (1.2-5.4) L 05/05/21 06:02 Abs React Lymphs (Man) 0.0 K/mm3 05/05/21 06:02 Monocytes # (Manual) 0.3 K/mm3 (0.0-0.8) 05/05/21 06:02 Eosinophils # (Manual) 0.0 K/mm3 (0.0-0.4) 05/05/21 06:02 Basophils # (Manual) 0.1 K/mm3 (0.0-0.1) 05/05/21 06:02 Metamyelocytes # 0.0 K/mm3 05/05/21 06:02 Myelocytes # 0.0 K/mm3 05/05/21 06:02 Promyelocytes # 0.0 K/mm3 05/05/21 06:02 Blast Cells # 0.0 K/mm3 05/05/21 06:02 WBC Morphology Not Reportable 05/05/21 06:02 Hypersegmented Neuts Not Reportable 05/05/21 06:02 Hyposegmented Neuts Not Reportable 05/05/21 06:02 Hypogranular Neuts Not Reportable 05/05/21 06:02 Smudge Cells Not Reportable 05/05/21 06:02 Toxic Granulation Not Reportable 05/05/21 06:02 Toxic Vacuolation Not Reportable 05/05/21 06:02 Dohle Bodies Not Reportable 05/05/21 06:02 Pelger-Huet Anomaly Not Reportable 05/05/21 06:02 Padmaja Rods Not Reportable 05/05/21 06:02 Platelet Estimate Consistent w auto 05/05/21 06:02 Clumped Platelets Not Reportable 05/05/21 06:02 Plt Clumps, EDTA Not Reportable 05/05/21 06:02 Large Platelets Not Reportable 05/05/21 06:02 Giant Platelets Not Reportable 05/05/21 06:02 Platelet Satelliting Not Reportable 05/05/21 06:02 Plt Morphology Comment Not Reportable 05/05/21 06:02 RBC Morphology Not Reportable 05/05/21 06:02 Dimorphic RBCs Not Reportable 05/05/21 06:02 Polychromasia Not Reportable 05/05/21 06:02 Hypochromasia Not Reportable 05/05/21 06:02 Poikilocytosis Not Reportable 05/05/21 06:02 Anisocytosis Rare 05/05/21 06:02 Microcytosis Not Reportable 05/05/21 06:02 Macrocytosis Not Reportable 05/05/21 06:02 Spherocytes Not Reportable 05/05/21 06:02 Pappenheimer Bodies Not Reportable 05/05/21 06:02 Sickle Cells Not Reportable 05/05/21 06:02 Target Cells Not Reportable 05/05/21 06:02 Tear Drop Cells Not Reportable 05/05/21 06:02 Ovalocytes Not Reportable 05/05/21 06:02 Helmet Cells Not Reportable 05/05/21 06:02 [place] Bodies Not Reportable 05/05/21 06:02 Mccune Rings Not Reportable 05/05/21 06:02 Ceasar Cells Not Reportable 05/05/21 06:02 Bite Cells Not Reportable 05/05/21 06:02 Crenated Cell Not Reportable 05/05/21 06:02 Elliptocytes Not Reportable 05/05/21 06:02 Acanthocytes (Spur) Not Reportable 05/05/21 06:02 Rouleaux Not Reportable 05/05/21 06:02 Hemoglobin C Crystals Not Reportable 05/05/21 06:02 Schistocytes Not Reportable 05/05/21 06:02 Malaria parasites Not Reportable 05/05/21 06:02 ESR 36 mm/Hr (0-20) 05/04/21 14:49 Luis Bodies Not Reportable 05/05/21 06:02 Hem Pathologist Commnt No 05/05/21 06:02 PT 12.0 Sec. (12.2-14.9) L 05/03/21 10:20 INR 0.83 (0.87-1.13) L 05/03/21 10:20 APTT 24.2 Sec. (24.2-36.6) 05/03/21 10:20 ABG pH 7.396 pH Units (7.350-7.450) 05/03/21 13:24 ABG pCO2 39.7 mm Hg 05/03/21 13:24 ABG pO2 98.4 mm Hg (80.0-90.0) H 05/03/21 13:24 ABG HCO3 23.8 mmol/L (20.0-26.0) 05/03/21 13:24 ABG O2 Saturation 97.5 % (95.0-99.0) 05/03/21 13:24 ABG O2 Content 16.3 (0.0-44) 05/03/21 13:24 ABG Base Excess -0.9 mmol/L (-2.0-3.0) 05/03/21 13:24 ABG Hemoglobin 12.0 gm/dl (12.0-16.0) 05/03/21 13:24 ABG Carboxyhemoglobin 1.3 % (0.0-5.0) 05/03/21 13:24 ABG Methemoglobin 0.4 % (0.0-1.5) 05/03/21 13:24 Oxyhemoglobin 95.8 % (95.0-99.0) 05/03/21 13:24 FiO2 32 % 05/03/21 13:24 Sodium 143 mmol/L (137-145) 05/06/21 04:02 Potassium 4.9 mmol/L (3.6-5.0) 05/06/21 04:02 Chloride 112.1 mmol/L (98-107) H 05/06/21 04:02 Carbon Dioxide 21 mmol/L (22-30) L 05/06/21 04:02 Anion Gap 15 mmol/L 05/06/21 04:02 BUN 28 mg/dL (7-17) H 05/06/21 04:02 Creatinine 2.7 mg/dL (0.6-1.2) H 05/06/21 04:02 Estimated GFR 17 ml/min 05/06/21 04:02 BUN/Creatinine Ratio 10 % 05/06/21 04:02 Glucose 105 mg/dL (65-100) H 05/06/21 04:02 Hemoglobin A1c 7.2 % (4-6) H 05/04/21 03:26 Calcium 8.8 mg/dL (8.4-10.2) 05/06/21 04:02 Magnesium 2.30 mg/dL (1.7-2.3) 05/03/21 10:20 Total Bilirubin 0.30 mg/dL (0.1-1.2) 05/05/21 06:02 AST 12 units/L (5-40) 05/05/21 06:02 ALT 13 units/L (7-56) 05/05/21 06:02 Alkaline Phosphatase 81 units/L (35-129) 05/05/21 06:02 Total Creatine Kinase 208 units/L (30-135) H 05/03/21 10:20 Troponin T < 0.010 ng/mL (0.00-0.029) 05/03/21 10:20 NT-Pro-B Natriuret Pep 1472 pg/mL (0-900) H 05/03/21 10:33 Total Protein 6.3 g/dL (6.3-8.2) 05/05/21 06:02 Albumin 4.0 g/dL (3.9-5) 05/05/21 06:02 Albumin/Globulin Ratio 1.7 % 05/05/21 06:02 Vitamin B12 469.5 pg/mL (211-911) 05/04/21 14:48 TSH 2.600 mlU/mL (0.270-4.200) 05/04/21 14:48 Urine Color Straw (Yellow) 05/03/21 12:27 Urine Turbidity Clear (Clear) 05/03/21 12:27 Urine pH 7.0 (5.0-7.0) 05/03/21 12:27 Ur Specific [place] 1.009 (1.003-1.030) 05/03/21 12:27 Urine Protein 30 mg/dl mg/dL (Negative) 05/03/21 12:27 Urine Glucose (UA) Neg mg/dL (Negative) 05/03/21 12: Urine Ketones Neg mg/dL (Negative) 05/03/21 12:27 Urine Blood Neg (Negative) 05/03/21 12:27 Urine Nitrite Neg (Negative) 05/03/21 12: Urine Bilirubin Neg (Negative) 05/03/21 12: Urine Urobilinogen < 2.0 mg/dL (<2.0) 05/03/21 12:27 Ur Leukocyte Esterase Neg (Negative) 05/03/21 12:27 Urine WBC (Auto) < 1.0 /HPF (0.0-6.0) 05/03/21 12: Urine RBC (Auto) 1.0 /HPF (0.0-6.0) 05/03/21 12: U Epithel Cells (Auto) < 1.0 /HPF (0-13.0) 05/03/21 12: Urine Creatinine 73.6 mg/dL (0.1-20.0) H 05/05/21 00:21 Urine Sodium 125 mmol/L 05/05/21 00:21 Salicylates < 0.3 mg/dL (2.8-20.0) L 05/03/21 10:20 Acetaminophen 5.0 ug/mL (10.0-30.0) L 05/03/21 10:20 Plasma/Serum Alcohol < 0.01 % (0-0.07) 05/03/21 10:20 Blood Type A POSITIVE 05/03/21 10:20 Antibody Screen Negative 05/03/21 10:20 Sosa/IV: Voiding Method External Female Catheter Active Medications - Current Medications Current Medications: Generic Name Dose Route Start Last Admin Trade Name Freq PRN Reason Stop Dose Admin Acetaminophen 650 mg 05/04/21 01:29 05/05/21 06:01 Acetaminophen 325 Mg Tab PO 650 mg Q4H PRN Administration Pain MILD(1-3)/Fever >100.5/ZHANG Alprazolam 0.5 mg 05/04/21 01:27 05/04/21 11:34 Alprazolam 0.5 Mg Tab PO 0.5 mg DAILY PRN Administration Anxiety Amlodipine Besylate 5 mg 06/16/21 10:00 05/06/21 09:12 Amlodipine 5 Mg Tab PO 5 mg DAILY NITESH Administration Cholecalciferol 2,000 unit 05/04/21 10:00 05/06/21 09:11 Cholecalciferol (Vit D3) 1000 Unit (25 Mcg) Tab PO 2,000 unit DAILY NITESH Administration Hydromorphone HCl 1 mg 05/04/21 01:29 05/04/21 17:47 Hydromorphone 1 Mg/1 Ml Inj IV 1 mg Q3H PRN Administration Pain , Severe (7-10) Sodium Chloride 1,000 mls @ 75 mls/hr 05/06/21 08:00 05/06/21 08:33 Nacl 0.45% 1000 Ml IV 75 mls/hr DIRECT NITESH Administration Isosorbide Mononitrate 30 mg 05/04/21 10:00 05/06/21 09:12 Isosorbide Mononitrate Er 30 Mg Tab PO 30 mg QDAY NITESH Administration Metoclopramide HCl 5 mg 05/04/21 01:29 05/04/21 23:12 Metoclopramide 10 Mg/2 Ml Inj IV 5 mg Q6H PRN Administration Nausea And Vomiting Metoprolol Tartrate 25 mg 05/04/21 02:00 05/06/21 08:27 Metoprolol Tartrate 25 Mg Tab PO 25 mg BID@0800,1700 NITESH Administration Ondansetron HCl 4 mg 05/04/21 01:29 05/05/21 05:28 Ondansetron 4 Mg/2 Ml Inj IV 4 mg Q8H PRN Administration Nausea And Vomiting Oxycodone/Acetaminophen 1 tab 05/04/21 01:29 05/04/21 11:34 Oxycodone /Acetaminophen 5-325mg Tab PO 1 tab Q6H PRN Administration Pain, Moderate (4-6) Pantoprazole Sodium 40 mg 05/04/21 10:00 05/06/21 09:12 Pantoprazole 40 Mg Tab PO 40 mg DAILY NITESH Administration Pravastatin Sodium 20 mg 05/04/21 22:00 05/05/21 22:02 Pravastatin 20 Mg Tab PO 20 mg QHS NITESH Administration Sodium Chloride 10 ml 05/04/21 10:00 05/06/21 09:12 Sodium Chloride 0.9% 10 Ml Flush Syringe IV 10 ml BID NITESH Administration Sodium Chloride 10 ml 05/04/21 01:29 Sodium Chloride 0.9% 10 Ml Flush Syringe IV PRN PRN LINE FLUSH Nutrition/Malnutrition Assess - Dietary Evaluation Nutrition/Malnutrition Findings: Nutrition Notes Start: 05/05/21 15:26 Freq: Status: Active Protocol: Document 05/05/21 15:26 JANE (Rec: 05/05/21 15:31 [facility] [id number]) Nutrition Notes Need for Assessment generated from: case operator Initial or Follow up Assessment Current Diagnosis CKD(stage I-IV),COPD,Coronary Artery Disease,Hypertension Other Pertinent Diagnosis AMS, s/p fall, C6 compression fx Current Diet Cardiac Labs/Tests BUN 36 Cr 2.8 A1C 7.2 Pertinent Medications Vit D3 Height 5 ft 3 in Weight 83.915 kg [place] Body Weight (kg) 52.27 BMI 32.8 Weight Status Obese Subjective/Other Information Pt screened for skin risk ( Charles score: 15). Pt wears C -collar and c/o neck pain. Minimum of two criteria No #1 Nutrition Diagnosis Predicted suboptimal energy intake Etiology AMS As Evidenced by Signs and Symptoms pt confused upon admission and c/o neck pain Is patient on ventilator? No Is Patient Ambulatory and/or Out of Bed No REE-([facility]-confined to bed) 1605.552 Kcal/Kg value to use for calculation 15 Approximate Energy Requirements Using 1259 kcal/Kg Calculation Used for Recommendations Kcal/kg Additional Notes Pro needs 0.6-0.8g/kg adjBW: 41-54g/day Fluid needs per MD. Nutrition Intervention Change Diet Order: Continue current diet order Goal #1 PO intakes to meet at least 75 % energy and pro needs Follow-Up By: 05/09/21 Additional Comments F/U: intakes, BG labs
--- NOTE | 2021-05-06 13:31 | Event Note ---
Date: 05/06/21 I called patient's daughter next of kin Ms. Floyd Rosa at [phone] and discussed in detail patient's condition tests and reports neurologist and neurosurgeons recommendations and treatment and discharge planning in detail she has some questions answered all of them we will transfer the patient to the medical floor requested for PT OT evaluation and recommendations possible discharge tomorrow if stable neurologist and neurosurgeon have recommended outpatient follow-up in 2 to 3 weeks for further evaluation and management
--- NOTE | 2021-05-06 13:45 | Progress Note ---
Assessment and Plan 1. Acute kidney injury: Vasomotor RAMU (mild) superimposed on CKD stage 4. CT abdomen showed L atrophic kidney. On IV fluids. Monitor renal function. Creatinine level si slowly improving. Renal prognosis is guarded. Avoid nephrotoxic agents. Meds dosage based on GFR. 2. FEN: Monitor lytes and volume status. 3. Acute encephalopathy: CT head negative. Followed by Neuro. 4. Cervical spine fracture: Followed by Neuro-surgery. 5. Hypertension. 6. DM type 2. 7. COPD. Subjective: Patient was seen and examined at the bedside. Daughter at the bedside. Examination: General appearance: well-developed, well-nourished, obese, not in distress HEENT: ATNC, MARK, hearing intact Neck: supple Respiratory: Clear to Auscultation Heart: regular, S1S2, no murmur Gastrointestinal: normoactive bowel sounds, not tender Integumentary: no rash, warm and dry Neurologic: conversing, able to move extremities Ext: no edema Hemodialysis access: L arm AVF Psychiatric: cooperative Subjective Date of service: 05/06/21 Principal diagnosis: fall and injured neck Objective - Vital Signs Vital signs: Vital Signs - 12hr 05/06/21 05/06/21 05/06/21 02:00 03:00 03:55 Temperature 98.3 F Pulse Rate 76 79 Pulse Rate [ From Monitor] Respiratory 13 18 Rate Blood Pressure 147/55 153/30 O2 Sat by Pulse 95 92 Oximetry 05/06/21 05/06/21 05/06/21 04:00 05:00 06:00 Temperature Pulse Rate 78 83 86 Pulse Rate [ 74 From Monitor] Respiratory 18 17 14 Rate Blood Pressure 149/59 155/62 138/66 O2 Sat by Pulse 91 91 99 Oximetry 05/06/21 05/06/21 05/06/21 07:00 07:39 07:47 Temperature 98.6 F Pulse Rate 84 85 Pulse Rate [ 92 H From Monitor] Respiratory 22 20 Rate Blood Pressure 135/52 O2 Sat by Pulse 97 93 Oximetry 05/06/21 05/06/21 05/06/21 08:00 08:27 09:00 Temperature Pulse Rate 90 95 H 77 Pulse Rate [ From Monitor] Respiratory 19 22 Rate Blood Pressure 130/82 130/82 145/78 O2 Sat by Pulse 97 98 Oximetry 05/06/21 05/06/21 05/06/21 09:12 10:00 11:00 Temperature 98.1 F Pulse Rate 82 74 81 Pulse Rate [ From Monitor] Respiratory 18 25 H Rate Blood Pressure 145/78 143/63 124/68 O2 Sat by Pulse 97 100 Oximetry 05/06/21 12:00 Temperature Pulse Rate 77 Pulse Rate [ 85 From Monitor] Respiratory 21 Rate Blood Pressure 138/60 O2 Sat by Pulse 99 Oximetry - Lab 05/05/21 06:02 05/06/21 04:02 Most recent lab results ABG pH 7.396 pH Units (7.350-7.450) 05/03/21 13:24 ABG pCO2 39.7 mm Hg 05/03/21 13:24 ABG pO2 98.4 mm Hg (80.0-90.0) H 05/03/21 13:24 ABG HCO3 23.8 mmol/L (20.0-26.0) 05/03/21 13:24 ABG O2 Saturation 97.5 % (95.0-99.0) 05/03/21 13:24 Calcium 8.8 mg/dL (8.4-10.2) 05/06/21 04:02 Magnesium 2.30 mg/dL (1.7-2.3) 05/03/21 10:20 Urine Creatinine 73.6 mg/dL (0.1-20.0) H 05/05/21 00:21 Urine Sodium 125 mmol/L 05/05/21 00:21 Medications & Allergies - Medications Allergies/Adverse Reactions: Allergies vancomycin Allergy (Verified 04/21/19 21:21) Hives Home Medications: Home Medications Medication Instructions Recorded Confirmed Last Taken Type ALPRAZolam [Xanax TAB] 1 mg PO DAILY PRN 02/11/18 05/05/21 09/12/19 History Clopidogrel Bisulfate [Plavix] 75 mg PO DAILY 02/11/18 05/05/21 09/12/19 History Gabapentin 300 mg PO TID 02/11/18 05/05/21 09/12/19 History Metoprolol [Lopressor TAB] 50 mg PO BID 02/11/18 05/05/21 09/12/19 History Pantoprazole [Protonix TAB] 40 mg PO DAILY 02/11/18 05/05/21 09/12/19 History Pravastatin Sodium [Pravastatin] 20 mg PO QHS 02/11/18 05/05/21 09/12/19 History Cholecalciferol (Vitamin D3) 1 tab PO DAILY 04/21/19 05/05/21 09/12/19 History [Vitamin D3 2,000 UNIT CAP] Ferrous Gluconate [Ferrous 1 tab PO BID 04/21/19 05/05/21 09/12/19 History Gluconate 324 MG] amLODIPine 10 mg PO DAILY 04/21/19 05/05/21 09/12/19 History ISOSORBIDE MONOnitrate [Imdur ER] 30 mg PO QDAY #30 tablet 04/24/19 05/05/21 09/12/19 Rx Albuterol Mdi (or & Nicu Only) 1 puff IH TID 05/05/21 05/05/21 Unknown History [ProAir HFA Inhaler] Furosemide [Lasix TAB] 1 tab PO DAILY 05/05/21 05/05/21 Unknown History Umeclidinium Brm/Vilanterol Tr 1 each IH DAILY 05/05/21 05/05/21 Unknown History [Anoro Ellipta 62.5-25 Mcg INH] Active Medications: Generic Name Dose Route Start Last Admin Trade Name Freq PRN Reason Stop Dose Admin Acetaminophen 650 mg 05/04/21 01:29 05/05/21 06:01 Acetaminophen 325 Mg Tab PO 650 mg Q4H PRN Administration Pain MILD(1-3)/Fever >100.5/ZHANG Alprazolam 0.5 mg 05/04/21 01:27 05/04/21 11:34 Alprazolam 0.5 Mg Tab PO 0.5 mg DAILY PRN Administration Anxiety Amlodipine Besylate 5 mg 05/04/21 10:00 05/06/21 09:12 Amlodipine 5 Mg Tab PO 5 mg DAILY NITESH Administration Cholecalciferol 2,000 unit 05/04/21 10:00 05/06/21 09:11 Cholecalciferol (Vit D3) 1000 Unit (25 Mcg) Tab PO 2,000 unit DAILY NITESH Administration Hydromorphone HCl 1 mg 05/04/21 01:29 05/04/21 17:47 Hydromorphone 1 Mg/1 Ml Inj IV 1 mg Q3H PRN Administration Pain , Severe (7-10) Sodium Chloride 1,000 mls @ 75 mls/hr 05/06/21 08:00 05/06/21 08:33 Nacl 0.45% 1000 Ml IV 75 mls/hr DIRECT NITESH Administration Isosorbide Mononitrate 30 mg 05/04/21 10:00 05/06/21 09:12 Isosorbide Mononitrate Er 30 Mg Tab PO 30 mg QDAY NITESH Administration Metoclopramide HCl 5 mg 05/04/21 01:29 05/04/21 23:12 Metoclopramide 10 Mg/2 Ml Inj IV 5 mg Q6H PRN Administration Nausea And Vomiting Metoprolol Tartrate 25 mg 05/04/21 02:00 05/06/21 08:27 Metoprolol Tartrate 25 Mg Tab PO 25 mg BID@0800,1700 NITESH Administration Ondansetron HCl 4 mg 05/04/21 01:29 05/05/21 05:28 Ondansetron 4 Mg/2 Ml Inj IV 4 mg Q8H PRN Administration Nausea And Vomiting Oxycodone/Acetaminophen 1 tab 05/04/21 01:29 05/04/21 11:34 Oxycodone /Acetaminophen 5-325mg Tab PO 1 tab Q6H PRN Administration Pain, Moderate (4-6) Pantoprazole Sodium 40 mg 05/04/21 10:00 05/06/21 09:12 Pantoprazole 40 Mg Tab PO 40 mg DAILY NITESH Administration Pravastatin Sodium 20 mg 05/04/21 22:00 05/05/21 22:02 Pravastatin 20 Mg Tab PO 20 mg QHS NITESH Administration Sodium Chloride 10 ml 05/04/21 10:00 05/06/21 09:12 Sodium Chloride 0.9% 10 Ml Flush Syringe IV 10 ml BID NITESH Administration Sodium Chloride 10 ml 05/04/21 01:29 Sodium Chloride 0.9% 10 Ml Flush Syringe IV PRN PRN LINE FLUSH
--- NOTE | 2021-05-06 19:04 | Electrocardiograph Report ---
[facility] Test Date: 2021-05-03 Test Time: 11:49:00 Pat Name: AFIA KENNEY Department: Room: A266 1 Gender: F [employer]: ivan : 1950 Requested By: SHA PAYNE Order Number: [id number] Reading MD: Sameer Hamilton Measurements Intervals [place] Rate: 79 P: 62 UT: 190 QRS: -43 QRSD: 124 T: 15 QT: 434 QTc: 497 Interpretive Statements Sinus rhythm Left bundle branch block No previous ECG available for comparison Electronically Signed On 05-06-2021 19:04:18 EDT by Sameer Hamilton
[2021-05-06] MEDS: PRAVASTATIN 20 MG TAB PO SCH (22:54)
[2021-05-07 06:12] LABS: Calcium 9.3 mg/dL (8.4-10.2)
[2021-05-07] MEDS: amLODIPine 5 MG TAB PO SCH (10:29)
[2021-05-07] MEDS: METOPROLOL TARTRATE 25 MG TAB PO SCH ×2 (10:29→17:54)
[2021-05-07] MEDS: PANTOPRAZOLE 40 MG TAB PO SCH (10:30)
[2021-05-07] MEDS: CHOLECALCIFEROL (VIT D3) 1000 UNIT (25 mcg) TAB PO SCH (10:30)
--- NOTE | 2021-05-07 11:11 | Progress Note ---
Assessment and Plan 1. Acute kidney injury: Vasomotor RAMU (mild) superimposed on CKD stage 4. CT abdomen showed L atrophic kidney. Encourage PO fluids. Monitor renal function. Creatinine level is slowly improving. Renal prognosis is guarded. Avoid nephrotoxic agents. Meds dosage based on GFR. 2. FEN: Monitor lytes and volume status. 3. Acute encephalopathy: CT head negative. Followed by Neuro. 4. Cervical spine fracture: Seen by Neuro-surgery. 5. Hypertension. 6. DM type 2. 7. COPD. Subjective: Patient was seen and examined at the bedside. Examination: General appearance: well-developed, well-nourished, obese, not in distress HEENT: ATNC, MARK, hearing intact Neck: supple Respiratory: Clear to Auscultation Heart: regular, S1S2, no murmur Gastrointestinal: normoactive bowel sounds, not tender Integumentary: no rash, warm and dry Neurologic: conversing, able to move extremities Ext: no edema Hemodialysis access: L arm AVF Psychiatric: cooperative Subjective Date of service: 05/07/21 Principal diagnosis: fall and injured neck Objective - Vital Signs Vital signs: Vital Signs - 12hr 05/07/21 05/07/21 05/07/21 00:00 06:00 08:26 Temperature 98.4 F Pulse Rate 82 Pulse Rate [ 84 From Monitor] Respiratory 20 20 Rate Blood Pressure 159/74 [Right] O2 Sat by Pulse 96 98 Oximetry - Lab 05/05/21 06:02 05/08/21 05:00 Most recent lab results ABG pH 7.396 pH Units (7.350-7.450) 05/03/21 13:24 ABG pCO2 39.7 mm Hg 05/03/21 13:24 ABG pO2 98.4 mm Hg (80.0-90.0) H 05/03/21 13:24 ABG HCO3 23.8 mmol/L (20.0-26.0) 05/03/21 13:24 ABG O2 Saturation 97.5 % (95.0-99.0) 05/03/21 13:24 Calcium 9.3 mg/dL (8.4-10.2) 05/07/21 05:10 Magnesium 2.30 mg/dL (1.7-2.3) 05/03/21 10:20 Urine Creatinine 73.6 mg/dL (0.1-20.0) H 05/05/21 00:21 Urine Sodium 125 mmol/L 05/05/21 00:21 Medications & Allergies - Medications Allergies/Adverse Reactions: Allergies vancomycin Allergy (Verified 04/21/19 21:21) Hives Home Medications: Home Medications Medication Instructions Recorded Confirmed Last Taken Type ALPRAZolam [Xanax TAB] 1 mg PO DAILY PRN 02/11/18 05/05/21 09/12/19 History Clopidogrel Bisulfate [Plavix] 75 mg PO DAILY 02/11/18 05/05/21 09/12/19 History Gabapentin 300 mg PO TID 02/11/18 05/05/21 09/12/19 History Metoprolol [Lopressor TAB] 50 mg PO BID 02/11/18 05/05/21 09/12/19 History Pantoprazole [Protonix TAB] 40 mg PO DAILY 02/11/18 05/05/21 09/12/19 History Pravastatin Sodium [Pravastatin] 20 mg PO QHS 02/11/18 05/05/21 09/12/19 History Cholecalciferol (Vitamin D3) 1 tab PO DAILY 04/21/19 05/05/21 09/12/19 History [Vitamin D3 2,000 UNIT CAP] Ferrous Gluconate [Ferrous 1 tab PO BID 04/21/19 05/05/21 09/12/19 History Gluconate 324 MG] amLODIPine 10 mg PO DAILY 04/21/19 05/05/21 09/12/19 History ISOSORBIDE MONOnitrate [Imdur ER] 30 mg PO QDAY #30 tablet 04/24/19 05/05/21 09/12/19 Rx Albuterol Mdi (or & Nicu Only) 1 puff IH TID 05/05/21 05/05/21 Unknown History [ProAir HFA Inhaler] Furosemide [Lasix TAB] 1 tab PO DAILY 05/05/21 05/05/21 Unknown History Umeclidinium Brm/Vilanterol Tr 1 each IH DAILY 05/05/21 05/05/21 Unknown History [Anoro Ellipta 62.5-25 Mcg INH] Active Medications: Generic Name Dose Route Start Last Admin Trade Name Freq PRN Reason Stop Dose Admin Acetaminophen 650 mg 05/04/21 01:29 05/05/21 06:01 Acetaminophen 325 Mg Tab PO 650 mg Q4H PRN Administration Pain MILD(1-3)/Fever >100.5/ZHANG Alprazolam 0.5 mg 05/04/21 01:27 05/04/21 11:34 Alprazolam 0.5 Mg Tab PO 0.5 mg DAILY PRN Administration Anxiety Amlodipine Besylate 5 mg 05/04/21 10:00 05/07/21 10:29 Amlodipine 5 Mg Tab PO 5 mg DAILY NITESH Administration Cholecalciferol 2,000 unit 05/04/21 10:00 05/07/21 10:30 Cholecalciferol (Vit D3) 1000 Unit (25 Mcg) Tab PO 2,000 unit DAILY NITESH Administration Sodium Chloride 1,000 mls @ 75 mls/hr 05/06/21 08:00 05/06/21 22:56 Nacl 0.45% 1000 Ml IV 75 mls/hr DIRECT NITESH Administration Isosorbide Mononitrate 30 mg 05/04/21 10:00 05/07/21 10:29 Isosorbide Mononitrate Er 30 Mg Tab PO 30 mg QDAY NITESH Administration Metoclopramide HCl 5 mg 05/04/21 01:29 05/04/21 23:12 Metoclopramide 10 Mg/2 Ml Inj IV 5 mg Q6H PRN Administration Nausea And Vomiting Metoprolol Tartrate 25 mg 05/04/21 02:00 05/07/21 10:29 Metoprolol Tartrate 25 Mg Tab PO 25 mg BID@0800,1700 NITESH Administration Ondansetron HCl 4 mg 05/04/21 01:29 05/05/21 05:28 Ondansetron 4 Mg/2 Ml Inj IV 4 mg Q8H PRN Administration Nausea And Vomiting Oxycodone/Acetaminophen 1 tab 05/04/21 01:29 05/04/21 11:34 Oxycodone /Acetaminophen 5-325mg Tab PO 1 tab Q6H PRN Administration Pain, Moderate (4-6) Pantoprazole Sodium 40 mg 05/04/21 10:00 05/07/21 10:30 Pantoprazole 40 Mg Tab PO 40 mg DAILY NITESH Administration Pravastatin Sodium 20 mg 05/04/21 22:00 05/06/21 22:54 Pravastatin 20 Mg Tab PO 20 mg QHS NITESH Administration Sodium Chloride 10 ml 05/04/21 10:00 05/07/21 10:29 Sodium Chloride 0.9% 10 Ml Flush Syringe IV 10 ml BID NITESH Administration Sodium Chloride 10 ml 05/04/21 01:29 Sodium Chloride 0.9% 10 Ml Flush Syringe IV PRN PRN LINE FLUSH
--- NOTE | 2021-05-07 13:42 | Progress Note ---
Assessment and Plan Assessment and plan: Neurology and neurosurgery has evaluated the patient And after reviewing all the scans and MRIs and evaluate evaluating the patient Neurosurgeon recommended to DC cervical collar, PT OT, DC home when stable, rest of the work-up as outpatient Vital signs reviewed --Acute encephalopathy/POA Current Visit: Yes Status: Acute Resolved. patient is at her baseline Alert awake oriented x3 --History of fall; Current Visit: Yes Status: Acute. Fall precautions ,PT OT evaluation requested Possible home with home health PT --No evidence of [id number] fracture On MRI C-spine Current Visit: Yes Status: Acute Discussed with neurosurgeon Dr. Chappell Advised to discontinue cervical collar Evaluate PT OT, discharge when stable Follow-up outpatient for further evaluation management MRI cervical spine 05/05/2021; no evidence of C6 fracture on MRI moderate to severe cervical spondylosis present C5-C6 is the most affected level severe central canal stenosis and bilateral neural foraminal narrowing subtle increased signal seen in the cervical spinal cord at C5-C6 level may represent minimal cord edema or myelomalacia myelomalacia myelomalacia, Neurosurgeon and neurologist following . --Hypertension/well controlled Current Visit: Yes Status: Chronic Continue antihypertensives. And as needed medications --CKD (chronic kidney disease) stage IV Current Visit: Yes Status: Acute Closely monitor renal function avoid nephrotoxins Nephrology following -- COPD (chronic obstructive pulmonary disease) Current Visit: Yes Status: Chronic Well compensated ,DuoNebs as needed Oxygen titrate O2 sats more than 90% --Obesity; BMI 32.8 Current Visit: Yes Status: Chronic . Patient advised diet modification exercise as tolerated and weight reduction when medically stable --Full code; --DVT prophylaxis Current Visit: Yes Status: Acute On heparin and GI prophylaxis DC cervical collar, ambulate as tolerated PT OT evaluation, transfer out of IMCU to medical floor Possible discharge home in 1 to 2 days if stable Neurology and neurosurgery cleared for discharge follow-up per schedule We will closely monitor the patient and adjust the management as needed Follow PT OT evaluation and recommendations DC home pending PT evaluation Plan of care reviewed with the patient, her nurse I will also call the family and update the treatment and discharge plan 05/06/2021 Transfer the patient to medical floor Increase ambulation, follow PT OT eval patient DC planning per case management 05/07/2021 Neurology and neurosurgery has evaluated the patient And after reviewing all the scans and MRIs and evaluate evaluating the patient Neurosurgeon recommended to DC cervical collar, PT OT, DC home when stable, rest of the work-up as outpatient Vital signs reviewed History Interval history: I have seen and examined the patient at the bedside this morning Patient's chart and medications reviewed. Patient feels slightly better, denies any headache or dizziness, no neck pain Neurosurgery advised to remove cervical collar Recommended PT OT Vital signs reviewed Hospitalist Physical - Constitutional Vitals: Temp Pulse Resp BP Pulse Ox 98.7 F 84 19 153/85 96 05/07/21 11:26 05/07/21 11:26 05/07/21 11:26 05/07/21 11:26 05/07/21 11:26 General appearance: Present: no acute distress, well-nourished - EENT Eyes: Present: PERRL, EOM intact - Neck Neck: Present: supple, normal ROM - Respiratory Respiratory effort: normal Respiratory: bilateral: diminished, negative: rales, rhonchi, wheezing - Cardiovascular Rhythm: regular Heart Sounds: Present: S1 & S2 - Extremities Extremities: no ischemia, No edema - Abdominal General gastrointestinal: soft, non-tender, non-distended, normal bowel sounds - Integumentary Integumentary: Present: clear, warm - Psychiatric Psychiatric: appropriate mood/affect, cooperative - Neurologic Neurologic: CNII-XII intact, moves all extremities HEART Score - HEART Score Troponin: Troponin T < 0.010 ng/mL (0.00-0.029) 05/03/21 10:20 Results - Labs CBC & Chem 7: 05/05/21 06:02 05/07/21 05:10 Labs: Laboratory Last Values WBC 7.9 K/mm3 (4.5-11.0) 05/05/21 06:02 RBC 3.56 M/mm3 (3.65-5.03) L 05/05/21 06:02 Hgb 11.0 gm/dl (10.1-14.3) 05/05/21 06:02 Hct 32.2 % (30.3-42.9) 05/05/21 06:02 MCV 91 fl (79-97) 05/05/21 06:02 MCH 31 pg (28-32) 05/05/21 06:02 MCHC 34 % (30-34) 05/05/21 06:02 RDW 16.5 % (13.2-15.2) H 05/05/21 06:02 Plt Count 223 K/mm3 (140-440) 05/05/21 06:02 Add Manual Diff Complete 05/05/21 06:02 Total Counted 100 05/05/21 06:02 Seg Neuts % (Manual) 83.0 % (40.0-70.0) H 05/05/21 06:02 Band Neutrophils % 2.0 % 05/05/21 06:02 Lymphocytes % (Manual) 10.0 % (13.4-35.0) L 05/05/21 06:02 Monocytes % (Manual) 4.0 % (0.0-7.3) 05/05/21 06:02 Basophils % (Manual) 1.0 % (0.0-1.8) 05/05/21 06:02 Metamyelocytes % 2.0 % 05/03/21 10:20 Nucleated RBC % Not Reportable 05/05/21 06:02 Seg Neutrophils # Man 6.6 K/mm3 (1.8-7.7) 05/05/21 06:02 Band Neutrophils # 0.2 K/mm3 05/05/21 06:02 Lymphocytes # (Manual) 0.8 K/mm3 (1.2-5.4) L 05/05/21 06:02 Abs React Lymphs (Man) 0.0 K/mm3 05/05/21 06:02 Monocytes # (Manual) 0.3 K/mm3 (0.0-0.8) 05/05/21 06:02 Eosinophils # (Manual) 0.0 K/mm3 (0.0-0.4) 05/05/21 06:02 Basophils # (Manual) 0.1 K/mm3 (0.0-0.1) 05/05/21 06:02 Metamyelocytes # 0.0 K/mm3 05/05/21 06:02 Myelocytes # 0.0 K/mm3 05/05/21 06:02 Promyelocytes # 0.0 K/mm3 05/05/21 06:02 Blast Cells # 0.0 K/mm3 05/05/21 06:02 WBC Morphology Not Reportable 05/05/21 06:02 Hypersegmented Neuts Not Reportable 05/05/21 06:02 Hyposegmented Neuts Not Reportable 05/05/21 06:02 Hypogranular Neuts Not Reportable 05/05/21 06:02 Smudge Cells Not Reportable 05/05/21 06:02 Toxic Granulation Not Reportable 05/05/21 06:02 Toxic Vacuolation Not Reportable 05/05/21 06:02 Dohle Bodies Not Reportable 05/05/21 06:02 Pelger-Huet Anomaly Not Reportable 05/05/21 06:02 Padmaja Rods Not Reportable 05/05/21 06:02 Platelet Estimate Consistent w auto 05/05/21 06:02 Clumped Platelets Not Reportable 05/05/21 06:02 Plt Clumps, EDTA Not Reportable 05/05/21 06:02 Large Platelets Not Reportable 05/05/21 06:02 Giant Platelets Not Reportable 05/05/21 06:02 Platelet Satelliting Not Reportable 05/05/21 06:02 Plt Morphology Comment Not Reportable 05/05/21 06:02 RBC Morphology Not Reportable 05/05/21 06:02 Dimorphic RBCs Not Reportable 05/05/21 06:02 Polychromasia Not Reportable 05/05/21 06:02 Hypochromasia Not Reportable 05/05/21 06:02 Poikilocytosis Not Reportable 05/05/21 06:02 Anisocytosis Rare 05/05/21 06:02 Microcytosis Not Reportable 05/05/21 06:02 Macrocytosis Not Reportable 05/05/21 06:02 Spherocytes Not Reportable 05/05/21 06:02 Pappenheimer Bodies Not Reportable 05/05/21 06:02 Sickle Cells Not Reportable 05/05/21 06:02 Target Cells Not Reportable 05/05/21 06:02 Tear Drop Cells Not Reportable 05/05/21 06:02 Ovalocytes Not Reportable 05/05/21 06:02 Helmet Cells Not Reportable 05/05/21 06:02 [place] Bodies Not Reportable 05/05/21 06:02 [place] Rings Not Reportable 05/05/21 06:02 Ceasar Cells Not Reportable 05/05/21 06:02 Bite Cells Not Reportable 05/05/21 06:02 Crenated Cell Not Reportable 05/05/21 06:02 Elliptocytes Not Reportable 05/05/21 06:02 Acanthocytes (Spur) Not Reportable 05/05/21 06:02 Rouleaux Not Reportable 05/05/21 06:02 Hemoglobin C Crystals Not Reportable 05/05/21 06:02 Schistocytes Not Reportable 05/05/21 06:02 Malaria parasites Not Reportable 05/05/21 06:02 ESR 36 mm/Hr (0-20) 05/04/21 14:49 Luis Bodies Not Reportable 05/05/21 06:02 Hem Pathologist Commnt No 05/05/21 06:02 PT 12.0 Sec. (12.2-14.9) L 05/03/21 10:20 INR 0.83 (0.87-1.13) L 05/03/21 10:20 APTT 24.2 Sec. (24.2-36.6) 05/03/21 10:20 ABG pH 7.396 pH Units (7.350-7.450) 05/03/21 13:24 ABG pCO2 39.7 mm Hg 05/03/21 13:24 ABG pO2 98.4 mm Hg (80.0-90.0) H 05/03/21 13:24 ABG HCO3 23.8 mmol/L (20.0-26.0) 05/03/21 13:24 ABG O2 Saturation 97.5 % (95.0-99.0) 05/03/21 13:24 ABG O2 Content 16.3 (0.0-44) 05/03/21 13:24 ABG Base Excess -0.9 mmol/L (-2.0-3.0) 05/03/21 13:24 ABG Hemoglobin 12.0 gm/dl (12.0-16.0) 05/03/21 13:24 ABG Carboxyhemoglobin 1.3 % (0.0-5.0) 05/03/21 13:24 ABG Methemoglobin 0.4 % (0.0-1.5) 05/03/21 13:24 Oxyhemoglobin 95.8 % (95.0-99.0) 05/03/21 13:24 FiO2 32 % 05/03/21 13:24 Sodium 142 mmol/L (137-145) 05/07/21 05:10 Potassium 4.6 mmol/L (3.6-5.0) 05/07/21 05:10 Chloride 108.5 mmol/L (98-107) H 05/07/21 05:10 Carbon Dioxide 22 mmol/L (22-30) 05/07/21 05:10 Anion Gap 16 mmol/L 05/07/21 05:10 BUN 22 mg/dL (7-17) H 05/07/21 05:10 Creatinine 2.5 mg/dL (0.6-1.2) H 05/07/21 05:10 Estimated GFR 19 ml/min 05/07/21 05:10 BUN/Creatinine Ratio 9 % 05/07/21 05:10 Glucose 121 mg/dL (65-100) H 05/07/21 05:10 Hemoglobin A1c 7.2 % (4-6) H 05/04/21 03:26 Calcium 9.3 mg/dL (8.4-10.2) 05/07/21 05:10 Magnesium 2.30 mg/dL (1.7-2.3) 05/03/21 10:20 Total Bilirubin 0.30 mg/dL (0.1-1.2) 05/05/21 06:02 AST 12 units/L (5-40) 05/05/21 06:02 ALT 13 units/L (7-56) 05/05/21 06:02 Alkaline Phosphatase 81 units/L (35-129) 05/05/21 06:02 Total Creatine Kinase 208 units/L (30-135) H 05/03/21 10:20 Troponin T < 0.010 ng/mL (0.00-0.029) 05/03/21 10:20 NT-Pro-B Natriuret Pep 1472 pg/mL (0-900) H 05/03/21 10:33 Total Protein 6.3 g/dL (6.3-8.2) 05/05/21 06:02 Albumin 4.0 g/dL (3.9-5) 05/05/21 06:02 Albumin/Globulin Ratio 1.7 % 05/05/21 06:02 Vitamin B12 469.5 pg/mL (211-911) 05/04/21 14:48 TSH 2.600 mlU/mL (0.270-4.200) 05/04/21 14:48 Urine Color Straw (Yellow) 05/03/21 12:27 Urine Turbidity Clear (Clear) 05/03/21 12: Urine pH 7.0 (5.0-7.0) 05/03/21 12:27 Ur Specific [place] 1.009 (1.003-1.030) 05/03/21 12:27 Urine Protein 30 mg/dl mg/dL (Negative) 05/03/21 12:27 Urine Glucose (UA) Neg mg/dL (Negative) 05/03/21 12:27 Urine Ketones Neg mg/dL (Negative) 05/03/21 12: Urine Blood Neg (Negative) 05/03/21 12: Urine Nitrite Neg (Negative) 05/03/21 12: Urine Bilirubin Neg (Negative) 05/03/21 12: Urine Urobilinogen < 2.0 mg/dL (<2.0) 05/03/21 12:27 Ur Leukocyte Esterase Neg (Negative) 05/03/21 12:27 Urine WBC (Auto) < 1.0 /HPF (0.0-6.0) 05/03/21 12:27 Urine RBC (Auto) 1.0 /HPF (0.0-6.0) 05/03/21 12: U Epithel Cells (Auto) < 1.0 /HPF (0-13.0) 05/03/21 12:27 Urine Creatinine 73.6 mg/dL (0.1-20.0) H 05/05/21 00:21 Urine Sodium 125 mmol/L 05/05/21 00:21 Salicylates < 0.3 mg/dL (2.8-20.0) L 05/03/21 10:20 Acetaminophen 5.0 ug/mL (10.0-30.0) L 05/03/21 10:20 Plasma/Serum Alcohol < 0.01 % (0-0.07) 05/03/21 10:20 Blood Type A POSITIVE 05/03/21 10:20 Antibody Screen Negative 05/03/21 10:20 Sosa/IV: Voiding Method External Female Catheter Active Medications - Current Medications Current Medications: Generic Name Dose Route Start Last Admin Trade Name Freq PRN Reason Stop Dose Admin Acetaminophen 650 mg 05/04/21 01:29 05/05/21 06:01 Acetaminophen 325 Mg Tab PO 650 mg Q4H PRN Administration Pain MILD(1-3)/Fever >100.5/ZHANG Alprazolam 0.5 mg 05/04/21 01:27 05/04/21 11:34 Alprazolam 0.5 Mg Tab PO 0.5 mg DAILY PRN Administration Anxiety Amlodipine Besylate 5 mg 05/04/21 10:00 05/07/21 10:29 Amlodipine 5 Mg Tab PO 5 mg DAILY NITESH Administration Cholecalciferol 2,000 unit 05/04/21 10:00 05/07/21 10:30 Cholecalciferol (Vit D3) 1000 Unit (25 Mcg) Tab PO 2,000 unit DAILY NITESH Administration Sodium Chloride 1,000 mls @ 75 mls/hr 05/06/21 08:00 05/06/21 22:56 Nacl 0.45% 1000 Ml IV 75 mls/hr DIRECT NITESH Administration Isosorbide Mononitrate 30 mg 05/04/21 10:00 05/07/21 10:29 Isosorbide Mononitrate Er 30 Mg Tab PO 30 mg QDAY NITESH Administration Metoclopramide HCl 5 mg 05/04/21 01:29 05/04/21 23:12 Metoclopramide 10 Mg/2 Ml Inj IV 5 mg Q6H PRN Administration Nausea And Vomiting Metoprolol Tartrate 25 mg 05/04/21 02:00 05/07/21 10:29 Metoprolol Tartrate 25 Mg Tab PO 25 mg BID@0800,1700 NITESH Administration Ondansetron HCl 4 mg 05/04/21 01:29 05/05/21 05:28 Ondansetron 4 Mg/2 Ml Inj IV 4 mg Q8H PRN Administration Nausea And Vomiting Oxycodone/Acetaminophen 1 tab 05/04/21 01:29 05/04/21 11:34 Oxycodone /Acetaminophen 5-325mg Tab PO 1 tab Q6H PRN Administration Pain, Moderate (4-6) Pantoprazole Sodium 40 mg 05/04/21 10:00 05/07/21 10:30 Pantoprazole 40 Mg Tab PO 40 mg DAILY NITESH Administration Pravastatin Sodium 20 mg 05/04/21 22:00 05/06/21 22:54 Pravastatin 20 Mg Tab PO 20 mg QHS NITESH Administration Sodium Chloride 10 ml 05/04/21 10:00 05/07/21 10:29 Sodium Chloride 0.9% 10 Ml Flush Syringe IV 10 ml BID NITESH Administration Sodium Chloride 10 ml 05/04/21 01:29 Sodium Chloride 0.9% 10 Ml Flush Syringe IV PRN PRN LINE FLUSH Nutrition/Malnutrition Assess - Dietary Evaluation Nutrition/Malnutrition Findings: Nutrition Notes Start: 05/05/21 15:26 Freq: Status: Active Protocol: Document 05/05/21 15:26 KIERSTENLANDY (Rec: 05/05/21 15:31 JANE [id number]) Nutrition Notes Need for Assessment generated from: service operator Initial or Follow up Assessment Current Diagnosis CKD(stage I-IV),COPD,Coronary Artery Disease,Hypertension Other Pertinent Diagnosis AMS, s/p fall, C6 compression fx Current Diet Cardiac Labs/Tests BUN 36 Cr 2.8 A1C 7.2 Pertinent Medications Vit D3 Height 5 ft 3 in Weight 83.915 kg [place] Body Weight (kg) 52.27 BMI 32.8 Weight Status Obese Subjective/Other Information Pt screened for skin risk ( Charles score: 15). Pt wears C -collar and c/o neck pain. Minimum of two criteria No #1 Nutrition Diagnosis Predicted suboptimal energy intake Etiology AMS As Evidenced by Signs and Symptoms pt confused upon admission and c/o neck pain Is patient on ventilator? No Is Patient Ambulatory and/or Out of Bed No REE-([place]-confined to bed) 1605.552 Kcal/Kg value to use for calculation 15 Approximate Energy Requirements Using 1259 kcal/Kg Calculation Used for Recommendations Kcal/kg Additional Notes Pro needs 0.6-0.8g/kg adjBW: 41-54g/day Fluid needs per MD. Nutrition Intervention Change Diet Order: Continue current diet order Goal #1 PO intakes to meet at least 75 % energy and pro needs Follow-Up By: 05/09/21 Additional Comments F/U: intakes, BG labs
[2021-05-07 17:38] VITALS: BP 175/79
[2021-05-07] MEDS: PRAVASTATIN 20 MG TAB PO SCH (22:35)
[2021-05-08 05:57] LABS: Calcium 9.5 mg/dL (8.4-10.2)
--- NOTE | 2021-05-08 08:24 | Progress Note ---
Assessment and Plan Assessment and plan: Neurology and neurosurgery has evaluated the patient And after reviewing all the scans and MRIs and evaluate evaluating the patient Neurosurgeon recommended to DC cervical collar, PT OT, DC home when stable, rest of the work-up as outpatient Vital signs reviewed --History of fall; Current Visit: Yes Status: Acute. Fall precautions ,PT OT evaluation requested Possible home with home health PT Pending PT evaluation --Acute encephalopathy/POA Current Visit: Yes Status: Acute Resolved. patient is at her baseline Alert awake oriented x3 --No evidence of [id number] fracture On MRI C-spine Current Visit: Yes Status: Acute Discussed with neurosurgeon Dr. Chappell Advised to discontinue cervical collar Evaluate PT OT, discharge when stable Follow-up outpatient for further evaluation management MRI cervical spine 05/05/2021; no evidence of C6 fracture on MRI moderate to severe cervical spondylosis present C5-C6 is the most affected level severe central canal stenosis and bilateral neural foraminal narrowing subtle increased signal seen in the cervical spinal cord at C5-C6 level may r epresent minimal cord edema or myelomalacia myelomalacia myelomalacia, Neurosurgeon and neurologist following . --Hypertension/well controlled Current Visit: Yes Status: Chronic Continue antihypertensives. And as needed medications --CKD (chronic kidney disease) stage IV Current Visit: Yes Status: Acute Closely monitor renal function avoid nephrotoxins Nephrology following -- COPD (chronic obstructive pulmonary disease) Current Visit: Yes Status: Chronic Well compensated ,DuoNebs as needed Oxygen titrate O2 sats more than 90% --Obesity; BMI 32.8 Current Visit: Yes Status: Chronic . Patient advised diet modification exercise as tolerated and weight reduction when medically stable --Full code; --DVT prophylaxis Current Visit: Yes Status: Acute On heparin and GI prophylaxis DC cervical collar, ambulate as tolerated PT OT evaluation, transfer out of IMCU to medical floor Possible discharge home in 1 to 2 days if stable Neurology and neurosurgery cleared for discharge follow-up per schedule We will closely monitor the patient and adjust the management as needed Follow PT OT evaluation and recommendations DC home pending PT evaluation Plan of care reviewed with the patient, her nurse I will also call the family and update the treatment and discharge plan 05/06/2021 Transfer the patient to medical floor Increase ambulation, follow PT OT eval patient DC planning per case management 05/07/2021 Neurology and neurosurgery has evaluated the patient And after reviewing all the scans and MRIs and evaluate evaluating the patient Neurosurgeon recommended to DC cervical collar, PT OT, DC home when stable, rest of the work-up as outpatient Vital signs reviewed 05/08/2021; neurology neurosurgery signed off Recommend PT OT and discharge when stable Awaiting PT OT evaluation recommendation History Interval history: I have seen and examined the patient at the bedside this morning Patient feels better no new complaints, anxious to go home No new episodes of falls Awaiting PT OT evaluation and recommendations Vital signs reviewed Hospitalist Physical - Constitutional Vitals: Temp Pulse Resp BP Pulse Ox 97.8 F 82 20 175/79 98 05/07/21 15:55 05/07/21 15:55 05/07/21 22:00 05/07/21 15:55 05/07/21 22:00 General appearance: Present: no acute distress, well-nourished - EENT Eyes: Present: PERRL, EOM intact - Neck Neck: Present: supple, normal ROM (Oknano oknano thank you we will start her third floor surgical side) - Respiratory Respiratory effort: normal (Okay Saniya) Respiratory: bilateral: diminished, negative: rales, rhonchi, wheezing - Cardiovascular Rhythm: regular Heart Sounds: Present: S1 & S2 - Extremities Extremities: no ischemia, No edema - Abdominal General gastrointestinal: soft, non-tender, non-distended - Integumentary Integumentary: Present: clear, warm - Psychiatric Psychiatric: appropriate mood/affect, cooperative - Neurologic Neurologic: moves all extremities HEART Score - HEART Score Troponin: Troponin T < 0.010 ng/mL (0.00-0.029) 05/03/21 10:20 Results - Labs CBC & Chem 7: 05/05/21 06:02 05/08/21 05:00 Labs: Laboratory Last Values WBC 7.9 K/mm3 (4.5-11.0) 05/05/21 06:02 RBC 3.56 M/mm3 (3.65-5.03) L 05/05/21 06:02 Hgb 11.0 gm/dl (10.1-14.3) 05/05/21 06:02 Hct 32.2 % (30.3-42.9) 05/05/21 06:02 MCV 91 fl (79-97) 05/05/21 06:02 MCH 31 pg (28-32) 05/05/21 06:02 MCHC 34 % (30-34) 05/05/21 06:02 RDW 16.5 % (13.2-15.2) H 05/05/21 06:02 Plt Count 223 K/mm3 (140-440) 05/05/21 06:02 Add Manual Diff Complete 05/05/21 06:02 Total Counted 100 05/05/21 06:02 Seg Neuts % (Manual) 83.0 % (40.0-70.0) H 05/05/21 06:02 Band Neutrophils % 2.0 % 05/05/21 06:02 Lymphocytes % (Manual) 10.0 % (13.4-35.0) L 05/05/21 06:02 Monocytes % (Manual) 4.0 % (0.0-7.3) 05/05/21 06:02 Basophils % (Manual) 1.0 % (0.0-1.8) 05/05/21 06:02 Metamyelocytes % 2.0 % 05/03/21 10:20 Nucleated RBC % Not Reportable 05/05/21 06:02 Seg Neutrophils # Man 6.6 K/mm3 (1.8-7.7) 05/05/21 06:02 Band Neutrophils # 0.2 K/mm3 05/05/21 06:02 Lymphocytes # (Manual) 0.8 K/mm3 (1.2-5.4) L 05/05/21 06:02 Abs React Lymphs (Man) 0.0 K/mm3 05/05/21 06:02 Monocytes # (Manual) 0.3 K/mm3 (0.0-0.8) 05/05/21 06:02 Eosinophils # (Manual) 0.0 K/mm3 (0.0-0.4) 05/05/21 06:02 Basophils # (Manual) 0.1 K/mm3 (0.0-0.1) 05/05/21 06:02 Metamyelocytes # 0.0 K/mm3 05/05/21 06:02 Myelocytes # 0.0 K/mm3 05/05/21 06:02 Promyelocytes # 0.0 K/mm3 05/05/21 06:02 Blast Cells # 0.0 K/mm3 05/05/21 06:02 WBC Morphology Not Reportable 05/05/21 06:02 Hypersegmented Neuts Not Reportable 05/05/21 06:02 Hyposegmented Neuts Not Reportable 05/05/21 06:02 Hypogranular Neuts Not Reportable 05/05/21 06:02 Smudge Cells Not Reportable 05/05/21 06:02 Toxic Granulation Not Reportable 05/05/21 06:02 Toxic Vacuolation Not Reportable 05/05/21 06:02 Dohle Bodies Not Reportable 05/05/21 06:02 Pelger-Huet Anomaly Not Reportable 05/05/21 06:02 Padmaja Rods Not Reportable 05/05/21 06:02 Platelet Estimate Consistent w auto 05/05/21 06:02 Clumped Platelets Not Reportable 05/05/21 06:02 Plt Clumps, EDTA Not Reportable 05/05/21 06:02 Large Platelets Not Reportable 05/05/21 06:02 Giant Platelets Not Reportable 05/05/21 06:02 Platelet Satelliting Not Reportable 05/05/21 06:02 Plt Morphology Comment Not Reportable 05/05/21 06:02 RBC Morphology Not Reportable 05/05/21 06:02 Dimorphic RBCs Not Reportable 05/05/21 06:02 Polychromasia Not Reportable 05/05/21 06:02 Hypochromasia Not Reportable 05/05/21 06:02 Poikilocytosis Not Reportable 05/05/21 06:02 Anisocytosis Rare 05/05/21 06:02 Microcytosis Not Reportable 05/05/21 06:02 Macrocytosis Not Reportable 05/05/21 06:02 Spherocytes Not Reportable 05/05/21 06:02 Pappenheimer Bodies Not Reportable 05/05/21 06:02 Sickle Cells Not Reportable 05/05/21 06:02 Target Cells Not Reportable 05/05/21 06:02 Tear Drop Cells Not Reportable 05/05/21 06:02 Ovalocytes Not Reportable 05/05/21 06:02 Helmet Cells Not Reportable 05/05/21 06:02 Castro-Harbine Bodies Not Reportable 05/05/21 06:02 [place] Rings Not Reportable 05/05/21 06:02 Ceasar Cells Not Reportable 05/05/21 06:02 Bite Cells Not Reportable 05/05/21 06:02 Crenated Cell Not Reportable 05/05/21 06:02 Elliptocytes Not Reportable 05/05/21 06:02 Acanthocytes (Spur) Not Reportable 05/05/21 06:02 Rouleaux Not Reportable 05/05/21 06:02 Hemoglobin C Crystals Not Reportable 05/05/21 06:02 Schistocytes Not Reportable 05/05/21 06:02 Malaria parasites Not Reportable 05/05/21 06:02 ESR 36 mm/Hr (0-20) 05/04/21 14:49 Luis Bodies Not Reportable 05/05/21 06:02 Hem Pathologist Commnt No 05/05/21 06:02 PT 12.0 Sec. (12.2-14.9) L 05/03/21 10:20 INR 0.83 (0.87-1.13) L 05/03/21 10:20 APTT 24.2 Sec. (24.2-36.6) 05/03/21 10:20 ABG pH 7.396 pH Units (7.350-7.450) 05/03/21 13:24 ABG pCO2 39.7 mm Hg 05/03/21 13:24 ABG pO2 98.4 mm Hg (80.0-90.0) H 05/03/21 13:24 ABG HCO3 23.8 mmol/L (20.0-26.0) 05/03/21 13:24 ABG O2 Saturation 97.5 % (95.0-99.0) 05/03/21 13:24 ABG O2 Content 16.3 (0.0-44) 05/03/21 13:24 ABG Base Excess -0.9 mmol/L (-2.0-3.0) 05/03/21 13:24 ABG Hemoglobin 12.0 gm/dl (12.0-16.0) 05/03/21 13:24 ABG Carboxyhemoglobin 1.3 % (0.0-5.0) 05/03/21 13:24 ABG Methemoglobin 0.4 % (0.0-1.5) 05/03/21 13:24 Oxyhemoglobin 95.8 % (95.0-99.0) 05/03/21 13:24 FiO2 32 % 05/03/21 13:24 Sodium 138 mmol/L (137-145) 05/08/21 05:00 Potassium 4.5 mmol/L (3.6-5.0) 05/08/21 05:00 Chloride 105.7 mmol/L (98-107) 05/08/21 05:00 Carbon Dioxide 21 mmol/L (22-30) L 05/08/21 05:00 Anion Gap 16 mmol/L 05/08/21 05:00 BUN 25 mg/dL (7-17) H 05/08/21 05:00 Creatinine 2.3 mg/dL (0.6-1.2) H 05/08/21 05:00 Estimated GFR 21 ml/min 05/08/21 05:00 BUN/Creatinine Ratio 11 % 05/08/21 05:00 Glucose 121 mg/dL (65-100) H 05/08/21 05:00 Hemoglobin A1c 7.2 % (4-6) H 05/04/21 03:26 Calcium 9.5 mg/dL (8.4-10.2) 05/08/21 05:00 Magnesium 2.30 mg/dL (1.7-2.3) 05/03/21 10:20 Total Bilirubin 0.30 mg/dL (0.1-1.2) 05/05/21 06:02 AST 12 units/L (5-40) 05/05/21 06:02 ALT 13 units/L (7-56) 05/05/21 06:02 Alkaline Phosphatase 81 units/L (35-129) 05/05/21 06:02 Total Creatine Kinase 208 units/L (30-135) H 05/03/21 10:20 Troponin T < 0.010 ng/mL (0.00-0.029) 05/03/21 10:20 NT-Pro-B Natriuret Pep 1472 pg/mL (0-900) H 05/03/21 10:33 Total Protein 6.3 g/dL (6.3-8.2) 05/05/21 06:02 Albumin 4.0 g/dL (3.9-5) 05/05/21 06:02 Albumin/Globulin Ratio 1.7 % 05/05/21 06:02 Vitamin B12 469.5 pg/mL (211-911) 05/04/21 14:48 TSH 2.600 mlU/mL (0.270-4.200) 05/04/21 14:48 Urine Color Straw (Yellow) 05/03/21 12:27 Urine Turbidity Clear (Clear) 05/03/21 12: Urine pH 7.0 (5.0-7.0) 05/03/21 12:27 Ur Specific Nimitz 1.009 (1.003-1.030) 05/03/21 12:27 Urine Protein 30 mg/dl mg/dL (Negative) 05/03/21 12:27 Urine Glucose (UA) Neg mg/dL (Negative) 05/03/21 12: Urine Ketones Neg mg/dL (Negative) 05/03/21 12: Urine Blood Neg (Negative) 05/03/21 12: Urine Nitrite Neg (Negative) 05/03/21 12:27 Urine Bilirubin Neg (Negative) 05/03/21 12:27 Urine Urobilinogen < 2.0 mg/dL (<2.0) 05/03/21 12:27 Ur Leukocyte Esterase Neg (Negative) 05/03/21 12:27 Urine WBC (Auto) < 1.0 /HPF (0.0-6.0) 05/03/21 12:27 Urine RBC (Auto) 1.0 /HPF (0.0-6.0) 05/03/21 12:27 U Epithel Cells (Auto) < 1.0 /HPF (0-13.0) 05/03/21 12:27 Urine Creatinine 73.6 mg/dL (0.1-20.0) H 05/05/21 00:21 Urine Sodium 125 mmol/L 05/05/21 00:21 Salicylates < 0.3 mg/dL (2.8-20.0) L 05/03/21 10:20 Acetaminophen 5.0 ug/mL (10.0-30.0) L 05/03/21 10:20 Plasma/Serum Alcohol < 0.01 % (0-0.07) 05/03/21 10:20 Blood Type A POSITIVE 05/03/21 10:20 Antibody Screen Negative 05/03/21 10:20 Sosa/IV: Voiding Method External Female Catheter Active Medications - Current Medications Current Medications: Generic Name Dose Route Start Last Admin Trade Name Freq PRN Reason Stop Dose Admin Acetaminophen 650 mg 05/04/21 01:29 05/05/21 06:01 Acetaminophen 325 Mg Tab PO 650 mg Q4H PRN Administration Pain MILD(1-3)/Fever >100.5/ZHANG Alprazolam 0.5 mg 05/04/21 01:27 05/04/21 11:34 Alprazolam 0.5 Mg Tab PO 0.5 mg DAILY PRN Administration Anxiety Amlodipine Besylate 5 mg 05/04/21 10:00 05/07/21 10:29 Amlodipine 5 Mg Tab PO 5 mg DAILY NITESH Administration Cholecalciferol 2,000 unit 05/04/21 10:00 05/07/21 10:30 Cholecalciferol (Vit D3) 1000 Unit (25 Mcg) Tab PO 2,000 unit DAILY NITESH Administration Sodium Chloride 1,000 mls @ 75 mls/hr 05/06/21 08:00 05/06/21 22:56 Nacl 0.45% 1000 Ml IV 75 mls/hr DIRECT NITESH Administration Isosorbide Mononitrate 30 mg 05/04/21 10:00 05/07/21 10:29 Isosorbide Mononitrate Er 30 Mg Tab PO 30 mg QDAY NITESH Administration Metoclopramide HCl 5 mg 05/04/21 01:29 05/04/21 23:12 Metoclopramide 10 Mg/2 Ml Inj IV 5 mg Q6H PRN Administration Nausea And Vomiting Metoprolol Tartrate 25 mg 05/04/21 02:00 05/07/21 17:54 Metoprolol Tartrate 25 Mg Tab PO 25 mg BID@0800,1700 NITESH Administration Ondansetron HCl 4 mg 05/04/21 01:29 05/05/21 05:28 Ondansetron 4 Mg/2 Ml Inj IV 4 mg Q8H PRN Administration Nausea And Vomiting Oxycodone/Acetaminophen 1 tab 05/04/21 01:29 05/04/21 11:34 Oxycodone /Acetaminophen 5-325mg Tab PO 1 tab Q6H PRN Administration Pain, Moderate (4-6) Pantoprazole Sodium 40 mg 05/04/21 10:00 05/07/21 10:30 Pantoprazole 40 Mg Tab PO 40 mg DAILY NITESH Administration Pravastatin Sodium 20 mg 05/04/21 22:00 05/07/21 22:35 Pravastatin 20 Mg Tab PO 20 mg QHS NITESH Administration Sodium Chloride 10 ml 05/04/21 10:00 05/07/21 22:35 Sodium Chloride 0.9% 10 Ml Flush Syringe IV 10 ml BID NITESH Administration Sodium Chloride 10 ml 05/04/21 01:29 Sodium Chloride 0.9% 10 Ml Flush Syringe IV PRN PRN LINE FLUSH Nutrition/Malnutrition Assess - Dietary Evaluation Nutrition/Malnutrition Findings: Nutrition Notes Start: 05/05/21 15:26 Freq: Status: Active Protocol: Document 05/05/21 15:26 KIERSTENLANDY (Rec: 05/05/21 15:31 [facility] [id number]) Nutrition Notes 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 Pt wears C -collar and c/o neck pain. Minimum of two criteria No #1 Nutrition Diagnosis Predicted suboptimal energy intake Etiology AMS As Evidenced by Signs and Symptoms pt confused upon admission and c/o neck pain Is patient on ventilator? No Is Patient Ambulatory and/or Out of Bed No REE-([facility]-confined to bed) 1605.552 Kcal/Kg value to use for calculation 15 Approximate Energy Requirements Using 1259 kcal/Kg Calculation Used for Recommendations Kcal/kg Additional Notes Pro needs 0.6-0.8g/kg adjBW: 41-54g/day Fluid needs per MD. Nutrition Intervention Change Diet Order: Continue current diet order Goal #1 PO intakes to meet at least 75 % energy and pro needs Follow-Up By: 05/09/21 Additional Comments F/U: intakes, BG labs
[2021-05-08] MEDS: CHOLECALCIFEROL (VIT D3) 1000 UNIT (25 mcg) TAB PO SCH (10:40)
[2021-05-08] MEDS: amLODIPine 5 MG TAB PO SCH (10:40)
[2021-05-08] MEDS: METOPROLOL TARTRATE 25 MG TAB PO SCH (10:40)
[2021-05-08] MEDS: PANTOPRAZOLE 40 MG TAB PO SCH (10:40)
--- NOTE | 2021-05-08 13:26 | Discharge Summary ---
Providers - Providers Date of Admission: 05/03/21 12:30 Date of discharge: 05/08/21 Attending physician: VAN RABAGO 05/03/21 12:24 Consult to Physician [CONS] Urgent Comment: Consulting Provider: CHARLEY WATTS II Physician Instructions: Reason For Exam: c spine injury 05/04/21 06:52 Consult to Physician [CONS] Routine Comment: Consulting Provider: OSMAN FINCH Physician Instructions: Reason For Exam: AMS Consult to Physician [CONS] Routine Comment: Consulting Provider: BUBBA AREVALO Physician Instructions: Reason For Exam: CKD 05/06/21 11:44 Occupational Therapy Evaluate and Treat [CONS] Routine Comment: Reason For Exam: History of fall/evaluate and treat/discharge needs Physical Therapy Evaluation and Treat [CONS] Routine Comment: Reason For Exam: History of fall/evaluate and treat/DC needs 05/08/21 07:24 Physical Therapy Evaluation and Treat [CONS] Urgent Comment: Neurology/neurosurgery cleared for PT Reason For Exam: Fall/evaluate and treat/second request 05/08/21 07:27 Occupational Therapy Evaluate and Treat [CONS] Routine Comment: Neuro/neurosurgery cleared for OT Reason For Exam: History of fall/evaluate and treat/second request Hospitalization Reason for admission: Neck pain 1 day Condition: Fair Pertinent studies: MRI cervical spine 05/05/2021; no evidence of C6 fracture on MRI moderate to severe cervical spondylosis present C5-C6 is the most affected level severe central canal stenosis and bilateral neural foraminal narrowing subtle increased signal seen in the cervical spinal cord at C5-C6 level may represent minimal cord edema or myelomalacia myelomalacia myelomalacia, CT head without contrast CT cervical spine CT lumbar spine Thoracic spine CT abdomen and pelvis CT chest MRI thoracic spine MRI cervical spine EEG Hospital course: 70-year-old female with history of coronary artery disease peripheral neuropathy generalized anxiety disorder and hypertension brought in by EMS for altered mental status. Last well-known time was with last night. Patient had a unwitnessed fall this morning at approximately 8:30 AM. C-collar was placed for C-spine immobilization. Patient is unresponsive. Code trauma was called. Patient had COVID-19 vaccinations. Patient was unresponsive in the emergency room, had extensive work-up with multiple CT scans MRIs as mentioned above, no evidence of fracture or dislocation of the cervical spine. Findings consistent with cervical spondylosis. Evaluated by neurologist and neurosurgeon who recommended to remove c-collar, patient received physical therapy occupational therapy. Neurology and neurosurgeon have cleared for discharge and recommended further evaluation as outpatient. Case management has evaluated set up home health and home PT upon discharge, Today patient is comfortable ambulatory tolerating oral nutrition Vital signs stable, physical examination prior to discharge did not show any new changes Stable at discharge Discharge diagnosis: --History of fall; Fall precautions ,PT OT evaluated Home health PT on DC --Acute metabolic encephalopathy/POA Resolved. patient is at her baseline. --Cervical spondylosis: Evaluated by neurologist neurosurgery, further evaluation as outpatient Patient does not need c-collar --No evidence of [id number] fracture On MRI C-spine Findings consistent with cervical spondylosis , PT OT , evaluated by neurology and neurosurgeon Cleared for discharge , follow-up per schedule for further evaluation --Hypertension/well controlled Continue antihypertensives. --CKD (chronic kidney disease) stage IV Closely monitor renal function avoid nephrotoxins Follow-up nephrology upon discharge -- COPD (chronic obstructive pulmonary disease) ,Stable well compensated ,DuoNebs as needed Oxygen titrate O2 sats more than 90% --Obesity; BMI 32.8 Patient advised diet modification exercise as tolerated and weight reduction when medically stable Stable at discharge Disposition: [id number] HOME UNDER HOME [facility] Final Discharge Diagnosis (Prints w/discharge instructions): History of fall. Acute metabolic encephalopathy. Cervical spondylosis. No compression fracture of C6. Hypertension. Chronic kidney disease. COPD. Obesity BMI 32.8 Time spent for discharge: 35 min Core Measure Documentation - Palliative Care Palliative Care/ Comfort Measures: Not Applicable - Core Measures Any of the following diagnoses?: none Exam - Constitutional Vitals: Temp Pulse Resp BP Pulse Ox 97.8 F 82 20 175/79 96 05/07/21 15:55 05/07/21 15:55 05/07/21 22:00 05/07/21 15:55 05/08/21 08:21 General appearance: Present: no acute distress, well-nourished - EENT Eyes: Present: PERRL, EOM intact - Neck Neck: Present: supple, normal ROM - Respiratory Respiratory effort: normal Respiratory: bilateral: diminished, negative: rales, rhonchi, wheezing - Cardiovascular Rhythm: regular Heart Sounds: Present: S1 & S2 - Extremities Extremities: no ischemia, No edema - Abdominal General gastrointestinal: Present: soft, non-tender, non-distended, normal bowel sounds - Integumentary Integumentary: Present: clear, warm - Musculoskeletal Musculoskeletal: strength equal bilaterally, generalized weakness - Psychiatric Psychiatric: appropriate mood/affect, cooperative - Neurologic Neurologic: moves all extremities Plan Activity: advance as tolerated, fall precautions (Fall precautions), other (Constant supervision) Diet: other (cardiac diet) Special Instructions: physical therapy (Home PT) Additional Instructions: Fall precautions. No new prescriptions. Neurologist recommended to hold off Xanax and gabapentin for a few days. And observe, as these medications may cause dizziness and cause falls. If you have worsening symptoms contact MD or go to emergency room as needed. Advised to follow private neurologist Dr. Baker and private neurosurgeon Dr. Ta Olmedo per schedule. Advised to follow-up with oliving machine operator Dr. Arevalo per schedule. Advised to continue 2 L of nasal cannula oxygen as before Follow up with: LIAT GALVEZ [Other] - 3-5 Days REYNA BAKER MD [Staff Physician] - 7 Days CHARLEY WATTS II, MD [Staff Physician] - 14 Days BUBBA AREVALO MD [Staff Physician] - 7 Days
[2021-05-08 14:33] LABS: ANA Screen, IFA Negative (Negative)
--- NOTE | 2021-05-08 15:36 | Progress Note ---
Assessment and Plan 1. Acute kidney injury: Vasomotor RAMU (mild) superimposed on CKD stage 4. CT abdomen showed L atrophic kidney. Monitor renal function. Creatinine level si slowly improving. Avoid nephrotoxic agents. Meds dosage based on GFR. 2. FEN: Monitor lytes and volume status. 3. Acute encephalopathy: CT head negative. Seen by Neuro. 4. Cervical spine fracture: Seen by Neuro-surgery. 5. Hypertension. 6. DM type 2. 7. COPD. Subjective: Patient was seen and examined at the bedside. Examination: General appearance: well-developed, well-nourished, obese, not in distress HEENT: ATNC, MARK, hearing intact Neck: supple Respiratory: Clear to Auscultation Heart: regular, S1S2, no murmur Gastrointestinal: normoactive bowel sounds, not tender Integumentary: no rash, warm and dry Neurologic: conversing, able to move extremities Ext: no edema Hemodialysis access: L arm AVF Psychiatric: cooperative Subjective Date of service: 05/08/21 Principal diagnosis: fall and injured neck Objective - Vital Signs Vital signs: Vital Signs - 12hr 05/08/21 08:21 O2 Sat by Pulse 96 Oximetry - Lab 05/05/21 06:02 05/08/21 05:00 Most recent lab results ABG pH 7.396 pH Units (7.350-7.450) 05/03/21 13:24 ABG pCO2 39.7 mm Hg 05/03/21 13:24 ABG pO2 98.4 mm Hg (80.0-90.0) H 05/03/21 13:24 ABG HCO3 23.8 mmol/L (20.0-26.0) 05/03/21 13:24 ABG O2 Saturation 97.5 % (95.0-99.0) 05/03/21 13:24 Calcium 9.5 mg/dL (8.4-10.2) 05/08/21 05:00 Magnesium 2.30 mg/dL (1.7-2.3) 05/03/21 10:20 Urine Creatinine 73.6 mg/dL (0.1-20.0) H 05/05/21 00:21 Urine Sodium 125 mmol/L 05/05/21 00:21 Medications & Allergies - Medications Allergies/Adverse Reactions: Allergies vancomycin Allergy (Verified 04/21/19 21:21) Hives Home Medications: Home Medications Medication Instructions Recorded Confirmed Last Taken Type ALPRAZolam [Xanax TAB] 1 mg PO DAILY PRN 02/11/18 05/05/21 09/12/19 History Clopidogrel Bisulfate [Plavix] 75 mg PO DAILY 02/11/18 05/05/21 09/12/19 History Gabapentin 300 mg PO TID 02/11/18 05/05/21 09/12/19 History Metoprolol [Lopressor TAB] 50 mg PO BID 02/11/18 05/05/21 09/12/19 History Pantoprazole [Protonix TAB] 40 mg PO DAILY 02/11/18 05/05/21 09/12/19 History Pravastatin Sodium [Pravastatin] 20 mg PO QHS 02/11/18 05/05/21 09/12/19 History Cholecalciferol (Vitamin D3) 1 tab PO DAILY 04/21/19 05/05/21 09/12/19 History [Vitamin D3 2,000 UNIT CAP] Ferrous Gluconate [Ferrous 1 tab PO BID 04/21/19 05/05/21 09/12/19 History Gluconate 324 MG] amLODIPine 10 mg PO DAILY 04/21/19 05/05/21 09/12/19 History ISOSORBIDE MONOnitrate [Imdur ER] 30 mg PO QDAY #30 tablet 04/24/19 05/05/21 09/12/19 Rx Albuterol Mdi (or & Nicu Only) 1 puff IH TID 05/05/21 05/05/21 Unknown History [ProAir HFA Inhaler] Furosemide [Lasix TAB] 1 tab PO DAILY 05/05/21 05/05/21 Unknown History Umeclidinium Brm/Vilanterol Tr 1 each IH DAILY 05/05/21 05/05/21 Unknown History [Anoro Ellipta 62.5-25 Mcg INH] Active Medications: Generic Name Dose Route Start Last Admin Trade Name Freq PRN Reason Stop Dose Admin Acetaminophen 650 mg 05/04/21 01:29 05/05/21 06:01 Acetaminophen 325 Mg Tab PO 650 mg Q4H PRN Administration Pain MILD(1-3)/Fever >100.5/ZHANG Alprazolam 0.5 mg 05/04/21 01:27 05/04/21 11:34 Alprazolam 0.5 Mg Tab PO 0.5 mg DAILY PRN Administration Anxiety Amlodipine Besylate 5 mg 05/04/21 10:00 05/08/21 10:40 Amlodipine 5 Mg Tab PO 5 mg DAILY NITESH Administration Cholecalciferol 2,000 unit 05/04/21 10:00 05/08/21 10:40 Cholecalciferol (Vit D3) 1000 Unit (25 Mcg) Tab PO 2,000 unit DAILY NITESH Administration Sodium Chloride 1,000 mls @ 75 mls/hr 05/06/21 08:00 05/06/21 22:56 Nacl 0.45% 1000 Ml IV 75 mls/hr DIRECT NITESH Administration Isosorbide Mononitrate 30 mg 05/04/21 10:00 05/08/21 10:40 Isosorbide Mononitrate Er 30 Mg Tab PO 30 mg QDAY NITESH Administration Metoclopramide HCl 5 mg 05/04/21 01:29 05/04/21 23:12 Metoclopramide 10 Mg/2 Ml Inj IV 5 mg Q6H PRN Administration Nausea And Vomiting Metoprolol Tartrate 25 mg 05/04/21 02:00 05/08/21 10:40 Metoprolol Tartrate 25 Mg Tab PO 25 mg BID@0800,1700 NITESH Administration Ondansetron HCl 4 mg 05/04/21 01:29 05/05/21 05:28 Ondansetron 4 Mg/2 Ml Inj IV 4 mg Q8H PRN Administration Nausea And Vomiting Oxycodone/Acetaminophen 1 tab 05/04/21 01:29 05/04/21 11:34 Oxycodone /Acetaminophen 5-325mg Tab PO 1 tab Q6H PRN Administration Pain, Moderate (4-6) Pantoprazole Sodium 40 mg 05/04/21 10:00 05/08/21 10:40 Pantoprazole 40 Mg Tab PO 40 mg DAILY NITESH Administration Pravastatin Sodium 20 mg 05/04/21 22:00 05/07/21 22:35 Pravastatin 20 Mg Tab PO 20 mg QHS NITESH Administration Sodium Chloride 10 ml 05/04/21 10:00 05/08/21 10:40 Sodium Chloride 0.9% 10 Ml Flush Syringe IV 10 ml BID NITESH Administration Sodium Chloride 10 ml 05/04/21 01:29 Sodium Chloride 0.9% 10 Ml Flush Syringe IV PRN PRN LINE FLUSH
== END 2021-05-08 16:05 | disposition home health service (06) | DRG 551 ==
LOC: ED 09:42 → CC1 12:30 → IMCU 16:04 → 3A 05-06 22:22
PROVIDERS: ADMIT Internal Medicine; ATTEND Internal Medicine
PROC: 4A033R1 Measurement of Arterial Saturation, Peripheral, Percutaneous Approach (ICD-10-PCS; principal; 2021-05-03)
DX: M47.892 Other spondylosis, cervical region (principal); G93.41 Metabolic encephalopathy; N18.4 Chronic kidney disease, stage 4 (severe); N17.9 Acute kidney failure, unspecified; I69.354 Hemiplegia and hemiparesis following cerebral infarction affecting left non-dominant side; I12.9 Hypertensive chronic kidney disease with stage 1 through stage 4 chronic kidney disease, or unspecified chronic kidney disease; J44.9 Chronic obstructive pulmonary disease, unspecified; M48.02 Spinal stenosis, cervical region; I25.10 Atherosclerotic heart disease of native coronary artery without angina pectoris; E11.22 Type 2 diabetes mellitus with diabetic chronic kidney disease; S19.9XXA Unspecified injury of neck, initial encounter; W18.39XA Other fall on same level, initial encounter; I71.4 Abdominal aortic aneurysm, without rupture; E66.9 Obesity, unspecified; E11.42 Type 2 diabetes mellitus with diabetic polyneuropathy; M19.90 Unspecified osteoarthritis, unspecified site; Z88.1 Allergy status to other antibiotic agents; Z79.899 Other long term (current) drug therapy; I25.2 Old myocardial infarction; Z95.5 Presence of coronary angioplasty implant and graft; Z90.49 Acquired absence of other specified parts of digestive tract; Z90.710 Acquired absence of both cervix and uterus; Y93.89 Activity, other specified; Y92.89 Other specified places as the place of occurrence of the external cause; Y99.8 Other external cause status; Z95.2 Presence of prosthetic heart valve; Z68.32 Body mass index [BMI] 32.0-32.9, adult; Z71.3 Dietary counseling and surveillance
CPT/HCPCS: 36415; 36600; 70450; 71045; 71250; 72125; 72128; 72131; 72141; 72146; 72170; 74176; 80048; 80053; 80320; 81001; 82550; 82570; 82607; 82803; 83036; 83735; 83880; 84300; 84443; 84484; 85007; 85025; 85610; 85652; 85730; 86038; 86850; 86900; 86901; 93005; 95819; G0378; G0480; J1170; J2405; J2765; J7030

== ENCOUNTER 2022-02-09 20:08 | Emergency (ER) | payer MEDICARE, OTHER ==
[2022-02-09 23:46] LABS: Calcium 10.7 mg/dL (8.4-10.2)
[2022-02-10 00:16] LABS: Basophils # (Auto) 0.1 K/mm3 (0.0-0.1); Basophils % (Auto) 0.6 % (0.0-1.8); Eosinophils # (Auto) 0.1 K/mm3 (0.0-0.4); Hematocrit 39.4 % (30.3-42.9); Hemoglobin 13.1 gm/dl (10.1-14.3); Lymphocytes # (Auto) 1.7 K/mm3 (1.2-5.4); Mean Corpuscular HGB Conc 33 % (30-34); Mean Corpuscular Volume 90 fl (79-97); Monocytes # (Auto) 0.8 K/mm3 (0.0-0.8); Platelet Count 268 K/mm3 (140-440); Red Blood Count 4.36 M/mm3 (3.65-5.03)
[2022-02-10] MEDS ORDERED: SODIUM CHLORIDE 0.9% 1000 ML 1,000 ML IV ONE (04:48)
--- NOTE | 2022-02-10 07:40 | Emergency Department Report ---
ED Psych HPI - General Chief Complaint: Psych Stated Complaint: MH EVAL Time Seen by Provider: 02/10/22 07:20 Source: patient, family Mode of arrival: Ambulatory Limitations: No Limitations - History of Present Illness Initial Comments: 71-year-old female with a past medical history of anxiety, questionable schizophrenia, hypertension, CAD with stent, CKD with left arm fistula placement, COPD with previous oxygen use, and distal AAA [facility] with anxiety and suicidal ideation. Patient states has been suicidal for "a while. Recently triggered due to conflict with her stepdaughter. She currently resides with her stepdaughter and her stepdaughter sister. Patient has a history of 3 previous suicide attempts. Her plan at this time is to overdose on medication. I did call patient stepdaughter Shelley Barrienots who states that they recently took a trip to [place] to visit family members. Patient had some minor conflict with her brother and the stepdaughter sister and has been acting out and belligerent since yesterday. She refused to take all of her medication yesterday. She expressed that she wanted to move out and live somew here else but stepdaughter states she is unable to take care of herself and lives at home. I reviewed medications with anjelica over the phone. Patient is no longer on Xanax, gabapentin, iron tablets, or Imdur. It does not appear that patient is taking Anora ellipta either. Her current medications will be continued - Related Data Home Medications Medication Instructions Recorded Confirmed Last Taken ALPRAZolam [Xanax TAB] 1 mg PO DAILY PRN 02/11/18 05/05/21 09/12/19 Clopidogrel Bisulfate [Plavix] 75 mg PO DAILY 02/11/18 05/05/21 09/12/19 Gabapentin 300 mg PO TID 02/11/18 05/05/21 09/12/19 Metoprolol [Lopressor TAB] 50 mg PO BID 02/11/18 05/05/21 09/12/19 Pantoprazole [Protonix TAB] 40 mg PO DAILY 02/11/18 05/05/21 09/12/19 Pravastatin Sodium [Pravastatin] 20 mg PO QHS 02/11/18 05/05/21 09/12/19 Cholecalciferol (Vitamin D3) 1 tab PO DAILY 04/21/19 05/05/21 09/12/19 [Vitamin D3 2,000 UNIT CAP] Ferrous Gluconate [Ferrous 1 tab PO BID 04/21/19 05/05/21 09/12/19 Gluconate 324 MG] amLODIPine 10 mg PO DAILY 04/21/19 05/05/21 09/12/19 Albuterol Mdi (or & Nicu Only) 1 puff IH TID 05/05/21 05/05/21 Unknown [ProAir HFA Inhaler] Furosemide [Lasix TAB] 1 tab PO DAILY 05/05/21 05/05/21 Unknown Umeclidinium Brm/Vilanterol Tr 1 each IH DAILY 05/05/21 05/05/21 Unknown [Anoro Ellipta 62.5-25 Mcg INH] Previous Rx's Medication Instructions Recorded Last Taken Type ISOSORBIDE MONOnitrate [Imdur ER] 30 mg PO QDAY #30 tablet 04/24/19 09/12/19 Rx Allergies Allergy/AdvReac Type Severity Reaction Status Date / Time vancomycin Allergy Hives Verified 04/21/19 21:21 ED Review of Systems ROS: Stated complaint: MH EVAL Other details as noted in HPI Comment: All other systems reviewed and negative ED Past Medical Hx - Past Medical History Hx Hypertension: Yes Hx Heart Attack/AMI: Yes (2016) Hx Renal Disease: Yes (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/19) Hx Arthritis: Yes Hx COPD: Yes Hx HIV: No Additional medical history: Distal AAA 3.4 cm 02/11/2018 - Surgical History Hx Coronary Stent: Yes Hx Cholecystectomy: Yes Hx Appendectomy: Yes Additional Surgical History: Hysterectomy, l't leg , back surgery, bovine transcatheter aortic heart valve replacement, ovarian cyst removal - Social History Smoking Status: Former Smoker - Medications Home Medications: Home Medications Medication Instructions Recorded Confirmed Last Taken Type ALPRAZolam [Xanax TAB] 1 mg PO DAILY PRN 02/11/18 05/05/21 09/12/19 History Clopidogrel Bisulfate [Plavix] 75 mg PO DAILY 02/11/18 05/05/21 09/12/19 History Gabapentin 300 mg PO TID 02/11/18 05/05/21 09/12/19 History Metoprolol [Lopressor TAB] 50 mg PO BID 02/11/18 05/05/21 09/12/19 History Pantoprazole [Protonix TAB] 40 mg PO DAILY 02/11/18 05/05/21 09/12/19 History Pravastatin Sodium [Pravastatin] 20 mg PO QHS 02/11/18 05/05/21 09/12/19 History Cholecalciferol (Vitamin D3) 1 tab PO DAILY 04/21/19 05/05/21 09/12/19 History [Vitamin D3 2,000 UNIT CAP] Ferrous Gluconate [Ferrous 1 tab PO BID 04/21/19 05/05/21 09/12/19 History Gluconate 324 MG] amLODIPine 10 mg PO DAILY 04/21/19 05/05/21 09/12/19 History ISOSORBIDE MONOnitrate [Imdur ER] 30 mg PO QDAY #30 tablet 04/24/19 05/05/21 09/12/19 Rx Albuterol Mdi (or & Nicu Only) 1 puff IH TID 05/05/21 05/05/21 Unknown History [ProAir HFA Inhaler] Furosemide [Lasix TAB] 1 tab PO DAILY 05/05/21 05/05/21 Unknown History Umeclidinium Brm/Vilanterol Tr 1 each IH DAILY 05/05/21 05/05/21 Unknown History [Anoro Ellipta 62.5-25 Mcg INH] ED Physical Exam - General Limitations: No Limitations - Other Other exam information: General: No acute distress Head: Atraumatic Eyes: normal appearance ENT: Moist mucous membranes Neck: Normal appearance, no midline tenderness Chest: Clear to auscultation bilaterally CV: Tachycardia regular rhythm Abdomen: Soft, normal bowel sounds, nontender, nondistended, no rebound or guarding Back: Normal inspection Extremity: Normal inspection, full range of motion Neuro: Alert O x 3, no facial asymmetry, speech clear, no gross motor sensory deficit Psych: Appropriate behavior Skin: No rash ED Course Vital Signs 02/09/22 02/10/22 02/10/22 21:36 10:02 10:08 Temperature 98.8 F 97.6 F Pulse Rate 118 H 114 H 114 H Respiratory 20 16 Rate Blood Pressure 185/66 168/91 Blood Pressure 168/91 [Right] O2 Sat by Pulse 98 98 Oximetry 02/10/22 02/10/22 02/10/22 10:09 11:45 19:30 Temperature Pulse Rate 114 H 82 Respiratory 16 Rate Blood Pressure 168/91 Blood Pressure 160/73 [Right] O2 Sat by Pulse 98 100 Oximetry 02/10/22 02/11/22 02/11/22 20:00 02:05 06:32 Temperature 98.5 F 97.4 F L Pulse Rate 81 92 H 92 H Respiratory 16 18 Rate Blood Pressure 115/54 Blood Pressure 119/75 105/54 [Right] O2 Sat by Pulse 94 95 Oximetry ED Medical Decision Making - Lab Data Result diagrams: 02/09/22 23:04 02/09/22 23:04 - Medical Decision Making 71-year-old female with multiple medical problems presents to the hospital suicidal ideation. Patient's medical conditions and renal sufficiency are chronic. Her current medications will be continued. Patient is a 1013 and awaiting transport to inpatient psychiatric facility Critical care attestation.: If time is entered above; I have spent that time in minutes in the direct care of this critically ill patient, excluding procedure time. ED Disposition Clinical Impression: Suicidal ideation, Chronic renal insufficiency, Medical clearance for psychiatric admission Disposition: [address] [place] [address] Is pt being admited?: No Condition: Stable Additional Instructions: OUTPATIENT MENTAL HEALTH RESOURCES [facility], [facility] Dustin Soto MD: [address] [place] [address] [place] [address] [facility]: [facility] [address] [place] [address] [place] [address] [phone] [facility]: [facility]: [address] [place] [address] [address] [place] [address] [place] [address] [facility] [address] [facility]: Dominick Blood MD: [id number] [facility] [address] [facility] [place] [facility] [id number] [facility]: [address] [place], [place] [id number] [phone] [place] CRISIS AND ACCESS LINE: Time of Disposition: 08:06
[2022-02-10] MEDS ORDERED: ALBUTEROL 8.5 GM MDI INHALATION IH SCH (08:00)
[2022-02-10] MEDS ORDERED: SODIUM BICARBONATE 650 MG TAB PO SCH (09:00)
[2022-02-10 09:09] LABS: Bilirubin,Urine NEG (Negative); Blood,Urine NEG (Negative); Color,Urine Straw (Yellow); Urobilinogen,Urine < 2.0 mg/dL (<2.0)
[2022-02-10 09:14] LABS: RBC,Urine < 1.0 /HPF (0.0-6.0); WBC,Urine < 1.0 /HPF (0.0-6.0)
[2022-02-10 09:17] LABS: Amphetamine Screen,Urine Negative; Benzodiazepines Screen,Urine Negative; Cannabinoid Screen,Urine Negative; Cocaine Screen,Urine Negative; Methadone Screen,Urine Negative; Opiate Screen,Urine Negative
[2022-02-10] MEDS ORDERED: PANTOPRAZOLE 40 MG TAB PO SCH (10:00)
[2022-02-10] MEDS ORDERED: ALBUTEROL 2.5 MG/3 ML NEBU IH SCH ×2 (10:00)
[2022-02-10] MEDS ORDERED: amLODIPine 5 MG TAB PO SCH (10:00)
[2022-02-10] MEDS ORDERED: CLOPIDOGREL 75 MG TAB PO SCH (10:00)
[2022-02-10] MEDS ORDERED: CHOLECALCIFEROL (VIT D3) 1000 UNIT (25 mcg) TAB PO SCH (10:00)
[2022-02-10] MEDS ORDERED: NON-FORMULARY EACH (Cholecalciferol (Vitamin D3) [Vitamin D3 2,000 Unit Cap] 2,000 UNIT Ca PO SCH (10:00)
[2022-02-10] MEDS: METOPROLOL TARTRATE 25 MG TAB PO SCH (10:08)
--- NOTE | 2022-02-10 10:58 | Consultation ---
History of Present Illness - Reason for Consult Consult date: 02/10/22 Reason for consult: suicidal ideation - History of Present Psychiatric Illness ED Note: 71-year-old female with a past medical history of anxiety, questionable schizophrenia, hypertension, CAD with stent, CKD with left arm fistula placement, COPD with previous oxygen use, and distal AAA presents to the hospital with anxiety and suicidal ideation. Patient states has been suicidal for "a while. Recently triggered due to conflict with her stepdaughter. She currently resides with her stepdaughter and her stepdaughter sister. Patient has a history of 3 previous suicide attempts. Her plan at this time is to overdose on medication. I did call patient stepdaruby Barrientos who states that they recently took a trip to [place] to visit family members. Patient had some minor conflict with her brother and the stepdaughter sister and has been acting out and belligerent since yesterday. She refused to take all of her medication yesterday. She expressed that she wanted to move out and live somewhere else but stepdaughter states she is unable to take care of herself and lives at home. The patient is a 71 year old female with history of depression and anxiety disorder who presents to the ED with suicidal ideation. In my encounter with the patient, she is calm, alert and oriented x2. The patient reports worsening depression for the past 4 days. She endorses suicidal ideation with a plan to overdose on medications. She reports recent stressors such as " trouble in the family," she states her brother last February and also that her 2 husbands ; she reports that she is still grieving for the of her last that passed about 3 years ago. She denies hallucinations. PAST PSYCHIATRIC HISTORY Diagnoses: Depression Suicide attempts or Self-harm behavior:Yes Prior psychiatric hospitalizations: Yes Substance Abuse history:Denies Previous psychiatric medications tried: Unable to recall Outpatient treatment: Unknown SOCIAL HISTORY Marital Status: Living Arrangements: Lives with stepdaughter Employment Status: [employer] Access to guns/weapons: Denies Education: 11th grade History of abuse: Denies Legal History: Denies ROS Constitutional: Negative for weight loss EMT: Negative for stridor Respiratory: Negative for cough or hemoptysis All other systems reviewed and are negative MENTAL STATUS EXAMINATION General Appearance: Dressed appropriately. Behavior: Calm and cooperative. Good eye contact. Mood: Depressed Affect:Congruent to stated mood Speech: Normal tone and pace Thought Process: Goal oriented Thought Content: Suicidal Suicidal Ideation: Yes Homicidal Ideation: Denies Hallucinations: Denies Delusions: None elicited Insight and Judgment: Limited Memory/Cognition: Limited Assessment and Plan (1)Depression Treatment Plan 1013 Continue home medications as previously prescribed. Start Zoloft 25mg po daily Start Trazodone 50mg po QHS Risks, benefits and alternatives of medications discussed with the patient, questions answered and consent obtained from patient. PSYCHOTHERAPY: Supportive psychotherapy provided MEDICAL: Per primary team DELIRIUM PRECAUTIONS: Please re-orient patient frequently, keep lights on during the day, and minimize benzodiazepines and opiates as these medications could worsen patient's confusion. 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 Will follow. Thank you for the consult. Please contact with any questions and/or concerns. Case discussed with Dr. Henley who agrees with current disposition Medications and Allergies Medications and Allergies Allergies Allergy/AdvReac Type Severity Reaction Status Date / Time vancomycin Allergy Hives Verified 04/21/19 21:21 Home Medications Medication Instructions Recorded Confirmed Last Taken Type ALPRAZolam [Xanax TAB] 1 mg PO DAILY PRN 02/11/18 05/05/21 09/12/19 History Clopidogrel Bisulfate [Plavix] 75 mg PO DAILY 02/11/18 05/05/21 09/12/19 History Gabapentin 300 mg PO TID 02/11/18 05/05/21 09/12/19 History Metoprolol [Lopressor TAB] 50 mg PO BID 02/11/18 05/05/21 09/12/19 History Pantoprazole [Protonix TAB] 40 mg PO DAILY 02/11/18 05/05/21 09/12/19 History Pravastatin Sodium [Pravastatin] 20 mg PO QHS 02/11/18 05/05/21 09/12/19 History Cholecalciferol (Vitamin D3) 1 tab PO DAILY 04/21/19 05/05/21 09/12/19 History [Vitamin D3 2,000 UNIT CAP] Ferrous Gluconate [Ferrous 1 tab PO BID 04/21/19 05/05/21 09/12/19 History Gluconate 324 MG] amLODIPine 10 mg PO DAILY 04/21/19 05/05/21 09/12/19 History ISOSORBIDE MONOnitrate [Imdur ER] 30 mg PO QDAY #30 tablet 04/24/19 05/05/21 09/12/19 Rx Albuterol Mdi (or & Nicu Only) 1 puff IH TID 05/05/21 05/05/21 Unknown History [ProAir HFA Inhaler] Furosemide [Lasix TAB] 1 tab PO DAILY 05/05/21 05/05/21 Unknown History Umeclidinium Brm/Vilanterol Tr 1 each IH DAILY 05/05/21 05/05/21 Unknown History [Anoro Ellipta 62.5-25 Mcg INH] Active Meds: Active Medications Albuterol (Albuterol 2.5 Mg/3 Ml Nebu) 2.5 mg IH Q8HRT [facility] Amlodipine Besylate (Amlodipine 5 Mg Tab) 5 mg PO DAILY [facility] Last Admin: 02/10/22 10:09 Dose: 5 mg Cholecalciferol (Cholecalciferol (Vit D3) 1000 Unit (25 Mcg) Tab) 2,000 unit PO DAILY [facility] Last Admin: 02/10/22 10:08 Dose: 2,000 unit Clopidogrel Bisulfate (Clopidogrel 75 Mg Tab) 75 mg PO DAILY [facility] Last Admin: 02/10/22 10:08 Dose: 75 mg Metoprolol Tartrate (Metoprolol Tartrate 25 Mg Tab) 50 mg PO BID [facility] Last Admin: 02/10/22 10:08 Dose: 50 mg Miscellaneous Medication (Umeclidinium Brm/Vilanterol Tr [Anoro Ellipta 62.5-25 Mcg Inh]) 1 each PO DAILY [facility] Pantoprazole Sodium (Pantoprazole 40 Mg Tab) 40 mg PO QDAC [facility] Last Admin: 02/10/22 10:08 Dose: 40 mg Pravastatin Sodium (Pravastatin 20 Mg Tab) 20 mg PO QHS [facility] Sodium Bicarbonate (Sodium Bicarbonate 650 Mg Tab) 1,300 mg PO TID [facility] Mental Status Exam - Vital signs Last Vital Signs Temp 97.6 F 02/10/22 10:02 Pulse 114 H 02/10/22 10:09 Resp 16 02/10/22 10:02 BP 168/91 02/10/22 10:09 Pulse Ox 98 02/10/22 10:02 Results Result Diagrams: 02/09/22 23:04 02/09/22 23:04 Abnormal lab results 02/09/22 02/09/22 02/09/22 Range/Units 23:04 23:04 23:04 RDW (13.2-15.2) % [place] % (Auto) (0.0-7.3) % Seg Neutrophils % (40.0-70.0) % Chloride 108.8 H (98-107) mmol/L Carbon Dioxide 17 L (22-30) mmol/L BUN 41 H (7-17) mg/dL Creatinine 2.6 H (0.6-1.2) mg/dL Glucose 125 H (65-100) mg/dL Calcium 10.7 H (8.4-10.2) mg/dL Salicylates < 0.3 L (2.8-20.0) mg/dL Acetaminophen 5.0 L (10.0-30.0) ug/mL 02/09/22 Range/Units 23:04 RDW 16.0 H (13.2-15.2) % [place] % (Auto) 8.0 H (0.0-7.3) % Seg Neutrophils % 73.4 H (40.0-70.0) % Chloride (98-107) mmol/L Carbon Dioxide (22-30) mmol/L BUN (7-17) mg/dL Creatinine (0.6-1.2) mg/dL Glucose (65-100) mg/dL Calcium (8.4-10.2) mg/dL Salicylates (2.8-20.0) mg/dL Acetaminophen (10.0-30.0) ug/mL All other labs normal.
--- NOTE | 2022-02-10 11:29 | Event Note ---
Date: 02/10/22 Patient seen by [facility] and continues to be on the 1013. No acute events overnight
[2022-02-10] MEDS ORDERED: SERTRALINE 25 MG TAB PO SCH (12:00)
[2022-02-10] MEDS ORDERED: PRAVASTATIN 20 MG TAB PO SCH (22:00)
[2022-02-10] MEDS ORDERED: traZODone 50 MG TAB PO SCH (22:00)
[2022-02-10] MEDS ORDERED: NON-FORMULARY EACH (Pravastatin Sodium [Pravastatin] 10 MG Tablet) PO SCH (22:00)
[2022-02-11] MEDS: METOPROLOL TARTRATE 25 MG TAB PO SCH (06:32)
[2022-02-11 09:29] VITALS: BP 125/52
== END 2022-02-11 09:44 ==
LOC: ED 20:08
DX: R45.851 Suicidal ideations (principal); N18.9 Chronic kidney disease, unspecified; J44.9 Chronic obstructive pulmonary disease, unspecified; Z13.30 Encounter for screening examination for mental health and behavioral disorders, unspecified; Z20.822 Contact with and (suspected) exposure to COVID-19
CPT/HCPCS: 36415; 80048; 80307; 81001; 85025; 94640; 99285; U0003; 80320; G0480

== ENCOUNTER 2022-08-18 07:03 | Inpatient (IN) | payer MEDICARE, OTHER ==
[2022-08-18] MEDS ORDERED: ALBUTEROL 2.5 MG/3 ML NEBU IH ONE (07:39)
[2022-08-18] MEDS ORDERED: methylPREDNISolone Sod Succinate 125 MG/2 ML INJ IV ONE (07:39)
[2022-08-18] MEDS ORDERED: IPRATROPIUM 0.02% NEBU 2.5 ML IH ONE (07:39)
[2022-08-18] MEDS ORDERED: ACETAMINOPHEN 325 MG TAB PO STA (07:39)
--- NOTE | 2022-08-18 07:55 | Emergency Department Report ---
ED General Adult HPI - General Chief complaint: Fall Stated complaint: FALL/BACK PAIN Time Seen by Provider: 08/18/22 07:29 Source: patient, EMS (Verbal report received from emergency medical services. EMS documentation not available at time of chart dictation ), RN notes reviewed, old records reviewed Mode of arrival: Stretcher Limitations: Physical Limitation - History of Present Illness Initial comments: This is a 71-year-old female. Her past medical history is remarkable for chronic respiratory failure, on 2 L of home oxygen, for COPD. She also has a history of renal insufficiency, with a left upper extremity fistula and graft. She is not currently on hemodialysis. She has received 2 COVID-19 vaccinations but not her booster. She is brought to the hospital by emergency medical services. EMS reports that the patient has been weak, deconditioned, and basically slid out of a chair earlier on today. Recently, may have had a mechanical fall, and hit her right hip. She did not hit her head. The patient currently denies headache, neck pain, chest pain, abdominal pain, vomiting, diarrhea. She denies focal extremity weakness and numbness. She has chronic shortness of breath. She thinks that she might have mild dysuria. She has right hip pain, and right paralumbar back pain. As per EMS, patient lives at home with family, the patient does not have a cane or walker. EMS reports 2 or 3 stairs at home. No fevers or chills. No loss of taste or smell. Patient slid out of a chair, and was not able to get up. -: Sudden Consistency: constant Improves with: rest Worsens with: movement - Related Data Home Medications Medication Instructions Recorded Confirmed Last Taken ALPRAZolam [Xanax TAB] 1 mg PO DAILY PRN 02/11/18 05/05/21 09/12/19 Clopidogrel Bisulfate [Plavix] 75 mg PO DAILY 02/11/18 05/05/21 09/12/19 Gabapentin 300 mg PO TID 02/11/18 05/05/21 09/12/19 Metoprolol [Lopressor TAB] 50 mg PO BID 02/11/18 05/05/21 09/12/19 Pantoprazole [Protonix TAB] 40 mg PO DAILY 02/11/18 05/05/21 09/12/19 Pravastatin Sodium [Pravastatin] 20 mg PO QHS 02/11/18 05/05/21 09/12/19 Cholecalciferol (Vitamin D3) 1 tab PO DAILY 04/21/19 05/05/21 09/12/19 [Vitamin D3 2,000 UNIT CAP] Ferrous Gluconate [Ferrous 1 tab PO BID 04/21/19 05/05/21 09/12/19 Gluconate 324 MG] amLODIPine 10 mg PO DAILY 04/21/19 05/05/21 09/12/19 Albuterol Mdi (or & Nicu Only) 1 puff IH TID 05/05/21 05/05/21 Unknown [ProAir HFA Inhaler] Furosemide [Lasix TAB] 1 tab PO DAILY 05/05/21 05/05/21 Unknown Umeclidinium Brm/Vilanterol Tr 1 each IH DAILY 05/05/21 05/05/21 Unknown [Anoro Ellipta 62.5-25 Mcg INH] Previous Rx's Medication Instructions Recorded Last Taken Type ISOSORBIDE MONOnitrate [Imdur ER] 30 mg PO QDAY #30 tablet 04/24/19 09/12/19 Rx Allergies Allergy/AdvReac Type Severity Reaction Status Date / Time vancomycin Allergy Hives Verified 04/21/19 21:21 ED Review of Systems ROS: Stated complaint: FALL/BACK PAIN Other details as noted in HPI Constitutional: denies: fever Eyes: denies: eye discharge ENT: denies: epistaxis Respiratory: cough (Chronic cough. Chronic shortness of breath.), shortness of breath Cardiovascular: denies: chest pain Gastrointestinal: denies: abdominal pain Genitourinary: dysuria Musculoskeletal: back pain, arthralgia Neurological: weakness (Generalized weakness) ED Past Medical Hx - Past Medical History Previous Medical History?: Yes Hx Hypertension: Yes Hx Heart Attack/AMI: Yes (2016) Hx Renal Disease: Yes (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/19) Hx Arthritis: Yes Hx COPD: Yes Hx HIV: No Additional medical history: Distal AAA 3.4 cm 02/11/2018 - Surgical History Past Surgical History?: Yes Hx Coronary Stent: Yes Hx Cholecystectomy: Yes Hx Appendectomy: Yes Additional Surgical History: Hysterectomy, l't leg , back surgery, bovine transcatheter aortic heart valve replacement, ovarian cyst removal - Social History Smoking Status: Former Smoker Substance Use Type: None - Medications Home Medications: Home Medications Medication Instructions Recorded Confirmed Last Taken Type ALPRAZolam [Xanax TAB] 1 mg PO DAILY PRN 02/11/18 05/05/21 09/12/19 History Clopidogrel Bisulfate [Plavix] 75 mg PO DAILY 02/11/18 05/05/21 09/12/19 History Gabapentin 300 mg PO TID 02/11/18 05/05/21 09/12/19 History Metoprolol [Lopressor TAB] 50 mg PO BID 02/11/18 05/05/21 09/12/19 History Pantoprazole [Protonix TAB] 40 mg PO DAILY 02/11/18 05/05/21 09/12/19 History Pravastatin Sodium [Pravastatin] 20 mg PO QHS 02/11/18 05/05/21 09/12/19 History Cholecalciferol (Vitamin D3) 1 tab PO DAILY 04/21/19 05/05/21 09/12/19 History [Vitamin D3 2,000 UNIT CAP] Ferrous Gluconate [Ferrous 1 tab PO BID 04/21/19 05/05/21 09/12/19 History Gluconate 324 MG] amLODIPine 10 mg PO DAILY 04/21/19 05/05/21 09/12/19 History ISOSORBIDE MONOnitrate [Imdur ER] 30 mg PO QDAY #30 tablet 04/24/19 05/05/21 09/12/19 Rx Albuterol Mdi (or & Nicu Only) 1 puff IH TID 05/05/21 05/05/21 Unknown History [ProAir HFA Inhaler] Furosemide [Lasix TAB] 1 tab PO DAILY 05/05/21 05/05/21 Unknown History Umeclidinium Brm/Vilanterol Tr 1 each IH DAILY 05/05/21 05/05/21 Unknown History [Anoro Ellipta 62.5-25 Mcg INH] ED Physical Exam - General Limitations: No Limitations General appearance: alert, in no apparent distress - Head Head exam: Present: atraumatic, normocephalic - Eye Eye exam: Present: normal appearance, EOMI. Absent: nystagmus - ENT ENT exam: Present: normal exam, normal orophraynx, mucous membranes moist, normal external ear exam - Neck Neck exam: Present: normal inspection, full ROM. Absent: tenderness, meningismus - Respiratory Respiratory exam: Present: normal lung sounds bilaterally, rales. Absent: respiratory distress - Cardiovascular Cardiovascular Exam: Present: regular rate, normal rhythm, normal heart sounds. Absent: bradycardia, tachycardia, irregular rhythm, systolic murmur, diastolic murmur, rubs, gallop - GI/Abdominal GI/Abdominal exam: Present: soft. Absent: distended, tenderness, guarding, r ebound, rigid, pulsatile mass - Extremities Exam Extremities exam: Present: normal inspection (2+ pulses noted to the bilateral upper and lower extremities. The upper extremities are nontender. The left lower extremity is nontender. The hip on the left side is not tender), full ROM, tenderness (The right lateral hip is point tender), pedal edema, other (Th ere is a left upper extremity graft/fistula, with an appropriate thrill, no tenderness, no redness, pus or streaking). Absent: calf tenderness - Back Exam Back exam: Present: normal inspection, paraspinal tenderness. Absent: tenderness, CVA tenderness (R), muscle spasm, vertebral tenderness - Neurological Exam Neurological exam: Present: alert, oriented X3, other (No facial droop. Tongue midline. Extraocular movements intact bilaterally. Facial sensation intact to light touch in V1, V2, V3 distribution bilaterally. 5 and a 5 strength in 4 extremities. Sensation intact to light touch in 4 extremities.). Absent: motor sensory deficit - Psychiatric Psychiatric exam: Present: flat affect - Skin Skin exam: Present: warm, dry, intact, normal color. Absent: rash ED Course Vital Signs 08/18/22 08/18/22 08/18/22 07:03 07:59 08:09 Temperature 97.8 F Pulse Rate 71 Pulse Rate [ 76 Bilateral] Respiratory 18 Rate Respiratory 18 Rate [Bilateral ] Blood Pressure 146/73 O2 Sat by Pulse 93 100 Oximetry 08/18/22 08/18/22 08/18/22 08:16 08:30 08:46 Temperature Pulse Rate 74 81 77 Pulse Rate [ Bilateral] Respiratory 30 H 17 31 H Rate Respiratory Rate [Bilateral ] Blood Pressure 153/49 153/49 154/53 O2 Sat by Pulse 100 Oximetry 08/18/22 08/18/22 08/18/22 09:00 09:16 09:30 Temperature Pulse Rate 85 80 81 Pulse Rate [ Bilateral] Respiratory 17 26 H 28 H Rate Respiratory Rate [Bilateral ] Blood Pressure 154/53 154/53 154/53 O2 Sat by Pulse 89 90 92 Oximetry 08/18/22 09:46 Temperature Pulse Rate 82 Pulse Rate [ Bilateral] Respiratory 25 H Rate Respiratory Rate [Bilateral ] Blood Pressure 159/45 O2 Sat by Pulse 96 Oximetry - Reevaluation(s) Reevaluation #1: 08/18/22 07:56 Differential diagnosis, including not limited to: COPD, CHF, pneumonia, UTI, co ntusion, debility, deconditioning, fracture, dislocation Assessment and plan: 71-year-old female presenting with deconditioning and generalized debility. She is awake and alert, protecting airway, and moving 4 extremities. Sensation is intact to light touch, and she has appropriate movement of her upper or lower extremities. There is no midline spinal tenderness, there is downgoing plantar reflexes bilaterally, and she has brisk reflexes. I suspect generalized deconditioning. She may have underlying CHF or COPD exacerbation. We will treat her symptoms with albuterol, Atrovent, steroids, and Tylenol. We will obtain x-ray of the chest, and hip/pelvis, obtain urinalysis, EKG, and appropriate laboratory studies. We will reassess after initial data points. 08/18/22 10:29 Patient is found to have evidence of worsening renal insufficiency and congestive heart failure. X-rays do not show fracture or dislocation. Nonspecific lucency is required. Patient has chronic respiratory failure and is on 2 L of home oxygen. At this point in time, this patient likely requires initiation of hemodialysis. I have recommended admission to the medical service for congestive heart failure, with end-stage renal disease. Patient and family member are agreeable to the plan of care. High-dose Lasix is ordered. Contacted nephrology on-call, Dr. Richa Conti, covering cardiology for [facility] heart cardiology [employer] Himanshu Tao I discussed the patient's history, physical, laboratory studies and imaging studies and clinical impression. They will follow in consultation. Hospital physician, Dr. Yudith Urena, to admit patient to the medical service. I appreciate nonspecific lytic abnormality noted on pelvis x-ray. I do not suspect a fracture or dislocation. Have ordered noncontrast CT scan of the pelvis to better delineate. However, we will defer to the inpatient team to follow this up. 08/18/22 13:54 CT scan pelvis with no acute findings. Family updated - EJ/Peripheral Line Neck R Indications: nurses unable to establis Skin Cleansed in Sterile Fashion: Yes Size: 20 Dressing Placed: Tegaderm Patient Tolerated Procedure: well ED Medical Decision Making - Lab Data Result diagrams: 08/18/22 09:13 08/18/22 09:13 Vital Signs 08/18/22 08/18/22 07:03 07:59 Temperature 97.8 F Pulse Rate 71 Pulse Rate [ 76 Bilateral] Respiratory 18 Rate Respiratory 18 Rate [Bilateral ] Blood Pressure 146/73 O2 Sat by Pulse 93 Oximetry - EKG Data -: EKG Interpreted by Or - EKG Data 08/18/22 08:19 The EKG is interpreted at 08: 13 This is a sinus rhythm, with a ventricular rate of 74 bpm. There is a leftward axis deviation. There are multiple PVCs. There is atrial enlargement. The QTC is 4 7 5 ms. This is an abnormal EKG. This is not a STEMI. There is a left anterior fascicular block appreciated. - Radiology Data Radiology results: pending, report reviewed, image reviewed XR chest 1V ap INDICATION / CLINICAL INFORMATION: Dyspnea. COMPARISON: 05/03/2021 FINDINGS: SUPPORT DEVICES: None. HEART /PULMONARY VASCULATURE: Heart is enlarged. There is suggestion of mild pulmonary vasculature congestion. LUNGS / PLEURA: Chronic diffuse increased interstitial markings are unchanged. No focal airspace consolidation. No sizable pleural effusion. No pneumothorax. ADDITIONAL FINDINGS: No significant additional findings. IMPRESSION: 1. Cardiac enlargement with suggestion of mild congestion of the pulmonary vasculature. 2. Stable chronic interstitial lung changes. No focal infiltrate. Signer Name: Leonardo Batista MD Signed: 08/18/2022 7:16 AM Workstation Name: [email or web address] XR hip 2-3V RT INDICATION / CLINICAL INFORMATION: fall rt hip pain. COMPARISON: CT from 05/03/2021 FINDINGS: No acute fracture or malalignment. There is moderate hip osteoarthritis. There is suggestion of rounded lucency within the left femoral head. This could reflect avascular necrosis, though unable to exclude lytic lesion. Recommend correlation with CT. Signer Name: Leonardo Batista MD Signed: 08/18/2022 7:26 AM Workstation Name: [id number] CT PELVIS WITHOUT CONTRAST INDICATION / CLINICAL INFORMATION: fall hip pain lucency on x ray. TECHNIQUE: Axial CT images were obtained through the pelvis without contrast. All CT scans at this location are performed using CT dose red uction for ALARA by means of automated exposure control. COMPARISON: Same day hip radiographs. FINDINGS: BONES: No fracture. No osseous lesion. HIP JOINTS: Mild arthrosis. SACROILIAC JOINTS: No significant abnormality. SOFT TISSUES: No significant abnormality. LOWER LUMBAR SPINE: No significant abnormality. SOFT TISSUES WITHIN PELVIS: Partial visualization of known abdominal aortic aneurysm. There is a left inguinal hernia that contains bowel that projects just anteriorly to the femoral head. No obstruction. 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 ADDITIONALFINDINGS: None. IMPRESSION: 1. No osseous lesion or fracture. Left inguinal hernia likely source of radiographic lucency. 2. Other observations as above. Signer Name: Matt Clay MD Signed: 08/18/2022 10:03 AM Workstation Name: [id number] Critical Care Time: Yes Critical care time in (mins) excluding proc time.: 35 Critical care attestation.: If time is entered above; I have spent that time in minutes in the direct care of this critically ill patient, excluding procedure time. ED Disposition Clinical Impression: Fall, Right hip pain, Physical deconditioning, COPD (chronic obstructive pulmonary disease), CKD (chronic kidney disease), Congestive heart failure Disposition: 09 ADMITTED INPATIENT Is pt being admited?: Yes Does the pt Need Aspirin: No Condition: Good
--- NOTE | 2022-08-18 08:21 | XRay Report ---
XR chest 1V ap INDICATION / CLINICAL INFORMATION: Dyspnea. COMPARISON: 05/03/2021 FINDINGS: SUPPORT DEVICES: None. HEART /PULMONARY VASCULATURE: Heart is enlarged. There is suggestion of mild pulmonary vasculature co ngestion. LUNGS / PLEURA: Chronic diffuse increased interstitial markings are unchanged. No focal airspace cons olidation. No sizable pleural effusion. No pneumothorax. ADDITIONAL FINDINGS: No significant additional findings. IMPRESSION: 1. Cardiac enlargement with suggestion of mild congestion of the pulmonary vasculature. 2. Stable chronic interstitial lung changes. No focal infiltrate. Signer Name: Leonardo Batista MD Signed: 08/18/2022 8:16 AM Workstation Name: [email or web address]
--- NOTE | 2022-08-18 08:31 | XRay Report ---
XR hip 2-3V RT INDICATION / CLINICAL INFORMATION: fall rt hip pain. COMPARISON: CT from 05/03/2021 FINDINGS: No acute fracture or malalignment. There is moderate hip osteoarthritis. There is suggestion of round ed lucency within the left femoral head. This could reflect avascular necrosis, though unable to excl ude lytic lesion. Recommend correlation with CT. Signer Name: Leonardo Batista MD Signed: 08/18/2022 8:26 AM Workstation Name: [id number]
[2022-08-18 09:31] LABS: Basophils % (Auto) 0.4 % (0.0-1.8); Eosinophils # (Auto) 0.1 K/mm3 (0.0-0.4); Eosinophils % (Auto) 1.2 % (0.0-4.3); Hematocrit 33.7 % (30.3-42.9); Hemoglobin 10.7 gm/dl (10.1-14.3); Lymphocytes # (Auto) 1.5 K/mm3 (1.2-5.4); Lymphocytes % (Auto) 14.3 % (13.4-35.0); Mean Corpuscular HGB Conc 32 % (30-34); Mean Corpuscular Volume 84 fl (79-97); Monocytes # (Auto) 0.9 K/mm3 (0.0-0.8); Monocytes % (Auto) 8.5 % (0.0-7.3); Platelet Count 279 K/mm3 (140-440); Red Blood Count 3.99 M/mm3 (3.65-5.03)
[2022-08-18 09:52] LABS: Alanine Aminotransferase 12 units/L (7-56); Albumin 4.6 g/dL (3.9-5); BUN/Creatinine Ratio 16; Blood Urea Nitrogen 47 mg/dL (7-17); Calcium 9.7 mg/dL (8.4-10.2); Hemolysis Index 4
[2022-08-18 09:58] LABS: Bilirubin,Urine NEG (Negative); Blood,Urine SM (Negative); Color,Urine Straw (Yellow); RBC,Urine < 1.0 /HPF (0.0-6.0); Urobilinogen,Urine < 2 mg/dL (<2.0); WBC,Urine < 1.0 /HPF (0.0-6.0)
[2022-08-18] MEDS ORDERED: FUROSEMIDE 40 MG/4 ML INJ IV ONE (10:01)
[2022-08-18 10:12] LABS: INR 0.91 (0.87-1.13)
--- NOTE | 2022-08-18 11:07 | Cat Scan Report ---
CT PELVIS WITHOUT CONTRAST INDICATION / CLINICAL INFORMATION: fall hip pain lucency on x ray. TECHNIQUE: Axial CT images were obtained through the pelvis without contrast. All CT scans at this [facility] are performed using CT dose reduction for ALARA by means of automated exposure control. COMPARISON: Same day hip radiographs. FINDINGS: BONES: No fracture. No osseous lesion. HIP JOINTS: Mild arthrosis. SACROILIAC JOINTS: No significant abnormality. SOFT TISSUES: No significant abnormality. LOWER LUMBAR SPINE: No significant abnormality. SOFT TISSUES WITHIN PELVIS: Partial visualization of known abdominal aortic aneurysm. There is a left inguinal hernia that contains bowel that projects just anteriorly to the femoral head. No obstructio n. 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 ADDITIONALFINDINGS: None. IMPRESSION: 1. No osseous lesion or fracture. Left inguinal hernia likely source of radiographic lucency. 2. Other observations as above. Signer Name: Matt Clay MD Signed: 08/18/2022 11:03 AM Workstation Name: [id number]
--- NOTE | 2022-08-18 11:28 | Consultation ---
History of Present Illness - Reason for Consult Consult date: 08/18/22 acute renal failure, chronic renal failure - History of Present Illness The patient is a 71 YO female with history significant for Hypertension, DM type 2, COPD, chronic respiratory failure on 2 L of home oxygen, CKD stage 4/5, CAD, AAA and peripheral neuropathy who was brought to [facility] ED 08/18/22 by EMS with weakness and and slid out of a chair earlier on today. Patient is a poor historian. Recently, she may have had a mechanical fall, and hit her right hip. No h/o head injury, N, V, D, abd pain, cp, worsening shortness of breath from her baseline, leg swelling, fever, chills, dizziness or syncope. She has receiv ed 2 COVID-19 vaccinations but not her booster. Labs significant for Creatinine is 3 and BUN 47. Patient follows with . Nephrology was consulted for further evaluation of advanced CKD / RAMU. Past History Past Medical History: other (See HPI.) Medications and Allergies Allergies Allergy/AdvReac Type Severity Reaction Status Date / Time vancomycin Allergy Hives Verified 04/21/19 21:21 Home Medications Medication Instructions Recorded Confirmed Last Taken Type ALPRAZolam [Xanax TAB] 1 mg PO DAILY PRN 02/11/18 05/05/21 09/12/19 History Clopidogrel Bisulfate [Plavix] 75 mg PO DAILY 02/11/18 05/05/21 09/12/19 History Gabapentin 300 mg PO TID 02/11/18 05/05/21 09/12/19 History Metoprolol [Lopressor TAB] 50 mg PO BID 02/11/18 05/05/21 09/12/19 History Pantoprazole [Protonix TAB] 40 mg PO DAILY 02/11/18 05/05/21 09/12/19 History Pravastatin Sodium [Pravastatin] 20 mg PO QHS 02/11/18 05/05/21 09/12/19 History Cholecalciferol (Vitamin D3) 1 tab PO DAILY 04/21/19 05/05/21 09/12/19 History [Vitamin D3 2,000 UNIT CAP] Ferrous Gluconate [Ferrous 1 tab PO BID 04/21/19 05/05/21 09/12/19 History Gluconate 324 MG] amLODIPine 10 mg PO DAILY 04/21/19 05/05/2109/12/19 History ISOSORBIDE MONOnitrate [Imdur ER] 30 mg PO QDAY #30 tablet 04/24/19 05/05/21 09/12/19 Rx Albuterol Mdi (or & Nicu Only) 1 puff IH TID 05/05/21 05/05/21 Unknown History [ProAir HFA Inhaler] Furosemide [Lasix TAB] 1 tab PO DAILY 05/05/21 05/05/21 Unknown History Umeclidinium Brm/Vilanterol Tr 1 each IH DAILY 05/05/21 05/05/21 Unknown History [Anoro Ellipta 62.5-25 Mcg INH] Review of Systems All systems: negative Exam - Vital Signs Vital signs: Vital Signs Temp Pulse Resp BP Pulse Ox 97.8 F 71 18 146/73 93 08/18/22 07:03 08/18/22 07:03 08/18/22 07:03 08/18/22 07:03 08/18/22 07:03 Results - Lab Results 08/18/22 09:13 08/18/22 09:13 Most recent lab results Calcium 9.7 mg/dL (8.4-10.2) 08/18/22 09:13 Magnesium 2.20 mg/dL (1.7-2.3) 08/18/22 09:13 Assessment and Plan 1. Acute kidney injury / CKD-5: Patient with known h/o CKD stage 4/5. Renal function appears to be around her baseline. Has functioning L arm AVF/AVG. Monitor renal function. Renal prognosis is guarded. Avoid nephrotoxic agents. Meds dosage based on GFR. 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 Patiet agreeable for dialysis if needed. 2. FEN: Volume overload, IV Lasix. Limit salt and fluid intake. Monitor lytes and volume status. 3. CHF: Followed by Cards. Monitor. 4. Chronic respiratory failure: H/o COPD on home O2. NC O2. Monitor. 5. S/p fall: Fall precaution. 6. H/o Abdominal aortic aneurysm / S/p TAVR with bioprosthesis valve. 7. Hypertension. 8. DM type 2. Subjective: Patient was seen and examined at the bedside. Examination: General appearance: well-developed, well-nourished, not in distress HEENT: ATNC, MARK, hearing intact Neck: supple, tarchea midline Respiratory: bilateral rales heard Heart: regular, S1S2, no murmur Gastrointestinal: normoactive bowel sounds, not tender Integumentary: no rash, warm and dry Neurologic: conversing, able to move extremities Ext: no edema Hemodialysis access: L arm AVF/AVG Psychiatric: cooperative
--- NOTE | 2022-08-18 11:32 | History and Physical Report ---
History of Present Illness Date of examination: 08/18/22 Date of admission: 08/18/2022 Chief complaint: Right hip pain and decreased mobility History of present illness: This is a 71-year-old female. Her past medical history is remarkable for chronic respiratory failure, on 2 L of home oxygen, for COPD. She also has a history of renal insufficiency, with a left upper extremity fistula and graft. She is not currently on hemodialysis. She has received 2 COVID-19 vaccinations but not her booster. She is brought to the hospital by emergency medical services. EMS reports that the patient has been weak, deconditioned, and basically slid out of a chair earlier on today. Recently, may have had a mechanical fall, and hit her right hip. She did not hit her head. She denies focal extremity weakness and numbness. She has right hip pain, and right paralumbar back pain. No chest pain or worsening shortness of breath from her baseline. Patient's primary complaint is the deconditioned state and less mobility from her baseline. Past History Past Medical History: COPD, hypertension, other (Chronic kidney disease, obe sity) Medications and Allergies Allergies Allergy/AdvReac Type Severity Reaction Status Date / Time vancomycin Allergy Hives Verified 04/21/19 21:21 Home Medications Medication Instructions Recorded Confirmed Last Taken Type ALPRAZolam [Xanax TAB] 1 mg PO DAILY PRN 02/11/18 05/05/21 09/12/19 History Clopidogrel Bisulfate [Plavix] 75 mg PO DAILY 02/11/18 05/05/21 09/12/19 History Gabapentin 300 mg PO TID 02/11/18 05/05/21 09/12/19 History Metoprolol [Lopressor TAB] 50 mg PO BID 02/11/18 05/05/21 09/12/19 History Pantoprazole [Protonix TAB] 40 mg PO DAILY 02/11/18 05/05/21 09/12/19 History Pravastatin Sodium [Pravastatin] 20 mg PO QHS 02/11/18 05/05/21 09/12/19 History Cholecalciferol (Vitamin D3) 1 tab PO DAILY 04/21/19 05/05/21 09/12/19 History [Vitamin D3 2,000 UNIT CAP] Ferrous Gluconate [Ferrous 1 tab PO BID 04/21/19 05/05/21 09/12/19 History Gluconate 324 MG] amLODIPine 10 mg PO DAILY 04/21/19 05/05/21 09/12/19 History ISOSORBIDE MONOnitrate [Imdur ER] 30 mg PO QDAY #30 tablet 04/24/19 05/05/21 09/12/19 Rx Albuterol Mdi (or & Nicu Only) 1 puff IH TID 05/05/21 05/05/21 Unknown History [ProAir HFA Inhaler] Furosemide [Lasix TAB] 1 tab PO DAILY 05/05/21 05/05/21 Unknown History Umeclidinium Brm/Vilanterol Tr 1 each IH DAILY 05/05/21 05/05/21 Unknown History [Anoro Ellipta 62.5-25 Mcg INH] Review of Systems All systems: negative Exam - Constitutional Vitals: Temp Pulse Resp BP Pulse Ox 97.8 F 82 25 H 159/45 96 08/18/22 07:03 08/18/22 09:46 08/18/22 09:46 08/18/22 09:46 08/18/22 09:46 General appearance: Present: no acute distress, well-nourished - EENT Eyes: Present: PERRL ENT: hearing intact, clear oral mucosa - Neck Neck: Present: supple, normal ROM - Respiratory Respiratory effort: normal Respiratory: bilateral: CTA - Cardiovascular Heart Sounds: Present: S1 & S2. Absent: rub, click - Extremities Extremities: pulses symmetrical, No edema Peripheral Pulses: within normal limits - Abdominal General gastrointestinal: Present: soft, non-tender, non-distended, normal bowel sounds Female genitourinary: Present: normal - Integumentary Integumentary: Present: clear, warm, dry - Musculoskeletal Musculoskeletal: gait normal, strength equal bilaterally - Psychiatric Psychiatric: appropriate mood/affect, intact judgment & insight - Neurologic Neurologic: CNII-XII intact, moves all extremities HEART Score - HEART Score Troponin: Troponin T < 0.010 ng/mL (0.00-0.029) 08/18/22 09:13 Results - Labs CBC & Chem 7: 08/18/22 09:13 08/18/22 09:13 Labs: Laboratory Last Values WBC 10.2 K/mm3 (4.5-11.0) 08/18/22 09:13 RBC 3.99 M/mm3 (3.65-5.03) 08/18/22 09:13 Hgb 10.7 gm/dl (10.1-14.3) 08/18/22 09:13 Hct 33.7 % (30.3-42.9) 08/18/22 09:13 MCV 84 fl (79-97) 08/18/22 09:13 MCH 27 pg (28-32) L 08/18/22 09:13 MCHC 32 % (30-34) 08/18/22 09:13 RDW 16.0 % (13.2-15.2) H 08/18/22 09:13 Plt Count 279 K/mm3 (140-440) 08/18/22 09:13 Lymph % (Auto) 14.3 % (13.4-35.0) 08/18/22 09:13 [place] % (Auto) 8.5 % (0.0-7.3) H 08/18/22 09:13 Eos % (Auto) 1.2 % (0.0-4.3) 08/18/22 09:13 Baso % (Auto) 0.4 % (0.0-1.8) 08/18/22 09:13 Lymph # (Auto) 1.5 K/mm3 (1.2-5.4) 08/18/22 09:13 [place] # (Auto) 0.9 K/mm3 (0.0-0.8) H 08/18/22 09:13 Eos # (Auto) 0.1 K/mm3 (0.0-0.4) 08/18/22 09:13 Baso # (Auto) 0.0 K/mm3 (0.0-0.1) 08/18/22 09:13 Seg Neutrophils % 75.6 % (40.0-70.0) H 08/18/22 09:13 Seg Neutrophils # 7.7 K/mm3 (1.8-7.7) 08/18/22 09:13 PT 13.5 Sec. (12.2-14.9) 08/18/22 09:45 INR 0.91 (0.87-1.13) 08/18/22 09:45 Sodium 139 mmol/L (137-145) 08/18/22 09:13 Potassium 4.9 mmol/L (3.6-5.0) 08/18/22 09:13 Chloride 106.7 mmol/L (98-107) 08/18/22 09:13 Carbon Dioxide 19 mmol/L (22-30) L 08/18/22 09:13 Anion Gap 18 mmol/L 08/18/22 09:13 BUN 47 mg/dL (7-17) H 08/18/22 09:13 Creatinine 3.0 mg/dL (0.6-1.2) H 08/18/22 09:13 Estimated GFR 15 ml/min 08/18/22 09:13 BUN/Creatinine Ratio 16 % 08/18/22 09:13 Glucose 113 mg/dL (65-100) H 08/18/22 09:13 Calcium 9.7 mg/dL (8.4-10.2) 08/18/22 09:13 Magnesium 2.20 mg/dL (1.7-2.3) 08/18/22 09:13 Total Bilirubin 0.50 mg/dL (0.1-1.2) 08/18/22 09:13 AST 9 units/L (5-40) 08/18/22 09:13 ALT 12 units/L (7-56) 08/18/22 09:13 Alkaline Phosphatase 92 units/L (35-129) 08/18/22 09:13 Total Creatine Kinase 190 units/L (30-135) H 08/18/22 09:13 Troponin T < 0.010 ng/mL (0.00-0.029) 08/18/22 09:13 NT-Pro-B Natriuret Pep 72925 pg/mL (0-900) H 08/18/22 09:13 Total Protein 6.8 g/dL (6.3-8.2) 08/18/22 09:13 Albumin 4.6 g/dL (3.9-5) 08/18/22 09:13 Albumin/Globulin Ratio 2.1 % 08/18/22 09:13 Urine Color Straw (Yellow) 08/18/22 Unknown Urine Turbidity Clear (Clear) 08/18/22 Unknown Urine pH 6.0 (5.0-7.0) 08/18/22 Unknown Ur Specific [place] 1.009 (1.003-1.030) 08/18/22 Unknown Urine Protein 100 mg/dl mg/dL (Negative) 08/18/22 Unknown Urine Glucose (UA) Neg mg/dL (Negative) 08/18/22 Unknown Urine Ketones Neg mg/dL (Negative) 08/18/22 Unknown Urine Blood Sm (Negative) 08/18/22 Unknown Urine Nitrite Neg (Negative) 08/18/22 Unknown Urine Bilirubin Neg (Negative) 08/18/22 Unknown Urine Urobilinogen < 2 mg/dL (<2.0) 08/18/22 Unknown Ur Leukocyte Esterase Neg (Negative) 08/18/22 Unknown Urine WBC (Auto) < 1.0 /HPF (0.0-6.0) 08/18/22 Unknown Urine RBC (Auto) < 1.0 /HPF (0.0-6.0) 08/18/22 Unknown U Epithel Cells (Auto) < 1.0 /HPF (0-13.0) 08/18/22 Unknown SARS-CoV-2 (PCR) Negative (Negative) 08/18/22 10:12 Assessment and Plan Assessment and plan: Acute on chronic systolic heart failure Chronic hypoxic respiratory failure Chronic kidney disease stage IV. Hypertension. General debility/deconditioning. Right hip pain 08/18/2022. I do not suspect the patient has any change in her respiratory status from her baseline. Patient appears to have chronic respiratory failure with home O2 of 2 L. Patient currently comfortable without any respiratory distress at this time. Patient does appear to have some component of volume overload and acute on chronic systolic heart failure. Patient also with some worsening of her kidney disease with her GFR and creatinine increased. I suspect patient may have a component of cardiorenal syndrome. Patient does have an AV fistula and we will defer to nephrology with regards to initiation of hemodialysis. Nephrology consultation. I discussed the case with Dr. Peña and we will plan for high-dose Lasix and monitor next 24-48 hours. If no plans for hemodialysis this hospitalization, we will consider discharging home over the weekend. PT/OT evaluation for debility/deconditioning. CT scan and right hip plain films are negative for fracture. Check echocardiogram for further evaluation of LVEF. Patient with mild systolic dysfunction from echo 2019 revealing EF 40-45%. Cardiology consultation pending
[2022-08-18] MEDS ORDERED: ONDANSETRON 4 MG/2 ML INJ IV PRN (11:42)
[2022-08-18] MEDS ORDERED: MORPHINE 4 MG/1 ML INJ IV PRN (11:42)
[2022-08-18] MEDS ORDERED: HYDROcodone/ACETAMINOPHEN 5-325 MG TAB PO PRN (11:42)
[2022-08-18] MEDS ORDERED: ACETAMINOPHEN 325 MG TAB PO PRN (11:42)
[2022-08-18] MEDS ORDERED: HEPARIN 5,000 UNIT/1 ML VIAL SUB-Q SCH (12:00)
--- NOTE | 2022-08-18 12:49 | Consultation ---
History of Present Illness Consult date: 08/18/22 Requesting physician: SHA PAYNE Consult reason: congestive heart failure History of present illness: Patient is 71-year-old female with a past medical history of CKD, hypertension, chronic respiratory failure on home O2, s/p TAVR with bioprosthesis valve who presents to the ED for complaint of of falling out of the chair yesterday. History taken from patient and patient's daughter who was at bedside. They report that on Sunday patient sat down on chair and chair collapsed and patient fell to the floor with without hitting head. They report that the next day patient was having significant right hip pain and weakness. Later that evening they found patient lying on floor after slipping out of another chair and unable to get up. Patient transported to the ED for further evaluation. In the ED patient was found to have elevated BNP, and a creatinine of 3. At time of interview patient reports that she continues to have right hip pain. She also reports that she is chronically short of breath. She denies chest bilateral lower extremity edema, pain, nausea, vomiting, palpitations, d iaphoresis. Patient follows with Dr. Somers of our practice but has not been seen since 2019. Cardiology is consulted for CHF Past History Past Medical History: COPD, hypertension, other (Chronic kidney disease, obesity, ) Past Surgical History: appendectomy, cholecystectomy, hysterectomy, Other (S/p TAVR) Social history: lives with family, smoking Family history: CAD, diabetes, hypertension Medications and Allergies Allergies Allergy/AdvReac Type Severity Reaction Status Date / Time vancomycin Allergy Hives Verified 04/21/19 21:21 Home Medications Medication Instructions Recorded Confirmed Last Taken Type ALPRAZolam [Xanax TAB] 1 mg PO DAILY PRN 02/11/18 05/05/21 09/12/19 History Clopidogrel Bisulfate [Plavix] 75 mg PO DAILY 02/11/18 05/05/21 09/12/19 History Gabapentin 300 mg PO TID 02/11/18 05/05/21 09/12/19 History Metoprolol [Lopressor TAB] 50 mg PO BID 02/11/18 05/05/21 09/12/19 History Pantoprazole [Protonix TAB] 40 mg PO DAILY 02/11/18 05/05/21 09/12/19 History Pravastatin Sodium [Pravastatin] 20 mg PO QHS 02/11/18 05/05/21 09/12/19 History Cholecalciferol (Vitamin D3) 1 tab PO DAILY 04/21/19 05/05/21 09/12/19 History [Vitamin D3 2,000 UNIT CAP] Ferrous Gluconate [Ferrous 1 tab PO BID 04/21/19 05/05/21 09/12/19 History Gluconate 324 MG] amLODIPine 10 mg PO DAILY 04/21/19 05/05/21 09/12/19 History ISOSORBIDE MONOnitrate [Imdur ER] 30 mg PO QDAY #30 tablet 04/24/19 05/05/21 09/12/19 Rx Albuterol Mdi (or & Nicu Only) 1 puff IH TID 05/05/21 05/05/21 Unknown History [ProAir HFA Inhaler] Furosemide [Lasix TAB] 1 tab PO DAILY 05/05/21 05/05/21 Unknown History Umeclidinium Brm/Vilanterol Tr 1 each IH DAILY 05/05/21 05/05/21 Unknown History [Anoro Ellipta 62.5-25 Mcg INH] Active Meds: Active Medications Acetaminophen (Acetaminophen 325 Mg Tab) 650 mg PO Q4H PRN PRN Reason: Pain MILD(1-3)/Fever >100.5/ZHANG Hydrocodone Bitart/Acetaminophen (Hydrocodone/Acetaminophen 5-325 Mg Tab) 2 each PO Q6H PRN PRN Reason: Pain, Moderate (4-6) Heparin Sodium (Porcine) (Heparin 5,000 Unit/1 Ml Vial) 5,000 unit SUB-Q BID NITESH Morphine Sulfate (Morphine 2 Mg/1 Ml Inj) 2 mg IV Q4H PRN PRN Reason: Pain, Severe (7-10) Ondansetron HCl (Ondansetron 4 Mg/2 Ml Inj) 4 mg IV Q8H PRN PRN Reason: Nausea And Vomiting Sodium Chloride (Sodium Chloride 0.9% 10 Ml Flush Syringe) 10 ml IV BID NITESH Sodium Chloride (Sodium Chloride 0.9% 10 Ml Flush Syringe) 10 ml IV PRN PRN PRN Reason: LINE FLUSH Review of Systems Constitutional: weakness, no weight loss, no weight gain, no fever Ears, nose, mouth and throat: no sinus pressure, no sinus pain Cardiovascular: shortness of breath (chronic), dyspnea on exertion (chronic), no chest pain, no orthopnea, no palpitations Respiratory: shortness of breath, dyspnea on exertion Gastrointestinal: no abdominal pain, no nausea, no vomiting Musculoskeletal: other (right hip pain), no neck stiffness, no neck pain Integumentary: no rash, no pruritis, no blisters Neurological: no head injury, no transient paralysis Psychiatric: no anxiety, no memory loss Endocrine: no cold intolerance, no heat intolerance Hematologic/Lymphatic: no easy bruising, no easy bleeding Physical Examination Vital Signs Temp Pulse Resp BP Pulse Ox 97.8 F 71 18 146/73 93 08/18/22 07:03 08/18/22 07:03 08/18/22 07:03 08/18/22 07:03 08/18/22 07:03 General appearance: no acute distress HEENT: Positive: PERRL Neck: Positive: trachea midline Cardiac: Positive: Reg Rate and Rhythm Lungs: Positive: Decreased Breath Sounds Neuro: Positive: Grossly Intact Abdomen: Positive: Soft Skin: Negative: Rash, Suspicious Lesions, Ulceration Extremities: Present: upper extr. pulses. Absent: edema Results 08/18/22 09:13 08/18/22 09:13 Cardiac Enzymes 08/18/22 Range/Units 09:13 AST 9 (5-40) units/L Coagulation 08/18/22 Range/Units 09:45 PT 13.5 (12.2-14.9) Sec. INR 0.91 (0.87-1.13) CBC 08/18/22 Range/Units 09:13 WBC 10.2 (4.5-11.0) K/mm3 RBC 3.99 (3.65-5.03) M/mm3 Hgb 10.7 (10.1-14.3) gm/dl Hct 33.7 (30.3-42.9) % Plt Count 279 (140-440) K/mm3 Lymph # (Auto) 1.5 (1.2-5.4) K/mm3 [place] # (Auto) 0.9 H (0.0-0.8) K/mm3 Eos # (Auto) 0.1 (0.0-0.4) K/mm3 Baso # (Auto) 0.0 (0.0-0.1) K/mm3 Comprehensive Metabolic Panel 08/18/22 Range/Units 09:13 Sodium 139 (137-145) mmol/L Potassium 4.9 (3.6-5.0) mmol/L Chloride 106.7 (98-107) mmol/L Carbon Dioxide 19 L (22-30) mmol/L BUN 47 H (7-17) mg/dL Creatinine 3.0 H (0.6-1.2) mg/dL Glucose 113 H (65-100) mg/dL Calcium 9.7 (8.4-10.2) mg/dL AST 9 (5-40) units/L ALT 12 (7-56) units/L Alkaline Phosphatase 92 (35-129) units/L Total Protein 6.8 (6.3-8.2) g/dL Albumin 4.6 (3.9-5) g/dL - Imaging and Cardiology Echo: pending, report reviewed EKG interpretations - Telemetry EKG Rhythm: Sinus Rhythm - EKG Sinus rhythms and dysrhythmias: sinus rhythm Ventricular dysrhythmias: ventricular premature com Assessment and Plan Patient is 71-year-old female with a past medical history of CKD, hypertension, chronic respiratory failure on home O2, s/p TAVR with bioprosthesis valve who presents to the ED for complaint of of falling out of the chair x 1day prior to admission Acute on chronic respiratory failure S/p fall Volume overload/CHF CKD-nephrology following COPD on home CO2 Abdominal aortic aneurysm S/p TAVR with bioprosthesis valve Hypertension Obesity Echocardiogram 01/28/2020- Normal LVsystolic function,moderate septal hypertrophy,normally functioning bioprosthetic aortic valve Nuclear medicine MPI stress test 02/06/2020 - normal stress myocardial perfusion imaging. Normal global LV systolic function with no significant wall motion abnormalities. EF: 58%. No evidence of significant stress-induced ischemia or prior infarction. This study suggests a low risk for cardiovascular event and is associated with a cardiac mortality of less than 1% per year. Outpatient cardiac medications: Amlodipine 5 mg p.o. daily, Plavix, Imdur 30 mg p.o. daily, metoprolol 50 mg p.o. twice daily, pravastatin 20 mg p.o. nightly Plan: EKG shows sinus rhythm 74 with ventricular bigeminy. No acute ischemic changes. Troponins negative x1. Patient denies any complaints of chest pain BNP noted to be elevated, CXR showed mild pulmonary congestion. Patient appears near euvolemic on exam with no bilateral lower extremity edema. Due to patient's renal function will defer volume management to nephrology as patient and patient's terrestrial ecologist reported patient is possibly supposed to be starting dialysis Patient and patient's terrestrial ecologist reports that there have been no changes to the medications since he last seen Dr. Hamilton. Will resume outpatient medication Echo pending No RUMA or ARB due to renal function No aspirin as patient has documented allergy to aspirin Patient seen in conjunction with Dr. Fay who agrees with plan of care - Patient Problems (1) Hx of aortic valve replacement Current Visit: No Status: Acute (2) COPD (chronic obstructive pulmonary disease) Current Visit: Yes Status: Chronic (3) CKD (chronic kidney disease) Current Visit: No Status: Chronic Qualifiers: Chronic kidney disease stage: stage 4 (severe) Qualified Code(s): N18.4 - Chronic kidney disease, stage 4 (severe) (4) Hypertension Current Visit: No Status: Chronic Qualifiers: Hypertension type: essential hypertension Qualified Code(s): I10 - Essential (primary) hypertension (5) S/P TAVR (transcatheter aortic valve replacement) Current Visit: No Status: Chronic (6) AAA (abdominal aortic aneurysm) Current Visit: No Status: Chronic (7) Fall Current Visit: Yes Status: Acute (8) Hypertension Current Visit: No Status: Chronic Qualifiers: Hypertension type: essential hypertension Qualified Code(s): I10 - Essential (primary) hypertension (9) Right hip pain Current Visit: Yes Status: Acute (10) Physical deconditioning Current Visit: Yes Status: Acute (11) Congestive heart failure Current Visit: Yes Status: Acute
[2022-08-18] MEDS ORDERED: METOPROLOL TARTRATE 50 MG TAB PO SCH (13:00)
[2022-08-18] MEDS ORDERED: MORPHINE 2 MG/1 ML INJ IV PRN (13:00)
[2022-08-18] MEDS: METOPROLOL TARTRATE 50 MG TAB PO SCH ×2 (16:36→21:45)
[2022-08-18 20:41] VITALS: BP 136/51
[2022-08-18] MEDS ORDERED: PRAVASTATIN 20 MG TAB PO SCH (22:00)
[2022-08-19] MEDS ORDERED: amLODIPine 5 MG TAB PO SCH (10:00)
[2022-08-19] MEDS ORDERED: CLOPIDOGREL 75 MG TAB PO SCH (10:00)
== END 2022-08-18 23:10 | disposition home health service (06) | DRG 291 ==
LOC: ED 07:03 → 4A 11:42
PROVIDERS: ADMIT Hospitalist; ATTEND Hospitalist
DX: I13.2 Hypertensive heart and chronic kidney disease with heart failure and with stage 5 chronic kidney disease, or end stage renal disease (principal); I50.33 Acute on chronic diastolic (congestive) heart failure; J96.21 Acute and chronic respiratory failure with hypoxia; E66.2 Morbid (severe) obesity with alveolar hypoventilation; N17.9 Acute kidney failure, unspecified; N18.5 Chronic kidney disease, stage 5; Z20.822 Contact with and (suspected) exposure to COVID-19; Z68.25 Body mass index [BMI] 25.0-25.9, adult; I25.10 Atherosclerotic heart disease of native coronary artery without angina pectoris; J44.9 Chronic obstructive pulmonary disease, unspecified; E11.22 Type 2 diabetes mellitus with diabetic chronic kidney disease; E66.9 Obesity, unspecified; D64.9 Anemia, unspecified; E11.42 Type 2 diabetes mellitus with diabetic polyneuropathy; I25.2 Old myocardial infarction; Z87.891 Personal history of nicotine dependence; Z90.710 Acquired absence of both cervix and uterus; M19.90 Unspecified osteoarthritis, unspecified site; Z90.49 Acquired absence of other specified parts of digestive tract; Z88.8 Allergy status to other drugs, medicaments and biological substances; M25.551 Pain in right hip; Z83.3 Family history of diabetes mellitus; Z82.49 Family history of ischemic heart disease and other diseases of the circulatory system
CPT/HCPCS: 36415; 71045; 72192; 80053; 81001; 82550; 83735; 83880; 84484; 85025; 85610; 93005; 94644; G0378; J1644; J1940; J2930; U0003